=== PATIENT | female | born 1935 | race Caucasian/White ===

== ENCOUNTER 2020-02-07 19:46 | Inpatient (IN) ==
--- OUTSIDE RECORDS SUMMARY | 2020-02-07 19:49 | External Medical Summary | Continuity of Care Document ---
:1935 Author Name Katelynn Lozoya Address Unavailable Unavailable , Care Team Providers Name Role Phone Bunny Worrell PA-C Unavailable [email or web address] Unavailable Assessments Assessed Problems:Impacted cerumen of both earsVertigoHearing lossEar ache Problems Vertigo (780.4) (R42) Ear ache (388.70) (H92.09) Hearing loss (389.9) (H91.90) Impacted cerumen of both ears (380.4) (H61.23) Functional Status Hearing loss Allergies and Adverse Reactions Bactrim TABS (Allergy) Medications Lipitor TABS Refills: 0 Osteo Bi-Flex Adv Joint Shield Oral Tablet Refills: 0 Calcium Citrate Plus TABS Refills: 0 Aspirin 81 MG TABS Refills: 0 Fish Oil CAPS Refills: 0 Procedures History of Cataract Surgery Status: Comp leted History of Total Abdominal Hysterectomy Status: Completed Immunizations Immunizations not documented Interventions Follow-ups/ReferralsFollow-up as needed; Done: 08 Jul 2014 Plan of Treatment Planned Observations Planned Goals not documented Results No Known Results Results not documented Encounters Appointment; Hiral Worrell PA-C 08-Jul-2014 10:15 Encounter Diagnosis: Problem not documented
[2020-02-07] MEDS ORDERED: FAMOTIDINE 20MG IV PUSH 20 MG/5 ML SYR IV STA (20:24)
[2020-02-07] MEDS ORDERED: PROCHLORPERAZINE 1 ML IV ONE (20:24)
[2020-02-07] MEDS ORDERED: SODIUM CHLORIDE 0.9% 1000ML 1,000 ML IV SCH (20:30)
--- NOTE | 2020-02-07 20:56 | XRay Report ---
XR chest 1V portable HISTORY: Atypical Chest Pain COMPARISON: Chest 04/28/2018. FINDINGS: The lungs are hyperexpanded with apical predominant emphysematous changes. The heart is nor mal in size. The lungs are clear. No pleural effusions. No pneumothorax. No evidence for pulmonary ed nde. IMPRESSION: No significant change compared to the prior study. No acute process. ACT 112: Negative or not required by law. Electronically signed by: Arsh Cavanaugh M.D. 02/07/2020 8:55 PM
[2020-02-07 21:05] LABS: Basophils # (auto) 0.01 K/uL (0-0.2); Basophils % (auto) 0.2 %; Eosinophils # (auto) 0.02 K/uL (0-0.5); Eosinophils % (auto) 0.3 %; Hematocrit (blood only) 32.6 % (37-47); Hemoglobin 10.7 g/dL (12.0-16.0); Immature Granulocytes # (auto) 0.01 K/uL (0.00-0.02); Immature Granulocytes % (auto) 0.2 %; Lymphocytes # (auto) 0.88 K/uL (1.2-3.4); Lymphocytes % (auto) 14.5 %; Mean Corpuscular Hemoglobin 28.8 pg (25-34); Mean Corpuscular Hgb Conc 32.8 g/dL (32-36); Mean Corpuscular Volume 87.6 fL (80-100); Mean Platelet Volume 10.8 fL (7.4-10.4); Monocytes # (auto) 0.43 K/uL (0.11-0.59); Monocytes % (auto) 7.1 %; Neutrophils % (auto) 77.7 %; Platelet Count 216 K/uL (130-400); RDW Coefficient of Variation 13.6 % (11.5-14.5); RDW Standard Deviation 43.6 fL (36.4-46.3); Red Blood Count 3.72 M/uL (4.2-5.4); White Blood Count 6.05 K/uL (4.8-10.8)
[2020-02-07 21:16] LABS: Partial Thromboplastin Ratio 0.8; Partial Thromboplastin Time 23.4 Seconds (21.0-31.0); Prothrombin Time 10.2 Seconds (9.0-12.0)
[2020-02-07 21:27] LABS: Alanine Aminotransferase 34 U/L (12-78); Albumin Level 3.5 gm/dl (3.4-5.0); Aspartate Aminotransferase 45 U/L (15-37); BUN Creatinine Ratio 16.3 (10-20); Bilirubin Direct < 0.1 mg/dl (0-0.2); Blood Urea Nitrogen 11 mg/dl (7-18); Calcium 8.7 mg/dl (8.5-10.1); Carbon Dioxide 28 mmol/L (21-32); Chloride 92 mmol/L (98-107); Creatinine Clr Calc Pharmacy 44.9 ml/min; Est GFR (African American) 92.9; Est GFR (Non-African American) 80.2; Glucose 135 mg/dl (70-99); Lipase 212 U/L (73-393); Potassium 3.6 mmol/L (3.5-5.1); Sodium 127 mmol/L (136-145)
[2020-02-07 21:30] LABS: Albumin Globulin Ratio 0.8 (0.9-2); Alkaline Phosphatase 86 U/L (45-117); Bilirubin,Total 0.5 mg/dl (0.2-1); Globulin 4.2 gm/dl (2.5-4.0); Phosphorus 2.6 mg/dl (2.5-4.9); Total Protein 7.7 gm/dl (6.4-8.2); Troponin I < 0.015 ng/ml (0-0.045)
[2020-02-07 22:01] LABS: Appearance Urine Clear (Clear); Bilirubin Urine Negative (Negative); Blood Urine Negative (Negative); Color Urine Yellow; Glucose Urine UA Negative (Negative); Ketones Urine Trace (Negative); Leukocyte Esterase Urine Negative (Negative); Nitrite Urine Negative (Negative); Protein Urine Negative (Negative); Specific Gravity Urine 1.008 (1.000-1.030); Urobilinogen Urine Negative (Negative)
--- NOTE | 2020-02-07 22:02 | Emergency Department Note ---
Impression & Plan COVID-19, Acute hyponatremia, Nausea & vomiting ED Provider Note NAME: MATTHEW DELEON AGE: 84 SEX: F ARRIVES VIA: Ambulance INFORMANT: Patient, ED PROVIDER(S): Jose Brock MD CHIEF COMPLAINT: Nausea, vomiting, abdominal pain. Exposure to covid19 PLAN: Disposition: Admit MEDICAL DECISION MAKING: The patient is a pleasant 84 y/o woman with a pmhx of CAD/NSTEMI who presents to the emergency department with abdominal pain, n/v with became worse today in the setting of having nausea and fatigue over the past several days in the setting of being exposed to her to was diagnosed with Covid19 and admitted to [facility] on . She reports decreased oral intake. Denies CP, sob, cough, congestion, or urinary sx. On arrival the patient is uncomfortable, fatigued appearing, in NAD, AFVSS. She appears clinically dry. Abdomen with generalized discomfort without discrete tenderness. EKG without evidence of acute ischemia. CXR negative for acute process. WBC wnl though with mild lymphopenia to 0.88. H/H approximate to prior. Platelets wnl. Chemistry without acidosis. Sodium 127 which is likely related to patient's poor oral intake in setting of her n/v. AST 45, nonspecific. Otherwise LFTs and electrolytes unremarkable. Troponin negative. Lipase wnl. TSH wnl. UA negative for infection. Covid-19 RNA, NAAT was positive. CT of the abdomen and pelvis negative for acute process per prelminary [facility] report. Patient reported marginal improved after IVF hydration however still very weak. Given the patient's hyponatremia with poor oral intake, in the setting of Covid19 infection, reasonable to admit for further management. Patient ultimately was agreeable but is worried about how will care for her who she believes was going to be discharged today but did not because she was coming to the hospital. I discussed with our ED CM who sent note to admission CM team to ensure coordination with the patient's team and disposition. Case was discussed with Dr. Mosquera, [facility] hospitalist, who will evaluate the patient for admission. Triage Nursing notes reviewed and agree them. Prior medical records reviewed Vital Signs: reviewed and remarkable for no significant abnormalities Differential diagnosis: Gastroenteritis, food borne illness, infections, appendicitis, diverticulitis, inflammatory bowel disease, obstruction, GI bleed, biliary pathology, volvulus, as well as other pathologies. ER treatment provided: See below. Diagnostics interpreted by me: ECG: NSR, 71 bpm, no ectopy, no overt ST elevation or depression. Cardiac Monitoring: An order for continuous cardiac monitoring was placed and demonstrated NSR, 71 bpm, no ectopy. Laboratory studies: See below Imaging studies: XR chest 1V portable HISTORY: Atypical Chest Pain COMPARISON: Chest 04/28/2018. FINDINGS: The lungs are hyperexpanded with apical predominant emphysematous changes. The heart is normal in size. The lungs are clear. No pleural effusions. No pneumothorax. No evidence for pulmonary edema. IMPRESSION: No significant change compared to the prior study. No acute process. [facility] Preliminary Findings Only See Final Report For Complete Findings CT ABDOMEN & PELVIS With Contrast: Calcified splenic granulomas. Liver, gallbladder, pancreas, adrenal glands are unremarkable. Symmetric renal enhancement. No hydronephrosis. Aortoiliac atherosclerosis. No aneurysm. Normal appendix. No bowel obstruction or inflammation. Distended urinary bladder. Uterus not visualized suggesting prior hysterectomy. Age-indeterminate 50% L1 superior endplate compression fracture. Age-indeterminate 20% L2 superior endplate compression fracture. Osteopenia. Lumbar scoliosis and spondylosis. Radiologist: Prakash Oconnell M.D. Study ready at 23:09 and initial results transmitted at 23:22 Consultation(s): [facility] the patient for [facility]. HPI: The patient is a pleasant 84 y/o woman with a pmhx of CAD/NSTEMI who presents to the emergency department with abdominal pain, n/v with became worse today in the setting of having nausea and fatigue over the past several days in the setting of being exposed to her to was diagnosed with Covid19 and admitted to [facility] on . She reports decreased oral intake. Denies CP, sob, cough, congestion, or urinary sx. ROS: See above HPI for pertinent positives & negatives. A total of 10 systems reviewed and were otherwise negative. PAST MEDICAL HISTORY:See Below PAST SURGICAL HISTORY:See Below FAMILY HISTORY:See Below SOCIAL HISTORY:See Below HOME MEDICATIONS:See Below ALLERGIES:See Below VITALS:See Below PHYSICAL EXAMINATION: GENERAL: Awake, alert, fatigued-appearing, in no distress HENT: Normocephalic, atraumatic. Oropharynx with dry mucous membranes and otherwise unremarkable. EYES: Normal conjunctiva. Sclera non-icteric. NECK: Supple. No nuchal rigidity. FROM. No JVD. RESPIRATORY: Clear to auscultation. CARDIAC: Regular rate, normal rhythm. Extremities warm and well perfused. Pulses equal. ABDOMEN: Soft, non-distended. Generalized abdominal discomfort without discrete tenderness to palpation. No rebound or guarding. No masses. RECTAL: Deferred. MUSCULOSKELETAL: Chest examination reveals no tenderness. The back is symmetrical on inspection without obvious abnormality. There is no CVA tenderness to palpation. No joint edema. LOWER EXTREMITIES: Calves are equal size bilaterally and non-tender. No edema. No discoloration. NEURO: Normal sensorium. No sensory or motor deficits noted. SKIN: No rash or jaundice noted. Jose Brock MD Past Med/Surg History Medical History (Updated 02/08/20 @ 04:21 by Jose Brock MD) Arthritis Non-ST elevation ME (NSTEMI) Social History Smoking Status: Never smoker Preferred Language: Tamaz[place] marital status: Current Living Situation: Spouse Feels Safe at Home: Yes Allergies Allergies Allergy/AdvReac Type Severity Reaction Status Date / Time Bactrim Allergy Unknown SHORTNESS Verified 05/24/13 12:17 OF BREATH, rash Sulfa (Sulfonamide Allergy Unknown SHORTNESS Verified 02/07/20 23:34 Antibiotics) OF BREATH, RASH sulfamethoxazole Allergy Unknown SHORTNESS Verified 02/07/20 23:34 OF BREATH, rash trimethoprim Allergy Unknown SHORTNESS Verified 02/07/20 23:34 OF BREATH, rash Home Meds Home Medications Medication Instructions Recorded Confirmed aspirin 81 mg PO HS 04/28/18 02/07/20 atorvastatin 20 mg PO QAM 04/28/18 02/07/20 calcium carbonate-vitamin D3 1 tab PO QAM 04/28/18 02/07/20 [Caltrate 600 + D] glucosamine-chondroitin [Osteo 2 tab PO QAM 04/28/18 02/07/20 Bi-Flex] Results & Data (ED) Vital Signs Vital Signs - 24 hr 02/07/20 20:06 02/07/20 20:09 02/07/20 20:10 Temperature 36.6 C Temperature Source Oral Pulse Rate 66 68 Pulse Rate from SpO2 Sensor 67 Pulse Rhythm Regular Pulse Strength Normal Respiratory Rate 20 22 Respiratory Effort / Characteristics Non-Labored Spontaneous Respiratory Depth Normal Respiratory Pattern Regular Blood Pressure 188/80 H 188/80 H Blood Pressure Mean 116 104 Blood Pressure Position Sitting Pulse Oximetry 98 98 98 Oxygen Delivery Method Room Air Room Air Sepsis Recent Fever Within 48 Hours No Sepsis New/Unexplained Change in Mental Status No Sepsis Action Taken by Nursing No Action Required 02/07/20 20:43 02/07/20 21:00 02/07/20 21:30 Temperature Temperature Source Pulse Rate 78 79 88 Pulse Rate from SpO2 Sensor 77 79 87 Pulse Rhythm Pulse Strength Respiratory Rate 23 18 18 Respiratory Effort / Characteristics Respiratory Depth Respiratory Pattern Blood Pressure 163/69 H 197/121 H 194/86 H Blood Pressure Mean 95 141 120 Blood Pressure Position Pulse Oximetry 100 98 97 Oxygen Delivery Method Sepsis Recent Fever Within 48 Hours Sepsis New/Unexplained Change in Mental Status Sepsis Action Taken by Nursing 02/07/20 22:00 02/07/20 22:30 02/07/20 23:15 Temperature Temperature Source Pulse Rate 84 70 Pulse Rate from SpO2 Sensor 83 69 83 Pulse Rhythm Pulse Strength Respiratory Rate 15 20 20 Respiratory Effort / Characteristics Respiratory Depth Respiratory Pattern Blood Pressure 153/79 H 103/78 179/73 H Blood Pressure Mean 95 95 94 Blood Pressure Position Pulse Oximetry 98 94 97 Oxygen Delivery Method Room Air Sepsis Recent Fever Within 48 Hours Sepsis New/Unexplained Change in Mental Status Sepsis Action Taken by Nursing 02/07/20 23:30 02/08/20 00:00 02/08/20 00:30 Temperature Temperature Source Pulse Rate Pulse Rate from SpO2 Sensor 78 90 76 Pulse Rhythm Pulse Strength Respiratory Rate 22 20 22 Respiratory Effort / Characteristics Respiratory Depth Respiratory Pattern Blood Pressure 157/71 H 160/68 H 130/59 L Blood Pressure Mean 105 84 82 Blood Pressure Position Pulse Oximetry 98 97 96 Oxygen Delivery Method Room Air Room Air Sepsis Recent Fever Within 48 Hours Sepsis New/Unexplained Change in Mental Status Sepsis Action Taken by Nursing 02/08/20 01:00 02/08/20 01:30 02/08/20 02:00 Temperature Temperature Source Pulse Rate Pulse Rate from SpO2 Sensor 86 82 91 H Pulse Rhythm Pulse Strength Respiratory Rate 24 24 21 Respiratory Effort / Characteristics Respiratory Depth Respiratory Pattern Blood Pressure 176/81 H 120/59 L 172/81 H Blood Pressure Mean 140 75 133 Blood Pressure Position Pulse Oximetry 96 95 97 Oxygen Delivery Method Room Air Sepsis Recent Fever Within 48 Hours Sepsis New/Unexplained Change in Mental Status Sepsis Action Taken by Nursing Laboratory Data Attestation: I reviewed the patient's lab results. Result diagrams: 02/07/20 20:36 02/08/20 01:35 Lab Results 02/07/20 02/07/20 02/07/20 Range/Units 20:36 20:36 20:36 WBC 6.05 (4.8-10.8) K/uL RBC 3.72 L (4.2-5.4) M/uL Hgb 10.7 L (12.0-16.0) g/dL Hct 32.6 L (37-47) % MCV 87.6 (80-100) fL MCH 28.8 (25-34) pg MCHC 32.8 (32-36) g/dL RDW Std Deviation 43.6 (36.4-46.3) fL RDW Coeff of Vin 13.6 (11.5-14.5) % Plt Count 216 (130-400) K/uL MPV 10.8 H (7.4-10.4) fL Immature Gran % (Auto) 0.2 % Neut % (Auto) 77.7 % Lymph % (Auto) 14.5 % Jewell % (Auto) 7.1 % Eos % (Auto) 0.3 % Baso % (Auto) 0.2 % Neut # (Auto) 4.70 (1.4-6.5) K/uL Lymph # (Auto) 0.88 L (1.2-3.4) K/uL Jewell # (Auto) 0.43 (0.11-0.59) K/uL Eos # (Auto) 0.02 (0-0.5) K/uL Baso # (Auto) 0.01 (0-0.2) K/uL Immature Gran # (Auto) 0.01 (0.00-0.02) K/uL PT 10.2 (9.0-12.0) Seconds INR 1.0 (0.9-1.1) APTT 23.4 (21.0-31.0) Seconds PTT Ratio 0.8 Sodium 127 L (136-145) mmol/L Potassium 3.6 (3.5-5.1) mmol/L Chloride 92 L (98-107) mmol/L Carbon Dioxide 28 (21-32) mmol/L Anion Gap 7.0 (3-11) BUN 11 (7-18) mg/dl Creatinine 0.67 (0.6-1.2) mg/dl Est Cr Clr Drug Dosing 44.9 ml/min Est GFR ( Amer) 92.9 Est GFR (Non-Af Amer) 80.2 BUN/Creatinine Ratio 16.3 (10-20) Glucose 135 H (70-99) mg/dl Osmolality (280-300) mOsm/kg Calcium 8.7 (8.5-10.1) mg/dl Phosphorus 2.6 (2.5-4.9) mg/dl Magnesium 2.0 (1.8-2.4) mg/dl Total Bilirubin 0.5 (0.2-1) mg/dl Direct Bilirubin < 0.1 (0-0.2) mg/dl AST 45 H (15-37) U/L ALT 34 (12-78) U/L Alkaline Phosphatase 86 (45-117) U/L Troponin I < 0.015 (0-0.045) ng/ml Total Protein 7.7 (6.4-8.2) gm/dl Albumin 3.5 (3.4-5.0) gm/dl Globulin 4.2 H (2.5-4.0) gm/dl Albumin/Globulin Ratio 0.8 L (0.9-2) Lipase 212 (73-393) U/L TSH (0.300-4.500) uIu/ml Urine Color Urine Appearance (Clear) Urine pH (4.5-7.5) Ur Specific [place] (1.000-1.030) Urine Protein (Negative) Urine Glucose (UA) (Negative) Urine Ketones (Negative) Urine Blood (Negative) Urine Nitrite (Negative) Urine Bilirubin (Negative) Urine Urobilinogen (Negative) Ur Leukocyte Esterase (Negative) Urine Osmolality (500-800) mOsm/kg Ur Random Sodium mmol/L COVID-19 Eval Order SARS-CoV-2, RNA, NAAT (NEGATIVE) 02/07/20 02/07/20 02/07/20 Range/Units 20:36 20:36 20:37 WBC (4.8-10.8) K/uL RBC (4.2-5.4) M/uL Hgb (12.0-16.0) g/dL Hct (37-47) % MCV (80-100) fL MCH (25-34) pg MCHC (32-36) g/dL RDW Std Deviation (36.4-46.3) fL RDW Coeff of Vin (11.5-14.5) % Plt Count (130-400) K/uL MPV (7.4-10.4) fL Immature Gran % (Auto) % Neut % (Auto) % Lymph % (Auto) % Jewell % (Auto) % Eos % (Auto) % Baso % (Auto) % Neut # (Auto) (1.4-6.5) K/uL Lymph # (Auto) (1.2-3.4) K/uL Jewell # (Auto) (0.11-0.59) K/uL Eos # (Auto) (0-0.5) K/uL Baso # (Auto) (0-0.2) K/uL Immature Gran # (Auto) (0.00-0.02) K/uL PT (9.0-12.0) Seconds INR (0.9-1.1) APTT (21.0-31.0) Seconds PTT Ratio Sodium (136-145) mmol/L Potassium (3.5-5.1) mmol/L Chloride (98-107) mmol/L Carbon Dioxide (21-32) mmol/L Anion Gap (3-11) BUN (7-18) mg/dl Creatinine (0.6-1.2) mg/dl Est Cr Clr Drug Dosing ml/min Est GFR ( Amer) Est GFR (Non-Af Amer) BUN/Creatinine Ratio (10-20) Glucose (70-99) mg/dl Osmolality 267 L (280-300) mOsm/kg Calcium (8.5-10.1) mg/dl Phosphorus (2.5-4.9) mg/dl Magnesium (1.8-2.4) mg/dl Total Bilirubin (0.2-1) mg/dl Direct Bilirubin (0-0.2) mg/dl AST (15-37) U/L ALT (12-78) U/L Alkaline Phosphatase (45-117) U/L Troponin I (0-0.045) ng/ml Total Protein (6.4-8.2) gm/dl Albumin (3.4-5.0) gm/dl Globulin (2.5-4.0) gm/dl Albumin/Globulin Ratio (0.9-2) Lipase (73-393) U/L TSH (0.300-4.500) uIu/ml Urine Color Urine Appearance (Clear) Urine pH (4.5-7.5) Ur Specific [place] (1.000-1.030) Urine Protein (Negative) Urine Glucose (UA) (Negative) Urine Ketones (Negative) Urine Blood (Negative) Urine Nitrite (Negative) Urine Bilirubin (Negative) Urine Urobilinogen (Negative) Ur Leukocyte Esterase (Negative) Urine Osmolality (500-800) mOsm/kg Ur Random Sodium mmol/L COVID[email or web address], RNA, NAAT POSITIVE A* (NEGATIVE) 02/07/20 02/07/20 02/07/20 Range/Units 20:37 20:37 21:36 WBC (4.8-10.8) K/uL RBC (4.2-5.4) M/uL Hgb (12.0-16.0) g/dL Hct (37-47) % MCV (80-100) fL MCH (25-34) pg MCHC (32-36) g/dL RDW Std Deviation (36.4-46.3) fL RDW Coeff of Vin (11.5-14.5) % Plt Count (130-400) K/uL MPV (7.4-10.4) fL Immature Gran % (Auto) % Neut % (Auto) % Lymph % (Auto) % Jewell % (Auto) % Eos % (Auto) % Baso % (Auto) % Neut # (Auto) (1.4-6.5) K/uL Lymph # (Auto) (1.2-3.4) K/uL Jewell # (Auto) (0.11-0.59) K/uL Eos # (Auto) (0-0.5) K/uL Baso # (Auto) (0-0.2) K/uL Immature Gran # (Auto) (0.00-0.02) K/uL PT (9.0-12.0) Seconds INR (0.9-1.1) APTT (21.0-31.0) Seconds PTT Ratio Sodium (136-145) mmol/L Potassium (3.5-5.1) mmol/L Chloride (98-107) mmol/L Carbon Dioxide (21-32) mmol/L Anion Gap (3-11) BUN (7-18) mg/dl Creatinine (0.6-1.2) mg/dl Est Cr Clr Drug Dosing ml/min Est GFR ( Amer) Est GFR (Non-Af Amer) BUN/Creatinine Ratio (10-20) Glucose (70-99) mg/dl Osmolality (280-300) mOsm/kg Calcium (8.5-10.1) mg/dl Phosphorus (2.5-4.9) mg/dl Magnesium (1.8-2.4) mg/dl Total Bilirubin (0.2-1) mg/dl Direct Bilirubin (0-0.2) mg/dl AST (15-37) U/L ALT (12-78) U/L Alkaline Phosphatase (45-117) U/L Troponin I (0-0.045) ng/ml Total Protein (6.4-8.2) gm/dl Albumin (3.4-5.0) gm/dl Globulin (2.5-4.0) gm/dl Albumin/Globulin Ratio (0.9-2) Lipase (73-393) U/L TSH (0.300-4.500) uIu/ml Urine Color Yellow Urine Appearance Clear (Clear) Urine pH 8.0 H (4.5-7.5) Ur Specific [place] 1.008 (1.000-1.030) Urine Protein Negative (Negative) Urine Glucose (UA) Negative (Negative) Urine Ketones Trace H (Negative) Urine Blood Negative (Negative) Urine Nitrite Negative (Negative) Urine Bilirubin Negative (Negative) Urine Urobilinogen Negative (Negative) Ur Leukocyte Esterase Negative (Negative) Urine Osmolality 265 L (500-800) mOsm/kg Ur Random Sodium 95 mmol/L COVID-19 Eval Order SARS-CoV-2, RNA, NAAT (NEGATIVE) 02/08/20 Range/Units 01:35 WBC (4.8-10.8) K/uL RBC (4.2-5.4) M/uL Hgb (12.0-16.0) g/dL Hct (37-47) % MCV (80-100) fL MCH (25-34) pg MCHC (32-36) g/dL RDW Std Deviation (36.4-46.3) fL RDW Coeff of Vin (11.5-14.5) % Plt Count (130-400) K/uL MPV (7.4-10.4) fL Immature Gran % (Auto) % Neut % (Auto) % Lymph % (Auto) % Jewell % (Auto) % Eos % (Auto) % Baso % (Auto) % Neut # (Auto) (1.4-6.5) K/uL Lymph # (Auto) (1.2-3.4) K/uL Jewell # (Auto) (0.11-0.59) K/uL Eos # (Auto) (0-0.5) K/uL Baso # (Auto) (0-0.2) K/uL Immature Gran # (Auto) (0.00-0.02) K/uL PT (9.0-12.0) Seconds INR (0.9-1.1) APTT (21.0-31.0) Seconds PTT Ratio Sodium 128 L (136-145) mmol/L Potassium (3.5-5.1) mmol/L Chloride (98-107) mmol/L Carbon Dioxide (21-32) mmol/L Anion Gap (3-11) BUN (7-18) mg/dl Creatinine (0.6-1.2) mg/dl Est Cr Clr Drug Dosing ml/min Est GFR ( Amer) Est GFR (Non-Af Amer) BUN/Creatinine Ratio (10-20) Glucose (70-99) mg/dl Osmolality (280-300) mOsm/kg Calcium (8.5-10.1) mg/dl Phosphorus (2.5-4.9) mg/dl Magnesium (1.8-2.4) mg/dl Total Bilirubin (0.2-1) mg/dl Direct Bilirubin (0-0.2) mg/dl AST (15-37) U/L ALT (12-78) U/L Alkaline Phosphatase (45-117) U/L Troponin I (0-0.045) ng/ml Total Protein (6.4-8.2) gm/dl Albumin (3.4-5.0) gm/dl Globulin (2.5-4.0) gm/dl Albumin/Globulin Ratio (0.9-2) Lipase (73-393) U/L TSH 0.825 (0.300-4.500) uIu/ml Urine Color Urine Appearance (Clear) Urine pH (4.5-7.5) Ur Specific [place] (1.000-1.030) Urine Protein (Negative) Urine Glucose (UA) (Negative) Urine Ketones (Negative) Urine Blood (Negative) Urine Nitrite (Negative) Urine Bilirubin (Negative) Urine Urobilinogen (Negative) Ur Leukocyte Esterase (Negative) Urine Osmolality (500-800) mOsm/kg Ur Random Sodium mmol/L COVID-19 Eval Order SARS-CoV-2, RNA, NAAT (NEGATIVE) Administered Medications Discontinued Medications Sodium Chloride (Nss 1000ml) 1,000 mls @ 999 mls/hr IV .[id number] SCOTT Stop: 02/07/20 21:30 Last Infusion: 02/07/20 21:35 Dose: 0 mls/hr Documented by: [id number] Admin: 02/07/20 20:37 Dose: 999 mls/hr Documented by: [id number] Famotidine (Pepcid 20mg Iv Push) 20 mg in 5 mls @ 2.5 mls/min IV NOW STA Stop: 02/07/20 20:25 Last Admin: 02/07/20 20:37 Dose: 2.5 mls/min Documented by: [id number] Prochlorperazine (Compazine) 1 mls @ 1 mls/min IV ONE ONE Stop: 02/07/20 20:25 Last Admin: 02/07/20 20:37 Dose: 1 mls/min Documented by: [id number] Ioversol (Ioversol 100ml) 100 ml IV ONCE ONE Stop: 02/07/20 23:05 Last Admin: 02/07/20 23:04 Dose: 94 ml Documented by: [id number] Discharge Plan Visit Data Chief Complaint: Illness Stated Complaint: ILLNESS ED Provider: Jose Brock Discharge Problem: COVID-19, Acute hyponatremia, Nausea & vomiting Discharge Problem: Nausea & vomiting Qualifiers: Vomiting type: unspecified Vomiting Intractability: non-intractable Qualified Code(s): R11.2 - Nausea with vomiting, unspecified
[2020-02-07] MEDS ORDERED: IOVERSOL 100ml IV ONE (23:04)
--- NOTE | 2020-02-08 02:02 | History & Physical Report ---
Date of Service February 08, 2020 Assessment & Plan (1) Acute hyponatremia: Secondary to COVID-19 GI symptoms Situational hypertension hx CVA as per records chronic anemia, hemoglobin at baseline Hyperglycemia rule out DM Medical telemetry Careful correction of sodium Analgesia Initiate Amlodipine if BP persistently elevated. Check hemoglobin A1c DVT prophylaxis. Heparin subcu Full code Patient requesting a.m. provider to relay request to [facility] hospitalist provider for her (Mr. Arie Lux) not to be discharged home while Mrs. Lux is confined. Text document was generated using [employer] voice recognition software. It may contain grammatical or spelling errors. Kindly contact undersigned for clarification of any documentation item in question. History of Present Illness Chief Complaint: Abdominal pain, nausea, vomiting Primary Care Provider: Lorraine Ozuna DO History obtained from patient and records. Medical history significant for CVA, hyperlipidemia, chronic anemia (baseline hemoglobin of 11) Last confinement 2013 for syncope, compression fracture. Few days history of achy abdominal pain, nausea, emesis. No diarrhea symptoms. No chest pain, no S OB, no cough symptoms. Patient currently admitted for COVID-19 illness and supposed to be discharged home today. Medical History as above Surgical History : Cataract surgery, hysterectomy Family History : Pancreatic cancer, non-Hodgkin's lymphoma, heart disease Personal/Social history : Non-smoker, no EtOH intake, retired [employer] Allergies Allergy/AdvReac Type Severity Reaction Status Date / Time Bactrim Allergy Unknown SHORTNESS Verified 05/24/13 12:17 OF BREATH, rash Sulfa (Sulfonamide Allergy Unknown SHORTNESS Verified 02/07/20 23:34 Antibiotics) OF BREATH, RASH sulfamethoxazole Allergy Unknown SHORTNESS Verified 02/07/20 23:34 OF BREATH, rash trimethoprim Allergy Unknown SHORTNESS Verified 02/07/20 23:34 OF BREATH, rash Home Medications Medication Instructions Recorded Confirmed Type aspirin 81 mg PO HS 04/28/18 02/07/20 History atorvastatin 20 mg PO QAM 04/28/18 02/07/20 History calcium carbonate-vitamin D3 1 tab PO QAM 04/28/18 02/07/20 History [Caltrate 600 + D] glucosamine-chondroitin [Osteo 2 tab PO QAM 04/28/18 02/07/20 History Bi-Flex] Past Med/Surg History Medical History (Updated 02/08/20 @ 04:21 by Jose Brock MD) Arthritis Non-ST elevation SC (NSTEMI) Social History Smoking Status: Never smoker Hx Alcohol Use: No Hx Substance Use: No Preferred Language: Ukrainian Communication Ability: Effective 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 Required: No Beliefs That Will Affect Care: None marital status: Current Living Situation: Spouse Other Information That Helps Us Care for You: No Feels Safe at Home: Yes Safety Concerns: Feels Safe At This Time Assistive Devices: Glasses, Hearing Aid - Left and Hearing Aid - Right Review of Systems Review of Systems: As per HPI, all 10 systems reviewed, all other ROS negative Physical Exam Physical Exam: GENERAL: Slightly uncomfortable, underweight, no respiratory distress SKIN: Pallor , warm HEENT: Bespectacled, pale palpebral conjunctivae, no ptosis, dry buccal mucosa NECK : Supple, no tenderness CHEST : CTA, no tenderness HEART : RRR, no obvious murmurs ABDOMEN: Soft, nontender EXTREMITIES : No LE swelling/tenderness, no other conspicuous deformities noted NEUROLOGIC : Coherent, no facial asymmetry, no other gross focality Results & Data Results & Data ([facility]) Vital Signs (Past 12 Hours) Vital Signs Temp Pulse Resp BP Pulse Ox 02/08/20 01:30 24 120/59 L 95 02/08/20 01:00 24 176/81 H 96 02/08/20 00:30 22 130/59 L 96 02/08/20 00:00 20 160/68 H 97 02/07/20 23:30 22 157/71 H 98 02/07/20 23:15 20 179/73 H 97 02/07/20 22:30 70 20 103/78 94 02/07/20 22:00 84 15 153/79 H 98 02/07/20 21:30 88 18 194/86 H 97 02/07/20 21:00 79 18 197/121 H 98 02/07/20 20:43 78 23 163/69 H 100 02/07/20 20:10 68 22 188/80 H 98 02/07/20 20:09 36.6 C 66 20 188/80 H 98 02/07/20 20:06 98 Laboratory Results Laboratory Results WBC 6.05 K/uL (4.8-10.8) 02/07/20 20:36 RBC 3.72 M/uL (4.2-5.4) L 02/07/20 20:36 Hgb 10.7 g/dL (12.0-16.0) L 02/07/20 20:36 Hct 32.6 % (37-47) L 02/07/20 20:36 MCV 87.6 fL (80-100) 02/07/20 20:36 MCH 28.8 pg (25-34) 02/07/20 20: MCHC 32.8 g/dL (32-36) 02/07/20 20:36 RDW Std Deviation 43.6 fL (36.4-46.3) 02/07/20 20: RDW Coeff of Vin 13.6 % (11.5-14.5) 02/07/20 20: Plt Count 216 K/uL (130-400) 02/07/20 20:36 MPV 10.8 fL (7.4-10.4) H 02/07/20 20:36 Immature Gran % (Auto) 0.2 % 02/07/20 20:36 Neut % (Auto) 77.7 % 02/07/20 20:36 Lymph % (Auto) 14.5 % 02/07/20 20:36 [place] % (Auto) 7.1 % 02/07/20 20:36 Eos % (Auto) 0.3 % 02/07/20 20:36 Baso % (Auto) 0.2 % 02/07/20 20:36 Neut # (Auto) 4.70 K/uL (1.4-6.5) 02/07/20 20:36 Lymph # (Auto) 0.88 K/uL (1.2-3.4) L 02/07/20 20:36 [place] # (Auto) 0.43 K/uL (0.11-0.59) 02/07/20 20:36 Eos # (Auto) 0.02 K/uL (0-0.5) 02/07/20 20:36 Baso # (Auto) 0.01 K/uL (0-0.2) 02/07/20 20:36 Immature Gran # (Auto) 0.01 K/uL (0.00-0.02) 02/07/20 20:36 PT 10.2 Seconds (9.0-12.0) 02/07/20 20:36 INR 1.0 (0.9-1.1) 02/07/20 20:36 APTT 23.4 Seconds (21.0-31.0) 02/07/20 20:36 PTT Ratio 0.8 02/07/20 20:36 Sodium 127 mmol/L (136-145) L 02/07/20 20:36 Potassium 3.6 mmol/L (3.5-5.1) 02/07/20 20:36 Chloride 92 mmol/L (98-107) L 02/07/20 20:36 Carbon Dioxide 28 mmol/L (21-32) 02/07/20 20:36 Anion Gap 7.0 (3-11) 02/07/20 20:36 BUN 11 mg/dl (7-18) 02/07/20 20:36 Creatinine 0.67 mg/dl (0.6-1.2) 02/07/20 20:36 Est Cr Clr Drug Dosing 44.9 ml/min 02/07/20 20:36 Est GFR ( Amer) 92.9 02/07/20 20:36 Est GFR (Non-Af Amer) 80.2 02/07/20 20:36 BUN/Creatinine Ratio 16.3 (10-20) 02/07/20 20:36 Glucose 135 mg/dl (70-99) H 02/07/20 20:36 Osmolality 267 mOsm/kg (280-300) L 02/07/20 20:37 Calcium 8.7 mg/dl (8.5-10.1) 02/07/20 20:36 Phosphorus 2.6 mg/dl (2.5-4.9) 02/07/20 20:36 Magnesium 2.0 mg/dl (1.8-2.4) 02/07/20 20:36 Total Bilirubin 0.5 mg/dl (0.2-1) 02/07/20 20:36 Direct Bilirubin < 0.1 mg/dl (0-0.2) 02/07/20 20:36 AST 45 U/L (15-37) H 02/07/20 20:36 ALT 34 U/L (12-78) 02/07/20 20:36 Alkaline Phosphatase 86 U/L (45-117) 02/07/20 20:36 Troponin I < 0.015 ng/ml (0-0.045) 02/07/20 20:36 Total Protein 7.7 gm/dl (6.4-8.2) 02/07/20 20:36 Albumin 3.5 gm/dl (3.4-5.0) 02/07/20 20:36 Globulin 4.2 gm/dl (2.5-4.0) H 02/07/20 20:36 Albumin/Globulin Ratio 0.8 (0.9-2) L 02/07/20 20:36 Lipase 212 U/L (73-393) 02/07/20 20:36 Urine Color Yellow 02/07/20 21:36 Urine Appearance Clear (Clear) 02/07/20 21:36 Urine pH 8.0 (4.5-7.5) H 02/07/20 21:36 Ur Specific [place] 1.008 (1.000-1.030) 02/07/20 21:36 Urine Protein Negative (Negative) 02/07/20 21:36 Urine Glucose (UA) Negative (Negative) 02/07/20 21:36 Urine Ketones Trace (Negative) H 02/07/20 21:36 Urine Blood Negative (Negative) 02/07/20 21:36 Urine Nitrite Negative (Negative) 02/07/20 21:36 Urine Bilirubin Negative (Negative) 02/07/20 21:36 Urine Urobilinogen Negative (Negative) 02/07/20 21:36 Ur Leukocyte Esterase Negative (Negative) 02/07/20 21:36 Urine Osmolality 265 mOsm/kg (500-800) L 02/07/20 20:37 Ur Random Sodium 95 mmol/L 02/07/20 20:37 COVID-19 Eval Order Covid19 IDNow [facility] 02/07/20 20:36 SARS-CoV-2, RNA, NAAT POSITIVE (NEGATIVE) A* 02/07/20 20:[address] abdomen pelvis: 1. No acute process within the abdomen or pelvis. 2. Moderate distention of the urinary bladder. 3. No bowel obstruction. No bowel wall thickening. Normal appendix. 4. L1 and L2 compression fractures which are likely old. Chest x-ray : No significant change compared to the prior study. No acute process. EKG as per my interpretation : Rate 70, NSR, normal axis, incomplete RBBB, no ischemia
[2020-02-08 02:53] LABS: Thyroid Stimulating Hormone 0.825 uIu/ml (0.300-4.500)
[2020-02-08] MEDS ORDERED: NSS + 20MEQ KCL 20 MEQ/1,000 ML BAG IV ONE (04:37)
[2020-02-08] MEDS ORDERED: lisinopril 2.5 MG TAB PO SCH (04:40)
[2020-02-08] MEDS ORDERED: ACETAMINOPHEN 325 MG TAB PO PRN (06:35)
[2020-02-08] MEDS ORDERED: PROMETHAZINE HCL 6.25 MG in SODIUM CHLORIDE 0.9% 50 ML IV PRN (06:35)
[2020-02-08] MEDS ORDERED: HEPARIN SOD 5,000 UNIT/0.5 ML VIAL SQ SCH (07:00)
--- NOTE | 2020-02-08 08:10 | CT Scan Report ---
CT OF THE ABDOMEN AND PELVIS WITH CONTRAST CLINICAL HISTORY: covid PUI, abd pain, n/v COMPARISON STUDY: None. TECHNIQUE: Following IV administration of 94 mL of Optiray-320, axial images of the abdomen and pelvi s were obtained from the lung bases to the proximal femurs. Images were reviewed in the axial, sagitt al, and coronal planes. IV contrast was administered without complication. Automated exposure contro l was utilized for the study. A dose lowering technique was utilized adhering to the principles of A FLAKO. CT DOSE: 306.91 mGycm FINDINGS: Lung bases are unremarkable. There is mild cardiomegaly. No pneumatosis, free air or portal venous gas is present. There are calcified granulomas within the spleen. The liver, kidneys, adrenal glands and pancreas are unremarkable. There is no peripancreatic or pericholecystic infiltration. Th ere is no biliary or pancreatic ductal dilatation. There is contrast within both collecting systems a nd ureters. No hydronephrosis. Mammograms are symmetric. There is no evidence for a bowel obstruction . The appendix is normal. Bladder is moderately distended. The caliber and wall thickness of small an d large bowel are normal. No lymphadenopathy or ascites is present. L1 and L2 compression fractures a re likely old. IMPRESSION: 1. No acute process within the abdomen or pelvis. 2. Moderate distention of the urinary bladder. 3. No bowel obstruction. No bowel wall thickening. Normal appendix. 4. L1 and L2 compression fractures which are likely old. ACT 112: Negative or not required by law. Electronically signed by: Magdiel Betancourt M.D. 02/08/2020 8:09 AM
[2020-02-08 08:22] LABS: Basophils # (auto) 0.01 K/uL (0-0.2); Basophils % (auto) 0.2 %; Hemoglobin 11.9 g/dL (12.0-16.0); Lymphocytes % (auto) 13.7 %; Mean Corpuscular Hemoglobin 28.7 pg (25-34); Mean Corpuscular Hgb Conc 33.1 g/dL (32-36); Mean Corpuscular Volume 86.7 fL (80-100); Monocytes # (auto) 0.42 K/uL (0.11-0.59); Monocytes % (auto) 7.2 %; Neutrophils # (auto) 4.61 K/uL (1.4-6.5); Neutrophils % (auto) 78.9 %; Platelet Count 226 K/uL (130-400); RDW Coefficient of Variation 13.6 % (11.5-14.5); RDW Standard Deviation 43.5 fL (36.4-46.3); Red Blood Count 4.15 M/uL (4.2-5.4); White Blood Count 5.84 K/uL (4.8-10.8)
[2020-02-08 08:38] LABS: BUN Creatinine Ratio 15.6 (10-20); Calcium 8.9 mg/dl (8.5-10.1); Creatinine Clr Calc Pharmacy 50.1 ml/min; Est GFR (African American) 96.3; Est GFR (Non-African American) 83.1; Potassium 3.5 mmol/L (3.5-5.1)
[2020-02-08] MEDS ORDERED: GLUCOSAMINE SULFATE 500 MG CAP PO SCH ×2 (09:00)
[2020-02-08] MEDS ORDERED: ATORVASTATIN 20 MG TAB PO SCH (09:00)
[2020-02-08] MEDS ORDERED: CALCIUM 600MG + VIT D 400 IU TAB PO SCH (09:00)
[2020-02-08] MEDS ORDERED: INFLUENZA ADMINISTRATION CHARGE ONE (09:30)
[2020-02-08] MEDS ORDERED: INFLUENZA VACCINE HIGH DOSE 65+ 0.7 ML SYR IM ONE (09:30)
[2020-02-08 10:14] LABS: Alanine Aminotransferase 38 U/L (12-78); Albumin Level 3.6 gm/dl (3.4-5.0); Alkaline Phosphatase 100 U/L (45-117); Aspartate Aminotransferase 47 U/L (15-37); Bilirubin Direct < 0.1 mg/dl (0-0.2); Bilirubin,Total 0.3 mg/dl (0.2-1); Total Protein 7.9 gm/dl (6.4-8.2)
--- NOTE | 2020-02-08 14:43 | Electrocardiogram Report ---
Test Reason : Blood Pressure : / mmHG Vent. Rate : 071 BPM Atrial Rate : 071 BPM P-R Int : 204 ms QRS Dur : 092 ms QT Int : 402 ms P-R-T Axes : 074 010 060 degrees QTc Int : 436 ms Normal sinus rhythm Normal ECG When compared with ECG of 28-APR-2018 12:31, No significant change was found Confirmed by Saleem Ling ([id number]) on 02/08/2020 2:42:53 PM Referred By: REFERRED SELF Confirmed By:Saleem Ling
--- NOTE | 2020-02-08 15:22 | Discharge Summary ---
Date of Service February 08, 2020 Admission HPI Per Admitting Provider History obtained from patient and records. Medical history significant for CVA, hyperlipidemia, chronic anemia (baseline hemoglobin of 11) Last confinement 2013 for syncope, compression fracture. Few days history of achy abdominal pain, nausea, emesis. No diarrhea symptoms. No chest pain, no S OB, no cough symptoms. Patient currently admitted for COVID-19 illness and supposed to be discharged home today. Medical History as above Surgical History : Cataract surgery, hysterectomy Family History : Pancreatic cancer, non-Hodgkin's lymphoma, heart disease Personal/Social history : Non-smoker, no EtOH intake, retired [employer] Admission Exam Per Admitting Provider GENERAL: Slightly uncomfortable, underweight, no respiratory distress SKIN: Pallor , warm HEENT: Bespectacled, pale palpebral conjunctivae, no ptosis, dry buccal mucosa NECK : Supple, no tenderness CHEST : CTA, no tenderness HEART : RRR, no obvious murmurs ABDOMEN: Soft, nontender EXTREMITIES : No LE swelling/tenderness, no other conspicuous deformities noted NEUROLOGIC : Coherent, no facial asymmetry, no other gross focality Principal Diagnosis Acute Hyponatremia COVID-19 Hypertension Discharge Exam General- No acute distress Head- atraumatic Eyes- PERRL, EOMI, ENT- oropharynx clear Neck- supple, no JVD Lungs- clear to auscultation Heart- regular rhythm Abdomen- normal bowel sounds, soft, nontender Extremities- no calf tenderness Neuro- alert, oriented x 3; PERRL, EOMI; no facial palsy; no dysarthria Skin- warm & dry Discharge Data Allergies Allergy/AdvReac Type Severity Reaction Status Date / Time Bactrim Allergy Unknown SHORTNESS Verified 05/24/13 12:17 OF BREATH, rash Sulfa (Sulfonamide Allergy Unknown SHORTNESS Verified 02/07/20 23:34 Antibiotics) OF BREATH, RASH sulfamethoxazole Allergy Unknown SHORTNESS Verified 02/07/20 23:34 OF BREATH, rash trimethoprim Allergy Unknown SHORTNESS Verified 02/07/20 23:34 OF BREATH, rash Consultations 02/08/20 00:21 ED Decision to Admit Stat 02/08/20 06:35 Consult Case Management - Discharge Planning Routine Ordered Studies 02/07/20 20:23 CT abd pelvis IV con only Urgent XR chest 1V portable HISTORY: Atypical Chest Pain COMPARISON: Chest 04/28/2018. FINDINGS: The lungs are hyperexpanded with apical predominant emphysematous changes. The heart is normal in size. The lungs are clear. No pleural effusions. No pneumothorax. No evidence for pulmonary edema. IMPRESSION: No significant change compared to the prior study. No acute process. ACT 112: Negative or not required by law. Electronically signed by: Arsh Cavanaugh M.D. 02/07/2020 8:55 PM Dictated: 02/07/202053Transcribed: 02/07/202053 CT OF THE ABDOMEN AND PELVIS WITH CONTRAST CLINICAL HISTORY: covid PUI, abd pain, n/v COMPARISON STUDY: None. TECHNIQUE: Following IV administration of 94 mL of Optiray-320, axial images of the abdomen and pelvis were obtained from the lung bases to the proximal femurs. Images were reviewed in the axial, sagittal, and coronal planes. IV contrast was administered without complication. Automated exposure control was utilized for the study. A dose lowering technique was utilized adhering to the principles of ALARA. CT DOSE: 306.91 mGycm FINDINGS: Lung bases are unremarkable. There is mild cardiomegaly. No pneumatosis, free air or portal venous gas is present. There are calcified granulomas within the spleen. The liver, kidneys, adrenal glands and pancreas are unremarkable. There is no peripancreatic or pericholecystic infiltration. There is no biliary or pancreatic ductal dilatation. There is contrast within both collecting systems and ureters. No hydronephrosis. Mammograms are symmetric. There is no evidence for a bowel obstruction. The appendix is normal. Bladder is moderately distended. The caliber and wall thickness of small and large bowel are normal. No lymphadenopathy or ascites is present. L1 and L2 compression fractures are likely old. IMPRESSION: 1. No acute process within the abdomen or pelvis. 2. Moderate distention of the urinary bladder. 3. No bowel obstruction. No bowel wall thickening. Normal appendix. 4. L1 and L2 compression fractures which are likely old. ACT 112: Negative or not required by law. Electronically signed by: Magdiel Betancourt M.D. 02/08/2020 8:09 AM Dictated: 02/08/20801Transcribed: 02/08/20801 Hospital Course (1) Acute hyponatremia: Na on admission 127 Possible related to poor intake due to covid 19 Received IVF, Na improved 132 Pt is very anxious to go home Check BMP in 1 week COVID 19 COVID 19 tested positive on admission Saturated well on RA Does no meet criteria for Dexamethasone, Remdesivir and plasma convalescent since pt is saturated well on RA Hypertension Possible related to hospital setting Pt would like to go home BP elevated Continue monitor BP DVT px on Heparin subq CODE status FULL CODE Disposition Discharge home today Total Time Total Time Spent Total Time Spent (In Minutes): 35 minutes Total Time Includes: Examination of the Patient, Discharge Planning, Medication Reconciliation, Communication With Other Providers and Other Discharge Plan Discharge Items Patient Disposition: Home - Self-Care Reason For Visit: HYPONATREMIA Discharge Diagnosis: Acute Hyponatremia (Low sodium) COVID-19 Hypertension Activity: Resume your previous activity Non-emergency contact: Primary Care Provider Call non-emergency contact if: you have any medication questions and your temperature is above 101 Follow-up/Referrals: Lorraine Ozuna DO [Primary Care Provider] - (Date & Time 02/11/2020 12:30 PM Provider Lorraine Ozuna DO [facility] PLEASE NOTE THAT THIS IS A TELEPHONE APPOINTMENT. YOUR PHYSICIAN WILL CALL YOU AT THE APPOINTMENT TIME. IF YOU HAVE ANY QUESTIONS, PLEASE CALL .) Diet: Heart Healthy Addtl Attending Provider Instructions: Follow up with your primary care provider Dr. Ozuna on 02/11/2020 at 12:30 PM Check BMP in 1 week to monitor electrolytes Check LFT in 1 week to monitor your liver enzymes Seek medical attention if you develop any shortness of breath or fever Continue monitor your blood pressure Fall precaution Home Isolation COVID-19 Instructions The following information about Home Isolation is from the CDC Website: https://www.cdc.gov/coronavirus/2019-ncov/hcp/qgvhhewi-ngztthm-pgnsxo.html Stay home except to get medical care People who are mildly ill with COVID-19 are able to isolate at home during their illness. You should restrict activities outside your home, except for getting medical care. Do not go to work, school, or public areas. Avoid using public transportation, ride-sharing, or taxis. Separate yourself from other people and animals in your home People: As much as possible, you should stay in a specific room and away from other people in your home. Also, you should use a separate bathroom, if available. Animals: You should restrict contact with pets and other animals while you are sick with COVID-19, just like you would around other people. Although there have not been reports of pets or other animals becoming sick with COVID-19, it is still recommended that people sick with COVID-19 limit contact with animals until more information is known about the virus. When possible, have another member of your household care for your animals while you are sick. If you are sick with COVID-19, avoid contact with your pet, including petting, snuggling, being kissed or licked, and sharing food. If you must care for your pet or be around animals while you are sick, wash your hands before and after you interact with pets and wear a face mask. Call ahead before visiting your doctor If you have a medical appointment, call the healthcare provider and tell them that you have or may have COVID-19. This will help the healthcare providers office take steps to keep other people from getting infected or exposed. Wear a face mask You should wear a face mask when you are around other people (e.g., sharing a room or vehicle) or pets and before you enter a healthcare providers office. If you are not able to wear a face mask (for example, because it causes trouble breathing), then people who live with you should not stay in the same room with you, or they should wear a face mask if they enter your room. Cover your coughs and sneezes Cover your mouth and nose with a tissue when you cough or sneeze. Throw used tissues in a lined trash can. Immediately wash your hands with soap and water for at least 20 seconds or, if soap and water are not available, clean your hands with an alcohol-based hand washer blanket that contains at least 60% alcohol. Clean your hands often Wash your hands often with soap and water for at least 20 seconds, especially after blowing your nose, coughing, or sneezing; going to the bathroom; and before eating or preparing food. If soap and water are not readily available, use an alcohol-based hand washer blanket with at least 60% alcohol, covering all surfaces of your hands and rubbing them together until they feel dry. Soap and water are the best option if hands are visibly dirty. Avoid touching your eyes, nose, and mouth with unwashed hands. Avoid sharing personal household items You should not share dishes, drinking glasses, cups, eating utensils, towels, or bedding with other people or pets in your home. After using these items, they should be washed thoroughly with soap and water. Clean all high-touch surfaces everyday High touch surfaces include counters, tabletops, doorknobs, bathroom fixtures, toilets, phones, keyboards, tablets, and bedside tables. Also, clean any surfaces that may have blood, stool, or body fluids on them. Use a household cleaning spray or wipe, according to the label instructions. Labels contain instructions for safe and effective use of the cleaning product including precautions you should take when applying the product, such as wearing gloves and making sure you have good ventilation during use of the product. Monitor your symptoms Seek prompt medical attention if your illness is worsening (e.g., difficulty breathing).Beforeseeking care, call your healthcare provider and tell them that you have, or are being evaluated for, COVID-19. Put on a face mask before you enter the facility. These steps will help the healthcare providers office to keep other people in the office or waiting room from getting infected or exposed. Ask your healthcare provider to call the local or state health department. Persons who are placed under active monitoring or facilitated self- monitoring should follow instructions provided by their local health department or occupational health professionals, as appropriate. When working with your local health department check their available hours. If you have a medical emergency and need to call 911, notify the dispatch personnel that you have, or are being evaluated for COVID-19. If possible, put on a face mask before emergency medical services arrive. Discontinuing home isolation Patients with confirmed COVID-19 should remain under home isolation precautions until the risk of secondary transmission to others is thought to be low. The decision to discontinue home isolation precautions should be made on a [id number] basis, in consultation with healthcare providers and state and local health departments. Coronavirus disease 2019 (COVID-19) is a virus that causes a respiratory illness. It is caused by a coronavirus called 2019 novel coronavirus (2019- nCoV). There are many types of coronavirus. Coronaviruses are a very common c ause of bronchitis. They may sometimes cause lung infection(pneumonia). Symptoms can range from mild to severe respiratory illness. These viruses are also foundin some animals. COVID-19 was first found in people in [facility], in late 2019. In 2020, several cases of COVID-19 have been confirmed in the [place] Public health officials are working to find the source. How the virus spreads is not yet fully known. It may be spread through droplets of fluid that a person coughs or sneezes into the air. It may be spread if you touch a surface with virus on it, such as a handle or object, and then touch your mouth. What are the symptoms of COVID-19? Some people have no symptoms or mild symptoms. Symptoms may appear 2 to 14 days after contact with the virus. Symptoms can include: Fever Coughing Trouble breathing What are possible complications from COVID-19? In many cases, this virus can cause infection (pneumonia) in both lungs. In some cases, this can cause . How is COVID-19 diagnosed? Your healthcare provider will ask about your symptoms. He or she will also ask about your recent travel and contact with sick people. Testing for the virus is only done through the CDC. If yourhealthcare provider thinks you may have COVID- 19, he or she will work with your local health department and the CDC on te sting. Follow all instructions from your healthcare provider. COVID-19 is diagnosed by: Nasal and throat swab. A cotton-tipped swab is wiped inside your nose or throat. This is done to check for viruses in your nasal mucus. Sputum culture. A small sample of mucus coughed from your lungs (sputum) is collected if you have a cough. It is checked for the virus. How is COVID-19 treated? There is currently no medicine to treat the virus. Treatment is done to help your body while it fights the virus. This is known as supportive care. Supportive care may include: Pain medicine. These include acetaminophen and ibuprofen. They are used to help ease pain and reduce fever. Bed rest. This helps your body fight the illness. For severe illness, you may need to stay in the hospital. Care during severe illness may include: IV (intravenous) fluids.These are given through a vein to help keep your body hydrated. Oxygen. Supplemental oxygen or ventilation with a breathing machine (ventilator) may be given. This is done to keep enough oxygen in your body. Are you at risk for COVID-19? If youve been to a place where people have been sick with this virus, you are at risk for infection. You are at risk if you: Recently traveled to an affected area Had contact with a sick person who recently traveled to this area Had contact with a person who was diagnosed with COVID-19 How can COVID-19 be prevented? There is no vaccine yet. The best prevention is to not have contact with the virus. The CDC advises that people should not travel to areas where there are COVID-19 outbreaks right now for any reason that is not urgent. To help prevent spreading the infection, wash your hands often, or use an alcohol-basedhand washer blanket. If you are in an area with COVID-19: Wash your hands often. Or use an alcohol-based hand washer blanket often. Only touch your eyes, nose, or mouth with clean hands. Dont have contact with people who are sick. Follow local instructions about being in public. For example, you may be told to not use public transport for a period of time. Stay away from markets that have live or animals. Wash your hands after touching any animals. Don't touch animals that may be sick. Dont share eating or drinking tools with sick people. Dont kiss someone who is sick. Clean surfaces often with disinfectant. If you were in an area with COVID-19 in the last 14 days: Call your healthcare provider. He or she can talk with local health staff to see what action may be needed. Follow all instructions from your provider. Take your temperature every morning and evening for at least 14 days. This is to check for fever. Keep a record of the readings. Keep watch for symptoms of the virus. Tell your provider right away if you have symptoms. If you were in an area with COVID-19 and have a fever or other symptoms: Dont panic. Keep in mind that other illnesses can cause similar symptoms. Stay away from work, school, and public places. Limit physical contact with family members. Don't kiss anyone or share eating or drinking utensils. Clean surfaces you touch with disinfectant. This is to help prevent the virus from spreading. Call your healthcare provider. Explain that you have been exposed to COVID-19 and have symptoms. Do this before going to any hospital. Wait for instructions. Keep in mind that healthcare staff may wear protective equipment such as masks, gowns, gloves, and eye protection. You may be put in a separate room. This is to prevent the possible virus from spreading. Tell the healthcare staff about recent travel. This includes local travel on public transport. Staff may need to find other people you have been in contact with. Follow all instructions the healthcare staff give you. If you have been diagnosed with COVID-19 Follow all instructions from your healthcare provider. Dont leave your home, except to get medical care. Call your healthcare providers office before going. They can prepare and give you instructions. This will help prevent the virus from spreading. Dont go to work, school, or public areas. Dont use public transport or taxis. Stay away from other people in your home. Have them wear face masks around you. Dont share household items or food. Wear a face mask if you can. This includes at home or in a medical facility. Cover your face with a tissue when you cough or sneeze. Throw the tissue away. Wash your hands. Wash your hands often. Caregivers should: Follow all instructions from healthcare staff. Wear a face mask and protective clothing as advised. Wash hands often. Keep track of the sick persons symptoms. Clean surfaces, fabrics, and laundry thoroughly. Keep other people away from the sick person. When to call your healthcare provider Call your healthcare provider: If youve recently traveled and have symptoms If you have been diagnosed with COVID-19 and your symptoms are worse To learn more To find out more about COVID-19, visit the CDC website at www.cdc.gov/coronavirus/2019-ncov/index.html. [employer]. [address] [place] [address]. All rights reserved. This information is not intended as a substitute for professional medical care. Always follow your healthcare professional's instructions. This information has been adapted from [employer] Pending Studies at Discharge: No Stand-Alone Forms: [employer], Smoking Cessation Medications and DC Order Prescriptions: Continued atorvastatin 20 mg Tablet 20 mg PO QAM RF: 0 aspirin 81 mg Tablet,Delayed Release (Dr/Ec) 81 mg PO HS RF: 0 glucosamine-chondroitin [Osteo Bi-Flex] 250-200 mg Tablet 2 tab PO QAM RF: 0 Caltrate 600 plus D 600 mg (1,500 mg)-800 unit Tablet,Chewable 1 tab PO QAM RF: 0 Discharge Orders: Discharge Order (Routine); Ordered 02/08/20 Ordered By: Lionel Sanon Admission Data Admit Date/Time: 02/08/20 02:04 Attending Provider: Lionel Sanon Admit Provider: Denis Mosquera Primary Care Provider: Lorraine Ozuna Other Providers: Denis Mosquera Other Interventions: Discharge Summary Assessment (RN) Last Done: 02/08/20 14:39
[2020-02-08] MEDS ORDERED: ASPIRIN 81 MG ECTAB PO SCH (21:00)
== END 2020-02-08 16:19 | disposition home or self-care (01) | DRG 178 ==
LOC: ED 19:46 → EDINP 02-08 02:04

== ENCOUNTER 2022-07-23 13:40 | Inpatient (IN) ==
[2022-07-23 14:38] LABS: Basophils # (auto) 0.04 K/uL (0-0.2); Basophils % (auto) 0.6 %; Eosinophils # (auto) 0.04 K/uL (0-0.50); Eosinophils % (auto) 0.6 %; Hematocrit (blood only) 24.6 % (37.0-47.0); Hemoglobin 7.4 g/dl (12.0-16.0); Immature Granulocytes # (auto) 0.02 K/uL (0.01-0.20); Immature Granulocytes % (auto) 0.3 %; Lymphocytes % (auto) 14.5 %; Mean Corpuscular Hemoglobin 20.2 pg (25.0-34.0); Mean Corpuscular Hgb Conc 30.1 g/dL (32.0-36.0); Mean Corpuscular Volume 67.2 fL (80.0-100.0); Monocytes # (auto) 0.52 K/uL (0.11-0.59); Monocytes % (auto) 8.4 %; Neutrophils # (auto) 4.67 K/uL (1.40-6.50); Neutrophils % (auto) 75.6 %; RDW Coefficient of Variation 19.8 % (11.5-14.5); RDW Standard Deviation 48.1 fL (36.4-46.3); Red Blood Count 3.66 M/uL (4.20-5.40); White Blood Count 6.19 K/ul (4.8-10.8)
[2022-07-23 14:52] LABS: Mean Platelet Volume 10.4 fL (9.4-12.4); Platelet Count 364 K/uL (130-400)
[2022-07-23 14:53] LABS: INR 0.9 (0.9-1.1); Partial Thromboplastin Ratio 0.7; Partial Thromboplastin Time 21.1 Seconds (21.0-31.0); Prothrombin Time 10.3 Seconds (9.0-12.0)
[2022-07-23 14:59] LABS: Alanine Aminotransferase 15 U/L (7-52); Albumin Globulin Ratio 1.2 (0.9-2); Albumin Level 4.1 gm/dl (3.4-5.0); Alkaline Phosphatase 68 U/L (34-104); Anion Gap 5 (3-11); Aspartate Aminotransferase 31 U/L (13-39); BUN Creatinine Ratio 27.4 (10-20); Bilirubin,Total 0.2 mg/dl (0.2-1.0); Blood Urea Nitrogen 20 mg/dl (6-23); Calcium 8.9 mg/dl (8.6-10.3); Carbon Dioxide 28 mmol/L (21-32); Chloride 98 mmol/L (98-107); Est GFR (African American) 85.2 ml/min; Est GFR (Non-African American) 73.5 ml/min; Globulin 3.3 gm/dl (2.5-4.0); Glucose 184 mg/dl (70-99(Fasting)); Magnesium 2.3 mg/dl (1.7-2.4); Potassium 4.7 mmol/L (3.5-5.1); Sodium 131 mmol/L (136-145); Total Protein 7.4 gm/dl (6.0-8.3)
[2022-07-23 15:01] LABS: Polychromasia 2+
[2022-07-23 15:05] LABS: Troponin I High Sensitivity 5.4 pg/ml (0-14)
--- NOTE | 2022-07-23 15:14 | Electrocardiogram Report ---
Test Reason : Blood Pressure : / mmHG Vent. Rate : 081 BPM Atrial Rate : 081 BPM P-R Int : 204 ms QRS Dur : 082 ms QT Int : 348 ms P-R-T Axes : 064 006 043 degrees QTc Int : 404 ms Normal sinus rhythm Normal ECG When compared with ECG of 22-JUL-2022 11:11, No significant change was found Confirmed by Saleem Ling ([id number]) on 07/23/2022 3:14:38 PM Referred By: Confirmed By:Saleem Ling
[2022-07-23] MEDS ORDERED: SODIUM CHLORIDE 0.9% 250 ML IV PRN ×2 (19:15→23:37)
[2022-07-23] MEDS ORDERED: hydrALAZINE HCL 20 MG/ML VIAL IV ONE ×2 (19:17→23:05)
[2022-07-23] MEDS ORDERED: POLYETHYLENE (MIRALAX) 17 GM PACK PO PRN (22:17)
[2022-07-23] MEDS ORDERED: ACETAMINOPHEN 325 MG TAB PO PRN (22:17)
--- NOTE | 2022-07-23 22:19 | History and Physical Report ---
DATE OF ADMISSION: 07/23/2022. CHIEF COMPLAINT: Shortness of breath on exertion, anemia. HISTORY OF PRESENT ILLNESS: This is an 87-year-old female with past medical history significant for hyperlipidemia, history of CVA, osteoarthritis, very hard of hearing, presents with shortness of breath and found to have anemia. The patient was in the ER yesterday too, complaining of shortness of breath and actually mildly hypertensive and labs showed hemoglobin 7.3 with microcytic anemia with MCV of 68, but Hemoccult was negative. She was advised to stay in the hospital for workup and blood transfusion, but she declined and she went home to follow as outpatient, but again comes back for blood transfusion. Two units of PRBCs ordered in the ER, which she is getting now. The patient denies any chest pain, no dizziness. Currently, no headache. Vision is okay. Very hard of hearing. No runny nose, no sore throat, no cough, no fevers. Eating and drinking okay. No abdominal pain. Normal bowel and bladder movements. Denies any blood in stool. Denies any hematuria. ALLERGIES: BACTRIM. PAST MEDICAL HISTORY: As mentioned above. PAST SURGICAL HISTORY: Cataract surgery, total hysterectomy. MEDICATIONS: The patient is on aspirin 81 mg p.o. daily, atorvastatin 20 mg p.o. at bedtime, ferrous sulfate 325 mg p.o. every other day, glucosamine and chondroitin 2 tablets daily, Caltrate 600 plus D 1 tablet a.m. FAMILY HISTORY: Significant for sister has pancreatic cancer, she has non- Hodgkin lymphoma. Brother has NV. SOCIAL HISTORY: . No smoking, no alcohol, no drug use. REVIEW OF SYSTEMS: As per HPI. Rest of the review of systems is negative. PHYSICAL EXAMINATION: GENERAL: The patient is old and frail, not in acute distress. VITAL SIGNS: Temperature 37, pulse 80, respiratory rate 18, blood pressure 157/59, oxygen 98% on room air. HEENT: Pupils equal, round and reactive to light. Oral mucosa moist. NECK: No JVD, no neck masses. CARDIOVASCULAR: S1 and S2 heard. Regular rate and rhythm. No murmur, no gallop. RESPIRATORY SYSTEM: Normal AP diameter. No accessory muscle use. No wheezing or crackles. ABDOMEN: Soft, bowel sounds present, nontender, no distention. CENTRAL NERVOUS SYSTEM: Alert and awake, very hard of hearing. Obeys simple commands. Moves extremities. EXTREMITIES: No edema, no erythema. LABORATORY DATA: WBC 6.1, hemoglobin 7.4, hematocrit 24.6, MCV 67, platelets 364. PT 10.3, INR 0.9, APTT 21.1. Sodium 131, potassium 4.7, chloride 98, CO2 of 28, BUN 20, creatinine 0.7, serum glucose 184, calcium 8.9, magnesium 2.3, total bilirubin 0.2, AST 31, ALT 15, alkaline phosphatase 68. Troponin I high sensitivity 5.4. TSH 0.69. SARS-COVID rapid test negative. EKG: Normal sinus rhythm at a rate of 81, no significant change was found. ASSESSMENT AND PLAN: This is an 87-year-old female who presents with shortness of breath on exertion and found to have anemia. 1. Symptomatic anemia. No obvious bleeding. Hemoccult was negative in the ER. We will recheck the stool for Hemoccult again, looks like iron deficiency anemia. She refused admission yesterday in the ER. Was started her on iron tablets by er and comes back for a blood transfusion, getting 2 units of PRBCs. Workup as outpatient. Will get PT/OT evaluation in the hospital. 2. History of cerebrovascular accident. On aspirin, statin. We will hold aspirin for now. If Hemoccult negative, restart aspirin. 3.HTN situational? Will monitor. May need BP meds at discharge. 4. Deep venous thrombosis prophylaxis. Sequential compression devices. DISPOSITION: Closely monitor in the medical floor. Expect to discharge home and follow with family doctor. Job ID: [id number] [facility] CENTERMohini
--- NOTE | 2022-07-24 00:34 | Emergency Department Note ---
Impression & Plan Anemia, MILLAN (dyspnea on exertion) ED Provider Note CHIEF COMPLAINT: Weakness HISTORY OF PRESENT ILLNESS: This 79-year-old female patient with past medical history of anemia, arthritis, non-STEMI, lumbar compression fracture presents to the emergency department with complaints of need for blood transfusion. The patient was evaluated here yesterday for shortness of breath. She thought she was having an allergic reaction. Patient was diagnosed as anemic and reports a negative stool guaiac. Patient was encouraged to stay in the hospital for hemoglobin of 7.3 however she declined stating she would contact her primary care. Patient was unable to get a hold of her primary care physician yesterday and again today. She presents to the emergency department for blood transfusion. REVIEW OF SYSTEMS: A review of systems was performed with positives and pertinent negatives listed in the history of present illness. 10 systems were reviewed and are otherwise negative. ALLERGIES: see below MEDICATIONS: see below PMH: see below SOCIAL HISTORY: see below DDx: Iron deficiency anemia, malignancy, GI bleeding, myelodysplastic disorder, B12 deficiency among others PHYSICAL EXAM: Vital signs reviewed. General: Generally well-appearing 87-year-old female, thin and frail. No d istress HEENT: No scleral icterus, PERRLA, neck supple. Moist mucous membranes Cardiovascular: Regular rate and rhythm, no extra sounds. Systolic ejection murmur Pulmonary: Clear to auscultation bilaterally, normal work of breathing. Abdomen: Soft, nontender, nondistended, positive bowel sounds. Musculoskeletal: Atraumatic, no peripheral edema. Neurologic: Patient awake alert and oriented x 3, speech is clear Skin: Warm, dry, no rash EMERGENCY DEPARTMENT COURSE/MDM: -Patient is noted to be in no distress. Placed on the monitoring coordinator. -IV access obtained laboratory work was drawn. External medical records were reviewed including previous days ED visit. Patient was guaiac negative. -Type and cross for 2 units of PRBCs. Blood consent obtained transfusion of 1 unit PRBC ordered. -EKG reveals a normal sinus rhythm, no evidence of acute ischemic change, no dysrhythmia -Patient's case was discussed with the hospitalist service for admission and further management -Patient made aware of the plan for admission and agrees MONITORING: An order for cardiac monitoring was placed and the patient is noted to be in a normal sinus rhythm at 84 beats per minute. EKG: To my interpretation reveals normal sinus rhythm [address] segments. No PVC COVID PAC. QTc of 404. No significant change from previous dated July 22, 2022 DISPOSITION: Admission I have personally spent 32 minutes of critical care time in the direct management of this patient. This was a life/limb threatening event. This 32 minutes is in excess of all separately billable procedures. Past Med/Surg History Medical History (Updated 07/24/22 @ 00:52 by Angelica Gtz MD) Acute hyponatremia Arthritis COVID-19 Nausea & vomiting Non-ST elevation [place] (NSTEMI) Social History Smoking Status: Never smoker Hx Alcohol Use: No Hx Substance Use: No Preferred Language: Zambian Communication Ability: Effective Real Estate Representative Required: No Beliefs That Will Affect Care: None marital status: Current Living Situation: Spouse Other Information That Helps Us Care for You: No Feels Safe at Home: Yes Safety Concerns: Feels Safe At This Time Assistive Devices: Glasses and Hospital Bed Allergies Allergies Allergy/AdvReac Type Severity Reaction Status Date / Time Bactrim Allergy Unknown SHORTNESS Verified 05/24/13 12:17 OF BREATH, rash Sulfa (Sulfonamide Allergy Unknown SHORTNESS Verified 07/23/22 18:07 Antibiotics) OF BREATH, RASH sulfamethoxazole Allergy Unknown SHORTNESS Verified 07/23/22 18:07 OF BREATH, rash trimethoprim Allergy Unknown SHORTNESS Verified 07/23/22 18:07 OF BREATH, rash Home Meds Home Medications Medication Instructions Recorded Confirmed aspirin 81 mg tablet,delayed 81 mg PO HS 04/28/18 07/23/22 release atorvastatin 20 mg tablet 20 mg PO QAM 04/28/18 07/23/22 calcium carbonate 600 mg-vitamin 1 tab PO QAM 04/28/18 07/23/22 D3 20 mcg (800 unit) chewable tablet (Caltrate 600 plus D) glucosamine-chondroitin 250 mg-200 2 tab PO QAM 04/28/18 07/23/22 mg tablet (Osteo Bi-Flex) Previous Rx's Medication Instructions Recorded ferrous sulfate 324 mg (65 mg 324 mg PO Q OTHER DAY #30 tabs 07/22/22 iron) tablet,delayed release Results & Data (ED) Vital Signs Vital Signs - 24 hr 07/23/22 13:42 07/23/22 18:07 07/23/22 18:07 Temperature 36.5 C Temperature Source Temporal Artery Scan Pulse Rate 87 Pulse Rate [Apical] 83 Pulse Rate from SpO2 Sensor Respiratory Rate 18 24 Respiratory Depth Normal Blood Pressure 192/74 H Blood Pressure [Left Arm] 229/84 H Blood Pressure [Right Arm] Blood Pressure Mean 113 Blood Pressure Mean [Left Arm] 132 Blood Pressure Mean [Right Arm] Blood Pressure Position Sitting Blood Pressure Position [Left Arm] Sitting Pulse Oximetry 97 99 Oxygen Delivery Method Room Air Room Air Room Air Sepsis Recent Fever Within 48 Hours No Sepsis New/Unexplained Change in Mental Status No Sepsis Action Taken by Nursing No Action Required 07/23/22 18:08 07/23/22 18:53 07/23/22 18:41 Temperature Temperature Source Pulse Rate 75 74 Pulse Rate [Apical] Pulse Rate from SpO2 Sensor Respiratory Rate 21 Respiratory Depth Blood Pressure Blood Pressure [Left Arm] Blood Pressure [Right Arm] 216/86 H Blood Pressure Mean Blood Pressure Mean [Left Arm] Blood Pressure Mean [Right Arm] 129 Blood Pressure Position Blood Pressure Position [Left Arm] Pulse Oximetry Oxygen Delivery Method Sepsis Recent Fever Within 48 Hours Sepsis New/Unexplained Change in Mental Status Sepsis Action Taken by Nursing 07/23/22 19:00 07/23/22 19:00 07/23/22 19:15 Temperature Temperature Source Pulse Rate 76 Pulse Rate [Apical] Pulse Rate from SpO2 Sensor Respiratory Rate 30 H Respiratory Depth Blood Pressure 198/69 H 193/75 H Blood Pressure [Left Arm] Blood Pressure [Right Arm] Blood Pressure Mean 112 114 Blood Pressure Mean [Left Arm] Blood Pressure Mean [Right Arm] Blood Pressure Position Blood Pressure Position [Left Arm] Pulse Oximetry Oxygen Delivery Method Sepsis Recent Fever Within 48 Hours Sepsis New/Unexplained Change in Mental Status Sepsis Action Taken by Nursing 07/23/22 19:15 07/23/22 19:19 07/23/22 19:19 Temperature Temperature Source Pulse Rate 76 80 Pulse Rate [Apical] Pulse Rate from SpO2 Sensor 77 79 Respiratory Rate 26 H 10 L Respiratory Depth Blood Pressure 205/85 H Blood Pressure [Left Arm] Blood Pressure [Right Arm] Blood Pressure Mean 125 Blood Pressure Mean [Left Arm] Blood Pressure Mean [Right Arm] Blood Pressure Position Blood Pressure Position [Left Arm] Pulse Oximetry 96 99 Oxygen Delivery Method Sepsis Recent Fever Within 48 Hours Sepsis New/Unexplained Change in Mental Status Sepsis Action Taken by Nursing 07/23/22 19:20 07/23/22 19:20 07/23/22 19:30 Temperature Temperature Source Pulse Rate 78 Pulse Rate [Apical] Pulse Rate from SpO2 Sensor 79 Respiratory Rate 24 Respiratory Depth Blood Pressure 161/61 H 211/83 H 210/84 H Blood Pressure [Left Arm] Blood Pressure [Right Arm] Blood Pressure Mean 94 125 126 Blood Pressure Mean [Left Arm] Blood Pressure Mean [Right Arm] Blood Pressure Position Blood Pressure Position [Left Arm] Pulse Oximetry 96 Oxygen Delivery Method Sepsis Recent Fever Within 48 Hours Sepsis New/Unexplained Change in Mental Status Sepsis Action Taken by Nursing 07/23/22 19:30 07/23/22 19:35 07/23/22 19:35 Temperature Temperature Source Pulse Rate 81 77 Pulse Rate [Apical] Pulse Rate from SpO2 Sensor 84 77 Respiratory Rate 21 16 Respiratory Depth Blood Pressure 207/78 H Blood Pressure [Left Arm] Blood Pressure [Right Arm] Blood Pressure Mean 121 Blood Pressure Mean [Left Arm] Blood Pressure Mean [Right Arm] Blood Pressure Position Blood Pressure Position [Left Arm] Pulse Oximetry 97 96 Oxygen Delivery Method Sepsis Recent Fever Within 48 Hours Sepsis New/Unexplained Change in Mental Status Sepsis Action Taken by Nursing 07/23/22 19:40 07/23/22 19:40 07/23/22 19:40 Temperature Temperature Source Pulse Rate 78 Pulse Rate [Apical] Pulse Rate from SpO2 Sensor 78 Respiratory Rate 18 Respiratory Depth Blood Pressure 204/81 H 204/81 H Blood Pressure [Left Arm] Blood Pressure [Right Arm] Blood Pressure Mean 122 122 Blood Pressure Mean [Left Arm] Blood Pressure Mean [Right Arm] Blood Pressure Position Blood Pressure Position [Left Arm] Pulse Oximetry 97 Oxygen Delivery Method Sepsis Recent Fever Within 48 Hours Sepsis New/Unexplained Change in Mental Status Sepsis Action Taken by Nursing 07/23/22 19:50 07/23/22 19:50 07/23/22 20:00 Temperature Temperature Source Pulse Rate 84 Pulse Rate [Apical] Pulse Rate from SpO2 Sensor 78 Respiratory Rate 21 Respiratory Depth Blood Pressure 213/74 H 191/72 H Blood Pressure [Left Arm] Blood Pressure [Right Arm] Blood Pressure Mean 120 111 Blood Pressure Mean [Left Arm] Blood Pressure Mean [Right Arm] Blood Pressure Position Blood Pressure Position [Left Arm] Pulse Oximetry 98 Oxygen Delivery Method Sepsis Recent Fever Within 48 Hours Sepsis New/Unexplained Change in Mental Status Sepsis Action Taken by Nursing 07/23/22 20:00 07/23/22 20:10 07/23/22 20:10 Temperature Temperature Source Pulse Rate 81 82 Pulse Rate [Apical] Pulse Rate from SpO2 Sensor 84 83 Respiratory Rate 23 19 Respiratory Depth Blood Pressure 181/74 H Blood Pressure [Left Arm] Blood Pressure [Right Arm] Blood Pressure Mean 109 Blood Pressure Mean [Left Arm] Blood Pressure Mean [Right Arm] Blood Pressure Position Blood Pressure Position [Left Arm] Pulse Oximetry 83 L 99 Oxygen Delivery Method Sepsis Recent Fever Within 48 Hours Sepsis New/Unexplained Change in Mental Status Sepsis Action Taken by Nursing 07/23/22 20:20 07/23/22 20:20 07/23/22 20:45 Temperature 37.2 C Temperature Source Oral Pulse Rate 83 82 Pulse Rate [Apical] Pulse Rate from SpO2 Sensor 82 Respiratory Rate 26 H 20 Respiratory Depth Blood Pressure 161/61 H 175/59 H Blood Pressure [Left Arm] Blood Pressure [Right Arm] Blood Pressure Mean 94 97 Blood Pressure Mean [Left Arm] Blood Pressure Mean [Right Arm] Blood Pressure Position Semi-fowlers Blood Pressure Position [Left Arm] Pulse Oximetry 97 98 Oxygen Delivery Method Sepsis Recent Fever Within 48 Hours Sepsis New/Unexplained Change in Mental Status Sepsis Action Taken by Nursing 07/23/22 21:00 07/23/22 21:15 07/23/22 20:30 Temperature 37.0 C 36.9 C Temperature Source Oral Oral Pulse Rate 80 77 Pulse Rate [Apical] Pulse Rate from SpO2 Sensor Respiratory Rate 18 18 Respiratory Depth Blood Pressure 175/59 H 157/59 H 164/63 H Blood Pressure [Left Arm] Blood Pressure [Right Arm] Blood Pressure Mean 97 91 96 Blood Pressure Mean [Left Arm] Blood Pressure Mean [Right Arm] Blood Pressure Position Blood Pressure Position [Left Arm] Pulse Oximetry 98 97 Oxygen Delivery Method Sepsis Recent Fever Within 48 Hours Sepsis New/Unexplained Change in Mental Status Sepsis Action Taken by Nursing 07/23/22 20:30 07/23/22 20:34 07/23/22 20:34 Temperature Temperature Source Pulse Rate 82 84 Pulse Rate [Apical] Pulse Rate from SpO2 Sensor 82 84 Respiratory Rate 20 27 H Respiratory Depth Blood Pressure 164/60 H Blood Pressure [Left Arm] Blood Pressure [Right Arm] Blood Pressure Mean 94 Blood Pressure Mean [Left Arm] Blood Pressure Mean [Right Arm] Blood Pressure Position Blood Pressure Position [Left Arm] Pulse Oximetry 98 98 Oxygen Delivery Method Sepsis Recent Fever Within 48 Hours Sepsis New/Unexplained Change in Mental Status Sepsis Action Taken by Nursing 07/23/22 20:44 07/23/22 20:44 07/23/22 21:00 Temperature Temperature Source Pulse Rate 83 Pulse Rate [Apical] Pulse Rate from SpO2 Sensor 82 Respiratory Rate 24 Respiratory Depth Blood Pressure 175/59 H 165/64 H Blood Pressure [Left Arm] Blood Pressure [Right Arm] Blood Pressure Mean 97 97 Blood Pressure Mean [Left Arm] Blood Pressure Mean [Right Arm] Blood Pressure Position Blood Pressure Position [Left Arm] Pulse Oximetry 97 Oxygen Delivery Method Sepsis Recent Fever Within 48 Hours Sepsis New/Unexplained Change in Mental Status Sepsis Action Taken by Nursing 07/23/22 21:00 Temperature Temperature Source Pulse Rate 81 Pulse Rate [Apical] Pulse Rate from SpO2 Sensor 83 Respiratory Rate 18 Respiratory Depth Blood Pressure Blood Pressure [Left Arm] Blood Pressure [Right Arm] Blood Pressure Mean Blood Pressure Mean [Left Arm] Blood Pressure Mean [Right Arm] Blood Pressure Position Blood Pressure Position [Left Arm] Pulse Oximetry 99 Oxygen Delivery Method Sepsis Recent Fever Within 48 Hours Sepsis New/Unexplained Change in Mental Status Sepsis Action Taken by [facility] Medications Current Medication List: was personally reviewed by me Laboratory Data Attestation: I reviewed the patient's lab results. 07/23/22 14:17 07/23/22 14:17 Lab Results 07/23/22 07/23/22 07/23/22 Range/Units 14:17 14:17 14:17 WBC 6.19 (4.8-10.8) K/ul RBC 3.66 L (4.20-5.40) M/uL Hgb 7.4 L (12.0-16.0) g/dl Hct 24.6 L (37.0-47.0) % MCV 67.2 L (80.0-100.0) fL MCH 20.2 L (25.0-34.0) pg MCHC 30.1 L (32.0-36.0) g/dL RDW Std Deviation 48.1 H (36.4-46.3) fL RDW Coeff of Vin 19.8 H (11.5-14.5) % Plt Count 364 (130-400) K/uL MPV 10.4 (9.4-12.4) fL Immature Gran % (Auto) 0.3 % Neut % (Auto) 75.6 % Lymph % (Auto) 14.5 % [place] % (Auto) 8.4 % Eos % (Auto) 0.6 % Baso % (Auto) 0.6 % Neut # (Auto) 4.67 (1.40-6.50) K/uL Lymph # (Auto) 0.90 L (1.2-3.4) K/uL [place] # (Auto) 0.52 (0.11-0.59) K/uL Eos # (Auto) 0.04 (0-0.50) K/uL Baso # (Auto) 0.04 (0-0.2) K/uL Immature Gran # (Auto) 0.02 (0.01-0.20) K/uL Polychromasia 2+ PT 10.3 (9.0-12.0) Seconds INR 0.9 (0.9-1.1) APTT 21.1 (21.0-31.0) Seconds PTT Ratio 0.7 Sodium 131 L (136-145) mmol/L Potassium 4.7 (3.5-5.1) mmol/L Chloride 98 (98-107) mmol/L Carbon Dioxide 28 (21-32) mmol/L Anion Gap 5 (3-11) BUN 20 (6-23) mg/dl Creatinine 0.73 (0.6-1.2) mg/dl Est Cr Clr Drug Dosing Not Reportable Est GFR ( Amer) 85.2 ml/min Est GFR (Non-Af Amer) 73.5 ml/min BUN/Creatinine Ratio 27.4 H (10-20) Glucose 184 H (70-99(Fasting)) mg/dl Calcium 8.9 (8.6-10.3) mg/dl Magnesium 2.3 (1.7-2.4) mg/dl Total Bilirubin 0.2 (0.2-1.0) mg/dl AST 31 (13-39) U/L ALT 15 (7-52) U/L Alkaline Phosphatase 68 (34-104) U/L Troponin I High Sens 5.4 (0-14) pg/ml Total Protein 7.4 (6.0-8.3) gm/dl Albumin 4.1 (3.4-5.0) gm/dl Globulin 3.3 (2.5-4.0) gm/dl Albumin/Globulin Ratio 1.2 (0.9-2) TSH (0.300-4.500) uIu/ml SARS-CoV-2, RNA, NAAT (NEGATIVE) Blood Type Antibody Screen Crossmatch 07/23/22 07/23/22 07/23/22 Range/Units 14:17 19:23 19:38 WBC (4.8-10.8) K/ul RBC (4.20-5.40) M/uL Hgb (12.0-16.0) g/dl Hct (37.0-47.0) % MCV (80.0-100.0) fL MCH (25.0-34.0) pg MCHC (32.0-36.0) g/dL RDW Std Deviation (36.4-46.3) fL RDW Coeff of Vin (11.5-14.5) % Plt Count (130-400) K/uL MPV (9.4-12.4) fL Immature Gran % (Auto) % Neut % (Auto) % Lymph % (Auto) % [place] % (Auto) % Eos % (Auto) % Baso % (Auto) % Neut # (Auto) (1.40-6.50) K/uL Lymph # (Auto) (1.2-3.4) K/uL [place] # (Auto) (0.11-0.59) K/uL Eos # (Auto) (0-0.50) K/uL Baso # (Auto) (0-0.2) K/uL Immature Gran # (Auto) (0.01-0.20) K/uL Polychromasia PT (9.0-12.0) Seconds INR (0.9-1.1) APTT (21.0-31.0) Seconds PTT Ratio Sodium (136-145) mmol/L Potassium (3.5-5.1) mmol/L Chloride (98-107) mmol/L Carbon Dioxide (21-32) mmol/L Anion Gap (3-11) BUN (6-23) mg/dl Creatinine (0.6-1.2) mg/dl Est Cr Clr Drug Dosing Est GFR ( Amer) ml/min Est GFR (Non-Af Amer) ml/min BUN/Creatinine Ratio (10-20) Glucose (70-99(Fasting)) mg/dl Calcium (8.6-10.3) mg/dl Magnesium (1.7-2.4) mg/dl Total Bilirubin (0.2-1.0) mg/dl AST (13-39) U/L ALT (7-52) U/L Alkaline Phosphatase (34-104) U/L Troponin I High Sens (0-14) pg/ml Total Protein (6.0-8.3) gm/dl Albumin (3.4-5.0) gm/dl Globulin (2.5-4.0) gm/dl Albumin/Globulin Ratio (0.9-2) TSH 0.693 (0.300-4.500) uIu/ml SARS-CoV-2, RNA, NAAT NEGATIVE (NEGATIVE) Blood Type A Positive Antibody Screen NEGATIVE Crossmatch See Detail Administered Medications Discontinued Medications Hydralazine HCl (Hydralazine Hcl 20 Mg/Ml Vial) 5 mg IV NOW ONE Stop: 07/23/22 19:18 Last Admin: 07/23/22 19:34 Dose: 5 mg Documented By: DANETTE Hydralazine HCl (Hydralazine Hcl 20 Mg/Ml Vial) 5 mg IV NOW ONE Stop: 07/23/22 23:06 Last Admin: 07/23/22 23:54 Dose: 5 mg Documented By: [facility] [place] Discharge Plan Visit Data Chief Complaint: Weakness Stated Complaint: WEAKNESS ED Provider: Angelica Gtz Discharge Problem: Anemia, MILLAN (dyspnea on exertion) Patient Disposition: Admitted As Inpatient Discharge Instructions Interventions: ED Discharge Assessment Last Done: 07/23/22 22:07
[2022-07-24] MEDS ORDERED: FUROSEMIDE INJ 20 MG/2 ML VIAL IV ONE (02:00)
[2022-07-24 06:30] LABS: BUN Creatinine Ratio 21.9 (10-20); Calcium 9.2 mg/dl (8.6-10.3); Creatinine Clr Calc Pharmacy 45.7 ml/min; Est GFR (African American) 92.3 ml/min; Est GFR (Non-African American) 79.7 ml/min; Magnesium 2.1 mg/dl (1.7-2.4); Potassium 3.6 mmol/L (3.5-5.1)
[2022-07-24 06:39] LABS: Hematocrit (blood only) 33.6 % (37.0-47.0); Hemoglobin 10.5 g/dl (12.0-16.0); Mean Corpuscular Hemoglobin 22.2 pg (25.0-34.0); Mean Corpuscular Hgb Conc 31.3 g/dL (32.0-36.0); Platelet Count 330 K/uL (130-400); RDW Coefficient of Variation 21.8 % (11.5-14.5); RDW Standard Deviation 54.7 fL (36.4-46.3); Red Blood Count 4.73 M/uL (4.20-5.40)
[2022-07-24 06:40] LABS: Anisocytosis Present; Basophils # (auto) 0.04 K/uL (0-0.2); Basophils % (auto) 0.5 %; Eosinophils # (auto) 0.02 K/uL (0-0.50); Eosinophils % (auto) 0.3 %; Immature Granulocytes # (auto) 0.02 K/uL (0.01-0.20); Immature Granulocytes % (auto) 0.3 %; Lymphocytes # (auto) 0.79 K/uL (1.2-3.4); Lymphocytes % (auto) 10.1 %; Monocytes # (auto) 0.46 K/uL (0.11-0.59); Monocytes % (auto) 5.9 %; Neutrophils # (auto) 6.47 K/uL (1.40-6.50); Neutrophils % (auto) 82.9 %
[2022-07-24] MEDS ORDERED: hydrALAZINE HCL 20 MG/ML VIAL IV PRN (07:42)
[2022-07-24] MEDS ORDERED: ATORVASTATIN 20 MG TAB PO SCH (09:00)
[2022-07-24] MEDS ORDERED: CALCIUM 600MG + VIT D 400 IU TAB PO SCH (09:00)
[2022-07-24] MEDS ORDERED: FERROUS SULFATE 325 MG TAB PO SCH (09:00)
[2022-07-24] MEDS ORDERED: NON-FORMULARY MEDICATION (Glucosamine-Chondroitin [Osteo Bi-Flex] 250-200 mg Tablet) PO SCH (09:00)
[2022-07-24 09:37] LABS: Ferritin 12.5 ng/ml (8-388)
[2022-07-24 09:41] LABS: Vitamin B12 473 pg/ml (180-914)
--- NOTE | 2022-07-24 10:28 | Communication Note ---
Date of Service: July 24, 2022 Patient's outpatient chart reviewed. Her last outpatient CBC was from 10/03/2016 with Hb 11.6 (MCV 88). Her Hb from 02/08/2020 was 11.9 (MCV 86). She did not have any additional CBCs in our system for past 3 years and now Hb is in 7s with an MCV of 68 suggestive of iron deficiency. She is noted to be on Ferrous sulfate currently but this is not listed as a medication from her PCP's office. Uncertain who is prescribing her Iron or whether this is OTC. She needs colonoscopy for colon cancer screening if this hasn't already been done. Will need further investigation
--- NOTE | 2022-07-24 11:29 | Discharge Summary ---
Discharge Summary Date of Service July 24, 2022 Notes For Next Care Provider Recommend repeat CBC at follow-up. Patient admitted to hospital due to symptomatic anemia. Hemoglobin on admission was 7.4. She was transfused 2 units of PRBC and hemoglobin on day of discharge was 10.5. Patient states she has never had a colonoscopy. Recommend referral for colonoscopy as outpatient. Iron 65, TIBC 423 (high), Transferrin 381 (high), ferritin 12.5 Patient did have elevated blood pressures while inpatient, on day of discharge was 151/66. She is not on any oral antihypertensives. Will need close monitoring. Medication Changes From Visit Increase Ferrous Sulfate (Iron Tablet) 324mg to twice daily for iron deficiency Admission HPI Per Admitting Provider This is an 87-year-old female with past medical history significant for hyperlipidemia, history of CVA, osteoarthritis, very hard of hearing, presents with shortness of breath and found to have anemia. The patient was in the ER yesterday too, complaining of shortness of breath and actually mildly hypertensive and labs showed hemoglobin 7.3 with microcytic anemia with MCV of 68, but Hemoccult was negative. She was advised to stay in the hospital for workup and blood transfusion, but she declined and she went home to follow as outpatient, but again comes back for blood transfusion. Two units of PRBCs ordered in the ER, which she is getting now. The patient denies any chest pain, no dizziness. Currently, no headache. Vision is okay. Very hard of hearing. No runny nose, no sore throat, no cough, no fevers. Eating and drinking okay. No abdominal pain. Normal bowel and bladder movements. Denies any blood in stool. Denies any hematuria. Admission Exam Per Admitting Provider GENERAL: The patient is old and frail, not in acute distress. VITAL SIGNS: Temperature 37, pulse 80, respiratory rate 18, blood pressure 157/59, oxygen 98% on room air. HEENT: Pupils equal, round and reactive to light. Oral mucosa moist. NECK: No JVD, no neck masses. CARDIOVASCULAR: S1 and S2 heard. Regular rate and rhythm. No murmur, no gallop. RESPIRATORY SYSTEM: Normal AP diameter. No accessory muscle use. No wheezing or crackles. ABDOMEN: Soft, bowel sounds present, nontender, no distention. CENTRAL NERVOUS SYSTEM: Alert and awake, very hard of hearing. Obeys simple commands. Moves extremities. EXTREMITIES: No edema, no erythema. Principal Dx & Hospital Course #1 = Principal Diagnosis (1) Symptomatic anemia: Plan This is an 87-year-old female with significant past medical history of hyperlipidemia, history of CVA on aspirin therapy, osteoarthritis who presented to ED on 07/13/2022 secondary to shortness of breath and found to have hemoglobin of 7.4. Of significance patient presented to hospital on 07/22 with similar complaints and similar hemoglobin. At that time it was recommended to be admitted for transfusion and further work-up, but patient declined and wished to follow-up with PCP. At that point time she was started on iron tablet every other day as given microcytic indices felt to be iron deficiency in nature. Due to patient unable to obtain appoint with PCP she opted to return back to ED as symptoms continued. 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 She is hemodynamically stable and requesting to be discharged. Anemia panel was obtained on lab work prior to transfusion, and revealed iron 65, ferritin 12.5, transferrin 381 and TIBC 423. Although iron levels are within normal limits th ey are still on lower side. Patient denies any bleeding including epistaxis, hematemesis, hematuria or black or tarry stools. She denies any history of colonoscopy in the past or abdominal pain. It is recommended patient to start iron twice daily with daily stool softener. She is educated on side effects of constipation and is encouraged to take iron tablet with vitamin C for better absorption. It is also recommended she undergo colonoscopy as outpatient, but currently declines at this time. During hospitalization she was noted to be hypertensive. Her blood pressure throughout the day yesterday was 180s to 200s systolically and since midnight has been 150s to 160s systolically. She did require IV hydralazine 5mg x 2. She is scheduled for follow-up with her PCP. Again on day of discharge she is hemodynamically stable without any acute complaints. Her at bedside and all questions were answered. Discharge Exam Gen: Elderly, female, sitting up at bedside with , petite, NAD, A&O x3 HEENT: Normocephalic, atraumatic, conjunctivae moist, sclerae anicteric, mucous membranes moist. Lung: Clear to Auscultation bilaterally, no wheezes/rales/rhonchi Heart: Regular rate, regular rhythm, no murmurs, rubs, or gallops Abdomen: Soft, NT, ND +BS x 4 Extremities: No edema Skin: Warm, no rash, negative turgor. Updated Medication List Medication Instructions Recorded Confirmed Type aspirin 81 mg tablet,delayed 81 mg PO HS 04/28/18 07/23/22 History release atorvastatin 20 mg tablet 20 mg PO QAM 04/28/18 07/23/22 History calcium carbonate 600 mg-vitamin 1 tab PO QAM 04/28/18 07/23/22 History D3 20 mcg (800 unit) chewable tablet (Caltrate 600 plus D) glucosamine-chondroitin 250 mg-200 2 tab PO QAM 04/28/18 07/23/22 History mg tablet (Osteo Bi-Flex) ferrous sulfate 324 mg (65 mg 324 mg PO BID #60 tabs 07/24/22 Rx iron) tablet,delayed release Hospital Stay Data Consultations 07/23/22 19:16 ED Decision to Admit Stat Diagnostic Imagining Performed Short CBC 07/23/22 07/24/22 Range/Units 14:17 05:33 WBC 6.19 7.80 (4.8-10.8) K/ul Hgb 7.4 L 10.5 L D (12.0-16.0) g/dl Hct 24.6 L 33.6 L (37.0-47.0) % Plt Count 364 330 (130-400) K/uL BMP 07/23/22 07/24/22 14:17 05:33 Sodium 131 L 135 L Potassium 4.7 3.6 D Chloride 98 100 Carbon Dioxide 28 26 BUN 20 14 Creatinine 0.73 0.64 Glucose 184 H 103 H Calcium 8.9 9.2 Liver Function 07/23/22 Range/Units 14:17 Total Bilirubin 0.2 (0.2-1.0) mg/dl AST 31 (13-39) U/L ALT 15 (7-52) U/L Alkaline Phosphatase 68 (34-104) U/L Albumin 4.1 (3.4-5.0) gm/dl Laboratory Results - last 24 hr 07/23/22 07/23/22 07/23/22 14:17 14:17 14:17 WBC 6.19 RBC 3.66 L Hgb 7.4 L Hct 24.6 L MCV 67.2 L MCH 20.2 L MCHC 30.1 L RDW Std Deviation 48.1 H RDW Coeff of Vin 19.8 H Plt Count 364 MPV 10.4 Immature Gran % (Auto) 0.3 Neut % (Auto) 75.6 Lymph % (Auto) 14.5 [place] % (Auto) 8.4 Eos % (Auto) 0.6 Baso % (Auto) 0.6 Neut # (Auto) 4.67 Lymph # (Auto) 0.90 L [place] # (Auto) 0.52 Eos # (Auto) 0.04 Baso # (Auto) 0.04 Immature Gran # (Auto) 0.02 Polychromasia 2+ Anisocytosis PT 10.3 INR 0.9 APTT 21.1 PTT Ratio 0.7 Sodium 131 L Potassium 4.7 Chloride 98 Carbon Dioxide 28 Anion Gap 5 BUN 20 Creatinine 0.73 Est Cr Clr Drug Dosing Not Reportable Est GFR ( Amer) 85.2 Est GFR (Non-Af Amer) 73.5 BUN/Creatinine Ratio 27.4 H Glucose 184 H Calcium 8.9 Magnesium 2.3 Iron Unsaturated IBC Transferrin Ferritin Total Bilirubin 0.2 AST 31 ALT 15 Alkaline Phosphatase 68 Troponin I High Sens 5.4 Total Protein 7.4 Albumin 4.1 Globulin 3.3 Albumin/Globulin Ratio 1.2 Vitamin B12 Folate TSH SARS-CoV-2, RNA, NAAT Blood Type Antibody Screen Crossmatch 07/23/22 07/23/22 07/23/22 14:17 19:23 19:38 WBC RBC Hgb Hct MCV MCH MCHC RDW Std Deviation RDW Coeff of Vin Plt Count MPV Immature Gran % (Auto) Neut % (Auto) Lymph % (Auto) [place] % (Auto) Eos % (Auto) Baso % (Auto) Neut # (Auto) Lymph # (Auto) [place] # (Auto) Eos # (Auto) Baso # (Auto) Immature Gran # (Auto) Polychromasia Anisocytosis PT INR APTT PTT Ratio Sodium Potassium Chloride Carbon Dioxide Anion Gap BUN Creatinine Est Cr Clr Drug Dosing Est GFR ( Amer) Est GFR (Non-Af Amer) BUN/Creatinine Ratio Glucose Calcium Magnesium Iron Unsaturated IBC Transferrin Ferritin Total Bilirubin AST ALT Alkaline Phosphatase Troponin I High Sens Total Protein Albumin Globulin Albumin/Globulin Ratio Vitamin B12 Folate TSH 0.693 SARS-CoV-2, RNA, NAAT NEGATIVE Blood Type A Positive Antibody Screen NEGATIVE Crossmatch See Detail 07/24/22 07/24/22 07/24/22 05:33 05:33 08:42 WBC 7.80 RBC 4.73 Hgb 10.5 L D Hct 33.6 L MCV 71.0 L D MCH 22.2 L MCHC 31.3 L RDW Std Deviation 54.7 H RDW Coeff of Vin 21.8 H Plt Count 330 MPV 10.0 Immature Gran % (Auto) 0.3 Neut % (Auto) 82.9 Lymph % (Auto) 10.1 [place] % (Auto) 5.9 Eos % (Auto) 0.3 Baso % (Auto) 0.5 Neut # (Auto) 6.47 Lymph # (Auto) 0.79 L [place] # (Auto) 0.46 Eos # (Auto) 0.02 Baso # (Auto) 0.04 Immature Gran # (Auto) 0.02 Polychromasia Anisocytosis Present PT INR APTT PTT Ratio Sodium 135 L Potassium 3.6 D Chloride 100 Carbon Dioxide 26 Anion Gap 9 BUN 14 Creatinine 0.64 Est Cr Clr Drug Dosing 45.7 Est GFR ( Amer) 92.3 Est GFR (Non-Af Amer) 79.7 BUN/Creatinine Ratio 21.9 H Glucose 103 H Calcium 9.2 Magnesium 2.1 Iron Unsaturated IBC Transferrin Ferritin Total Bilirubin AST ALT Alkaline Phosphatase Troponin I High Sens Total Protein Albumin Globulin Albumin/Globulin Ratio Vitamin B12 473 Folate > 22.30 TSH SARS-CoV-2, RNA, NAAT Blood Type Antibody Screen Crossmatch 07/24/22 08:42 WBC RBC Hgb Hct MCV MCH MCHC RDW Std Deviation RDW Coeff of Vin Plt Count MPV Immature Gran % (Auto) Neut % (Auto) Lymph % (Auto) [place] % (Auto) Eos % (Auto) Baso % (Auto) Neut # (Auto) Lymph # (Auto) [place] # (Auto) Eos # (Auto) Baso # (Auto) Immature Gran # (Auto) Polychromasia Anisocytosis PT INR APTT PTT Ratio Sodium Potassium Chloride Carbon Dioxide Anion Gap BUN Creatinine Est Cr Clr Drug Dosing Est GFR ( Amer) Est GFR (Non-Af Amer) BUN/Creatinine Ratio Glucose Calcium Magnesium Iron 65 Unsaturated IBC 423 H Transferrin 381 H Ferritin 12.5 Total Bilirubin AST ALT Alkaline Phosphatase Troponin I High Sens Total Protein Albumin Globulin Albumin/Globulin Ratio Vitamin B12 Folate TSH SARS-CoV-2, RNA, NAAT Blood Type Antibody Screen Crossmatch Pending Results Patient Have Any Pending Studies at Discharge: No Discharge Instructions Given to Patient (Per Discharging Provider) MEDICATION CHANGES: Increase Ferrous Sulfate (Iron Tablet) 324mg to twice daily for iron deficiency Take all other medications as prescribed. SUMMARY OF TEST RESULTS: You were admitted for symptomatic Anemia. Your hemoglobin was 7.4. You were transfused 2 units of blood. You are found to be iron deficient and still need to take an iron supplement. PENDING TEST RESULTS: None RECOMMENDATIONS FOR FOLLOW-UP: Please follow-up with PCP as scheduled. Recommend repeat blood work, CBC, at follow-up with primary care provider. Your hemoglobin on day of discharge is 10.5. It is recommended you undergo outpatient colonoscopy to determine cause of iron deficiency and anemia. Recommend increasing oral intake of iron rich foods. Recommend daily stool softener as iron can cause constipation. Recommend taking iron tablet with vitamin C for better absorption. Iron will cause your stools to become black. Your blood pressure was elevated during hospital stay. Recommend checking your blood pressure twice daily and keep a log of this. Take this to your next primary care appointment as you may require medication on a routine basis to lower blood pressure. OTHER INSTRUCTIONS: Seek medical attention if you have: * temperature above 101 * chest pain or trouble breathing * abdominal pain, nausea, vomiting * diarrhea, dark stools or bloody stools * any unanswered questions or concerns Call 911 if symptoms are severe. Please take good care of yourself. It has been a pleasure taking care of you. Please take care of yourself. If you have any questions regarding your recent hospitalization please contact [facility] and [facility] @ [phone]. Dayana Ahumada PA-C Total Time Total Time Spent Total Time Spent (In Minutes): 45 minutes Supervising Physician Co-Signing Physician Notes Patient was seen and examined independently. Chart reviewed. Case discussed with CLAIRE
== END 2022-07-24 12:56 | disposition home or self-care (01) | DRG 812 ==
LOC: ED 13:40 → 3N 21:22 → SUATTDRO 21:22 → 3N 22:07

== ENCOUNTER 2023-03-14 16:38 | Inpatient (IN) ==
[2023-03-14] MEDS ORDERED: niCARdipine HCL INJ 2.5 MG/ML 10 ML AMP ONE (16:40)
[2023-03-14] MEDS ORDERED: HEPARIN (PORCINE) 1000 UNIT/ML 10 ML (CATH LAB USE ONLY) ONE (16:40)
[2023-03-14] MEDS ORDERED: MIDAZOLAM HCL 1 MG/ML 2ML VIAL ONE (16:40)
[2023-03-14] MEDS ORDERED: fentaNYL citrate PF 100 MCG/2 ML VIAL ONE (16:41)
[2023-03-14] MEDS ORDERED: NITROGLYCERIN/D5W 100MCG/ML 20ML SYR ONE (16:41)
--- NOTE | 2023-03-14 16:51 | Emergency Department Note ---
Impression & Plan ST elevation (STEMI) myocardial infarction, Chest pain ED Provider Note HISTORY OF PRESENT ILLNESS: Patient is an 88-year-old female presenting with chest pain. Patient reports she was laying down in bed at 3:00 when she developed substernal chest pain. She called 911, as her was out running errands and she had no one to bring her to the ER. On EMS arrival, the patient had evidence of a STEMI and was transferred to the ER. She was given 324 mg of oral aspirin and route and 2 sprays of sublingual nitro. The initial spray of nitro brought the patient's pain down from a 10 out of 10 to a 5 out of 10. After the second spray of nitro and on arrival to the ER, the patient is now chest pain-free. She is on Lipitor and a baby aspirin daily. Denies any nausea or vomiting. She did have associated shortness of breath with her chest pain. She is not on any anticoagulation. ROS: as above PHYSICAL EXAM: Constitutional: Patient appears in no acute distress. HENT: Head: Normocephalic and atraumatic. Eyes: EOMI, PERRL Mouth/Throat: Mucous membranes moist. Neck: Trachea midline. Neck supple. Cardiovascular: RRR, No murmurs, rubs or gallops. Intact distal pulses. Pulmonary/Chest: No respiratory distress. Breath sounds clear and equal bilaterally. No wheezes or rales. Abdominal: Abdomen soft, no tenderness, rebound or guarding. Musculoskeletal: No edema, tenderness or deformity noted. Skin: Warm and dry. No rash, erythema, pallor or cyanosis Psychiatric: Appropriate mood and affect for situation. Neurological: Alert and keenly responsive. CN II-XII grossly intact, moving all extremities equally and fully. MDM: - Vitals signs showed hypertension and tachycardia - History obtained via patient. Patient presents with chest pain. Patient reports that at 3 PM that she developed substernal chest pain and some associated shortness of breath and called 911. She had evidence of a STEMI on prehospital EMS EKG. She is on Lipitor and a baby aspirin daily. She is now chest pain free on arrival to the ER after 2 shots of sublingual nitroglycerin. - Chronic conditions affecting care: HLD - Differential diagnoses include, but are not limited to: Acute coronary syndrome; pulmonary embolism; dissection; tension pneumothorax; esophageal rupture; pneumonia - Order placed for continuous cardiac monitoring. At this time, monitor showed rate of 100 bpm with normal sinus rhythm, per my interpretation. - External medical records reviewed. EMS run sheet was reviewed. Patient was hypertensive with systolic blood pressure in the 190s on their assessment. She was given 324 mg of aspirin and 2 shots of nitro prehospital. - Prehospital EKG was reviewed. Showed ST elevation in leads V3 and V6 and some ST depressions in leads II and III. - Patient was alerted as a heart alert prehospital and on arrival to the ER the Jig Inspector and piping drafter, Dr. Verduzco, present. - EKG on arrival to the ER interpreted by myself showed normal sinus rhythm. Rate tachycardic at 102 bpm. QT is 330. Patient's profound ST elevations in leads III and 4 have seemed to resolve themselves. - Laboratory workup interpreted by myself showed slight leukocytosis (WBC 11.04); hyponatremia (Na 130); normal BNP; normal CK; normal lipase - Interventional cardiology taking patient to laborer [facility]. - Discussed case with hospitalist for admission post-cath - Patient to be admitted to [facility] after [facility]. I have personally spent 34 minutes of critical care time in the direct management of this patient. This includes bedside care, interpretation of diagnostic studies, and testing, discussion with consultants, patient, and family members, and other required patient management activities. This 34 minutes is in excess of all separately billable procedures. 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 Required: No Beliefs That Will Affect Care: None marital status: Current Living Situation: Spouse Feels Safe at Home: Yes Assistive Devices: Walker Allergies Allergies Allergy/AdvReac Type Severity Reaction Status Date / Time Bactrim Allergy Unknown SHORTNESS Verified 05/24/13 12:17 OF BREATH, rash Sulfa (Sulfonamide Allergy Unknown SHORTNESS Verified 07/23/22 18:07 Antibiotics) OF BREATH, RASH sulfamethoxazole Allergy Unknown SHORTNESS Verified 07/23/22 18:07 OF BREATH, rash trimethoprim Allergy Unknown SHORTNESS Verified 07/23/22 18:07 OF BREATH, rash Home Meds Home Medications Medication Instructions Recorded Confirmed aspirin 81 mg tablet,delayed 81 mg PO DAILY 04/28/18 03/14/23 release atorvastatin 20 mg tablet 20 mg PO DAILY 04/28/18 03/14/23 Results & Data (ED) Vital Signs Vital Signs - 24 hr 03/14/23 16:38 03/14/23 16:38 03/14/23 16:38 Temperature 36.8 C Temperature Source Oral Pulse Rate 102 H Pulse Rate [Apical] 102 H Respiratory Rate 20 20 Respiratory Effort / Characteristics Non-Labored Spontaneous Non-Labored Spontaneous Respiratory Depth Normal Normal Respiratory Pattern Regular Regular Blood Pressure 186/89 H Blood Pressure [Right Arm] 186/89 H Blood Pressure Mean 121 Blood Pressure Mean [Right Arm] 121 Pulse Oximetry 94 94 94 Oxygen Delivery Method Room Air Room Air Room Air Sepsis Recent Fever Within 48 Hours No Sepsis New/Unexplained Change in Mental Status No Sepsis Action Taken by Nursing No Action Required 03/14/23 16:45 Temperature Temperature Source Pulse Rate 100 H Pulse Rate [Apical] Respiratory Rate Respiratory Effort / Characteristics Respiratory Depth Respiratory Pattern Blood Pressure Blood Pressure [Right Arm] Blood Pressure Mean Blood Pressure Mean [Right Arm] Pulse Oximetry Oxygen Delivery Method Sepsis Recent Fever Within 48 Hours Sepsis New/Unexplained Change in Mental Status Sepsis Action Taken by Nursing Laboratory Data 03/14/23 16:49 03/14/23 16:49 Lab Results 03/14/23 Range/Units 16:49 WBC 11.04 H (4.8-10.8) K/ul RBC 4.05 L (4.20-5.40) M/uL Hgb 11.5 L (12.0-16.0) g/dl Hct 35.8 L (37.0-47.0) % MCV 88.4 (80.0-100.0) fL MCH 28.4 (25.0-34.0) pg MCHC 32.1 (32.0-36.0) g/dL RDW Std Deviation 43.0 (36.4-46.3) fL RDW Coeff of Vin 13.2 (11.5-14.5) % Plt Count 284 (130-400) K/uL MPV 10.4 (9.4-12.4) fL Immature Gran % (Auto) 0.5 % Neut % (Auto) 77.2 % Lymph % (Auto) 11.1 % [place] % (Auto) 8.6 % Eos % (Auto) 2.1 % Baso % (Auto) 0.5 % Neut # (Auto) 8.54 H (1.40-6.50) K/uL Lymph # (Auto) 1.22 (1.20-3.40) K/uL [place] # (Auto) 0.95 H (0.11-0.59) K/uL Eos # (Auto) 0.23 (0.00-0.50) K/uL Baso # (Auto) 0.05 (0.00-0.20) K/uL Immature Gran # (Auto) 0.05 (0.01-0.20) K/uL PT 10.3 (9.0-12.0) Seconds INR 0.9 (0.9-1.1) APTT 25 (21-31) Seconds PTT Ratio 0.9 Sodium 130 L (136-145) mmol/L Potassium 3.6 (3.5-5.1) mmol/L Chloride 91 L (98-107) mmol/L Carbon Dioxide 28 (21-32) mmol/L Anion Gap 11 (3-11) BUN 14 (6-23) mg/dl Creatinine 0.66 (0.6-1.2) mg/dl Est Cr Clr Drug Dosing 43.9 ml/min Est GFR ( Amer) 90.8 ml/min Est GFR (Non-Af Amer) 78.3 ml/min BUN/Creatinine Ratio 21.2 H (10-20) Glucose 111 H (70-99(Fasting)) mg/dl Calcium 9.5 (8.6-10.3) mg/dl Magnesium 2.1 (1.7-2.4) mg/dl Total Bilirubin 0.3 (0.2-1.0) mg/dl AST 31 (13-39) U/L ALT 16 (7-52) U/L Alkaline Phosphatase 84 (34-104) U/L Total Creatine Kinase 118 (26-192) U/L B-Natriuretic Peptide 97 (0-100) pg/ml Total Protein 7.8 (6.0-8.3) gm/dl Albumin 3.9 (3.4-5.0) gm/dl Globulin 3.9 (2.5-4.0) gm/dl Albumin/Globulin Ratio 1.0 (0.9-2) Lipase 25 (11-82) U/L Administered Medications Discontinued Medications Fentanyl Citrate (Fentanyl Citrate Pf 100 Mcg/2 Ml Vial) Confirm Administered Dose 100 mcg .ROUTE .STK-MED ONE Stop: 03/14/23 16:42 Last Increment: 03/14/23 17:25 Dose: 25 mcg Documented By: GRISEL Heparin Sodium (Porcine) (Heparin (Porcine) 1000 Unit/Ml 10 Ml (Jig Inspector Use Only)) Confirm Administered Dose 10,000 units .ROUTE .STK-MED ONE Stop: 03/14/23 16:41 Last Admin: 03/14/23 17:24 Dose: 5,000 units Documented By: GRISEL Heparin Sodium/Sodium Chloride (Heparin In Nss Infusion 1000 Unit/500 Ml (2 U/Ml) Bag) Confirm Administered Dose 3,000 units IV .STK-MED ONE Stop: 03/14/23 16:42 Last Admin: 03/14/23 17:25 Dose: 3,000 units Documented By: GRISEL Ioversol (Optiray 350) Confirm Administered Dose 1 ml .ROUTE .STK-MED ONE Stop: 03/14/23 17:28 Last Admin: 03/14/23 17:28 Dose: 95 ml Documented By: GRISEL Midazolam HCl (Midazolam Hcl 1 Mg/Ml 2ml Vial) Confirm Administered Dose 2 mg .ROUTE .STK-MED ONE Stop: 03/14/23 16:41 Last Increment: 03/14/23 17:24 Dose: 1 mg Documented By: GRISEL Nicardipine HCl (Nicardipine Hcl Inj 2.5 Mg/Ml 10 Ml Amp) Confirm Administered Dose 25 mg .ROUTE .STK-MED ONE Stop: 03/14/23 16:41 Last Admin: 03/14/23 17:25 Dose: 25 mg Documented By: GRISEL Nitroglycerin/Dextrose (Nitroglycerin/D5w 100mcg/Ml 20ml Syr) Confirm Administered Dose 2,000 mcg .ROUTE .STK-MED ONE Stop: 03/14/23 16:42 Last Admin: 03/14/23 17:25 Dose: 2,000 mcg Documented By: BPY Imaging Data Radiologist's Impression: Chest X-Ray 03/14/23 16:51 XR chest 1V portable HISTORY: Atypical chest pain. COMPARISON: Chest 07/22/2022. FINDINGS: No pneumothorax. No pleural effusions. The heart is normal in size. There is mild perihilar interstitial thickening which has slightly progressed. This suggests mild congestive change. No evidence for robin pulmonary edema. No new focal lung consolidations to suggest pneumonia. No acute fractures identified. IMPRESSION: Mild central pulmonary vascular congestion without overt edema. This has slightly progressed. ACT 112: Negative or not required by law. Electronically signed by: Arsh Cavanaugh M.D. 03/14/2023 5:21 PM Discharge Plan Visit Data Chief Complaint: Cardiac Assessment Stated Complaint: CHEST PAIN/ SHORT OF BREATH ED Provider: Negar Luque Discharge Problem: ST elevation (STEMI) myocardial infarction, Chest pain Patient Disposition: Admitted As Inpatient Discharge Instructions Interventions: ED Discharge Assessment Last Done: 03/14/23 16:52 Forms Stand Alone Forms: My [facility] Prescriptions Prescriptions: No Action atorvastatin 20 mg Tablet 20 mg PO DAILY aspirin 81 mg Tablet,Delayed Release (Dr/Ec) 81 mg PO DAILY Referrals Referrals: Lorraine Ozuna DO [Primary Care Provider] -
[2023-03-14 17:05] LABS: Basophils # (auto) 0.05 K/uL (0.00-0.20); Basophils % (auto) 0.5 %; Eosinophils # (auto) 0.23 K/uL (0.00-0.50); Eosinophils % (auto) 2.1 %; Hematocrit (blood only) 35.8 % (37.0-47.0); Hemoglobin 11.5 g/dl (12.0-16.0); Immature Granulocytes # (auto) 0.05 K/uL (0.01-0.20); Immature Granulocytes % (auto) 0.5 %; Lymphocytes # (auto) 1.22 K/uL (1.20-3.40); Lymphocytes % (auto) 11.1 %; Mean Corpuscular Hemoglobin 28.4 pg (25.0-34.0); Mean Corpuscular Hgb Conc 32.1 g/dL (32.0-36.0); Mean Corpuscular Volume 88.4 fL (80.0-100.0); Mean Platelet Volume 10.4 fL (9.4-12.4); Monocytes # (auto) 0.95 K/uL (0.11-0.59); Monocytes % (auto) 8.6 %; Neutrophils # (auto) 8.54 K/uL (1.40-6.50); Neutrophils % (auto) 77.2 %; Platelet Count 284 K/uL (130-400); RDW Coefficient of Variation 13.2 % (11.5-14.5); Red Blood Count 4.05 M/uL (4.20-5.40); White Blood Count 11.04 K/ul (4.8-10.8)
[2023-03-14 17:17] LABS: INR 0.9 (0.9-1.1); Partial Thromboplastin Ratio 0.9; Partial Thromboplastin Time 25 Seconds (21-31); Prothrombin Time 10.3 Seconds (9.0-12.0)
--- NOTE | 2023-03-14 17:22 | XRay Report ---
XR chest 1V portable HISTORY: Atypical chest pain. COMPARISON: Chest 07/22/2022. FINDINGS: No pneumothorax. No pleural effusions. The heart is normal in size. There is mild perihilar interstitial thickening which has slightly progressed. This suggests mild congestive change. No evid ence for robin pulmonary edema. No new focal lung consolidations to suggest pneumonia. No acute fract ures identified. IMPRESSION: Mild central pulmonary vascular congestion without overt edema. This has slightly progressed. ACT 112: Negative or not required by law. Electronically signed by: Arsh Cavanaugh M.D. 03/14/2023 5:21 PM
[2023-03-14 17:25] LABS: Albumin Level 3.9 gm/dl (3.4-5.0); BUN Creatinine Ratio 21.2 (10-20); Bilirubin,Total 0.3 mg/dl (0.2-1.0); Calcium 9.5 mg/dl (8.6-10.3); Creatinine Clr Calc Pharmacy 43.9 ml/min; Est GFR (African American) 90.8 ml/min; Est GFR (Non-African American) 78.3 ml/min; Globulin 3.9 gm/dl (2.5-4.0); Magnesium 2.1 mg/dl (1.7-2.4); Potassium 3.6 mmol/L (3.5-5.1); Total Protein 7.8 gm/dl (6.0-8.3)
[2023-03-14] MEDS ORDERED: OPTIRAY 350 ONE (17:27)
--- NOTE | 2023-03-14 17:39 | Pre Anesthesia Assessment ---
Date of Service March 14, 2023 Pre Sedation Assessment Vital Signs Temp Pulse Pulse Resp BP BP Pulse Ox 03/14/23 16:45 100 H 03/14/23 16:38 94 03/14/23 16:38 102 H 20 186/89 H 94 03/14/23 16:38 36.8 C 102 H 20 186/89 H 94 O2 Del Method 03/14/23 16:45 03/14/23 16:38 Room Air 03/14/23 16:38 Room Air 03/14/23 16:38 Room Air Cardiovascular RRR, no murmur, no edema Respiratory normal respiratory effort, lungs clear to auscultation Pre-Sedation Airway Assessment Smoking Status: Never smoker MALAMPATI II ASA 4 Notes The planned sedation has been discussed with the patient. Informed Consent was obtained. I have identified the patient, determined the appropriateness of sedation and have assessed the patient immediately prior to the procedure. All medicine(s) and interventions are by my order.
[2023-03-14 17:41] LABS: Thyroid Stimulating Hormone 0.579 uIu/ml (0.300-4.500)
--- NOTE | 2023-03-14 17:41 | Post Anesthesia Assessment ---
Date of Service March 14, 2023 Post Sedation Assessment Vital Signs Temp Pulse Pulse Resp BP BP Pulse Ox 03/14/23 16:45 100 H 03/14/23 16:38 94 03/14/23 16:38 102 H 20 186/89 H 94 03/14/23 16:38 36.8 C 102 H 20 186/89 H 94 O2 Del Method 03/14/23 16:45 03/14/23 16:38 Room Air 03/14/23 16:38 Room Air 03/14/23 16:38 Room Air Recovery Score Activity: Moves 4 extremities Respiration: Deep Breath/Cough Circulation: +/-20% PreAnes Value Consciousness: Fully Awake Oxygen Saturation: > 92% On Room Air Discharge Sedation Level of Care: Fast Track Phase II Post Sedation Plan On clinical assessment, the patient appears to have tolerated the sedation without complications. Patient is recovering as anticipated. Patient will continue to be monitored by nursing and may be discharged when sedation discharge criteria are met per below protocol. Upon Completions of procedure up to 15 minutes continue every 5 minute vital signs and the P.A.R. score; then discharge to a Phase I or Fast Track to Phase II per the following guidelines: * Discharge Patient to appropriate Phase II area if PAR is 8 or greater or return to pre- procedure baseline. The post - procedure orders will be as directed. * If PAR score is less than 8 or not return to pre-procedure baseline then patient will follow Phase I monitoring till PAR is reached for Phase II. The Phase I may be done in procedure room or may call to secure a Phase I area. * If naloxone or flumazenil are used for reversal, hold in Phase I for continued monitoring from when last reversal dose was given for a minimum of 60 minutes or longer pending the nurse and/or physician discretion of patient condition before discharge to Phase II. Please call the Sedation Physician to re-evaluate and complete post-note for discharge to Phase II area. Do NOT discharge from procedure sedation or Phase 1 until post- sedation evaluation note is complete by procedure /sedation MD Sedation Discharge Instructions to be given to the patient at discharge to home[place] [facility] [place]odes ([place]arges) Indication for Procedure Indication for procedure: CHEST PAIN STEMI Sedation/Anesthesia Procedure 1: Sedation/Anesthesia: 18727 Mod Sedation by the same physician;Init15 Min Child Age 5 & Up (INITIAL 15 MIN, START 1701) Total Sedation Time (minutes): 21 Procedure 2: Sedation/Anesthesia: 88342 Mod Sedation by the same physician; Ea [id number] Minutes (ADDITIONAL 6 MIN, END 1722) Total Sedation Time (minutes): 21
[2023-03-14 17:53] LABS: Troponin I High Sensitivity 207.1 pg/ml (0-14)
--- NOTE | 2023-03-14 18:02 | Cardiac Catheterization ---
[facility] Data: On Air Personality Cardiac Status Clinical evaluation leading to the procedure CAD Presenation: STEMI Anginal Classification: CCS IV Heart Failure: No Cardiogenic Shock within 24 Hours: No Cardiac Arrest within 24 Hours: No Imaging Studies Past 6 Months: No Coronary Anatomy Dominant: Right Left Main (% Stenosis): Normal (Mild) LAD (% Stenosis): Proximal (50 to 60%) and Mid (Mild) D1 (% Stenosis): Normal D2 (% Stenosis): Normal D3 (% Stenosis): Normal Circumflex (% Stenosis): Normal OM1 (% Stenosis): Normal OM2 (% Stenosis): Normal RCA (% Stenosis): Proximal (Mild up to 30%) and Mid (Focal 30%) R PDA (% Stenosis): Normal R PL1 (% Stenosis): Normal Diagnostic Physicians Name: Guilherme Verduzco MD, PhD Closure Device Percutaneous Entry Location: Radial Closure Device: Radial Band Recommendations: Medical Therapy and/or Counseling Intraprocedure Events Significant Disection: No Perforation: No Cardiac Cath Procedure Full Procedure Date March 14, 2023 Pre-Procedure Diagnosis Pre-Procedure Diagnosis: STEMI AUC Score AUC Score: 09 Post-Procedure Diagnosis Post-Procedure Diagnosis: Mild CAD Procedure(s) Performed Procedure(s) Performed: Coronary Angiography and Fractional Flow [place] [employer] Guilherme Verduzco MD, PhD Estimated Blood Loss Estimated Blood Loss: <5 CC Medication(s) Medication(s): Fentanyl, Heparin, Lidocaine 1%, Nicardipine, Nitroglycerin and Versed Summary of Findings Brief description: Patient was brought to the cardiac catheterization suite where she was shaved and prepped in a sterile fashion. Sedated using IV Versed and fentanyl. Soft tissues of the right wrist were anesthetized using 2 mL of 1% Xylocaine. The right radial artery was accessed using a modified Seldinger technique and a 6 Azerbaijani radial artery glide sheath was placed. Patient was provided anticoagulation with IV heparin and antispasmodics including nicardipine and nitroglycerin. All catheters were advanced and exchanged over a 0.035 J-tip wire. Left coronary angiography was performed in orthogonal views with a 5 Azerbaijani Karval 4 diagnostic catheter. Right coronary angiography was performed in orthogonal views with a 5 Azerbaijani Karval 4 diagnostic catheter. Decision was made to proceed with IFR analysis of the LAD. Diagnostic catheters were removed. A 5 Azerbaijani EBU 3.0 guide catheter was used to engage the left main coronary. ACT was checked and additional heparin provided as needed to maintain therapeutic anticoagulation. The Omni Doppler wave wire was advanced and positioned with the transducer just distal to the guide catheter tip. After normal saline flush, pressures were normalized. iFR was sampled 3 times. The guidewire was removed and angiographic evaluation was performed to ensure no complications from guidewire passage. Guide catheter was removed. Radial artery sheath was removed. Hemostasis was obtained using the radial band. Patient was hemodynamically stable and asymptomatic. She was admitted to the ICU for further workup and management. This ended the case. Coronary angiography findings: ACE-xorjg-tndkrsf vessel with mild scattered plaque. NOL-wcapy-whlmbuo vessel which reaches the apex. Proximally there is a focal calcified 50 to 60% stenosis. At the same level the vessel provides a large caliber first diagonal and then a large septal trunk. The mid LAD has diffuse mild luminal irregularities and provides a large branching second diagonal. The distal LAD has mild scattered plaques and provides a medium to large caliber third diagonal. As the LAD reaches the apex it bifurcates into is too small branches which are quite tortuous. PKq-oqayv-jvubcgt vessel. Provides a medium to large caliber high arising first OM. Proximal segment has minimal disease and provides an atrial branch. Then there is a medium caliber tortuous second obtuse marginal branch and the AV groove vessel then becomes small terminating distally. RCA-this is a large caliber and dominant vessel. Proximal and mid vessel have mild to moderate diffuse calcification.Proximal vessel with mild disease of less than 20 to 30%. Mid vessel with focal 30% lesion after the RV marginal. Then the distal vessel has mild luminal irregularities bifurcating into a large branching PLB and a large very tortuous branching PDA. No significant disease in the branch vessels of the RCA. IFR of proximal LAD-0.96, 0.95, 0.95. Therefore this is not hemodynamically significant. No evidence of dissection or perforation post IFR analysis BEBO-3 flow post IFR analysis Summary: 1. Angiographically moderate to borderline severe proximal LAD lesion. The remainder of the coronaries have no more than mild disease. 2. Doppler wave wire analysis of the LAD demonstrates that the proximal LAD lesion is not hemodynamically significant. 3. Recommend guideline directed medical therapy for secondary prevention of coronary artery disease as tolerated by blood pressure, heart rate, and renal function. In addition to aspirin, a atorvastatin, we should also consider beta- kwame plus or minus FREDY inhibitor/ARB. Hemodynamics Rest Ao:: 133/80 mmHg Final Ao: 163/98 mmHg LV: Not performed Recommendations Recommendations: Medical Therapy and/or Counseling Radiation Exposure (mGy) 269 mGy, fluoroscopy time 4.4 minutes Contrast (mls) 95 mL Anesthesia 1 mg Versed, 25 mcg fentanyl IV. Start 170, End 172 Procedural Complication(s) None Disposition ICU I attest to the content of the Intraoperative Record and any orders documented therein. Any exceptions are noted below. [facility] Card Cath Procedure Codes Cardiac Catheterization Procedure 1: Cardiovascular Cath Procedures: 42972 Coronaries Procedure 2: Cardiovascular Cath Procedures: 67468 (Doppler) Pressure Wire Moderate Sedation Procedure 1: Sedation/Anesthesia: 91775 Mod Sedation by the same physician;Init15 Min Child Age 5 & Up (Initial 15 min, start 1701) Procedure 2: Sedation/Anesthesia: 31635 Mod Sedation by the same physician; Ea Additio nal15 Minutes (Additional 6 min, End 1722) PG Care Time/CCT Total # of Minutes Spent Total Time Spent with Patient: Total time spent is greater than 50% in coordination of care (as documented) at patient's floor/unit and/or counseling patient:
--- NOTE | 2023-03-14 18:12 | Cardiology Consultation ---
Date of Consultation March 14, 2023 Assessment & Plan (1) ST elevation (STEMI) myocardial infarction: Although the EKG was consistent with ST elevation AL the coronary angiography does not reveal any acute thrombotic lesions. The proximal LAD lesion is angiographically borderline tending towards moderately severe occlusion and the Doppler wave wire analysis does not demonstrate that this lesion is hemodynamically significant. The patient's blood pressure at times has been very elevated and once the catheterization was completed (no longer having effects of calcium channel kwame, nitroglycerin, and sedation) patient's blood pressure again was very elevated. I suspect that she had very high blood pressure triggering her chest discomfort and that because of the borderline lesion at baseline this caused temporary demand ischemia. In any case, at this time I do recommend she begin on medical therapy. Was already taking statin and aspirin. She should also be placed on a beta-kwame plus or minus FREDY inhibitor/ARB. Since the patient is followed by Dr. Ozuna I also recommend that the [facility] cardiology service be contacted to assist in management. Would recommend an echocardiogram be obtained. (2) Benign essential hypertension: Blood pressure is elevated. Begin beta-kwame plus or minus FREDY inhibitor/ARB. Could also utilize a long-acting nitrate as tolerated. 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 Currently on intermediate dose a atorvastatin. May need to consider increasing the dose for aggressive LDL reduction to prevent progression of her LAD disease. History of Present Illness Reason for Consultation: Chest pain, ST elevation AL History of Present Illness Pleasant 88-year-old female without significant cardiac history developed sudden onset chest pain heaviness and tightness. She called EMS and they provided her with nitroglycerin and aspirin. They obtained an EKG which was suggestive of possible anterior myocardial infarction. At this prehospital EKG was forwarded to the emergency department who activated the "heart alert" team. On patient's arrival she no longer had any chest discomfort and her EKG no longer met criteria for anterior ST elevation AL. However, there was some mild residual ST elevations and after discussing with the patient my recommendation for definitive evaluation by coronary angiography she was willing to proceed with catheterization plus or minus PCI. Patient was taken urgently to the cardiac catheterization suite where diagnostic coronary angiography revealed essentially minimal coronary disease except for the proximal LAD where there was a moderate lesion. We tested the lesion for hemodynamic significance using Doppler wave wire and the lesion was found to be not hemodynamically significant. Therefore, no PCI was undertaken. She is now admitted to the ICU under the hospitalist service for further workup and management. Patient has had exertional dyspnea. I also note that she has had very high blood pressures at times. 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 Unfortunately, her was not present with her on arrival although he was being contacted to notify him of her presence at the hospital. She denies any syncope, near syncope, orthopnea, PND, racing heartbeat, or edema. She follows with [facility] primary care. Reportedly has a history of CVA although the details regarding that are not clear. Also reported diagnosis of non-ST elevation AL, again, details are unreported and I do not see any catheterization or other cardiac reports regarding that issue. The medical history from the [facility] medical records should be obtained and this EMR should be updated with those details. Allergies Allergy/AdvReac Type Severity Reaction Status Date / Time Bactrim Allergy Unknown SHORTNESS Verified 05/24/13 12:17 OF BREATH, rash Sulfa (Sulfonamide Allergy Unknown SHORTNESS Verified 07/23/22 18:07 Antibiotics) OF BREATH, RASH sulfamethoxazole Allergy Unknown SHORTNESS Verified 07/23/22 18:07 OF BREATH, rash trimethoprim Allergy Unknown SHORTNESS Verified 07/23/22 18:07 OF BREATH, rash Home Medications Medication Instructions Recorded Confirmed Type aspirin 81 mg tablet,delayed 81 mg PO DAILY 04/28/18 03/14/23 History release atorvastatin 20 mg tablet 20 mg PO DAILY 04/28/18 03/14/23 History Patient History Medical History (Updated 03/14/23 @ 18:14 by Guilherme Verduzco MD, PhD) Nausea & vomiting Acute hyponatremia COVID-19 Non-ST elevation [place] (NSTEMI) Arthritis Social History Smoking Status: Never smoker Hx Alcohol Use: No Hx Substance Use: No Preferred Language: Northern Irish Communication Ability: Effective Bond Manager Required: No Beliefs That Will Affect Care: None marital status: Current Living Situation: Spouse Feels Safe at Home: Yes Assistive Devices: Walker Review of Systems Review of Systems: Negative except as per HPI Physical Exam Constitutional: Cachectic elderly female. No acute distress. Eyes: Extraocular muscles intact. Sclera are anicteric. ENMT: Oral mucosa is pink and dry Neck: No JVD Respiratory: Clear to auscultation bilaterally. No wheezing, rhonchi, or rales. Cardiovascular: Regular rate and rhythm. Do not appreciate any murmurs. S4 gallop. Musculoskeletal: no cyanosis or clubbing, extremities motor strength 5/5 Neurologic: Significantly diminished hearing. Otherwise no focal deficits. Cognition is intact and speech is fluent. No tremor. Psychiatric: A+Ox3, euthymic affect Results & Data Vital Signs (Past 12 Hours) Vital Signs Temp Pulse Pulse Resp BP BP Pulse Ox 03/14/23 16:45 100 H 03/14/23 16:38 94 03/14/23 16:38 102 H 20 186/89 H 94 03/14/23 16:38 36.8 C 102 H 20 186/89 H 94 O2 Del Method 03/14/23 16:45 03/14/23 16:38 Room Air 03/14/23 16:38 Room Air 03/14/23 16:38 Room Air PG Care Time/CCT Total # of Minutes Spent Total Time Spent: 75 Total Time Spent with Patient: Total time spent is greater than 50% in coordination of care (as documented) at patient's floor/unit and/or counseling patient: This time includes initial examination, review of records, discussion with the patient, discussion with the care team, formulation and implementation of a plan of care and all associated documentation. This time is exclusive of the time spent for the procedure. Coding Level of Care Code 65984 INT INP/OBS CARE 3/75MIN Diagnoses ST elevation (STEMI) myocardial infarction I21.3 Benign essential hypertension I10 Atherogenic dyslipidemia E78.5
--- NOTE | 2023-03-14 18:48 | History & Physical Report ---
Date of Service March 14, 2023 Assessment & Plan (1) ST elevation (STEMI) myocardial infarction: (2) Chest pain: Plan: Patient is 88-year-old female with PMH CVA, dyslipidemia, chronic anemia presented to ER with complaint of chest pain today. Prehospital EKG with ST elevation and was given 324 mg aspirin and total of 2 sprays SL nitroglycerin with resolution of CP. Upon ER arrival remained CP free. EKG with ST elevation anterior leads per my interpretation. Patient was taken for cardiac cath Cardiac Cath: 1. Angiographically moderate to borderline severe proximal LAD lesion. The remainder of the coronaries have no more than mild disease. 2. Doppler wave wire analysis of the LAD demonstrates that the proximal LAD lesion is not hemodynamically significant. 3. Recommend guideline directed medical therapy for secondary prevention of coronary artery disease Currently patient doing well and is CP free Initial troponin 207-->2125 Trend troponin Repeat EKG in am EKG prn chest pain Nitro prn CP and repeat EKG for CP Echo Lipid panel in am. Plan to increase atorvastatin to 40mg daily Continue daily aspirin Start metoprolol tartrate BID Cardiology consult CBC, BMP in am (3) HTN (hypertension): Plan: Noted to be hypertensive BP 175/112, currently asymptomatic Start metoprolol tartrate, losartan Monitor BP (4) Hyponatremia: Plan: Na: 130 Repeat BMP in am (5) Dyslipidemia: Plan: Increase atorvastatin to 40mg daily (6) CVA (cerebral vascular accident): Plan: Continue aspirin, atorvastatin (7) Chronic anemia: Plan: History of iron deficiency anemia. Has denied EGD, colonoscopy in past per outpatient records Hgb: 11.5. Was 12 on 01/28/23, 10.3 on 11/19/22 Continue iron supplement DVT Prophylaxis--Heparin SQ DNR/DNI as per discussion with pt Follows with Dr Lorraine Ozuna for routine care Pt was seen and care coordinated with Dr Gaytan. See addendum Admission and Anticipated Discharge Date Admission Date: March 14, 2023 History of Present Illness Chief Complaint: CP Primary Care Provider: Lorraine Ozuna DO Patient is 88-year-old female with PMH CVA, dyslipidemia, chronic anemia presented to ER with complaint of chest pain today. History obtained from patient, outpatient chart review and ER staff. Patient states was sitting and around 3 PM today started with "excruciating" chest pain with associated shortness of breath. She called EMS. She reports pain was 10 out of 10 on pain scale. EMS reported ST elevation on EKG. She was given 324 mg aspirin and total of 2 sprays SL nitroglycerin with reported resolution of chest pain. Upon arrival to ER patient was chest pain-free and EKG with ST elevation anterior leads. Patient was taken for cardiac cath and was found to have 50-60% stenosis LAD and doppler wave wire analysis of the LAD demonstrates that the proximal LAD lesion is not hemodynamically significant and medical therapy was recommended. Post cardiac cath patient reports is doing well. Denies any chest pain or SOB. Denies fever/chills, diaphoresis, N/V/D/C, AGUILA, dizziness, syncope, vision changes, neck pain, palpitations, cough, sore throat, rhinorrhea, abdominal pain, paresthesias, weakness, extremity edema, rashes, urinary symptoms. Allergies Allergy/AdvReac Type Severity Reaction Status Date / Time Bactrim Allergy Unknown SHORTNESS Verified 05/24/13 12:17 OF BREATH, rash Sulfa (Sulfonamide Allergy Unknown SHORTNESS Verified 07/23/22 18:07 Antibiotics) OF BREATH, RASH sulfamethoxazole Allergy Unknown SHORTNESS Verified 07/23/22 18:07 OF BREATH, rash trimethoprim Allergy Unknown SHORTNESS Verified 07/23/22 18:07 OF BREATH, rash Home Medications Medication Instructions Recorded Confirmed Type aspirin 81 mg tablet,delayed 81 mg PO DAILY 04/28/18 03/14/23 History release atorvastatin 20 mg tablet 20 mg PO DAILY 04/28/18 03/14/23 History ferrous sulfate 27 mg iron tablet 27 mg PO DAILY 03/14/23 03/14/23 History glucosamine 750 th-zobdkqgdwsu-mwb 1 tab PO BID 03/14/23 03/14/23 History no1 644 mg-C 30 mg-delphine 1 mg tablet (Osteo Bi-Flex Triple Strength) Past Med/Surg History Medical History (Updated 03/14/23 @ 20:13 by Marissa Mccrary PA-C) Chronic anemia CVA (cerebral vascular accident) Dyslipidemia Nausea & vomiting Acute hyponatremia COVID-19 Non-ST elevation [place] (NSTEMI) Arthritis Surgical History History of hysterectomy Family History Brother Coronary heart disease Sister Cancer Social History Smoking Status: Never smoker Second Hand Exposure: No; Do You Dip or Chew Tobacco: No; Hx Alcohol Use: No Hx Substance Use: No Preferred Language: Bruneian Communication Ability: Effective At Risk Paraprofessional Required: No Beliefs That Will Affect Care: None marital status: Current Living Situation: Spouse Feels Safe at Home: Yes Assistive Devices: Glasses and Hearing Aid - Bilateral Review of Systems Review of Systems: All systems reviewed & are unremarkable except as noted in HPI & below Physical Exam Physical Exam: General: +pleasant, no distress, WDWN elderly female Head: normocephalic, atraumatic Eyes: conjunctiva non-injected, anicteric ENT: +hard of hearing, normal inspection external ears, nose, mucous membranes moist Neck: supple, trachea midline Lungs: clear, no respiratory distress, no wheezing/rhonchi/rales CV: RRR, no murmur, no pretibial edema Abd: normal BS, soft, non-tender Ext: no cyanosis, no calf tenderness Neuro: A&O x 3, no focal deficits noted, normal affect Skin: warm, dry Results & Data Results & Data Vital Signs (Past 12 Hours) Vital Signs Temp Pulse Pulse Resp BP BP Pulse Ox 03/14/23 18:23 37.0 C 03/14/23 18:15 175/112 H 03/14/23 18:15 84 20 93 03/14/23 18:03 36.8 C 85 18 161/89 H 95 03/14/23 18:00 161/89 H 03/14/23 18:00 85 23 95 03/14/23 17:45 84 22 94 03/14/23 17:45 175/84 H 03/14/23 17:43 94 03/14/23 17:41 178/83 H 03/14/23 16:45 100 H 03/14/23 16:38 94 03/14/23 16:38 102 H 20 186/89 H 94 03/14/23 16:38 36.8 C 102 H 20 186/89 H 94 O2 Del Method 03/14/23 18:23 03/14/23 18:15 03/14/23 18:15 03/14/23 18:03 Room Air 03/14/23 18:00 03/14/23 18:00 03/14/23 17:45 03/14/23 17:45 03/14/23 17:43 03/14/23 17:41 03/14/23 16:45 03/14/23 16:38 Room Air 03/14/23 16:38 Room Air 03/14/23 16:38 Room Air Laboratory Results Short CBC 03/14/23 Range/Units 16:49 WBC 11.04 H (4.8-10.8) K/ul Hgb 11.5 L (12.0-16.0) g/dl Hct 35.8 L (37.0-47.0) % Plt Count 284 (130-400) K/uL BMP 03/14/23 16:49 Sodium 130 L Potassium 3.6 Chloride 91 L Carbon Dioxide 28 BUN 14 Creatinine 0.66 Glucose 111 H Calcium 9.5 Cardiac Enzymes 03/14/23 Range/Units 16:49 Total Creatine Kinase 118 (26-192) U/L Liver Function 03/14/23 Range/Units 16:49 Total Bilirubin 0.3 (0.2-1.0) mg/dl AST 31 (13-39) U/L ALT 16 (7-52) U/L Alkaline Phosphatase 84 (34-104) U/L Albumin 3.9 (3.4-5.0) gm/dl Diagnostic Findings Chest X-Ray 03/14/23 16:51 XR chest 1V portable HISTORY: Atypical chest pain. COMPARISON: Chest 07/22/2022. FINDINGS: No pneumothorax. No pleural effusions. The heart is normal in size. There is mild perihilar interstitial thickening which has slightly progressed. This suggests mild congestive change. No evidence for robin pulmonary edema. No new focal lung consolidations to suggest pneumonia. No acute fractures identifie d. IMPRESSION: Mild central pulmonary vascular congestion without overt edema. This has slightly progressed. ACT 112: Negative or not required by law. Electronically signed by: Arsh Cavanaugh M.D. 03/14/2023 5:21 PM Supervising Physician Co-Signing Physician Notes I have seen and examined the patient and have discussed the case with the provider above. I agree with the assessment and plan as stated. 88 yo F who admits to feeling poorly for the past 3 days. She suddenly developed acute chest pain today while at home for over an hour. She was treated in the field for STEMI by EMS with nitro and aspirin. prosthetics lab technician was activated and the only EKG in the chart, noted at 17:41 reveals sinus rhythm with rate os 84bpm and ST elevations in V1-4. No culprit lesion was found in the cardiac catheterization today. Elevated blood pressure this evening being treated with hydralazine. She is pain free post heart catheterization this evening. Continues to recover in the ICU overnight per policy after STEMI and per cardiology. Cont management per cardiology. DO Lukas
[2023-03-14] MEDS ORDERED: hydrALAZINE HCL 20 MG/ML VIAL IV STA (19:18)
[2023-03-14] MEDS ORDERED: POLYETHYLENE (MIRALAX) 17 GM PACK PO PRN (19:25)
[2023-03-14] MEDS ORDERED: ACETAMINOPHEN 325 MG TAB PO PRN (19:25)
[2023-03-14] MEDS ORDERED: NITROGLYCERIN SL 0.4 MG/TAB TAB SL PRN (19:25)
[2023-03-14] MEDS ORDERED: ONDANSETRON INJ 2 MG/ML 2 ML VIAL IV PRN (19:25)
[2023-03-14] MEDS ORDERED: hydrALAZINE HCL 20 MG/ML VIAL IV PRN (19:27)
[2023-03-14] MEDS: METOPROLOL TARTRATE 25 MG TAB PO SCH (20:04)
[2023-03-14] MEDS: ATORVASTATIN 40 MG TAB PO SCH (20:37)
[2023-03-14] MEDS: LOSARTAN POTASSIUM 25 MG TAB PO SCH (20:37)
[2023-03-14] MEDS: MELATONIN 3 MG TAB PO PRN (20:39)
--- NOTE | 2023-03-14 20:40 | Critical Care Consultation ---
Date of Consultation March 14, 2023 Assessment & Plan (1) Myocardial infarction due to demand ischemia: (2) Dyslipidemia: Plan 1. STEMI due to demand ischemia in the setting of hypertensive urgency 2. Hyperlipidemia 3. Hypertension 4. Leukocytosis with neutrophil predominance 2/2 physiologic stress 5. Chronic hyponatremia Avoid sedating medications Routine neurologic checks with sleep hygiene Home melatonin Cardiac cath without culprit lesion GDMT, BP management, avoid hypotension BB started, increase statin Pulmonary hygiene OK for diet SUP: N/A Bowel regimen: PRN SSI for BG 140-180 per SCCM guidelines TSH WNL No current concern for infection, trend WBC Monitor off ABX Avoid nephrotoxic agents including NSAIDs given recent contrast load No indication for treatment of hyponatremia as her baseline appears to be 128- 132 Replete electrolytes Routine I/O monitoring No indication for carrillo No indication for therapeutic A/C DVT PPX: SCDs, defer to primary PIV x2 overnight Disposition: Recover in ICU, downgrade in AM if patient remains stable D/w Dr. Olson via phone. Thank you for including us in this patient's care. We remain available for continued questions or concerns. Supervising Physician Co-Signing Physician Notes Patient seen and examined. EMR reviewed. Discussed with critical care CLAIRE and agree with assessment plan as noted. Please refer to my progress note from 03/15/2023 additional detail History of Present Illness Reason for Consultation: STEMI Requesting Physician: MD Dax Attending Physician: Magi Gaytan DO History of Present Illness Ms. Mindy Lux is a pleasant 88YO F with a history of sensorineural hearing loss, HTN/HLD, CVA, and chronic anemia who presented to [facility] ED due to acute onset of substernal chest pain around 1500 on 03/14/2023. Per report, patient has associated shortness of breath. EMS was called, prehospital EKG revealed STEMI with ST-elevations in V3-V6 with ST-depressions in II/III. She received ASA load and 2 sprays of nitroglycerin with relief of chest pain. On arrival to ED, patient's chest pain resolved. Repeat EKG without ST-elevations, though SBP > 180mmHg. 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 Neither of these lesions were hemodynamically significant. Patient remained hemodynamically stable with SBP 130-170, transferred to ICU post-operatively. Patient seen in ICU 104. She is AAOx3. No current complaints and specifically denies chest pain, nausea, shortness of breath, headache. She is quite hard of hearing, but we were able to converse without much difficulty. Allergies Allergy/AdvReac Type Severity Reaction Status Date / Time Bactrim Allergy Unknown SHORTNESS Verified 05/24/13 12:17 OF BREATH, rash Sulfa (Sulfonamide Allergy Unknown SHORTNESS Verified 07/23/22 18:07 Antibiotics) OF BREATH, RASH sulfamethoxazole Allergy Unknown SHORTNESS Verified 07/23/22 18:07 OF BREATH, rash trimethoprim Allergy Unknown SHORTNESS Verified 07/23/22 18:07 OF BREATH, rash Home Medications Medication Instructions Recorded Confirmed Type aspirin 81 mg tablet,delayed 81 mg PO DAILY 04/28/18 03/14/23 History release atorvastatin 20 mg tablet 20 mg PO DAILY 04/28/18 03/14/23 History ferrous sulfate 27 mg iron tablet 27 mg PO DAILY 03/14/23 03/14/23 History glucosamine 750 [id number] 1 tab PO BID 03/14/23 03/14/23 History no1 644 mg-C 30 mg-delphine 1 mg tablet (Osteo Bi-Flex Triple Strength) Patient History Medical History (Updated 03/14/23 @ 20:40 by Candice Inman PA-C) Chronic anemia CVA (cerebral vascular accident) Dyslipidemia Nausea & vomiting Acute hyponatremia COVID-19 Non-ST elevation LA (NSTEMI) Arthritis Surgical History History of hysterectomy Family History Brother Coronary heart disease Sister Cancer Social History Smoking Status: Never smoker Second Hand Exposure: No; Do You Dip or Chew Tobacco: No; Hx Alcohol Use: No Hx Substance Use: No Preferred Language: Bahraini Communication Ability: Effective Manager Relationship Required: No Beliefs That Will Affect Care: None marital status: Current Living Situation: Spouse Feels Safe at Home: Yes Assistive Devices: Glasses and Hearing Aid - Bilateral Review of Systems Review of Systems: All systems reviewed & are unremarkable except as noted in Subjective Physical Exam Constitutional: WD/WN, vitals as above Eyes: PERRL, conjunctivae normal, anicteric sclerae ENMT: external ear and nose normal, oropharynx normal Neck: trachea midline, no thyromegaly Respiratory: normal respiratory effort, lungs clear to auscultation Cardiovascular: RRR, no murmur, no edema Gastrointestinal (Abdomen): normal bowel sounds, soft, nontender, no hepatosplenomegaly Skin: no rashes, warm and dry Neurologic: PERRL, EOMI, accommodation nl, no face palsy, no dysarthria Results & Data Results & Data Vital Signs (Past 12 Hours) Vital Signs Temp Pulse Pulse Resp BP BP Pulse Ox 03/14/23 18:23 37.0 C 03/14/23 18:15 175/112 H 03/14/23 18:15 84 20 93 03/14/23 18:03 36.8 C 85 18 161/89 H 95 03/14/23 18:00 161/89 H 03/14/23 18:00 85 23 95 03/14/23 17:45 84 22 94 03/14/23 17:45 175/84 H 03/14/23 17:43 94 03/14/23 17:41 178/83 H 03/14/23 16:45 100 H 03/14/23 16:38 94 03/14/23 16:38 102 H 20 186/89 H 94 03/14/23 16:38 36.8 C 102 H 20 186/89 H 94 O2 Del Method 03/14/23 18:23 03/14/23 18:15 03/14/23 18:15 03/14/23 18:03 Room Air 03/14/23 18:00 03/14/23 18:00 03/14/23 17:45 03/14/23 17:45 03/14/23 17:43 03/14/23 17:41 03/14/23 16:45 03/14/23 16:38 Room Air 03/14/23 16:38 Room Air 03/14/23 16:38 Room Air Laboratory Results Reviewed Diagnostic Findings Reviewed Medications Administered See MAR Coding Level of Care Code 18066 IN/OBS CONSULT LVL 2,35M Diagnoses Myocardial infarction due to demand ischemia I21.A1 Dyslipidemia E78.5
[2023-03-14] MEDS ORDERED: ATORVASTATIN 20 MG TAB PO SCH (21:00)
[2023-03-14] MEDS ORDERED: COUGH DROP (SUGAR FREE) LOZ 24 LOZ/1 BOX BUCCAL STA (21:06)
[2023-03-14] MEDS ORDERED: diphenhydrAMINE 50 MG/ML VIAL IV STA (21:53)
--- NOTE | 2023-03-14 21:59 | Communication Note ---
Date of Service: March 14, 2023 Notified by RN of persistent coughing with some difficulty taking deep breath. Evaluated patient, she is not in acute distress, does admit to some coughing recently for about 1 week, but states it is not similar to that. When RN asked same question, patient stated it is probably similar. She is a relatively poor historian, but declines having IV contrast in the past so it is unknown whether she's had a reaction. In addition, the coughing got worse after taking her evening pills. Denies feeling of aspiration. Hemodynamically stable on room air. Will give IV Benadryl x1 given possibility of mild contrast reaction, though suspicion is not high Aspiration precautions, Speech evaluation while inpatient Repeat CXR in AM or if respiratory status were to decline D/w bedside RN. Coding Level of Care Code None
--- NOTE | 2023-03-14 22:54 | XRay Report ---
SINGLE VIEW CHEST CLINICAL HISTORY: Cough FINDINGS: An AP, portable, upright chest radiograph is compared to study performed earlier the same d ay 03/14/2023 and correlated with chest CT dated 05/24/2013. The heart is mildly enlarged noting athero sclerotic calcification of the thoracic aorta. The pulmonary vasculature is noncongested. Chronic int erstitial thickening is similar to previous. There is left basilar scarring/atelectasis. No airspace consolidation or large pleural effusion is identified. No pneumothorax is seen. The skeletal structur es are osteopenic. The bony thorax is grossly intact. IMPRESSION: Cardiomegaly with no acute cardiopulmonary abnormality identified. ACT 112: Negative or not required by law. Electronically signed by: Dontrell Torres M.D. 03/14/2023 10:53 PM
[2023-03-14 23:49] LABS: Adenovirus PCR Not Detected (NotDetected); Bordetella parapertussis PCR Not Detected (NotDetected); Bordetella pertussis PCR Not Detected (NotDetected); Chlamydia pneumoniae PCR Not Detected (NotDetected); Coronavirus 229E PCR Not Detected (NotDetected); Coronavirus CoV-2 (COVID19)PCR Not Detected (NotDetected); Coronavirus HKU1 PCR Not Detected (NotDetected); Coronavirus NL63 PCR Not Detected (NotDetected); Coronavirus OC43PCR Not Detected (NotDetected); Human Metapneumovirus PCR Not Detected (NotDetected); Influenza A PCR Not Detected (NotDetected); Influenza B PCR Not Detected (NotDetected); Mycoplasma pneumoniae PCR Not Detected (NotDetected); Parainfluenza Virus 1 PCR Not Detected (NotDetected); Parainfluenza Virus 2 PCR Not Detected (NotDetected); Parainfluenza Virus 3 PCR Not Detected (NotDetected); Parainfluenza Virus 4 PCR Not Detected (NotDetected); Respiratory Syncytial VirusPCR Not Detected (NotDetected); Rhinovirus/Enterovirus PCR Not Detected (NotDetected)
--- OUTSIDE RECORDS SUMMARY | 2023-03-15 01:13 | External Medical Summary | Summary of Care ---
Author Name Unknown Organization [facility] Address [address] [facility] [place] [address] Phone [phone] Care Team Providers Care Resistance Welder Name Role Phone PoppyLorraine waddell John CRUZ Primary Care Provider Reason for Visit * Reason Comments Follow Up F/U Encounter Details Date Type Department Care Team Description 11/19/2022 Office Visit Hematology/Oncology [facility] [address] [facility] [place], [place] [id number] Vanessa Laboy CRNP [address] [facility] [place] [address] Iron deficiency anemia, unspecified iron deficiency anemia type* Allergies Active Allergy Reactions Severity Noted Date Comments Bactrim 05/25/2008 Sulfa Antibiotics 03/23/1999 documented as of this encounter (statuses as of 11/20/2022) Medications Medication Sig Dispensed Refills Start Date End Date Status CALCIUM CAPS 500 MG OR one cap by mouth daily 30 5 07/21/2000 Active [id number] MAXIMUM STRENGTH TABS 400-500 MG OR 1 BID 0 0 07/21/2000 Active ASPIRIN LOW DOSE 81 MG PO TABSIndications:Cereb ral vascular disease 1 TABLET DAILY 30 Tab 0 06/14/2013 Active Atorvastatin Calcium 20 MG Oral Tablet (Lipitor)Indications: Dyslipidemia, goal LDL below 100 Take 1 Tablet (20 mg) by mouth in the morning. 90 Tablet 3 02/01/2022 Active Ferrous Sulfate 324 (65 Fe) MG Oral Tablet Delayed Release Take 1 Tablet by mouth in the morning and 1 Tablet in the evening. 0 Active documented as of this encounter (statuses as of 11/20/2022) Active Problems Problem Noted Date History of CVA (cerebrovascular accident ) 01/23/2021 Overview: Cerebral Vascular Disease noted 2015 Postmenopausal atrophic vaginitis 2005 OSTEOARTHROS NOS-UNSPEC 03/23/1999 Dyslipidemia, goal LDL below 100 documented as of this encounter (statuses as of 11/20/2022) Resolved Problems Problem Noted Date Resolved Date Cerebral vascular disease 08/29/20152020 Overview: Historical Dehydration 02/23/2014 11/05/2017 Nausea 02/21/2014 11/05/2017 Overview: ICD-10 update of inactive term Loss of weight 02/21/2014 11/05/2017 Lower urinary tract infectious disease 4 11/05/2017 Overview: ICD-10 update of inactive term Lumbar vertebral fracture 07/07/20132017 Special screening for malignant neoplasms, colon 04/23/2010 11/05/2017 CIRCUMSCRIBE SCLERODERMA 12/05/2004 018 Dyslipidemia, goal to be determined 03/23/1999 04/23/2010 Need for prophylactic hormon e replacement therapy (postmenopausal) 11/05/2017 Gout 11/05/2017 documented as of this encounter (statuses as of 11/20/2022) Immunizations Name Administration Dates Next Due COVID-19 mRNA, LNP-s, No Pre serve, 2-Dose Series (Moderna) 06/29/2020,05/30/2020 Pneumococcal Polysaccharide PPV23 (Pneumovax) TD, Preservative Free 03/28/2011 documented as of this encounter Social History Tobacco Use Types Packs/Day Years Used Date Smoking Tobacco: Never Passive Smoke Exposure: Never Smokeless Tobacco: Never Alcohol Use Standard Drinks/Week Comments No 0 (1 standard drink = 0.6 oz pur e alcohol) none Food Insecurity Answer Date Recorded Within the past 12 months, y ou worried that your food would run out before you got money to buy more. Never true 01/31/2020 Within the past 12 months, t he food you bought just didn't last and you didn't have money to get more. Never true 01/31/2020 Sex Assigned at Date Recorded Female 01/31/2020 9:[address] Job Start Date Occupation Industry Not on file Not on file Not on file documented as of this encounter Last Filed Vital Signs Vital Sign Reading Time Taken Comments Blood Pressure 153/67 11/19/2022 2:23 PM EDT Pulse 77 11/19/2022 2:23 PM EDT Temperature 36.7 C (98 F) 11/19/2022 2:23 PM EDT Respiratory Rate 18 11/19/2022 2:23 PM EDT Oxygen Saturation 93% 11/19/2022 2:23 PM EDT Inhaled Oxygen Concentration - - Weight 47.1 kg (103 lb 14.4 oz) 11/19/2022 2:23 PM EDT Height - - Body Mass Index 17.29 08/02/2022 9:58 AM EDT documented in this encounter Progress Notes * MARCIAL Helms - 11/19/2022 2:36 PM EDT Hematology/Oncology Outpatient Clinic note [facility] [place] [address] [facility] [place] [address] Name: Mindy Lux Date: 11/19/2022 CHIEF COMPLAINT: Mindy Lux is a 87 year old female here today for f/u visit today. Patient of Dr. Raphael Del Rio. From Patient chart confirmed with patient. HEMATOLOGY/ONCOLOGY DIAGNOSIS: Iron deficiency anemia CURRENT TREATMENT: Ferrous sulfate one tablet BID HISTORY OF PRESENT ILLNESS: Patient with PMH of dyslipidemia, CVA, and osteoarthritis. Component Latest Ref Rng 07/26/2022 WBC 4.00 - 10.80 K/uL 6.50 RBC 3.85 - 5.15 M/uL 4.93 HGB 12.0 - 15.3 g/dL 11.2 (L) HCT 36.0 - 45.2 % 36.7 MCV 81.5 - 97.5 fL 74.4 MCH 27.0 - 34.0 pg 22.7 MCHC 32.0 - 36.0 g/dL 30.5 RDW 11.5 - 15.5 % 23.9 PLT 140 - 400 K/uL 327 MPV 6.6 - 11.1 fL 11.2 nRBCs <=0 /100 [address]BC[address] [facility] 07/23/22 and Hgb was 7.4, ferritin 12.5. Received 2 units of PRBC. Hgb day of discharge 07/24/22 10.5. Recommended outpatient colonoscopy Discharged on ferrous sulfate one tablet twice daily Chart review reveals previous normal MCV which rules of thalassemia. Patient was experiencing significant SOB which is what prompted her to present to [facility] ED. Had beenexperiencing increasing SOB over the last month. Slowly losing weight over the last six months, approximately 10 pounds. Denies any melena or hematochezia. Denies constipation or diarrhea. Denies drenching night sweats, fevers or chills. GI ROS negative. Feels much improved today. Denies any restrictive diets. Feels that she is eating well. Does take aspirin 81 mg daily. No other blood thinners. Does not regularly take ibuprofen. Tolerating iron supplement well. Is causing dark stools. Taking twice a day with OJ. Increasing iron in her diet as well. Patient is not going to have a colonoscopy done. She is 87 and states she wouldn't do anything about cancer even if it was found. HISTORY OF PRESENT ILLNESS: Mindy Lux is a 87 year old female with a history as outlined above. Currently here for f/u visit today. Patient feeling well today. No complaints or concerns. Tolerating iron supplement well. Taking twice a day with OJ. Denies melena or hematochezia. Past Medical History: Diagnosis Date Cerebral vascular disease 08/29/2015 Historical Cerebrovascular disease Circumscribed scleroderma Dyslipidemia, goal LDL below 100 Lumbar vertebral fracture (HCC) fall in 06/2013 L 1and L 2 Past Surgical History: Procedure Laterality Date CATARACT SURGERY,COMPLEX [place] INFORMATION [facility] TOTAL HYSTERECTOMY 1988 GIULIA/BSO for endometriosis Social History Socioeconomic History Marital status: Spouse name: Sonam Sargent Number of children: 1 Years of education: Not on file Highest education level: Not on file Occupational History Occupation: Retired Employer: [employer] Comment: retired 1996 Tobacco Use Smoking status: Never Passive exposure: Never Smokeless tobacco: Never Substance and Sexual Activity Alcohol use: No Comment: none Drug use: No Comment: some tea Sexual activity: Never Partners: Male Other Topics Concern Service Not Asked Blood Transfusions Not Asked Caffeine Concern Not Asked Occupational Exposure Not Asked Hobby Hazards Not Asked Sleep Concern Not Asked Stress Concern Not Asked Weight Concern Not Asked Special Diet Yes Comment: healthy eating habits and calcium Back Care Not Asked Exercise No Comment: but active Bike Helmet Not Asked Seat Belt Yes Self-Exams Yes Comment: breast Social History Narrative 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 education: roper operator service: no hobbies/interests: Reading, mosque work transfusions: No Tattoos- no exercise: walking diet: no hinduism/mosque: [facility] marital status: 1958 children: 1 gc: 1 ggc: 0 pets: cat exposure to violence/threats/abuse: no things to improve: no Social Determinants of Health Financial Resource Strain: Not on file Food Insecurity: Not on file Transportation Needs: Not on file Physical Activity: Not on file Stress: Not on file Social Connections: Not on file Intimate Partner Violence: Not on file Housing Stability: Not on file Review of patient's allergies indicates: Allergen Reactions Bactrim Sulfa Antibiotics Current Outpatient Medications Medication Sig Dispense Refill CALCIUM CAPS 500 MG OR one cap by mouth daily 30 5 [id number] MAXIMUM STRENGTH TABS 400-500 MG OR 1 BID 0 0 ASPIRIN LOW DOSE 81 MG PO TABS 1 TABLET DAILY 30 Tab Atorvastatin Calcium 20 MG Oral Tablet (Lipitor) Take 1 Tablet (20 mg) by mouth in the morning. 90 Tablet 3 Ferrous Sulfate 324 (65 Fe) MG Oral Tablet Delayed Release Take 1 Tablet by mouth in the morning and 1 Tablet in the evening. No current facility-administered medications for this visit. REVIEW OF SYSTEMS: See HPI - otherwise negative OBJECTIVE: Filed Vitals: 11/19/22 1423 BP: 153/67 Pulse: 77 Resp: 18 Temp: 36.7 C (98 F) TempSrc: Tympanic SpO2: 93% Weight: 47.1 kg (103 lb 14.4 oz) Wt Readings from Last 5 Encounters: 11/19/22 47.1 kg (103 lb 14.4 oz) 08/02/22 46.1 kg (101 lb 11.2 oz) 07/26/22 47.9 kg (105 lb 8 oz) 06/26/22 48.6 kg (107 lb 1.6 oz) 06/12/22 47.9 kg (105 lb 9.6 oz) PHYSICAL EXAM: General Appearance: No acute distress Lungs/Thorax: Normal respiratory effort Extremities: No edema Neurologic: Normal - Grossly intact LABS: Results for orders placed or performed in visit on 10/29/22 IRON SCREEN, INCLUDING TIBC Result Value Ref Range Iron 69 33 - 151 ug/dL Iron Binding Capacity 409 250 - 425 ug/dL Transferrin Saturation Percent 17 15 - 55 % FERRITIN Result Value Ref Range Ferritin 22 13 - 150 ng/mL CBC Result Value Ref Range WBC 6.96 4.00 - 10.80 K/uL RBC 4.16 3.85 - 5.15 M/uL HGB 11.3 (L) 12.0 - 15.3 g/dL HCT 37.1 36.0 - 45.2 % MCV 89.2 81.5 - 97.5 fL MCH 27.2 27.0 - 34.0 pg MCHC 30.5 32.0 - 36.0 g/dL RDW 16.7 11.5 - 15.5 % PLT 228 140 - 400 K/uL MPV 11.1 6.6 - 11.1 fL nRBCs 0 <=0 /100 WBCs DIFFERENTIAL, AUTOMATED Result Value Ref Range WBC 6.96 4.00 - 10.80 K/uL Neutrophils % 71.4 40.0 - 75.0 % Lymphocytes % 16.4 (L) 18.0 - 42.0 % Monocytes % 8.0 1.0 - 11.0 % Eosinophils % 3.2 0.0 - 6.0 % Basophils % 0.9 0.0 - 2.0 % Immature Granulocytes % 0.1 0.0 - 2.0 % Absolute Neutrophils 4.97 1.80 - 7.70 K/uL Absolute Lymphocytes 1.14 1.00 - 4.80 K/ul Absolute Monocytes 0.56 0.00 - 1.10 K/uL Absolute Eosinophils 0.22 0.00 - 0.70 K/uL Absolute Basophils 0.06 0.00 - 0.20 K/uL Absolute Immature Granulocytes 0.01 0.00 - 0.20 K/uL IMPRESSION/PLAN: Iron deficiency anemia Decline in iron studies noted on lab work from 10/29/22 Patient contacted and resumed taking ferrous sulfate 325 mg BID at that time. Tolerating well. Patient feeling clinically well today. Will update lab work today including cbc/diff, iron screen and ferritin. Will follow up with patient by telephone with results. Pending results of above will follow cbc/diff, iron screen and ferritin every three months. Patient declines GI endoscopic evaluation. RTC in six months with provider with cbc/diff, iron screen and ferritin MARCIAL Olmstead documented in this encounter Nursing Notes * Jenelle Eisenberg LPN - 11/19/2022 2:24 PM EDT Patient identifed by name and birthdate Do you have any concerns about pain management for today's visit? No Living Will or Advance Directive for Health Care as noted on the problem list. [facility] is a way you can talk to your provider on line through e-mail. Would you like to sign up? I can activate it for you? ALREADY ACTIVE Filed Vitals: 11/19/22 1423 BP: 153/67 Pulse: 77 Resp: 18 Temp: 36.7 C (98 F) TempSrc: Tympanic SpO2: 93% Weight: 47.1 kg (103 lb 14.4 oz) Patient was instructed to not get up on the exam table/exam chair until directed and assisted by their provider; patient is to remain seated in the chair/ wheelchair/ exam table/ exam chair for fall prevention and safety reasons. Patient is aware to have assistance to step down off exam table/exam chair with personnel. Patient voiced full comprehension of instructions. documented in this encounter Plan of Treatment Upcoming Encounters Date Type Specialty Care Team Description 02/03/2023 Office Visit Family Medicine Lorraine Ozuna DO [address] [place] [address] 02/18/2023 Laboratory Laboratory [facility] [address] [place] [address] 05/13/2023 Laboratory Laboratory [facility] [address], [place] [id number] 05/20/2023 Office Visit Hematology Oncology Vanessa Laboy CRNP [address] [facility] [place] [id number] Scheduled Orders Name Type Priority Associated Diagnoses Orde r Schedule CBC WITH WBC DIFFERENTIAL Lab STAT Iron deficiency anemia, unspecified iron deficiency anemia type Every 3 Months for 4 Occurrences starting 11/20/2022 until 11/21/2023 IRON SCREEN, INCLUDING TIBC Lab STAT Iron deficiency anemia, unspecified iron deficiency anemia type Every 3 Months for 4 Occurrences starting 11/20/2022 until 11/21/2023 FERRITIN Lab STAT Iron deficiency anemia, unspecified iron deficiency anemia type Every 3 Months for 4 Occurrences starting 11/20/2022 until 11/21/2023 Health Maintenance Due Date Last Done Comments Zoster Vaccines (1 of 2) 1984 DTaP,Tdap,and Td Vaccines (1 - Tdap) 03/29/2011 03/28/2011 Pneumococcal Vaccine: 65+ Years (2 - PCV) 10/02/2019 10/01/2018, 03/23/1999 DXA Scan 10/13/2019 10/12/2012, 07/01, 07/19/2009, Additional history exists COVID-19 Vaccine (3 - Moderna series) 08/24/2020 06/29/2020, 05/30/2020 Depression Screening 01/30/2021 01/31/2020 Influenza Vaccine (FLU shot) (#1) 2022 01/18/2003, 01/20/2002, 01/31/2000, Additional history exists GARDASIL-HPV IMMUNIZATION SERIES Aged Out No longer eligible based on patient's age to complete this topic Hepatitis B Aged Out No longer eligi ble based on patient's age to complete this topic MENINGOCOCCAL (MENACTRA/MENVEO) Aged Out No longer eligible based on patient's age to complete this topic documented as of this encounter Medical Devices Not on filedocumented as of this encounter Visit Diagnoses Diagnosis Iron deficiency anemia, unspecified iron deficiency anemia type- Primary documented in this encounter Care Teams Resistance Welder Relationship Specialty Start Date End Date Lorraine Ozuna, [address] [place] [address] PCP - General Family Medicine 05/07/12 documented as of this encounter
--- OUTSIDE RECORDS SUMMARY | 2023-03-15 01:13 | External Medical Summary | Summary of Care ---
Author Name Unknown Organization [facility] Address [address] [facility] [place] [address] Phone [phone] Care Team Providers Care Press Shop Supervisor Name Role Phone JoelLorraine españa Primary Care Provider [phone] Reason for Visit * Reason Comments Outpatient Testing Encounter Details Date Type Department Care Team Description 11/19/[address] [facility] [address] [place] [address] [facility] [address] [place] [address] Iron deficiency anemia, unspecified iron deficiency anemia type Allergies Active Allergy Reactions Severity Noted Date Comments Bactrim 05/25/2008 Sulfa Antibiotics 03/23/1999 documented as of this encounter (statuses as of 11/19/2022) Medications Medication Sig Dispensed Refills Start Date End Date Status CALCIUM CAPS 500 MG OR one cap by mouth daily 30 5 07/21/2000 Active UOSKR-[id number] MAXIMUM STRENGTH TABS 400-500 MG OR 1 [...] as of this encounter (statuses as of 11/19/2022) Active Problems Problem Noted Date History of CVA (cerebrovascular accident ) 01/23/2021 Overview: Cerebral Vascular Disease noted 2015 Postmenopausal atrophic vaginitis 2005 OSTEOARTHROS NOS-UNSPEC 03/23/1999 Dyslipidemia, goal LDL below 100 documented as of this encounter (statuses as of 11/19/2022) Resolved Problems Problem Noted Date Resolved Date [...] as of this encounter (statuses as of 11/19/2022) Immunizations Name Administration Dates Next Due COVID-19 [...] on file documented as of this encounter Plan of Treatment Upcoming Encounters Date Type Specialty Care Team Description 02/03/2023 Office Visit Family Medicine Lorraine Ozuna, [address] [place] [address] 02/18/2023 Laboratory Laboratory [facility] [address] [place] [address] 05/13/2023 Laboratory Laboratory [facility] [address] [place] [address] 05/20/2023 Office Visit Hematology Oncology [facility] [address] [facility] [place] [address] Pending Results Name Type Priority Associated Diagnoses Date /Time CBC WITH WBC DIFFERENTIAL Lab STAT Iron deficiency anemia, unspecified iron deficiency anemia type 11/19/2022 2:55 PM EDT IRON SCREEN, INCLUDING TIBC Lab STAT Iron deficiency anemia, unspecified iron deficiency anemia type 11/19/2022 2:55 PM EDT FERRITIN Lab STAT Iron deficiency anemia, unspecified iron deficiency anemia type 11/19/2022 2:55 PM EDT CBC Lab STAT Iron deficiency anemia, unspecified iron deficiency anemia type 11/19/2022 2:55 PM EDT DIFFERENTIAL, AUTOMATED Lab STAT Iron deficiency anemia, unspecified iron deficiency anemia type 11/19/2022 2:55 PM EDT Health Maintenance Due Date Last Done Comments [...] deficiency anemia, unspecified iron deficiency anemia type documented in this encounter Care Teams Press Shop Supervisor Relationship Specialty Start Date End Date Lorriane Ozuna, [address] [place] [address] PCP - General Family Medicine 05/07/12 documented as of this encounter
--- OUTSIDE RECORDS SUMMARY | 2023-03-15 01:13 | External Medical Summary ---
Author Name Unknown Address Unknown Organization [id number]:LABORATORY [facility] [place] - [address] [place] [address] Laboratory Report Ordering Provider Test Date Status MELISSA CARO 01/28/2023 08:58:52 Final Observation Date Value Abnormality Reference (Units ) Status Iron 01/28/2023 08:58:52 63 33-151 (ug /dL) Final Iron-binding capacity 01/28/2023 08:58:52 354 250-425 (ug/dL) Final Transferrin Sat % 01/28/2023 08:58:52 18 15 -55 (%) Final Performing Location LABORATORY C - [address] [place] [address]
--- OUTSIDE RECORDS SUMMARY | 2023-03-15 01:13 | External Medical Summary ---
Author Name Unknown Address Unknown Organization [id number]:LABORATORY [place] [address] Laboratory Report Ordering Provider Test Date Status MELISSA CARO 11/19/2022 14:55:27 Final Observation Date Value Abnormality Reference (Units ) Status WBC, Total 11/19/2022 14:55:27 6.16 4.00-10.8 0 (K/uL) Final RBC 11/19/2022 14:55:27 3.66 3.85-5.15 (M/uL) Final Hemoglobin 11/19/2022 14:55:27 10.3 Below low normal 12 .0-15.3 (g/dL) Final HCT 11/19/2022 14:55:27 33.2 Below low normal 36. 0-45.2 (%) Final MCV 11/19/2022 14:55:27 90.7 81.5-97.5 (fL) Final MCH 11/19/2022 14:55:27 28.1 27.0-34.0 (pg) Final MCHC 11/19/2022 14:55:27 31.0 32.0-36.0 (g/dL) Final RDW 11/19/2022 14:55:27 15.6 11.5-15.5 (%) Final Platelets 11/19/2022 14:55:27 246 140-400 (K /uL) Final MPV 11/19/2022 14:55:27 10.8 6.6-11.1 ( fL) Final Performing Location LABORATORY [place] [address]
--- OUTSIDE RECORDS SUMMARY | 2023-03-15 01:13 | External Medical Summary ---
Author Name Unknown Address Unknown Organization [id number]:LABORATORY [facility] [place] [address] [place] [address] Laboratory Report Ordering Provider Test Date Status MELISSA CARO 11/19/2022 14:55:27 Final Observation Date Value Abnormality Reference (Units ) Status Iron 11/19/2022 14:55:27 91 33-151 (ug /dL) Final Iron-binding capacity 11/19/2022 14:55:27 362 250-425 (ug/dL) Final Transferrin Sat % 11/19/2022 14:55:27 25 15 -55 (%) Final Performing Location LABORATORY C - [address] [place] [address]
--- OUTSIDE RECORDS SUMMARY | 2023-03-15 01:13 | External Medical Summary | Summary of Care ---
Author Name Unknown Organization [facility] Address [address] [place] [address] Phone [phone] Care Team Providers Care Salvationist Name Role Phone Lorraine Ozuna DO Primary Care Provider Reason for Visit * Reason Comments Physical-Exam Yearly exam Encounter Details Date Type Department Care Team (Late st Contact Info) Description 02/03/2023 9:10 AM EST Office Visit [place] [address] [place] [address] Lorraine Ozuna DO [address] [place] [address] Iron deficiency anemia, unspecified iron deficiency anemia type*; Dyslipidemia, goal LDL below 100 Allergies Active Allergy Reactions Criticality Noted Date Comments Bactrim 05/25/2008 Sulfa Antibiotics 03/23/1999 documented as of this encounter (statuses as of 02/03/2023) Medications Medication Sig Dispensed Refills Start Date End Date Status CALCIUM CAPS 500 MG OR one cap by mouth daily 30 5 07/21/2000 Active JPYCI-GD-CQRJ MAXIMUM STRENGTH TABS 400-500 MG OR 1 BID 0 0 07/21/2000 Active ASPIRIN LOW DOSE 81 MG PO TABSIndications:C erebral vascular disease 1 TABLET DAILY 30 Tab 0 06/14/2013 Active Ferrous Sulfate 324 (65 Fe) MG Oral Tablet Delayed Release Take 1 Tablet by mouth in the morning and 1 Tablet in the evening. 0 Active Atorvastatin Calcium 20 MG Oral Tablet (Lipitor)Indicati ons:Dyslipidemia, goal LDL below 100 Take 1 Tablet by mouth in the morning. 90 Tablet 3 02/03/2023 Active Atorvastatin Calcium 20 MG Oral Tablet (Lipitor)Indicati ons:Dyslipidemia, goal LDL below 100 Take 1 Tablet (20 mg) by mouth in the morning. 90 Tablet 3 02/01/2022 02/03/2023 Discontinued (Refill) documented as of this encounter (statuses as of 02/03/2023) Active Problems Problem Noted Date Diagnosed Date History of CVA (cerebrovascular accident) 2020 Overview: Cerebral Vascular Disease noted 2015 Postmenopausal atrophic vaginitis 07/11/2005 OSTEOARTHROS NOS-UNSPEC 03/23/1999 Dyslipidemia, goal LDL below 100 documented as of this encounter (statuses as of 02/03/2023) Resolved Problems Problem Noted Date Diagnosed Date Resolved Date Cerebral vascular disease 08/29/2015 Overview: Historical Dehydration 02/23/2014 11/05/2017 Nausea 02/21/2014 11/05/2017 Overview: ICD-10 update of inactive term Loss of weight 02/21/2014 11/05/2017 Lower urinary tract infectious disease 02/21/2014 11/05/2017 Overview: ICD-10 update of inactive term Lumbar vertebral fracture 07/07/2013 Special screening for malign ant neoplasms, colon 04/23/2010 11/05/2017 CIRCUMSCRIBE SCLERODERMA 12/05/200407/2017 Dyslipidemia, goal to be determined 03/23/1999 04/23/2010 Need for prophylactic hormon e replacement therapy (postmenopausal) 11/05/2017 Gout 11/05/2017 documented as of this encounter (statuses as of 02/03/2023) Immunizations Name Administration Dates Next Due COVID-19 [...] = 0.6 oz pur e alcohol) none PHQ-2 Answer Date Recorded PHQ-2 Score -1 01/31/2020 Hunger Vital Sign Answer Date Recorded Within the past 12 months, y ou worried that your food would run out before you got the money to buy more. Never true 01/31/20 20 Within the past 12 months, t he food you bought just didn't last and you didn't have money to get more. Never true 01/31/2020 Sex and Gender Information Value Date Recorded Sex Assigned at Female 01/31/2020 9:19 AM EST Gender Identity Female 01/31/2020 9:19 AM EST Sexual Orientation Straight 01/31/2020 9: 19 AM EST Job Start Date Occupation Industry Not on file Not on file Not on file documented as of this encounter Last Filed Vital Signs Vital Sign Reading Time Taken Comments Blood Pressure 136/80 02/03/2023 9:19 AM EST Pulse 74 02/03/2023 9:19 AM EST Temperature 36.2 C (97.1 F) 02/03/2023 9:19 AM ES T Respiratory Rate 16 02/03/2023 9:19 AM EST Oxygen Saturation 96% 02/03/2023 9:19 AM EST Inhaled Oxygen Concentration - - Weight 46.6 kg (102 lb 11.2 oz) 02/03/2023 9:19 AM EST Height 160 cm (5' 3") 02/03/2023 9:19 AM EST Body Mass Index 18.19 02/03/2023 9:19 AM EST documented in this encounter Progress Notes * Lorraine Ozuna, - 02/03/2023 9:48 AM EST Subjective: Mindy Lux is a 87 year old female. Chief Complaint Patient presents with Physical-Exam Yearly exam HPI: 87 yr old female with known hx as below. Had anemia, with hbg at 7.3 at [facility] a few months back. Saw hematology, on iron 1 time per day.labs normal. Declined scopes Declines any complaints today. Results for orders placed or performed in visit on 01/28/23 IRON SCREEN, INCLUDING TIBC Result Value Ref Range Iron 63 33 - 151 ug/dL Iron Binding Capacity 354 250 - 425 ug/dL Transferrin Saturation Percent 18 15 - 55 % FERRITIN Result Value Ref Range Ferritin 51 13 - 150 ng/mL CBC Result Value Ref Range WBC 6.24 4.00 - 10.80 K/uL RBC 4.25 3.85 - 5.15 M/uL HGB 12.1 12.0 - 15.3 g/dL HCT 39.8 36.0 - 45.2 % MCV 93.6 81.5 - 97.5 fL MCH 28.5 27.0 - 34.0 pg MCHC 30.4 32.0 - 36.0 g/dL RDW 14.1 11.5 - 15.5 % PLT 213 140 - 400 K/uL MPV 12.3 6.6 - 11.1 fL nRBCs 0 <=0 /100 WBCs DIFFERENTIAL, AUTOMATED Result Value Ref Range WBC 6.24 4.00 - 10.80 K/uL Neutrophils % 66.2 40.0 - 75.0 % Lymphocytes % 18.9 18.0 - 42.0 % Monocytes % 9.0 1.0 - 11.0 % Eosinophils % 4.5 0.0 - 6.0 % Basophils % 1.1 0.0 - 2.0 % Immature Granulocytes % 0.3 0.0 - 2.0 % Absolute Neutrophils 4.13 1.80 - 7.70 K/uL Absolute Lymphocytes 1.18 1.00 - 4.80 K/ul Absolute Monocytes 0.56 0.00 - 1.10 K/uL Absolute Eosinophils 0.28 0.00 - 0.70 K/uL Absolute Basophils 0.07 0.00 - 0.20 K/uL Absolute Immature Granulocytes 0.02 0.00 - 0.20 K/uL PHM: Patient Active Problem List Diagnosis Code OSTEOARTHROS NOS-UNSPEC M19.90 Postmenopausal atrophic vaginitis N95.2 Dyslipidemia, goal LDL below 100 E78.5 History of CVA (cerebrovascular accident) Z86.73 Current Outpatient Medications Medication Sig Dispense Refill CALCIUM CAPS 500 MG OR one cap by mouth daily 30 5 [id number]-ON-RQPX MAXIMUM STRENGTH TABS 400-500 MG OR 1 [...] No current facility-administered medications for this visit. Review of patient's allergies indicates: Allergen Reactions Bactrim Sulfa Antibiotics Objective: BP 136/80 | Pulse 74 | Temp 36.2 C (97.1 F) (Infrared ) | Resp 16 | Ht 1.6 m (5' 3") | Wt 46.6 kg (102 lb 11.2 oz) | SpO2 96% | BMI 18.19 kg/m | BSA 1.44 m Physical Exam: General: alert, healthy, and no distress Heart: regular rate & rhythm, no murmur, and no gallops Lungs: chest symmetric with normal AP diameter, no chest deformities noted, no chest wall tenderness, lungs clear to auscultation Abdomen: abdomen soft, non-tender, normal bowel sounds, and no masses or organomegaly Extremities: less than 2 second capillary refill, no joint deformities, effusion, or inflammation ASSESSMENT/PLAN: Iron deficiency anemia, unspecified iron deficiency anemia type (Primary) Cont 1 iron per day. Dyslipidemia, goal LDL below 100 - Atorvastatin Calcium 20 MG Oral Tablet (Lipitor); Take 1 Tablet by mouth in the morning. Follow Up: Return in about 1 year (around 02/04/2024). Lorraine Ozuna DO documented in this encounter Nursing Notes * Donna Wolf LPN - 02/03/2023 9:18 AM EST Chief Complaint Patient presents with Physical-Exam Yearly exam documented in this encounter Plan of Treatment Upcoming Encounters Date Type Department Care Team (Late st Contact Info) Description 05/13/2023 10:30 AM EDT Laboratory Laboratory, [place] [address] [place] [address] [place], [facility] [address] [place] [address] 05/20/2023 2:00 PM EDT Office Visit Hematology/Oncology [place] [address] [facility] [place] [address] Vanessa Laboy CRNP [address] [place] [address] Health Maintenance Due Date Last Done Comments Zoster Vaccines (1 of 2) 1984 DTaP,Tdap,and Td Vaccines (1 - Tdap) 03/29/2011 03/28/2011 Pneumococcal Vaccine: 65+ Years (2 - PCV) 10/02/2019 10/01/2018, 03/23/1999 DXA Scan 10/13/2019 10/12/2012, 07/01, 07/19/2009, Additional history exists Depression Screening 01/30/2021 01/31/2020 COVID-19 Vaccine (3 - 2022- season) 2022 06/29/2020, 05/30/2020 Influenza Vaccine (FLU shot) (#1) 2022 01/18/2003, [...] anemia, unspecified iron deficiency anemia type- Primary Dyslipidemia, goal LDL below 100 Other and unspecified hyperlipidemia documented in this encounter Care Teams Salvationist Relationship Specialty Start Date End Date Lorraine Ozuna DO [address] [facility] [place] [address] PCP - General Family Medicine 05/07/12 documented as of this encounter
--- OUTSIDE RECORDS SUMMARY | 2023-03-15 01:13 | External Medical Summary | Summary of Care ---
Author Name Unknown Organization [facility] Address [address] [place] [address] Phone [phone] Care Team Providers Care Transportation Clerk Name Role Phone Lorraine Ozuna Primary Care Provider [phone] Reason for Visit * Reason Onset Date Comments Test Results Lab 11/20/2022 Encounter Details Date Type Department Care Team Description 11/20/2022 Telephone Hematology/Oncology [facility] [address] [place] [address] Vanessa Laboy CRNP [address] [place] [address] Test Results Lab Allergies Active Allergy Reactions Severity Noted Date Comments Bactrim 05/25/2008 Sulfa Antibiotics 03/23/1999 documented as of this encounter (statuses as of 11/20/2022) Medications Medication Sig Dispensed Refills Start Date End Date Status CALCIUM CAPS 500 MG OR one cap by mouth daily 30 5 07/21/2000 Active AAVRJ-CY-FHFJ MAXIMUM STRENGTH TABS 400-500 MG OR 1 [...] Series (Moderna) 06/29/2020,05/30/2020 Pneumococcal Polysaccharide PPV23 (Pneumovax) 10/01/2018,03/23/1999 Seasonal Influenza, Split, I IV3, With Preserve, Inj 01/18/2003,01/20/2002,01/31/2000,03/23 TD, Preservative Free 03/28/2011 documented as of [...] on file documented as of this encounter Miscellaneous Notes * Telephone Encounter - Venus Rowley RN - 11/20/2022 11:11 AM EDT Called patient. She states that she can only hear half of what is said so requested a My[employer] message be sent with information. MyG sent. * Telephone Encounter - MARCIAL Helms - 11/20/2022 10:42 AM EDT Results for orders placed or performed in visit on 11/19/22 IRON SCREEN, INCLUDING TIBC Result Value Ref Range Iron 91 33 - 151 ug/dL Iron Binding Capacity 362 250 - 425 ug/dL Transferrin Saturation Percent 25 15 - 55 % FERRITIN Result Value Ref Range Ferritin 41 13 - 150 ng/mL CBC Result Value Ref Range WBC 6.16 4.00 - 10.80 K/uL RBC 3.66 3.85 - 5.15 M/uL HGB 10.3 (L) 12.0 - 15.3 g/dL HCT 33.2 (L) 36.0 - 45.2 % MCV 90.7 81.5 - 97.5 fL MCH 28.1 27.0 - 34.0 pg MCHC 31.0 32.0 - 36.0 g/dL RDW 15.6 11.5 - 15.5 % PLT 246 140 - 400 K/uL MPV 10.8 6.6 - 11.1 fL DIFFERENTIAL, AUTOMATED Result Value Ref Range WBC 6.16 4.00 - 10.80 K/uL Neutrophils % 70.0 40.0 - 75.0 % Lymphocytes % 15.4 (L) 18.0 - 42.0 % Monocytes % 10.9 1.0 - 11.0 % Eosinophils % 2.9 0.0 - 6.0 % Basophils % 0.8 0.0 - 2.0 % Absolute Neutrophils 4.31 1.80 - 7.70 K/uL Absolute Lymphocytes 0.95 (L) 1.00 - 4.80 K/ul Absolute Monocytes 0.67 0.00 - 1.10 K/uL Absolute Eosinophils 0.18 0.00 - 0.70 K/uL Absolute Basophils 0.05 0.00 - 0.20 K/uL Hemoglobin has dropped one gram in the last three weeks. Iron studies appear to be improving on ferrous sulfate 1 tablet twice a day. Patient should continue. Would like to repeat lab work in one month to closely monitor decline in Hgb. Past standing orders already in place. Nursing: please call patient to make aware of above. Thank you. documented in this encounter Plan of Treatment Upcoming Encounters Date Type Specialty Care Team Description 02/03/2023 Office Visit Family Medicine Lorraine Ozuna, DO [address] [place] [address] 02/18/2023 Laboratory Laboratory [facility] [address] [place] [address] 05/13/2023 Laboratory Laboratory [facility] [address] [place] [address] 05/20/2023 Office Visit Hematology Oncology Vanessa Laboy CRNP [address] [facility] [place] [id number] Health Maintenance Due Date Last Done Comments [...] Not on filedocumented as of this encounter Care Teams Transportation Clerk Relationship Specialty Start Date End Date Lorraine Ozuna, [address] [place] [address] PCP - General Family Medicine 05/07/12 documented as of this encounter
--- OUTSIDE RECORDS SUMMARY | 2023-03-15 01:13 | External Medical Summary | Summary of Care ---
Author Name Unknown Organization [facility] Address [address] [place] [address] Phone [phone] Care Team Providers Care Hydraulic And Plumbing Installer Name Role Phone LaithLorraine John CRUZ Primary Care Provider [phone] Reason for Visit * Reason Comments Outpatient Testing Encounter Details Date Type Department Care Team (Late st Contact Info) Description 01/28/2023 9:00 AM EST Laboratory Laboratory, [place] [address] [place] [address] [place], [facility] [address], [place] [id number] Iron deficiency anemia, unspecified iron deficiency anemia type Allergies Active Allergy Reactions Criticality Noted Date Comments Bactrim 05/25/2008 Sulfa Antibiotics 03/23/1999 documented as of this encounter (statuses as of 01/28/2023) Medications Medication Sig Dispensed Refills Start Date End Date Status CALCIUM CAPS 500 MG OR one cap by mouth daily 30 5 07/21/2000 Active VCCMU-[id number] MAXIMUM STRENGTH TABS 400-500 MG OR 1 [...] as of this encounter (statuses as of 01/28/2023) Active Problems Problem Noted Date Diagnosed Date History of CVA (cerebrovascular accident) 2020 Overview: Cerebral Vascular Disease noted 2015 Postmenopausal atrophic vaginitis 07/11/2005 OSTEOARTHROS NOS-UNSPEC 03/23/1999 Dyslipidemia, goal LDL below 100 documented as of this encounter (statuses as of 01/28/2023) Resolved Problems Problem Noted Date Diagnosed Date [...] as of this encounter (statuses as of 01/28/2023) Immunizations Name Administration Dates Next Due COVID-19 [...] Description 02/03/2023 9:10 AM EST Office Visit [facility], [place] [address] [place] [address] Lorraine Ozuna DO [address] [place] [address] 05/13/2023 10:30 AM EDT Laboratory Laboratory, [place] [address] [place] [phone] [place], Laboratory [address], [place] [phone] 05/20/2023 2:00 PM EDT Office Visit Hematology/Oncology [facility] [address] [place] [address] Vanessa Laboy CRNP [address] [facility] [place] [address] Pending Results Name Type Priority Associated Diagnoses Date /Time CBC WITH WBC DIFFERENTIAL Lab STAT Iron deficiency anemia, unspecified iron deficiency anemia type 01/28/2023 8:58 AM EST IRON SCREEN, INCLUDING TIBC Lab STAT Iron deficiency anemia, unspecified iron deficiency anemia type 01/28/2023 8:58 AM EST FERRITIN Lab STAT Iron deficiency anemia, unspecified iron deficiency anemia type 01/28/2023 8:58 AM EST CBC Lab STAT Iron deficiency anemia, unspecified iron deficiency anemia type 01/28/2023 8:58 AM EST DIFFERENTIAL, AUTOMATED Lab STAT Iron deficiency anemia, unspecified iron deficiency anemia type 01/28/2023 8:58 AM EST Health Maintenance Due Date Last Done Comments Zoster Vaccines (1 of 2) 1984 DTaP,Tdap,and Td Vaccines (1 - Tdap) 03/29/2011 03/28/2011 Pneumococcal Vaccine: 65+ Years (2 - PCV) 10/02/2019 10/01/2018, 03/23/1999 DXA Scan 10/13/2019 10/12/2012, 07/01, 07/19/2009, Additional history exists Depression Screening 01/30/2021 01/31/2020 COVID-19 Vaccine (3 - season) 2022 06/29/2020, 05/30/2020 Influenza Vaccine (FLU [...] type documented in this encounter Care Teams Hydraulic And Plumbing Installer Relationship Specialty Start Date End Date Lorraine Ozuna DO [address] [place] [address] PCP - General Family Medicine 05/07/12 documented as of this encounter
--- OUTSIDE RECORDS SUMMARY | 2023-03-15 01:13 | External Medical Summary ---
Author Name Unknown Address Unknown Organization K01:[place] [facility] [place] [address] [facility] [address] Laboratory Report Ordering Provider Test Date Status MELISSA CARO 11/19/2022 14:55:27 Final Observation Date Value Abnormality Reference (Units ) Status Ferritin 11/19/2022 14:55:27 41 13-150 (ng /mL) Final Postmenopausal women have hi gher ferritin levels than pre-menopausal women. The above reference interval is based on pre-menopausal women. Performing Location LABORATORY [facility] - [address] [facility] [address]
--- OUTSIDE RECORDS SUMMARY | 2023-03-15 01:13 | External Medical Summary ---
Author Name Unknown Address Unknown Organization K01:[facility]ORY [facility] [address] [facility] [place] [address] Laboratory Report Ordering Provider Test Date Status MELISSA CARO 01/28/2023 08:58:52 Final Observation Date Value Abnormality Reference (Units ) Status SYNC LEUKOCYTES IN BLOOD BY AUTOMATED COUNT 01/28/2023 08:58:52 6.24 4.00-10.80 (K/uL) Final Segs 01/28/2023 08:58:52 66.2 40.0-75.0 (%) Final Lymphs % 01/28/2023 08:58:52 18.9 18.0-42.0 (%) Final Monos 01/28/2023 08:58:52 9.0 1.0-11.0 (%) Final Eosinophils 01/28/2023 08:58:52 4.5 0.0-6.0 (%) Final Basos 01/28/2023 08:58:52 1.1 0.0-2.0 (%) Final Immature Granulocyte, Percent 01/28/2023 08:58:52 0.3 0.0-2.0 (%) Final Absolute Segs 01/28/2023 08:58:52 4.13 1.80-7.70 (K/uL) Final Lymphs, absolute 01/28/2023 08:58:52 1.18 1.00-4.80 (K/ul) Final Monos, Abs 01/28/2023 08:58:52 0.56 0.00-1.10 (K/uL) Final Eos, Abs 01/28/2023 08:58:52 0.28 0.00-0.70 (K/uL) Final Basos, Abs 01/28/2023 08:58:52 0.07 0.00-0.20 (K/uL) Final Immature Granulocytes, Number 01/28/2023 08:58:52 0.02 0.00-0.20 (K/uL) Final Performing Location LABORATORY [facility] [place] - [address] [facility] [address]
--- OUTSIDE RECORDS SUMMARY | 2023-03-15 01:13 | External Medical Summary ---
Author Name Unknown Address Unknown Organization K01:[place] [facility] [place] [facility] [place] [address] [facility] [address] [facility] [address] Laboratory Report Ordering Provider Test Date Status MELISSA CARO 01/28/2023 08:58:52 Final Observation Date Value Abnormality Reference (Units ) Status WBC, Total 01/28/2023 08:58:52 6.24 4.00-10.80 (K/uL) Final RBC 01/28/2023 08:58:52 4.25 3.85-5.15 (M/uL) Final Hemoglobin 01/28/2023 08:58:52 12.1 12.0-15.3 (g/dL) Final HCT 01/28/2023 08:58:52 39.8 36.0-45.2 (%) Final MCV 01/28/2023 08:58:52 93.6 81.5-97.5 (fL) Final MCH 01/28/2023 08:58:52 28.5 27.0-34.0 (pg) Final MCHC 01/28/2023 08:58:52 30.4 32.0-36.0 (g/dL) Final RDW 01/28/2023 08:58:52 14.1 11.5-15.5 (%) Final Platelets 01/28/2023 08:58:52 213 140-400 (K/uL) Final MPV 01/28/2023 08:58:52 12.3 6.6-11.1 (fL) Final Nucleated erythrocytes/100 leukocytes [Ratio] in Blood by Automated count 01/28/2023 08:58:52 0 <=0 (/100 WBCs) Final Performing Location [place] [facility] [place] [address] [facility] [address]
--- OUTSIDE RECORDS SUMMARY | 2023-03-15 01:13 | External Medical Summary ---
Author Name Unknown Address Unknown Organization K01:LABORATORY [facility] [place] - [address] [facility] [place]. [facility] [address] Laboratory Report Ordering Provider Test Date Status MELISSA CARO 01/28/2023 08:58:52 Final Observation Date Value Abnormality Reference (Units ) Status Ferritin 01/28/2023 08:58:52 51 13-150 (ng /mL) Final Postmenopausal women have hi gher ferritin levels than pre-menopausal women. The above reference interval is based on pre-menopausal women. Performing Location [facility] - [address] [facility] [address]
--- OUTSIDE RECORDS SUMMARY | 2023-03-15 01:13 | External Medical Summary | Summary of Care ---
Author Name Unknown Organization [facility] Address [address] [place] [address] Phone [phone] Care Team Providers Care Geosciences Associate Professor Name Role Phone Lorraine Ozuna Primary Care Provider [phone] Reason for Visit * Reason Onset Date Comments Test Results Lab 11/20/2022 Encounter Details Date Type Department Care Team Description 11/20/2022 Telephone Hematology/Oncology [facility] [address] [place] [address] Vanessa Laboy CRNP [address] [place] [address] Test Results Lab Allergies Active Allergy Reactions Severity Noted Date Comments Bactrim 05/25/2008 Sulfa Antibiotics 03/23/1999 documented as of this encounter (statuses as of 11/20/2022) Medications Medication Sig Dispensed Refills Start Date End Date Status CALCIUM CAPS 500 MG OR one cap by mouth daily 30 5 07/21/2000 Active OTEAH-[id number]-[id number] MAXIMUM STRENGTH TABS 400-500 MG OR 1 [...] of what is said so requested a [employer] message be sent with information. MyG sent. [...] Family Medicine Lorraine Ozuna, DO [address] [place] [address] 02/18/2023 Laboratory Laboratory [facility] [address] [place] [address] 05/13/2023 Laboratory Laboratory [facility] [address] [place] [address] 05/20/2023 Office Visit Hematology Oncology Vanessa Laboy CRNP [address] [facility] [place] [id number] Health Maintenance Due Date Last Done Comments [...] filedocumented as of this encounter Care Teams Geosciences Associate Professor Relationship Specialty Start Date End Date Lorraine Ozuna, [address] [place] [address] PCP - General Family Medicine 05/07/12 documented as of this encounter
--- OUTSIDE RECORDS SUMMARY | 2023-03-15 01:13 | External Medical Summary ---
Author Name Unknown Address Unknown Organization K09:LABORATORY [place] [address] Laboratory Report Ordering Provider Test Date Status MELISSA CARO 11/19/2022 14:55:27 Final Observation Date Value Abnormality Reference (Units ) Status SYNC LEUKOCYTES IN BLOOD BY AUTOMATED COUNT 11/19/2022 14:55:27 6.16 4.00-10.80 (K/uL) Final Segs 11/19/2022 14:55:27 70.0 40.0-75.0 (%) Final Lymphs % 11/19/2022 14:55:27 15.4 Below low normal 18.0-42.0 (%) Final Monos 11/19/2022 14:55:27 10.9 1.0-11.0 (%) Final Eosinophils 11/19/2022 14:55:27 2.9 0.0-6.0 (%) Final Basos 11/19/2022 14:55:27 0.8 0.0-2.0 (%) Final Absolute Segs 11/19/2022 14:55:27 4.31 1.80-7.70 (K/uL) Final Lymphs, absolute 11/19/2022 14:55:27 0.95 Below low normal 1.00-4.80 (K/ul) Final Monos, Abs 11/19/2022 14:55:27 0.67 0.00-1.10 (K/uL) Final Eos, Abs 11/19/2022 14:55:27 0.18 0.00-0.70 (K/uL) Final Basos, Abs 11/19/2022 14:55:27 0.05 0.00-0.20 (K/uL) Final Performing Location [facility] [place] [address]
--- OUTSIDE RECORDS SUMMARY | 2023-03-15 01:13 | External Medical Summary | Summary of Care ---
Author Name Unknown Organization [facility] Address [address] [facility] [place] [address] Phone [phone] Care Team Providers Care Assistant Football Coach Name Role Phone PoppyLorraine waddell John DO Primary Care Provider [phone] Encounter Details Date Type Department Care Team (Late st Contact Info) Description 07/25/2022 Population Health External Data Unspecified Department Allergies Active Allergy Reactions Criticality Noted Date Comments Bactrim 05/25/2008 Sulfa Antibiotics 03/23/1999 documented as of this encounter (statuses as of 01/13/2023) Medications Medication Sig Dispensed Refills Start Date End Date Status CALCIUM CAPS 500 MG OR one cap by mouth daily 30 5 07/21/2000 Active [id number]-BL-[id number] MAXIMUM STRENGTH TABS 400-500 MG OR 1 [...] as of this encounter (statuses as of 01/13/2023) Active Problems Problem Noted Date Diagnosed Date History of CVA (cerebrovascular accident) 2020 Overview: Cerebral Vascular Disease noted 2015 Postmenopausal atrophic vaginitis 07/11/2005 OSTEOARTHROS NOS-UNSPEC 03/23/1999 Dyslipidemia, goal LDL below 100 documented as of this encounter (statuses as of 01/13/2023) Resolved Problems Problem Noted Date Diagnosed Date [...] as of this encounter (statuses as of 01/13/2023) Immunizations Name Administration Dates Next Due COVID-19 [...] Description 02/03/2023 9:10 AM EST Office Visit Family [facility], [place] [address] [facility], [place] [id number] Lorraine Ozuna DO [address] [place] [address] 02/18/2023 10:30 AM EST Laboratory Laboratory, [place] [address] [facility] [place] [address] [facility] [address] [place] [facility] [place] [address] 05/13/2023 10:30 AM EDT Laboratory Laboratory, [place] [address] [facility] [place] [id number] [facility] [address] [place] [facility] [place] [address] 05/20/2023 2:00 PM EDT Office Visit Hematology/Oncology [facility] [address] [place] [address] Vanessa Laboy CRNP [address] [place] [address] [place] [phone] Health Maintenance Due Date Last Done Comments [...] filedocumented as of this encounter Care Teams Assistant Football Coach Relationship Specialty Start Date End Date Lorraine Ozuna DO [address] [place] [address] PCP - General Family Medicine 05/07/12 documented as of this encounter
--- OUTSIDE RECORDS SUMMARY | 2023-03-15 01:14 | External Medical Summary ---
Author Name Unknown Address Unknown Organization K01:LAB[facility]ATORY [facility] [place] - [address] [facility] [facility] [address] Laboratory Report Ordering Provider Test Date Status MELISSA CARO 10/29/2022 10:06:55 Final Observation Date Value Abnormality Reference (Units ) Status Ferritin 10/29/2022 10:06:55 22 13-150 (ng /mL) Final Postmenopausal women have hi gher ferritin levels than pre-menopausal women. The above reference interval is based on pre-menopausal women. Performing Location [facility] [address] [facility] [address]
--- OUTSIDE RECORDS SUMMARY | 2023-03-15 01:14 | External Medical Summary | Summary of Care ---
Author Name Unknown Organization [facility] Address [address] [place] [address] Phone [phone] Care Team Providers Care Lithographic Etcher Name Role Phone Lorraine Ozuna Primary Care Provider [phone] Reason for Visit * Reason Onset Date Comments Test Results Lab 10/29/2022 Encounter Details Date Type Department Care Team Description 10/29/2022 Telephone Hematology/Oncology [facility] [address] [place] [address] Vanessa Laboy CRNP [address] [place] [place] [address] Test Results Lab Allergies Active Allergy Reactions Severity Noted Date Comments Bactrim 05/25/2008 Sulfa Antibiotics 03/23/1999 documented as of this encounter (statuses as of 10/30/2022) Medications Medication Sig Dispensed Refills Start Date End Date Status CALCIUM CAPS 500 MG OR one cap by mouth daily 30 5 07/21/2000 Active [id number]-RK-[id number] MAXIMUM STRENGTH TABS 400-500 MG OR 1 [...] as of this encounter (statuses as of 10/30/2022) Active Problems Problem Noted Date History of CVA (cerebrovascular accident ) 01/23/2021 Overview: Cerebral Vascular Disease noted 2015 Postmenopausal atrophic vaginitis 2005 OSTEOARTHROS NOS-UNSPEC 03/23/1999 Dyslipidemia, goal LDL below 100 documented as of this encounter (statuses as of 10/30/2022) Resolved Problems Problem Noted Date Resolved Date [...] as of this encounter (statuses as of 10/30/2022) Immunizations Name Administration Dates Next Due COVID-19 [...] encounter Miscellaneous Notes * Telephone Encounter - Gi Gloria LPN - 10/30/2022 10:16 AM EDT Called and spoke to patient. She states that some days she is fine, some days she is really fatigued. She is not taking the iron supplement, she states she "thought she was done". She will restart tomorrow, BID one in the morning and one in the evening. She does not want IV iron. She states that she is taking a fiber supplement with it, and she is not having nausea or constipation while on iron supplement. Scheduling: Please call patient to reschedule with Vanessa. Thanks. * Telephone Encounter - MARCIAL Helms - 10/29/2022 4:11 PM EDT Results for orders placed or performed [...] Immature Granulocytes 0.01 0.00 - 0.20 K/uL Hgb stable but decline noted in iron studies. Nursing: please follow up with patient to see how she is feeling. Is she still taking the iron tablets twice a day? If so how is she tolerating them? Patient was hesitant previously to pursue IV ironinfusions but this is still an option for her if she would like to reconsider. Patient does not currently have follow up appointment scheduled. If patient still interested in follow up please assist with scheduling this. documented in this encounter Plan of Treatment Upcoming Encounters Date Type Specialty Care Team Description 02/03/2023 Office Visit Family Medicine Lorraine Ozuna, [address] [place] [address] Health Maintenance Due Date Last Done Comments Zoster Vaccines (1 of 2) 1984 DTaP,Tdap,and Td Vaccines (1 - Tdap) 03/29/2011 03/28/2011 Pneumococcal Vaccine: 65+ Years (2 - PCV) 10/02/2019 10/01/2018, 03/23/1999 DXA Scan 10/13/2019 10/12/2012, 07/01, 07/19/2009, Additional history exists COVID-19 Vaccine (3 - Moderna series) 08/24/2020 06/29/2020, 05/30/2020 Depression Screening, Annual for Pts 12 and Over 01/30/2021 01/31/2020 Influenza Vaccine (FLU shot) (#1) [...] filedocumented as of this encounter Care Teams Lithographic Etcher Relationship Specialty Start Date End Date Lorraine Ozuna DO [address] [place] [address] PCP - General Family Medicine 05/07/12 documented as of this encounter
--- OUTSIDE RECORDS SUMMARY | 2023-03-15 01:14 | External Medical Summary | Summary of Care ---
Author Name Unknown Organization [facility] Address [address] [facility] [place] [address] Phone [phone] Care Team Providers Care Blending Plant Operator Name Role Phone Lorraine Ozuna Primary Care Provider Encounter Details Date Type Department Care Team Description 10/29/2022 Telephone Hematology/Oncology [facility] [place] [address] [facility] [place] [address] Vanessa Laboy CRNP [address] [place] [address] Allergies Active Allergy Reactions Severity Noted Date Comments Bactrim 05/25/2008 Sulfa Antibiotics 03/23/1999 documented as of this encounter (statuses as of 10/29/2022) Medications Medication Sig Dispensed Refills Start Date End Date Status CALCIUM CAPS 500 MG OR one cap by mouth daily 30 5 07/21/2000 Active [id number] MAXIMUM STRENGTH TABS 400-500 MG OR 1 [...] as of this encounter (statuses as of 10/29/2022) Active Problems Problem Noted Date History of CVA (cerebrovascular accident ) 01/23/2021 Overview: Cerebral Vascular Disease noted 2015 Postmenopausal atrophic vaginitis 2005 OSTEOARTHROS NOS-UNSPEC 03/23/1999 Dyslipidemia, goal LDL below 100 documented as of this encounter (statuses as of 10/29/2022) Resolved Problems Problem Noted Date Resolved Date [...] as of this encounter (statuses as of 10/29/2022) Immunizations Name Administration Dates Next Due COVID-19 [...] encounter Miscellaneous Notes * Telephone Encounter - Vanessa LaboyMARCIAL - 10/29/2022 4:11 PM EDT Results for [...] 02/03/2023 Office Visit Family Medicine Lorraine Ozuna, [address] [place] [address] Health Maintenance Due Date Last Done Comments [...] filedocumented as of this encounter Care Teams Blending Plant Operator Relationship Specialty Start Date End Date Lorraine Ozuna DO [address] [place], [place] [phone] PCP - General Family Medicine 05/07/12 documented as of this encounter
--- OUTSIDE RECORDS SUMMARY | 2023-03-15 01:14 | External Medical Summary | Summary of Care ---
Author Name Unknown Organization [facility] Address [address] [place] [address] Phone [phone] Care Team Providers Care Buttonholer Name Role Phone Lorraine Ozuna Primary Care Provider [phone] Reason for Visit * Reason Onset Date Comments Test Results Lab 10/29/2022 Encounter Details Date Type Department Care Team Description 10/29/2022 Telephone Hematology/Oncology [facility] [address] [place] [address] Vanessa Laboy CRNP [address] [facility] [address] Test Results Lab Allergies Active Allergy Reactions Severity Noted Date Comments Bactrim 05/25/2008 Sulfa Antibiotics 03/23/1999 documented as of this encounter (statuses as of 10/30/2022) Medications Medication Sig Dispensed Refills Start Date End Date Status CALCIUM CAPS 500 MG OR one cap by mouth daily 30 5 07/21/2000 Active [id number]-[id number] MAXIMUM STRENGTH TABS 400-500 MG OR 1 [...] encounter Miscellaneous Notes * Telephone Encounter - AMIE Banks - 10/30/2022 11:23 AM EDT Called and spoke to patient and she is rescheduled with Vanessa Laboy for 11/19/22. * Telephone Encounter - Gi Gloria LPN [...] Encounters Date Type Specialty Care Team Description 11/19/2022 Office Visit Hematology Oncology Vanessa Laboy CRNP [address] [place] [address] 02/03/2023 Office Visit Family Medicine Lorraine Ozuna, DO [address] [place] [facility] [place] [address] Health Maintenance Due Date Last Done Comments [...] filedocumented as of this encounter Care Teams Buttonholer Relationship Specialty Start Date End Date Lorraine Ozuna DO [address] [facility] [place] [address] PCP - General Family Medicine 05/07/12 documented as of this encounter
--- OUTSIDE RECORDS SUMMARY | 2023-03-15 01:14 | External Medical Summary | Summary of Care ---
Author Name Unknown Organization [facility] Address [address] [facility] [place] [address] Phone [phone] Care Team Providers Care Mainframe Systems Programmer Name Role Phone JoelLorraine españa John CRUZ Primary Care Provider Reason for Visit * Reason Comments Cerumen Impaction Encounter Details Date Type Department Care Team Description 11/12/2022 Convenient Care Visit [facility] [address] [facility] [place] [address] Hiral Schulz PA-C [address] [place] [address] Bilateral impacted cerumen* Allergies Active Allergy Reactions Severity Noted Date Comments Bactrim 05/25/2008 Sulfa Antibiotics 03/23/1999 documented as of this encounter (statuses as of 11/12/2022) Medications Medication Sig Dispensed Refills Start Date End Date Status CALCIUM CAPS 500 MG OR one cap by mouth daily 30 5 07/21/2000 Active BVQUI-[id number]-[id number] MAXIMUM STRENGTH TABS 400-500 MG OR 1 [...] as of this encounter (statuses as of 11/12/2022) Active Problems Problem Noted Date History of CVA (cerebrovascular accident ) 01/23/2021 Overview: Cerebral Vascular Disease noted 2015 Postmenopausal atrophic vaginitis 2005 OSTEOARTHROS NOS-UNSPEC 03/23/1999 Dyslipidemia, goal LDL below 100 documented as of this encounter (statuses as of 11/12/2022) Resolved Problems Problem Noted Date Resolved Date [...] as of this encounter (statuses as of 11/12/2022) Immunizations Name Administration Dates Next Due COVID-19 mRNA, LNP-s, No Pre serve, 2-Dose Series (Moderna) 06/29/2020,05/30/2020 Pneumococcal Polysaccharide PPV23 (Pneumovax) TD, Preservative Free 03/28/2011 documented as of this encounter Social History Tobacco Use Types Packs/Day Years Used Date Smoking Tobacco: Never Passive Smoke Exposure: Never Smokeless Tobacco: Never Tobacco Cessation:Counseling Given: Not Answered Alcohol Use Standard Drinks/Week Comments No 0 [...] Sign Reading Time Taken Comments Blood Pressure 128/70 11/12/2022 12:06 PM EDT Pulse 70 11/12/2022 12:06 PM EDT Temperature 36.6 C (97.9 F) 11/12/2022 12:06 PM E DT Respiratory Rate - - Oxygen Saturation 96% 11/12/2022 12:06 PM EDT Inhaled Oxygen Concentration - - Weight - - Height - - Body Mass Index - - documented in this encounter Patient Instructions * Patient Instructions* Hiral Schulz PA-C - 11/12/2022 12:42 PM EDT For cerumen impaction: use Debrox drops OTC per package insert. You may need to use a few times a month to help avoid cerumen impaction. You can also use baby oil 2-5 drops nightly to loosen wax and help prevent impaction. Do not use Q tips in ears. With any persistent symptoms F/U with PCP. documented in this encounter Progress Notes * Hiral Schulz PA-C - 11/12/2022 12:27 PM EDT Mindy Lux is a 87 year old female. who presents with upper respiratory symptoms for severalmonth(s) Patient was accompanied by Self. HPI Signs and Symptoms include: bilateral ear fullness Severity of Symptoms: Moderate Timing (how often does it occur): Constant Modifying Factors (what was done since onset of symptoms): debrox Constitutional: no fevers, chills, sweats, fatigue Last test for COVID was not recent Patient has not been positive for COVID in the last 90 days ROS All others negative other than those noted in HPI Recent illnesses in household: No HISTORY Patient Active Problem List Diagnosis Code OSTEOARTHROS NOS-UNSPEC M19.90 Postmenopausal atrophic vaginitis N95.2 Dyslipidemia, goal LDL below 100 E78.5 History of CVA (cerebrovascular accident) Z86.73 Current Outpatient Medications Medication Sig Dispense Refill CALCIUM CAPS 500 MG OR one cap by mouth daily 30 5 [id number] MAXIMUM STRENGTH TABS 400-500 MG OR 1 [...] No current facility-administered medications for this visit. Past Medical History: Diagnosis Date Cerebral vascular disease 08/29/2015 Historical Cerebrovascular disease Circumscribed scleroderma Dyslipidemia, goal LDL below 100 Lumbar vertebral fracture (HCC) fall in 06/2013 L 1and L 2 Past Surgical History: Procedure Laterality Date CATARACT SURGERY,COMPLEX [place] IN[facility] TOTAL HYSTERECTOMY 1987 GIULIA/BSO for endometriosis Review of patient's allergies indicates: Allergen Reactions Bactrim Sulfa Antibiotics Family History Problem Relation Age of Onset Cancer Sister pancreatic Heart Disorder Brother MD at age 60 Other (Other) Other no breast/ovarian/colon cancer Cancer Sister NHL Family Status Relation Status Fa at age 80 DJD Mo at age 80 Sis Alive pancreatic ca Sis (Not Specified) Bro (Not Specified) Other (Not Specified) Sis (Not Specified) Social History Socioeconomic History Marital status: Spouse name: Sonam Sargent Number of children: 1 Years of education: Not on file Highest education level: Not on file Occupational History Occupation: Retired Employer: [employer] 0[employer] Comment: retired 1996 Tobacco Use Smoking status: [...] Comment: breast Social History Narrative job: Retired [employer]- 30 years [employer] 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 service: no hobbies/interests: Reading, zoroastrianism work transfusions: No Tattoos- no exercise: walking diet: no amish/zoroastrianism: [facility] [employer] marital status: 195 children: 1 gc: 1 ggc: 0 pets: cat exposure to violence/threats/abuse: no things to improve: no Social Determinants of Health Financial Resource Strain: Not on file Food Insecurity: Not on file Transportation Needs: Not on file Physical Activity: Not on file Stress: Not on file Social Connections: Not on file Intimate Partner Violence: Not on file Housing Stability: Not on file OBJECTIVE BP 128/70 | Pulse 70 | Temp 36.6 C (97.9 F) (Tympanic) | SpO2 96% Physical Exam: General Appearance: awake, alert, no apparent distress HEENT: perrl and eomi Ears: bilateral cerumen impaction oral pharynx clear, mucus membranes moist no sinus tenderness or facial pain to percussion without turbinate engorgement and discharge Neck: normal, supple, no adenopathy Respiratory: clear to auscultation, no rhonchi, no wheezes and no crackles Heart: regular rate, regular rhythm, no murmurs , no rubs and no gallops Skin: skin color, texture, turgor are normal, no rashes or significant lesions Patient instructions: Patient Instructions For cerumen impaction: use Debrox drops OTC per package insert. You may need to use a few times a month to help avoid cerumen impaction. You can also use baby oil 2-5 drops nightly to loosen wax and help prevent impaction. Do not use Q tips in ears. With any persistent symptoms F/U with PCP. ASSESSMENT AND PLAN Bilateral impacted cerumen (Primary) - REMOVAL IMPACTED CERUMEN IRRIGATION/LAVAGE, UNILAT Procedure: bilateral ear lavage completed using Otoclear System. Large cerumen removed from both ear(s) using a curette. Post lavage, exam revealed clear canal and shiny, non-erythematous TM without perforation. Patient tolerated the procedure without incident. Care instructions given. Additional instructions per patient instructions attached. Follow up with PCP in 3 days if symptoms persist. Reasons to go to ED discussed with patient including but not limited to development of acute or severe symptoms. Patient agrees with the plan and demonstrates verbal understanding. Patient stable at the time of discharge. Patient goals for plan of care were discussed. Hiral Schulz PA-C [address] [address] documented in this encounter Nursing Notes * Natalia Kenyon LPN - 11/12/2022 12:04 PM EDT Mindy Lux is a 87 year old female who presents to walk-in clinic today complaining of Chief Complaint Patient presents with Cerumen Impaction Main Symptoms:bilateral ear wax build up; she does wear hearing aids and was told to have them cleaned out Cause: unknown How long: months Tried: debrox is unsure if it helps Pt accompanied by: Self documented in this encounter Plan of Treatment Upcoming Encounters Date Type Specialty Care Team Description 11/19/2022 Office Visit Hematology Oncology Vanessa Laboy CRNP [address] [facility] [place] [address] 02/03/2023 Office Visit Family Medicine Lorraine Ozuna DO [address] [place] [address] Scheduled Orders Name Type Priority Associated Diagnoses Orde r Schedule REMOVAL IMPACTED CERUMEN IRRIGATION/LAVAGE, UNILAT Procedures Routine Bilateral impacted cerumen Ordered: 11/12/2022 Health Maintenance Due Date Last Done Comments [...] as of this encounter Visit Diagnoses Diagnosis Bilateral impacted cerumen- Primary Impacted cerumen documented in this encounter Care Teams Mainframe Systems Programmer Relationship Specialty Start Date End Date Lorraine Ozuna DO [address] [place] [address] PCP - General Family Medicine 05/07/12 documented as of this encounter"
--- OUTSIDE RECORDS SUMMARY | 2023-03-15 01:14 | External Medical Summary | Summary of Care ---
Author Name Unknown Organization [facility] Address [address] [place] [address] Phone [phone] Care Team Providers Care Surface Water Technician Name Role Phone RajeevLorraine canseco John CRUZ Primary Care Provider + [phone] Reason for Visit * Reason Comments Outpatient Testing Encounter Details Date Type Department Care Team Description 10/29/2022 Laboratory Laboratory, [place] [address] [place] [address] [place], Laboratory [address] [place] [address] Iron deficiency anemia, unspecified iron deficiency anemia type Allergies Active Allergy Reactions Severity Noted Date Comments Bactrim 05/25/2008 Sulfa Antibiotics 03/23/1999 documented as of this encounter (statuses as of 10/29/2022) Medications Medication Sig Dispensed Refills Start Date End Date Status CALCIUM CAPS 500 MG OR one cap by mouth daily 30 5 07/21/2000 Active [id number] MAXIMUM STRENGTH TABS 400-500 MG OR 1 [...] Family Medicine Lorraine Ozuna, DO [address] [place] [address] Pending Results Name Type Priority Associated Diagnoses Date /Time CBC WITH WBC DIFFERENTIAL Lab STAT Iron deficiency anemia, unspecified iron deficiency anemia type 10/29/2022 10:06 AM EDT IRON SCREEN, INCLUDING TIBC Lab STAT Iron deficiency anemia, unspecified iron deficiency anemia type 10/29/2022 10:06 AM EDT FERRITIN Lab STAT Iron deficiency anemia, unspecified iron deficiency anemia type 10/29/2022 10:06 AM EDT CBC Lab STAT Iron deficiency anemia, unspecified iron deficiency anemia type 10/29/2022 10:06 AM EDT DIFFERENTIAL, AUTOMATED Lab STAT Iron deficiency anemia, unspecified iron deficiency anemia type 10/29/2022 10:06 AM EDT Health Maintenance Due Date Last Done [...] type documented in this encounter Care Teams Surface Water Technician Relationship Specialty Start Date End Date Lorraine Ozuna, DO [address] [place] [address] PCP - General Family Medicine 05/07/12 documented as of this encounter
--- OUTSIDE RECORDS SUMMARY | 2023-03-15 01:14 | External Medical Summary ---
Author Name Unknown Address Unknown Organization [id number]:LABORATORY [facility] [place] - [facility] [address] [facility] [address] Laboratory Report Ordering Provider Test Date Status MELISSA CARO 10/29/2022 10:06:55 Final Observation Date Value Abnormality Reference (Units ) Status WBC, Total 10/29/2022 10:06:55 6.96 4.00-10.80 (K/uL) Final RBC 10/29/2022 10:06:55 4.16 3.85-5.15 (M/uL) Final Hemoglobin 10/29/2022 10:06:55 11.3 Below low normal 12.0-15.3 (g/dL) Final HCT 10/29/2022 10:06:55 37.1 36.0-45.2 (%) Final MCV 10/29/2022 10:06:55 89.2 81.5-97.5 (fL) Final MCH 10/29/2022 10:06:55 27.2 27.0-34.0 (pg) Final MCHC 10/29/2022 10:06:55 30.5 32.0-36.0 (g/dL) Final RDW 10/29/2022 10:06:55 16.7 11.5-15.5 (%) Final Platelets 10/29/2022 10:06:55 228 140-400 (K/uL) Final MPV 10/29/2022 10:06:55 11.1 6.6-11.1 (fL) Final Nucleated erythrocytes/100 leukocytes [Ratio] in Blood by Automated count 10/29/2022 10:06:55 0 <=0 (/100 WBCs) Final Performing Location LABORATORY [facility] - [address] [facility] [address]
--- OUTSIDE RECORDS SUMMARY | 2023-03-15 01:14 | External Medical Summary ---
Author Name Unknown Address Unknown Organization [id number]:LABORATORY [facility] [place] - [address] [place] [address] Laboratory Report Ordering Provider Test Date Status MELISSA CARO 10/29/2022 10:06:55 Final Observation Date Value Abnormality Reference (Units ) Status Iron 10/29/2022 10:06:55 69 33-151 (ug /dL) Final Iron-binding capacity 10/29/2022 10:06:55 409 250-425 (ug/dL) Final Transferrin Sat % 10/29/2022 10:06:55 17 15 -55 (%) Final Performing Location LABORATORY [facility] - [address] [place] [address]
--- OUTSIDE RECORDS SUMMARY | 2023-03-15 01:14 | External Medical Summary ---
Author Name Unknown Address Unknown Organization [id number]:LAB[facility]ATORY [facility] - [address] [place] [address] Laboratory Report Ordering Provider Test Date Status MELISSA CARO 10/29/2022 10:06:55 Final Observation Date Value Abnormality Reference (Units ) Status SYNC LEUKOCYTES IN BLOOD BY AUTOMATED COUNT 10/29/2022 10:06:55 6.96 4.00-10.80 (K/uL) Final Segs 10/29/2022 10:06:55 71.4 40.0-75.0 (%) Final Lymphs % 10/29/2022 10:06:55 16.4 Below low normal 18.0-42.0 (%) Final Monos 10/29/2022 10:06:55 8.0 1.0-11.0 (%) Final Eosinophils 10/29/2022 10:06:55 3.2 0.0-6.0 (%) Final Basos 10/29/2022 10:06:55 0.9 0.0-2.0 (%) Final Immature Granulocyte, Percent 10/29/2022 10:06:55 0.1 0.0-2.0 (%) Final Absolute Segs 10/29/2022 10:06:55 4.97 1.80-7.70 (K/uL) Final Lymphs, absolute 10/29/2022 10:06:55 1.14 1.00-4.80 (K/ul) Final Monos, Abs 10/29/2022 10:06:55 0.56 0.00-1.10 (K/uL) Final Eos, Abs 10/29/2022 10:06:55 0.22 0.00-0.70 (K/uL) Final Basos, Abs 10/29/2022 10:06:55 0.06 0.00-0.20 (K/uL) Final Immature Granulocytes, Number 10/29/2022 10:06:55 0.01 0.00-0.20 (K/uL) Final Performing Location LABORATORY [facility] [place] - [facility] [address] [facility] [address]
--- OUTSIDE RECORDS SUMMARY | 2023-03-15 01:14 | External Medical Summary | Summary of Care ---
Author Name Unknown Organization [facility] Address [address] [facility] [place] [address] Phone [phone] Care Team Providers Care Photograph Enlarger Name Role Phone RajeevLorraine canseco John CRUZ Primary Care Provider + [phone] Reason for Visit * Reason Onset Date Comments Lab Draw Only 09/27/2022 Encounter Details Date Type Department Care Team Description 09/27/2022 Telephone Hematology/Oncology Treatment, [place] [address] [place] [address] Vanessa Laboy CRNP [address] [facility] [place] [address] Lab Draw Only Allergies Active Allergy Reactions Severity Noted Date Comments Bactrim 05/25/2008 Sulfa Antibiotics 03/23/1999 documented as of this encounter (statuses as of 09/27/2022) Medications Medication Sig Dispensed Refills Start Date End Date Status CALCIUM CAPS 500 MG OR one cap by mouth daily 30 5 07/21/2000 Active [id number] MAXIMUM STRENGTH TABS 400-500 MG OR 1 [...] as of this encounter (statuses as of 09/27/2022) Active Problems Problem Noted Date History of CVA (cerebrovascular accident ) 01/23/2021 Overview: Cerebral Vascular Disease noted 2015 Postmenopausal atrophic vaginitis 2005 OSTEOARTHROS NOS-UNSPEC 03/23/1999 Dyslipidemia, goal LDL below 100 documented as of this encounter (statuses as of 09/27/2022) Resolved Problems Problem Noted Date Resolved Date [...] as of this encounter (statuses as of 09/27/2022) Immunizations Name Administration Dates Next Due COVID-19 [...] encounter Miscellaneous Notes * Telephone Encounter - Negar Aden RN - 09/27/2022 10:17 AM EDT Called patient to remind her to have her lab work done for Vanessa CEJA. No answer, lomom. Sent myg documented in this encounter Plan of Treatment Upcoming Encounters Date Type Specialty Care Team Description 10/29/2022 Laboratory Laboratory [facility] [address], [place] [id number] 02/03/2023 Office Visit Family Medicine Lorraine Ozuna DO [address], [place] [id number] Health Maintenance Due Date Last Done Comments [...] filedocumented as of this encounter Care Teams Photograph Enlarger Relationship Specialty Start Date End Date Lorraine Ozuna, DO [address] [place] [address] PCP - General Family Medicine 05/07/12 documented as of this encounter
[2023-03-15 05:44] LABS: Basophils # (auto) 0.05 K/uL (0.00-0.20); Basophils % (auto) 0.5 %; Hematocrit (blood only) 31.8 % (37.0-47.0); Hemoglobin 10.8 g/dl (12.0-16.0); Immature Granulocytes # (auto) 0.04 K/uL (0.01-0.20); Immature Granulocytes % (auto) 0.4 %; Lymphocytes # (auto) 1.28 K/uL (1.20-3.40); Lymphocytes % (auto) 13.2 %; Mean Corpuscular Hemoglobin 29.3 pg (25.0-34.0); Mean Corpuscular Volume 86.2 fL (80.0-100.0); Mean Platelet Volume 10.6 fL (9.4-12.4); Monocytes # (auto) 0.83 K/uL (0.11-0.59); Monocytes % (auto) 8.6 %; Neutrophils # (auto) 7.37 K/uL (1.40-6.50); Neutrophils % (auto) 76.3 %; Platelet Count 275 K/uL (130-400); RDW Coefficient of Variation 13.3 % (11.5-14.5); RDW Standard Deviation 41.9 fL (36.4-46.3); Red Blood Count 3.69 M/uL (4.20-5.40); White Blood Count 9.67 K/ul (4.8-10.8)
[2023-03-15 05:59] LABS: BUN Creatinine Ratio 24.2 (10-20); Calcium 9.1 mg/dl (8.6-10.3); Chol HDL Ratio 2.2 (0-5); Creatinine Clr Calc Pharmacy 45.6 ml/min; Est GFR (African American) 92.7 ml/min; Est GFR (Non-African American) 79.9 ml/min; Magnesium 2.2 mg/dl (1.7-2.4); Phosphorus 4.1 mg/dl (2.5-4.9); Potassium 3.7 mmol/L (3.5-5.1)
[2023-03-15 07:08] LABS: Estimated Average Glucose 126 mg/dl
[2023-03-15] MEDS: LOSARTAN POTASSIUM 25 MG TAB PO SCH (08:10)
[2023-03-15] MEDS: ASPIRIN 81 MG ECTAB PO SCH (08:10)
[2023-03-15] MEDS: METOPROLOL TARTRATE 25 MG TAB PO SCH (08:10)
--- NOTE | 2023-03-15 08:15 | Critical Care Progress Note ---
Date of Service March 15, 2023 Assessment & Plan (1) Myocardial infarction due to demand ischemia: (2) Dyslipidemia: Plan Impression: 88-year-old female Recommendations: 1. Abnormal EKG: Findings concerning for myocardial infarction however cardiac catheterization unrevealing for hemodynamically significant stenosis. May have been related to hypertensive urgency/emergency. Elevated troponin has now peaked and is downtrending. This may have been supply/demand mismatch consistent with the patient's significant hypertensive episode. Echocardiogram pending and cardiology consultation with the [facility] cardiology team is currently pending. 2. Hypertension: Patient currently receiving Cozaar 25 mg daily. Metoprolol also at 25 twice a day. 3. Hyponatremia: This has been present dating back for at least 8 months. Unclear what evaluation was conducted in the outpatient setting. TSH was normal.. 4. Cough: Symptoms resolved. She did receive Benadryl. Unclear if this is related to swallow dysfunction and speech therapy evaluation is currently underway. This does not appear to be recurrent. There remains recurrent, outpatient evaluation could be considered. Cozaar can cause cough in rare cases. 5. Anemia: Stable. Had been noted on previous labs in the outpatient workup was recommended. Patient is without critical care issues currently and can be dismissed from the ICU. Will defer disposition to the hospitalist team. Critical care services will sign off. Feel free to contact us with questions or concerns. Admission and Anticipated Discharge Date Admission Date: March 14, 2023 Subjective Patient seen and examined. EMR reviewed. Discussed with overnight critical care CLAIRE and with bedside critical care nurse and on multidisciplinary rounds. Patient is awake alert and conversant this morning. She is very hard of hearing. She is very concerned about her who is home with an upper respiratory illness. She denies any chest pain or palpitations. She did have an episode of coughing yesterday of unclear etiology. No issues today and she has been able to tolerate breakfast without any aspiration events. A formal swallow evaluation is pending. She is on room air. She has not had any persistent chest pain. No syncope or presyncope. No nausea or vomiting. No lower extremity edema. No dizziness or lightheadedness. Review of Systems Review of Systems: All systems reviewed & are unremarkable except as noted in Subjective Physical Exam Constitutional: WD/WN, vitals as above Neck: trachea midline, no thyromegaly Respiratory: normal respiratory effort, lungs clear to auscultation Cardiovascular: RRR, no murmur, no edema Gastrointestinal (Abdomen): normal bowel sounds, soft, nontender, no hepatosplenomegaly Musculoskeletal: Extremities: extremities normal to inspection Skin: no rashes, warm and dry Neurologic: Nonfocal exam Lymphatic: no cervical lymphadenopathy Results & Data Results & Data Vital Signs (Past 12 Hours) Vital Signs Temp Pulse Resp BP Pulse Ox O2 Del Method 03/15/23 02:59 37 C 67 18 127/59 L 94 Room Air 03/14/23 23:30 36.9 C 68 18 130/71 93 Room Air Critical Care Results & Data Vital Signs (Past 12 Hours) Vital Signs Temp Pulse Resp BP Pulse Ox O2 Del Method 03/15/23 02:59 37 C 67 18 127/59 L 94 Room Air 03/14/23 23:30 36.9 C 68 18 130/71 93 Room Air Lab & Micro Results (Past 24 Hours) RBC 3.69 M/uL (4.20-5.40) L 03/15/23 WBC 9.67 K/ul (4.8-10.8) 03/15/23 Hgb 10.8 g/dl (12.0-16.0) L 03/15/23 Hct 31.8 % (37.0-47.0) L 03/15/23 MCV 86.2 fL (80.0-100.0) 03/15/23 MCH 29.3 pg (25.0-34.0) 03/15/23 MCHC 34.0 g/dL (32.0-36.0) 03/15/23 RDW Standard Deviation 41.9 fL (36.4-46.3) 03/15/23 RDW Coefficient of Variation 13.3 % (11.5-14.5) 03/15/23 Plt Count 275 K/uL (130-400) 03/15/23 MPV 10.6 fL (9.4-12.4) 03/15/23 Neutrophils (%) (Auto) 76.3 % 03/15/23 Lymphocytes (%) (Auto) 13.2 % 03/15/23 Monocytes # (Auto) 0.83 K/uL (0.11-0.59) H 03/15/23 Eosinophils # (Auto) 0.10 K/uL (0.00-0.50) 03/15/23 Immature Granulocyte % (Auto) 0.4 % 03/15/23 Neutrophils # (Auto) 7.37 K/uL (1.40-6.50) H 03/15/23 Lymphocytes # (Auto) 1.28 K/uL (1.20-3.40) 03/15/23 Monocytes # (Auto) 0.83 K/uL (0.11-0.59) H 03/15/23 Eosinophils # (Auto) 0.10 K/uL (0.00-0.50) 03/15/23 Basophils # (Auto) 0.05 K/uL (0.00-0.20) 03/15/23 Immature Granulocyte # (Auto) 0.04 K/uL (0.01-0.20) 4 Na 130 mmol/L (136-145) L 03/15/23 K 3.7 mmol/L (3.5-5.1) 03/15/23 Cl 93 mmol/L (98-107) L 03/15/23 CO2 30 mmol/L (21-32) 03/15/23 Anion Gap 7 (3-11) 03/15/23 BUN 15 mg/dl (6-23) 03/15/23 Creatinine 0.62 mg/dl (0.6-1.2) 03/15/23 Estimated GFR ( Amer) 92.7 ml/min 03/15/23 Estimated GFR (Non-Af Amer) 79.9 ml/min 03/15/23 BUN/Creatinine Ratio 24.2 (10-20) H 03/15/23 Glu 84 mg/dl (70-99(Fasting)) 03/15/23 Ca 9.1 mg/dl (8.6-10.3) 03/15/23 Phosphorus Level 4.1 mg/dl (2.5-4.9) 03/15/23 Total Bilirubin 0.3 mg/dl (0.2-1.0) 03/14/23 AST 31 U/L (13-39) 03/14/23 ALT 16 U/L (7-52) 03/14/23 Alkaline Phosphatase 84 U/L (34-104) 03/14/23 TP 7.8 gm/dl (6.0-8.3) 03/14/23 Albumin 3.9 gm/dl (3.4-5.0) 03/14/23 Globulin 3.9 gm/dl (2.5-4.0) 03/14/23 Albumin/Globulin Ratio 1.0 (0.9-2) 03/14/23 Mg 2.2 mg/dl (1.7-2.4) 03/15/23 05:15 Calcium Level 9.1 mg/dl (8.6-10.3) 03/15/23 05:15 Prothromb Time International Ratio 0.9 (0.9-1.1) 03/14/23 16:4 9 Diagnostic Findings (Past 24 Hours) Chest X-Ray 03/14/23 16:51 XR chest 1V portable HISTORY: Atypical chest pain. COMPARISON: Chest 07/22/2022. FINDINGS: No pneumothorax. No pleural effusions. The heart is normal in size. There is mild perihilar interstitial thickening which has slightly progressed. This suggests mild congestive change. No evidence for robin pulmonary edema. No new focal lung consolidations to suggest pneumonia. No acute fractures identified. IMPRESSION: Mild central pulmonary vascular congestion without overt edema. This has slightly progressed. ACT 112: Negative or not required by law. Electronically signed by: Arsh Cavanaugh M.D. 03/14/2023 5:21 PM Chest X-Ray 03/14/23 21:54 SINGLE VIEW CHEST CLINICAL HISTORY: Cough FINDINGS: An AP, portable, upright chest radiograph is compared to study performed earlier the same day 03/14/2023 and correlated with chest CT dated 05/24/2013. The heart is mildly enlarged noting atherosclerotic calcification of the thoracic aorta. The pulmonary vasculature is noncongested. Chronic interstitial thickening is similar to previous. There is left basilar scarring/atelectasis. No airspace consolidation or large pleural effusion is identified. No pneumothorax is seen. The skeletal structures are osteopenic. The bony thorax is grossly intact. IMPRESSION: Cardiomegaly with no acute cardiopulmonary abnormality identified. ACT 112: Negative or not required by law. Electronically signed by: Dontrell Torres M.D. 03/14/2023 10:53 PM I & O Totals 24 Hours 03/14/23 03/15/23 03/16/23 06:59 06:59 06:59 Output Total 600 / 600 Balance -600 / -600 Cumulative 03/14/23 16:28 thru 03/15/23 05:26 Output Total 600 Balance -600 RT Ventilator Mngmt (Last Documented) Ventilator Ordered Settings Respiratory Rate 18 03/15/23 02:59 Ventilator - PT Measurements Respiratory Rate 18 Coding Level of Care Code 15913 SUB INP/OBS CARE 2/35MIN Diagnoses Myocardial infarction due to demand ischemia I21.A1 Dyslipidemia E78.5
[2023-03-15] MEDS ORDERED: METOPROLOL TARTRATE 50 MG TAB PO SCH (09:00)
[2023-03-15] MEDS ORDERED: HEPARIN SOD 5,000 UNIT/0.5 ML VIAL SQ SCH (09:00)
--- NOTE | 2023-03-15 09:05 | Cardiology Consultation ---
Date of Consultation March 15, 2023 Assessment & Plan (1) ST elevation (STEMI) myocardial infarction: (2) Hypertensive emergency: (3) Chronic anemia: (4) Dyslipidemia, goal LDL below 70: Plan Echocardiogram demonstrates apical septal wall motion abnormality. Review of cardiac catheterization images demonstrates no significant epicardial stenosis involving large vessels. 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 Recommend addition of IV heparin X 48 hours. Consider adding Plavix pending ongoing assessment in patient with history of microcytic anemia. Repeat CBC in AM. Agree with titration of metoprolol to 50 mg twice daily. Continue losartan, low-dose aspirin, and atorvastatin as ordered. Continue telemetry monitoring. Patient may be transferred to PCU. History of Present Illness Reason for Consultation: NE Requesting Physician: Marissa Mccrary PA-C Attending Physician: Kobi Green MD History of Present Illness 88-year-old female with history of dyslipidemia and cerebrovascular accident presented to the emergency department with chest discomfort. Discomfort again at 3 AM while in bed. Called 911 and was brought to the ER by EMS. STEMI reported by EMS. Heart alert was called and patient taken to the cardiac catheterization lab emergently. Coronary angiography demonstrating moderate, 50-60% proximal LAD stenosis. No intervention was performed. She was subsequently transferred to the intensive care unit. Elevated blood pressure on presentation, 180s/80s. Patient severely hearing impaired. Denies any recurrent chest discomfort or unusual shortness of breath. Blood pressure improved this morning. History of iron deficiency anemia. No endoscopy on record. Hemoglobin 10.8 today with normocytic indices. No signs/symptoms of GI/ blood loss. Denies orthopnea, PND, or lower extremity edema. present at bedside. Offers no additional concerns/complaints. Allergies Allergy/AdvReac Type Severity Reaction Status Date / Time Bactrim Allergy Unknown SHORTNESS Verified 05/24/13 12:17 OF BREATH, rash Sulfa (Sulfonamide Allergy Unknown SHORTNESS Verified 07/23/22 18:07 Antibiotics) OF BREATH, RASH sulfamethoxazole Allergy Unknown SHORTNESS Verified 07/23/22 18:07 OF BREATH, rash trimethoprim Allergy Unknown SHORTNESS Verified 07/23/22 18:07 OF BREATH, rash Home Medications Medication Instructions Recorded Confirmed Type aspirin 81 mg tablet,delayed 81 mg PO DAILY 04/28/18 03/14/23 History release atorvastatin 20 mg tablet 20 mg PO DAILY 04/28/18 03/14/23 History ferrous sulfate 27 mg iron tablet 27 mg PO DAILY 03/14/23 03/14/23 History glucosamine 750 gs-[id number] 1 tab PO BID 03/14/23 03/14/23 History no1 644 mg-C 30 mg-delphine 1 mg tablet (Osteo Bi-Flex Triple Strength) Patient History Medical History Chronic anemia CVA (cerebral vascular accident) Dyslipidemia Nausea & vomiting Acute hyponatremia COVID-19 Non-ST elevation NE (NSTEMI) Arthritis Surgical History History of hysterectomy Family History Brother Coronary heart disease Sister Cancer Social History Smoking Status: Never smoker Second Hand Exposure: No; Do You Dip or Chew Tobacco: No; Hx Alcohol Use: No Hx Substance Use: No Preferred Language: Bulgarian Communication Ability: Effective Cotton Buyer Required: No Beliefs That Will Affect Care: None marital status: Current Living Situation: Spouse Feels Safe at Home: Yes Assistive Devices: Glasses and Hearing Aid - Bilateral Review of Systems Review of Systems: All systems reviewed & are unremarkable except as noted in Subjective Physical Exam Constitutional: well nourished; no acute distress Respiratory: no respiratory distress, no labored breathing and no retractions Auscultation: lungs clear to auscultation bilaterally; no crackles, no rales, no rhonchi and no wheezes Cardiovascular: Rate/Rhythm: regular rate and regular rhythm Heart Sounds: normal S1, normal S2 and + murmur (1/6 systolic ejection murmur heard at the base) Vessels: radial pulses present; no JVD and no carotid bruit Extremities: no edema Gastrointestinal (Abdomen): Inspection/Auscultation: normal bowel sounds; abdomen not distended Percussion/Palpation: abdomen soft; abdomen nontender, no guarding and abdomen not rigid Neurologic: CN's II-XI intact bilaterally and moves all extremities Results & Data Vital Signs (Past 12 Hours) Vital Signs Temp Pulse Pulse Resp BP BP Pulse Ox 03/15/23 08:00 152/70 H 03/15/23 08:00 75 25 H 96 03/15/23 08:00 36.8 C 03/15/23 07:00 109/52 L 03/15/23 07:00 62 5 L 93 03/15/23 02:59 37 C 67 18 127/59 L 94 03/14/23 23:30 36.9 C 68 18 130/71 93 O2 Del Method 03/15/23 08:00 03/15/23 08:00 03/15/23 08:00 03/15/23 07:00 03/15/23 07:00 03/15/23 02:59 Room Air 03/14/23 23:30 Room Air Laboratory Results Cardiac Enzymes 03/14/23 03/14/23 03/15/23 Range/Units 16:49 18:50 01:11 AST 31 (13-39) U/L Troponin I High Sens 207.1 H* 2125.7 H* D 1837.4 H* (0-14) pg/ml B-Natriuretic Peptide 97 (0-100) pg/ml 03/15/23 Range/Units 05:15 AST (13-39) U/L Troponin I High Sens 1426.3 H* D (0-14) pg/ml B-Natriuretic Peptide (0-100) pg/ml Coagulation 03/14/23 Range/Units 16:49 PT 10.3 (9.0-12.0) Seconds APTT 25 (21-31) Seconds B-Natriuretic Peptide 97 (0-100) pg/ml Lipids 03/15/23 Range/Units 05:15 Triglycerides 68 (0-150) mg/dl Cholesterol 175 (0-200) mg/dl HDL Cholesterol 78 mg/dl Cholesterol/HDL Ratio 2.2 (0-5) CBC 03/14/23 03/15/23 Range/Units 16:49 05:15 WBC 11.04 H 9.67 (4.8-10.8) K/ul RBC 4.05 L 3.69 L (4.20-5.40) M/uL Hgb 11.5 L 10.8 L (12.0-16.0) g/dl Hct 35.8 L 31.8 L (37.0-47.0) % Plt Count 284 275 (130-400) K/uL Neut # (Auto) 8.54 H 7.37 H (1.40-6.50) K/uL Lymph # (Auto) 1.22 1.28 (1.20-3.40) K/uL Larue # (Auto) 0.95 H 0.83 H (0.11-0.59) K/uL Eos # (Auto) 0.23 0.10 (0.00-0.50) K/uL Baso # (Auto) 0.05 0.05 (0.00-0.20) K/uL Comprehensive Metabolic Panel 03/14/23 03/15/23 Range/Units 16:49 05:15 Sodium 130 L 130 L (136-145) mmol/L Potassium 3.6 3.7 (3.5-5.1) mmol/L Chloride 91 L 93 L (98-107) mmol/L Carbon Dioxide 28 30 (21-32) mmol/L BUN 14 15 (6-23) mg/dl Creatinine 0.66 0.62 (0.6-1.2) mg/dl Glucose 111 H 84 (70-99(Fasting)) mg/dl Calcium 9.5 9.1 (8.6-10.3) mg/dl AST 31 (13-39) U/L ALT 16 (7-52) U/L Alkaline Phosphatase 84 (34-104) U/L Total Protein 7.8 (6.0-8.3) gm/dl Albumin 3.9 (3.4-5.0) gm/dl Intake and Output 03/14/23 03/15/23 03/15/23 22:59 06:59 14:59 Intake Total 350 / 350 Output Total 600 / 600 Balance -600 / -600 350 / 350 Intake: Oral 350 / 350 Output: Urine 600 / 600 Other: # Unmeasured Voids 1 Weight 48.1 kg 47 kg Weight Measurement Method Built in [facility] Built in [facility] (1) ST elevation (STEMI) myocardial infarction Involved coronary artery: LAD coronary artery Qualified Code(s): I21.02 - ST elevation (STEMI) myocardial infarction involving left anterior descending coronary artery
[2023-03-15] MEDS ORDERED: Heparin IV Adult Wt-Based Low-Dose w/ INITIAL Bolus Protocol IV SCH (11:15)
[2023-03-15] MEDS ORDERED: HEPARIN SOD (PORCINE) 1000 UNIT/ML IV STA (11:37)
[2023-03-15] MEDS: HEPARIN SODIUM/DEXTROSE 25,000 UNITS/500 ML BAG IV SCH (11:44)
[2023-03-15] MEDS ORDERED: ALUMINUM/MAGNESIUM/SIMETH (MAALOX MAX) 30 ML UDC PO PRN (13:15)
[2023-03-15] MEDS ORDERED: FAMOTIDINE 10 MG TABLET PO PRN (13:16)
--- NOTE | 2023-03-15 13:56 | Hospitalist Progress Note ---
Date of Service March 15, 2023 Assessment & Plan (1) ST elevation (STEMI) myocardial infarction: (2) Chest pain: Plan: Patient is 88-year-old female with PMH CVA, dyslipidemia, chronic anemia presented to ER with complaint of chest pain today. Prehospital EKG with ST elevation and was given 324 mg aspirin and total of 2 sprays SL nitroglycerin with resolution of CP. Upon ER arrival remained CP free. EKG with ST elevation anterior leads per my interpretation. Patient was taken for cardiac cath STEMI --S/P Cardiac Cath: Angiographically moderate to borderline severe proximal LAD lesion. The remainder of the coronaries have no more than mild disease. Doppler wave wire analysis of the LAD demonstrates that the proximal LAD lesion is not hemodynamically significant. Recommend guideline directed medical therapy for secondary prevention of coronary artery disease --CXR:No acute abnormalities and in particular no radiographic evidence of pneumonia. --ECHO: Compared to prior study, moderate concentric LVH. Apical septal wall motion abnormality now present. EF 65 to 70%. Small sized apical wall motion abnormality with hypokinesis of the segments noted. Aortic valve sclerosis mild without significant stenosis. Mild aortic regurgitation. Grade 1 diastolic dysfunction -- Troponin trending down --Lipid panel within normal limits. LDL 83. --HbA1c 6.0 Continue aspirin, statin, metoprolol, losartan Continue IV heparin for 48 hours as recommended by cardiology Consider to add Plavix as able Metoprolol, Lipitor dose was uptitrated Appreciate cardiology input (3) HTN (hypertension): Plan: Continue losartan, metoprolol Monitor BP (4) Hyponatremia: Plan: Chronic Hyponatremia Sodium 130 today Monitor (5) Dyslipidemia: Plan: Increase atorvastatin to 40mg daily (6) CVA (cerebral vascular accident): Plan: Continue aspirin, atorvastatin (7) Chronic anemia: Plan: History of iron deficiency anemia. Has denied EGD, colonoscopy in past per outpatient records Hgb: 11.5. Was 12 on 01/28/23, 10.3 on 11/19/22 Continue iron supplement DVT Px: IV Heparin Code Status DNR/DNI Admission and Anticipated Discharge Date Admission Date: March 14, 2023 Subjective Patient is seen and examined at bedside Chest pain resolved Denies any nausea, vomiting, dyspnea, dizziness, abdominal pain Discussed with patient's family at bedside Currently on IV heparin Review of Systems Review of Systems: All systems reviewed & are unremarkable except as noted in Subjective Physical Exam Physical Exam: Physical Exam: Vitals signs as noted above General Appearance:Thin, frail, elderly, no apparent distress Head: normocephalic, Atraumatic Eyes: normal inspection, EOMI Neck: supple, Trachea midline Respiratory/Chest: Normal breath sounds, CTA, No accessory muscle use Cardiovascular: S1, S2, + murmur Abdomen/GI:Soft, Non tender, Bowel sounds present Extremities/Musculoskeletal:normal inspection, no edema Neurologic/Psych:AAO, grossly no focal neurological deficits, hearing impairment Skin: normal color, warm Results & Data Results & Data Vital Signs (Past 12 Hours) Vital Signs Temp Pulse Pulse Resp BP BP Pulse Ox 03/15/23 13:28 64 96/67 L 03/15/23 12:00 67 19 129/62 93 03/15/23 09:07 67 18 123/54 L 94 03/15/23 08:00 152/70 H 03/15/23 08:00 75 25 H 96 03/15/23 08:00 36.8 C 03/15/23 07:00 109/52 L 03/15/23 07:00 62 5 L 93 03/15/23 02:59 37 C 67 18 127/59 L 94 O2 Del Method 03/15/23 13:28 03/15/23 12:00 Room Air 03/15/23 09:07 Room Air 03/15/23 08:00 03/15/23 08:00 03/15/23 08:00 03/15/23 07:00 03/15/23 07:00 03/15/23 02:59 Room Air Laboratory Results Short CBC 03/14/23 03/15/23 Range/Units 16:49 05:15 WBC 11.04 H 9.67 (4.8-10.8) K/ul Hgb 11.5 L 10.8 L (12.0-16.0) g/dl Hct 35.8 L 31.8 L (37.0-47.0) % Plt Count 284 275 (130-400) K/uL BMP 03/14/23 03/15/23 16:49 05:15 Sodium 130 L 130 L Potassium 3.6 3.7 Chloride 91 L 93 L Carbon Dioxide 28 30 BUN 14 15 Creatinine 0.66 0.62 Glucose 111 H 84 Calcium 9.5 9.1 Cardiac Enzymes 03/14/23 Range/Units 16:49 Total Creatine Kinase 118 (26-192) U/L Liver Function 03/14/23 Range/Units 16:49 Total Bilirubin 0.3 (0.2-1.0) mg/dl AST 31 (13-39) U/L ALT 16 (7-52) U/L Alkaline Phosphatase 84 (34-104) U/L Albumin 3.9 (3.4-5.0) gm/dl (1) ST elevation (STEMI) myocardial infarction Involved coronary artery: LAD coronary artery Qualified Code(s): I21.02 - ST elevation (STEMI) myocardial infarction involving left anterior descending coronary artery
[2023-03-15 18:22] LABS: ANTI-Xa, UFH(UnfractionatedHep 0.31 IU/ml (0.3-0.7)
[2023-03-15] MEDS: METOPROLOL TARTRATE 50 MG TAB PO SCH (20:20)
[2023-03-15] MEDS: ATORVASTATIN 40 MG TAB PO SCH (20:20)
[2023-03-16 05:29] LABS: Hematocrit (blood only) 31.4 % (37.0-47.0); Hemoglobin 10.7 g/dl (12.0-16.0); Mean Corpuscular Hemoglobin 28.8 pg (25.0-34.0); Mean Corpuscular Hgb Conc 34.1 g/dL (32.0-36.0); Mean Corpuscular Volume 84.6 fL (80.0-100.0); Mean Platelet Volume 10.8 fL (9.4-12.4); Platelet Count 254 K/uL (130-400); RDW Coefficient of Variation 13.2 % (11.5-14.5); RDW Standard Deviation 41.3 fL (36.4-46.3); Red Blood Count 3.71 M/uL (4.20-5.40); White Blood Count 8.82 K/ul (4.8-10.8)
[2023-03-16 05:47] LABS: BUN Creatinine Ratio 22.2 (10-20); Calcium 8.7 mg/dl (8.6-10.3); Creatinine Clr Calc Pharmacy 44.9 ml/min; Est GFR (African American) 92.2 ml/min; Est GFR (Non-African American) 79.5 ml/min
[2023-03-16 06:01] LABS: ANTI-Xa, UFH(UnfractionatedHep 0.18 IU/ml (0.3-0.7)
[2023-03-16] MEDS ORDERED: HEPARIN SOD (PORCINE) 1000 UNIT/ML IV ONE (06:30)
[2023-03-16] MEDS: LOSARTAN POTASSIUM 25 MG TAB PO SCH (08:38)
[2023-03-16] MEDS: METOPROLOL TARTRATE 50 MG TAB PO SCH ×2 (08:38→20:03)
[2023-03-16] MEDS: ASPIRIN 81 MG ECTAB PO SCH (08:38)
--- NOTE | 2023-03-16 11:39 | Cardiology Progress Note ---
Date of Service March 16, 2023 Assessment & Plan (1) ST elevation (STEMI) myocardial infarction: (2) Hypertensive emergency: (3) Chronic anemia: (4) Dyslipidemia, goal LDL below 70: Plan Echocardiogram demonstrates apical septal wall motion abnormality. Review of cardiac catheterization images demonstrates no significant epicardial stenosis involving large vessels. Possibility of transient vessel occlusion versus occlusion of small septal waiter and cashier as culprit vessel in the setting of uncontrolled hypertension. Continue heparin for additional 24 hours. Repeat CBC in AM. Metoprolol titrated to 50 mg twice daily 01/14/2024. Continue losartan, low- dose aspirin, and atorvastatin as ordered. Continue telemetry monitoring. Patient may be transferred to PCU. Likely discharge in 24 hours. Admission and Anticipated Discharge Date Admission Date: March 14, 2023 Subjective Patient seen examined the bedside. Feeling well today. Denies recurrent chest pain or shortness of breath. Telemetry demonstrates sinus rhythm. No dysrhythmias. No orthopnea, PND, or lower extremity edema. Tolerating IV heparin. Hemoglobin stable. No signs/symptoms of GI blood loss. present at bedside. Offers no additional concerns/complaints. Review of Systems Review of Systems: All systems reviewed & are unremarkable except as noted in Subjective Physical Exam Constitutional: well nourished; no acute distress Respiratory: no respiratory distress, no labored breathing and no retractions Auscultation: lungs clear to auscultation bilaterally; no crackles, no rales, no rhonchi and no wheezes Cardiovascular: Rate/Rhythm: regular rate and regular rhythm Heart Sounds: normal S1, normal S2 and + murmur (1/6 systolic ejection murmur heard at the base) Vessels: radial pulses present; no JVD and no carotid bruit Extremities: no edema Gastrointestinal (Abdomen): Inspection/Auscultation: normal bowel sounds; abdomen not distended Percussion/Palpation: abdomen soft; abdomen nontender, no guarding and abdomen not rigid Neurologic: CN's II-XI intact bilaterally and moves all extremities Results & Data Vital Signs (Past 12 Hours) Vital Signs Temp Pulse Pulse Resp BP BP Pulse Ox 03/16/23 08:01 70 18 03/16/23 08:01 118/55 L 94 03/16/23 08:00 67 03/16/23 08:00 36.8 C 03/16/23 04:00 36.7 C 58 L 16 128/58 L 92 01/14/24 00:00 36.7 C 63 16 124/64 94 O2 Del Method 03/16/23 08:01 03/16/23 08:01 Room Air 03/16/23 08:00 03/16/23 08:00 03/16/23 04:00 Room Air 03/16/23 00:00 Room Air Laboratory Results CBC 03/16/23 Range/Units 05:16 WBC 8.82 (4.8-10.8) K/ul RBC 3.71 L (4.20-5.40) M/uL Hgb 10.7 L (12.0-16.0) g/dl Hct 31.4 L (37.0-47.0) % Plt Count 254 (130-400) K/uL Comprehensive Metabolic Panel 03/16/23 Range/Units 05:16 Sodium 128 L (136-145) mmol/L Potassium 4.0 (3.5-5.1) mmol/L Chloride 91 L (98-107) mmol/L Carbon Dioxide 30 (21-32) mmol/L BUN 14 (6-23) mg/dl Creatinine 0.63 (0.6-1.2) mg/dl Glucose 88 (70-99(Fasting)) mg/dl Calcium 8.7 (8.6-10.3) mg/dl Intake and Output 03/15/23 03/16/23 03/16/23 22:59 06:59 14:59 Intake Total 580.85 / 1405.70 124.85 / 1405.70 308.233 / 308.233 Output Total 651 / 953 302 / 953 Balance -70.15 / 452.70 -177.15 / 452.70 307.233 / 307.233 Intake: IV 80.85 / 205.70 124.85 / 205.70 8.233 / 8.233 Heparin Sodium/Dextrose 25,000 80.85 / 205.70 124.85 / 205.70 8.233 / 8.233 units In 500 ml @ 650 UNITS/HR 13 mls/hr IV .Q24H [facility] Rx#: [id number] Oral 500 / 1200 0 / 1200 300 / 300 Output: Urine 650 / 950 300 / 950 # Bowel Movements 1 / 3 2 / 3 Other: # Unmeasured Voids 1 1 1 Weight 48.3 kg Weight Measurement Method [facility] (1) ST elevation (STEMI) myocardial infarction Involved coronary artery: LAD coronary artery Qualified Code(s): I21.02 - ST elevation (STEMI) myocardial infarction involving left anterior descending coronary artery
--- NOTE | 2023-03-16 12:45 | Electrocardiogram Report ---
Test Reason : Blood Pressure : / mmHG Vent. Rate : 102 BPM Atrial Rate : 102 BPM P-R Int : 166 ms QRS Dur : 076 ms QT Int : 330 ms P-R-T Axes : 061 -02 049 degrees QTc Int : 430 ms Sinus tachycardia Possible Anterior infarct , age undetermined Abnormal ECG When compared with ECG of 23-JUL-2022 14:14, Non-specific change in ST segment in Anterior leads Confirmed by Montrell Garza ([id number]) on 03/16/2023 12:45:01 PM Referred By: REFERRED SELF Confirmed By:Montrell Garza
--- NOTE | 2023-03-16 12:51 | Electrocardiogram Report ---
Test Reason : Blood Pressure : / mmHG Vent. Rate : 084 BPM Atrial Rate : 084 BPM P-R Int : 172 ms QRS Dur : 092 ms QT Int : 368 ms P-R-T Axes : 071 -01 062 degrees QTc Int : 434 ms Poor data quality, interpretation may be adversely affected Normal sinus rhythm Possible Left atrial enlargement Possible Anterior infarct Abnormal ECG When compared with ECG of 23-JUL-2022 14:14, No significant change Confirmed by Montrell Garza ([id number]) on 03/16/2023 12:51:09 PM Referred By: REFERRED SELF Confirmed By:Montrell Garza
--- NOTE | 2023-03-16 15:02 | Hospitalist Progress Note ---
Date of Service March 16, 2023 Assessment & Plan (1) ST elevation (STEMI) myocardial infarction: (2) Chest pain: Plan: Patient is 88-year-old female with PMH CVA, dyslipidemia, chronic anemia presented to ER with complaint of chest pain today. Prehospital EKG with ST elevation and was given 324 mg aspirin and total of 2 sprays SL nitroglycerin with resolution of CP. Upon ER arrival remained CP free. EKG with ST elevation anterior leads per my interpretation. Patient was taken for cardiac cath STEMI --S/P Cardiac Cath: Angiographically moderate to borderline severe proximal LAD lesion. The remainder of the coronaries have no more than mild disease. Doppler wave wire analysis of the LAD demonstrates that the proximal LAD lesion is not hemodynamically significant. Recommend guideline directed medical therapy for secondary prevention of coronary artery disease --CXR:No acute abnormalities and in particular no radiographic evidence of pneumonia. --ECHO: Compared to prior study, moderate concentric LVH. Apical septal wall motion abnormality now present. EF 65 to 70%. Small sized apical wall motion abnormality with hypokinesis of the segments noted. Aortic valve sclerosis mild without significant stenosis. Mild aortic regurgitation. Grade 1 diastolic dysfunction -- Troponin trending down --Lipid panel within normal limits. LDL 83. --HbA1c 6.0 Continue aspirin, statin, metoprolol, losartan Continue IV heparin for 48 hours as recommended by cardiology Consider to add Plavix as able Metoprolol, Lipitor dose was uptitrated Appreciate cardiology input Continue current medications Plan to discharge likely in next 24 to 48 hours if stable (3) HTN (hypertension): Plan: Continue losartan, metoprolol Monitor BP (4) Hyponatremia: Plan: Chronic Hyponatremia Sodium 128 today Monitor (5) Dyslipidemia: Plan: Increase atorvastatin to 40mg daily (6) CVA (cerebral vascular accident): Plan: Continue aspirin, atorvastatin (7) Chronic anemia: Plan: History of iron deficiency anemia. Has denied EGD, colonoscopy in past per outpatient records Hgb: 11.5. Was 12 on 01/28/23, 10.3 on 11/19/22 Continue iron supplement DVT Px: IV Heparin Code Status DNR/DNI Admission and Anticipated Discharge Date Admission Date: March 14, 2023 Subjective Patient is seen and examined at bedside States feeling well today Less cough No new complaints Remains on IV heparin Denies any nausea, vomiting, dyspnea, dizziness, abdominal pain Review of Systems Review of Systems: All systems reviewed & are unremarkable except as noted in Subjective Physical Exam Physical Exam: Physical Exam: Vitals signs as noted above General Appearance:Thin, frail, elderly, no apparent distress Head: normocephalic, Atraumatic Eyes: normal inspection, EOMI Neck: supple, Trachea midline Respiratory/Chest: Normal breath sounds, CTA, No accessory muscle use Cardiovascular: S1, S2, + murmur Abdomen/GI:Soft, Non tender, Bowel sounds present Extremities/Musculoskeletal:normal inspection, no edema Neurologic/Psych:AAO, grossly no focal neurological deficits, hearing impairment Skin: normal color, warm Results & Data Results & Data Vital Signs (Past 12 Hours) Vital Signs Temp Pulse Pulse Resp BP BP Pulse Ox 03/16/23 13:00 57 L 24 03/16/23 12:25 127/48 L 03/16/23 12:25 65 19 03/16/23 12:23 120/45 L 03/16/23 12:23 60 18 03/16/23 12:00 36.5 C 03/16/23 08:01 70 18 03/16/23 08:01 118/55 L 94 03/16/23 08:00 67 03/16/23 08:00 36.8 C 03/16/23 04:00 36.7 C 58 L 16 128/58 L 92 O2 Del Method 03/16/23 13:00 03/16/23 12:25 03/16/23 12:25 03/16/23 12:23 03/16/23 12:23 03/16/23 12:00 03/16/23 08:01 03/16/23 08:01 Room Air 03/16/23 08:00 03/16/23 08:00 03/16/23 04:00 Room Air Laboratory Results Short CBC 03/16/23 Range/Units 05:16 WBC 8.82 (4.8-10.8) K/ul Hgb 10.7 L (12.0-16.0) g/dl Hct 31.4 L (37.0-47.0) % Plt Count 254 (130-400) K/uL BMP 03/16/23 05:16 Sodium 128 L Potassium 4.0 Chloride 91 L Carbon Dioxide 30 BUN 14 Creatinine 0.63 Glucose 88 Calcium 8.7 (1) ST elevation (STEMI) myocardial infarction Involved coronary artery: LAD coronary artery Qualified Code(s): I21.02 - ST elevation (STEMI) myocardial infarction involving left anterior descending coronary artery
[2023-03-16] MEDS ORDERED: BENZONATATE 100 MG CAPSULE PO PRN (15:57)
[2023-03-16] MEDS: MELATONIN 3 MG TAB PO PRN (20:03)
[2023-03-16] MEDS: HEPARIN SODIUM/DEXTROSE 25,000 UNITS/500 ML BAG IV SCH (20:03)
[2023-03-16] MEDS: ATORVASTATIN 40 MG TAB PO SCH (20:03)
--- NOTE | 2023-03-16 20:35 | Electrocardiogram Report ---
Test Reason : Blood Pressure : / mmHG Vent. Rate : 064 BPM Atrial Rate : 064 BPM P-R Int : 178 ms QRS Dur : 094 ms QT Int : 436 ms P-R-T Axes : 056 011 065 degrees QTc Int : 449 ms Normal sinus rhythm RSR' or QR pattern in V1 suggests right ventricular conduction delay Borderline ECG When compared with ECG of 14-MAR-2023 17:41, (unconfirmed) No significant change was found Confirmed by Montrell Garza ([id number]) on 03/16/2023 8:34:58 PM Referred By: REFERRED SELF Confirmed By:Montrell Garza
[2023-03-17 04:17] LABS: Hematocrit (blood only) 30.4 % (37.0-47.0); Mean Corpuscular Hemoglobin 28.4 pg (25.0-34.0); Mean Corpuscular Hgb Conc 32.9 g/dL (32.0-36.0); Mean Corpuscular Volume 86.4 fL (80.0-100.0); Mean Platelet Volume 10.2 fL (9.4-12.4); Platelet Count 289 K/uL (130-400); RDW Standard Deviation 40.9 fL (36.4-46.3); Red Blood Count 3.52 M/uL (4.20-5.40); White Blood Count 8.39 K/ul (4.8-10.8)
[2023-03-17 04:33] LABS: BUN Creatinine Ratio 18.2 (10-20); Calcium 8.5 mg/dl (8.6-10.3); Creatinine Clr Calc Pharmacy 44.1 ml/min; Est GFR (African American) 90.8 ml/min; Est GFR (Non-African American) 78.3 ml/min
[2023-03-17 06:31] LABS: ANTI-Xa, UFH(UnfractionatedHep 0.31 IU/ml (0.3-0.7)
[2023-03-17] MEDS ORDERED: guaiFENesin/DEXTROM SYRUP 100MG/10MG 5ML UDC PO PRN (07:56)
[2023-03-17] MEDS: ASPIRIN 81 MG ECTAB PO SCH (08:28)
[2023-03-17] MEDS: METOPROLOL TARTRATE 50 MG TAB PO SCH (08:28)
[2023-03-17] MEDS: LOSARTAN POTASSIUM 25 MG TAB PO SCH (08:28)
--- NOTE | 2023-03-17 08:37 | XRay Report ---
XR chest 1V portable CLINICAL HISTORY: cough TECHNIQUE: Single frontal radiograph of the chest was obtained. Comparison: Comparison is made to chest radiograph 03/14/2023 FINDINGS: No lines and tubes are seen. Calcified aortic knob is seen. The lungs are clear. Blunting of the left costophrenic angle may represent a trace left pleural effusion. IMPRESSION: Possible trace left pleural effusion. No evidence of pneumonia. ACT 112: Negative or not required by law. Electronically signed by: Win Aviles M.D. 03/17/2023 8:36 AM
--- NOTE | 2023-03-17 10:31 | Nephrology Consultation ---
Date of Consultation March 17, 2023 History of Present Illness Reason for Consultation: Chronic hyponatremia Attending Physician: Kobi Green MD History of Present Illness Ms. Mindy Lux is a 88 yo F with history of chronic hyponatremia, HTN, dyslipidemia, chronic anemia admitted to the hospital with acute coronary event. Nephrology consult was requested for management of chronic hyponatremia which worseened acutely during the hospitalization. Electronic medical records are reviewed in detail during patient's visit. Mindy was brought to [facility] ER by EMS on 03/14/2023 per patient developed acute onset of substernal chest pain associated with shortness of breath. Prehospital EKG showed ST-elevations in V3-V6 with ST-depressions in II/III and a STEMI aler t was called and she was taken to the [facility] emerg[facility]. Cath showed 50-60% proximal LAD lesion as well as 30% proximal RCA lesion noted, no intervention was needed. She remained hemodynamically stable. Initially blood pressure was running high which improved and over last 24 hours blood pressure has been in fact relatively low. Has normal renal function, b/l cr 0.7-0.8. Potassium was normal. Has history of chronic hyponatremia over the years, serum sodium generally stays around 130-133. On admission sodium was 130 which has been slowly going down and sodium this morning was 127. No urinalysis, urine osmolality or urine sodium available during current admission but 3 years ago urine osmolality was low in 250s. Not on thiazide diuretics. No history of hypothyroidism, adrenal insufficiency, personal history of malignancy. Has history of chronic anemia, no recent EGD or colonoscopy available. PMH significant for hypertension, dyslipidemia, chronic anemia, the patient has history of chronic hyponatremia, ? History of CVA. Allergies Allergy/AdvReac Type Severity Reaction Status Date / Time Bactrim Allergy Unknown SHORTNESS Verified 05/24/13 12:17 OF BREATH, rash Sulfa (Sulfonamide Allergy Unknown SHORTNESS Verified 07/23/22 18:07 Antibiotics) OF BREATH, RASH sulfamethoxazole Allergy Unknown SHORTNESS Verified 07/23/22 18:07 OF BREATH, rash trimethoprim Allergy Unknown SHORTNESS Verified 07/23/22 18:07 OF BREATH, rash Home Medications Medication Instructions Recorded Confirmed Type aspirin 81 mg tablet,delayed 81 mg PO DAILY 04/28/18 03/14/23 History release atorvastatin 20 mg tablet 20 mg PO DAILY 04/28/18 03/14/23 History ferrous sulfate 27 mg iron tablet 27 mg PO DAILY 03/14/23 03/14/23 History glucosamine 750 [id number] 1 tab PO BID 03/14/23 03/14/23 History no1 644 mg-C 30 mg-delphine 1 mg tablet (Osteo Bi-Flex Triple Strength) Patient History Medical History Chronic anemia CVA (cerebral vascular accident) Dyslipidemia Nausea & vomiting Acute hyponatremia COVID-19 Non-ST elevation [place] (NSTEMI) Arthritis Surgical History History of hysterectomy Family History Brother Coronary heart disease Sister Cancer Social History Smoking Status: Never smoker Second Hand Exposure: No; Do You Dip or Chew Tobacco: No; Hx Alcohol Use: No Hx Substance Use: No Preferred Language: Yi Communication Ability: Effective Senior Financial Accountant Required: No Beliefs That Will Affect Care: None marital status: Current Living Situation: Spouse Feels Safe at Home: Yes Assistive Devices: Glasses and Hearing Aid - Bilateral Results & Data Vital Signs (Past 12 Hours) Vital Signs Temp Pulse Resp BP Pulse Ox O2 Del Method 03/17/23 08:01 66 17 97 Room Air 03/17/23 08:01 116/78 03/17/23 08:00 36.7 C 03/17/23 08:00 58 L 03/17/23 05:00 59 L 20 03/17/23 05:00 102/44 L 03/17/23 04:00 54 L 8 L 03/17/23 04:00 107/43 L 03/17/23 03:00 54 L 2 L 03/17/23 03:00 101/48 L 03/17/23 02:00 64 14 03/17/23 01:14 60 17 03/17/23 01:14 131/52 L 03/17/23 00:00 98/41 L 03/17/23 00:00 55 L 27 H 03/16/23 23:00 119/53 L 03/16/23 23:00 58 L 18 PG Care Time/CCT Total # of Minutes Spent Total Time Spent with Patient: Total time spent is greater than 50% in coordination of care (as documented) at patient's floor/unit and/or counseling patient: Coding
--- NOTE | 2023-03-17 10:41 | Nephrology Consultation ---
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 Patient is also receiving heparin drip which is being delivered in D5 water. Will check urine osmolality urine sodium and serum osmolality. Will start on urea 15 g twice daily. Will continue to monitor sodium daily. (2) HTN (hypertension): Blood pressure is controlled on metoprolol and losartan. No changes today. History of Present Illness Reason for Consultation: Hyponatremia Requesting Physician: Kobi Green MD Attending Physician: Kobi Green MD History of Present Illness Patient is 88-year-old female with PMH CVA, dyslipidemia, chronic anemia and chronic hyponatremia. Baseline sodium in the low 130s was admitted with chest pain found to have NSTEMI. Prehospital EKG with ST elevation and was given 324 mg aspirin and total of 2 sprays SL nitroglycerin with resolution of CP. Patient had cardiac cath which found proximal LAD disease but was not hemodynamically significant. They recommended medical management. Patient is now on heparin drip aspirin, losartan and metoprolol. Sodium has been dropping to 127 today. She denies shortness of breath or chest pain. No leg swelling. She is drinking less than a liter of fluids daily. Heparin drip is running in D5 water. Allergies Allergy/AdvReac Type Severity Reaction Status Date / Time Bactrim Allergy Unknown SHORTNESS Verified 05/24/13 12:17 OF BREATH, rash Sulfa (Sulfonamide Allergy Unknown SHORTNESS Verified 07/23/22 18:07 Antibiotics) OF BREATH, RASH sulfamethoxazole Allergy Unknown SHORTNESS Verified 07/23/22 18:07 OF BREATH, rash trimethoprim Allergy Unknown SHORTNESS Verified 07/23/22 18:07 OF BREATH, rash Home Medications Medication Instructions Recorded Confirmed Type aspirin 81 mg tablet,delayed 81 mg PO DAILY 04/28/18 03/14/23 History release atorvastatin 20 mg tablet 20 mg PO DAILY 04/28/18 03/14/23 History ferrous sulfate 27 mg iron tablet 27 mg PO DAILY 03/14/23 03/14/23 History glucosamine 750 [id number] 1 tab PO BID 03/14/23 03/14/23 History no1 644 mg-C 30 mg-delphine 1 mg tablet (Osteo Bi-Flex Triple Strength) Patient History Medical History Chronic anemia CVA (cerebral vascular accident) Dyslipidemia Nausea & vomiting Acute hyponatremia COVID-19 Non-ST elevation [place] (NSTEMI) Arthritis Surgical History History of hysterectomy Family History Brother Coronary heart disease Sister Cancer Social History Smoking Status: Never smoker Second Hand Exposure: No; Do You Dip or Chew Tobacco: No; Hx Alcohol Use: No Hx Substance Use: No Preferred Language: Macedonian Communication Ability: Effective Manufacturing Accountant Required: No Beliefs That Will Affect Care: None marital status: Current Living Situation: Spouse Feels Safe at Home: Yes Assistive Devices: Glasses and Hearing Aid - Bilateral Review of Systems 2 Review of Systems: All other systems were reviewed and negative except as noted in HPI Physical Exam 2 Physical Exam: General exam: Appears comfortable, no acute distress HEENT: Pupils are equal and reactive to light Neck: No JVD, neck is supple trachea is midline Respiratory system: Clear breath sounds bilaterally. Gastrointestinal: Abdomen is soft, non distended, non tender, bowel sounds are present CVS: Regular rate and rhythm. No murmurs, rubs or gallops Musculoskeletal: No joint or muscle tenderness Extremities: Non tender, no edema, peripheral pulses are present Neuro: Oriented, no tremors, no focal neurological deficits Skin: No rashes Results & Data Vital Signs (Past 12 Hours) Vital Signs Temp Pulse Resp BP Pulse Ox O2 Del Method 03/17/23 08:01 66 17 97 Room Air 03/17/23 08:01 116/78 03/17/23 08:00 36.7 C 03/17/23 08:00 58 L 03/17/23 05:00 59 L 20 03/17/23 05:00 102/44 L 03/17/23 04:00 54 L 8 L 03/17/23 04:00 107/43 L 03/17/23 03:00 54 L 2 L 03/17/23 03:00 101/48 L 03/17/23 02:00 64 14 03/17/23 01:14 60 17 03/17/23 01:14 131/52 L 03/17/23 00:00 98/41 L 03/17/23 00:00 55 L 27 H 03/16/23 23:00 119/53 L 03/16/23 23:00 58 L 18 Laboratory Results 03/17/23 03:49 03/17/23 03:49 WBC 8.39 RBC 3.52 L MCV 86.4 MCH 28.4 MCHC 32.9 RDW Std Deviation 40.9 RDW Coeff of Vin 13.0 Plt Count 289 MPV 10.2
[2023-03-17] MEDS: UREA (UREA-NA) 15 GM PACK PO SCH ×2 (11:41→20:24)
[2023-03-17] MEDS ORDERED: NITROGLYCERIN SL 0.4 MG/TAB TAB SL PRN (11:43)
--- NOTE | 2023-03-17 11:50 | Cardiology Progress Note ---
Date of Service March 17, 2023 Assessment & Plan (1) ST elevation (STEMI) myocardial infarction: (2) Hypertensive emergency: (3) Chronic anemia: (4) Dyslipidemia, goal LDL below 70: Plan Echocardiogram demonstrates apical septal wall motion abnormality. Review of cardiac catheterization images demonstrates no significant epicardial stenosis involving large vessels. Possibility of transient vessel occlusion versus occlusion of small septal associate designer as culprit vessel in the setting of uncontrolled hypertension. Continue heparin for additional 24 hours. Repeat CBC in AM. Transition metoprolol to tartrate to succinate formulation. Continue losartan, low-dose aspirin, and atorvastatin as ordered. Provide patient with prescription for sublingual nitroglycerin as needed for discharge. Outpatient cardiology follow-up in 1 to 2 weeks. Admission and Anticipated Discharge Date Admission Date: March 14, 2023 Subjective Patient seen examined the bedside. Nursing reports episode of chest pain overnight, however, patient denies any chest pain or, she cannot recall the episode. Complains of intermittent cough. Received a dose of Robitussin. Anxious for discharge. Her is home with a cold. Tolerating current medications. Review of Systems Review of Systems: All systems reviewed & are unremarkable except as noted in Subjective Physical Exam Constitutional: well nourished; no acute distress Respiratory: no respiratory distress, no labored breathing and no retractions Auscultation: lungs clear to auscultation bilaterally; no crackles, no rales, no rhonchi and no wheezes Cardiovascular: Rate/Rhythm: regular rate and regular rhythm Heart Sounds: normal S1, normal S2 and + murmur (1/6 systolic ejection murmur heard at the base) Vessels: radial pulses present; no JVD and no carotid bruit Extremities: no edema Gastrointestinal (Abdomen): Inspection/Auscultation: normal bowel sounds; abdomen not distended Percussion/Palpation: abdomen soft; abdomen nontender, no guarding and abdomen not rigid Neurologic: CN's II-XI intact bilaterally and moves all extremities Results & Data Vital Signs (Past 12 Hours) Vital Signs Temp Pulse Resp BP Pulse Ox O2 Del Method 03/17/23 08:01 66 17 97 Room Air 03/17/23 08:01 116/78 03/17/23 08:00 36.7 C 03/17/23 08:00 58 L 03/17/23 05:00 59 L 20 03/17/23 05:00 102/44 L 03/17/23 04:00 54 L 8 L 03/17/23 04:00 107/43 L 03/17/23 03:00 54 L 2 L 03/17/23 03:00 101/48 L 03/17/23 02:00 64 14 03/17/23 01:14 60 17 03/17/23 01:14 131/52 L 03/17/23 00:00 98/41 L 03/17/23 00:00 55 L 27 H Laboratory Results CBC 03/17/23 Range/Units 03:49 WBC 8.39 (4.8-10.8) K/ul RBC 3.52 L (4.20-5.40) M/uL Hgb 10.0 L (12.0-16.0) g/dl Hct 30.4 L (37.0-47.0) % Plt Count 289 (130-400) K/uL Comprehensive Metabolic Panel 03/17/23 Range/Units 03:49 Sodium 127 L (136-145) mmol/L Potassium 4.0 (3.5-5.1) mmol/L Chloride 90 L (98-107) mmol/L Carbon Dioxide 31 (21-32) mmol/L BUN 12 (6-23) mg/dl Creatinine 0.66 (0.6-1.2) mg/dl Glucose 102 H (70-99(Fasting)) mg/dl Calcium 8.5 L (8.6-10.3) mg/dl Intake and Output 03/16/23 03/17/23 03/17/23 22:59 06:59 14:59 Intake Total 968.784 / 1419.150 142.133 / 1419.150 240 / 240 Output Total 900 / 901 Balance 968.784 / 518.150 -757.867 / 518.150 240 / 240 Intake: IV 168.784 / 319.150 142.133 / 319.150 Heparin Sodium/Dextrose 25,000 168.784 / 319.150 142.133 / 319.150 units In 500 ml @ 650 UNITS/HR 13 mls/hr IV .Q24H SCOTT Rx#: [id number] Oral 800 / 1100 0 / 1100 240 / 240 Output: Urine 900 / 900 Other: # Unmeasured Voids 2 (1) ST elevation (STEMI) myocardial infarction Involved coronary artery: LAD coronary artery Qualified Code(s): I21.02 - ST elevation (STEMI) myocardial infarction involving left anterior descending coronary artery
[2023-03-17] MEDS: HEPARIN SODIUM/DEXTROSE 25,000 UNITS/500 ML BAG IV SCH (13:19)
--- NOTE | 2023-03-17 16:42 | Hospitalist Progress Note ---
Date of Service March 17, 2023 Assessment & Plan (1) ST elevation (STEMI) myocardial infarction: (2) Chest pain: Plan: Patient is 88-year-old female with PMH CVA, dyslipidemia, chronic anemia presented to ER with complaint of chest pain today. Prehospital EKG with ST elevation and was given 324 mg aspirin and total of 2 sprays SL nitroglycerin with resolution of CP. Upon ER arrival remained CP free. EKG with ST elevation anterior leads per my interpretation. Patient was taken for cardiac cath STEMI --S/P Cardiac Cath: Angiographically moderate to borderline severe proximal LAD lesion. The remainder of the coronaries have no more than mild disease. Doppler wave wire analysis of the LAD demonstrates that the proximal LAD lesion is not hemodynamically significant. Recommend guideline directed medical therapy for secondary prevention of coronary artery disease --CXR:No acute abnormalities and in particular no radiographic evidence of pneumonia. --ECHO: Compared to prior study, moderate concentric LVH. Apical septal wall motion abnormality now present. EF 65 to 70%. Small sized apical wall motion abnormality with hypokinesis of the segments noted. Aortic valve sclerosis mild without significant stenosis. Mild aortic regurgitation. Grade 1 diastolic dysfunction -- Troponin trending down --Lipid panel within normal limits. LDL 83. 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 Has denied EGD, colonoscopy in past per outpatient records Hgb: 11.5. Was 12 on 01/28/23, 10.3 on 11/19/22 Continue iron supplement DVT Px: SQ Heparin Code Status DNR/DNI Admission and Anticipated Discharge Date Admission Date: March 14, 2023 Subjective Patient is seen and examined at bedside Cough much improved No new complaints Denies any nausea, vomiting, dyspnea, dizziness, abdominal pain Noted drop in sodium levels Discussed with nephrology today Review of Systems Review of Systems: All systems reviewed & are unremarkable except as noted in Subjective Physical Exam Physical Exam: Physical Exam: Vitals signs as noted above General Appearance:Thin, frail, elderly, no apparent distress Head: normocephalic, Atraumatic Eyes: normal inspection, EOMI Neck: supple, Trachea midline Respiratory/Chest: Normal breath sounds, CTA, No accessory muscle use Cardiovascular: S1, S2, + murmur Abdomen/GI:Soft, Non tender, Bowel sounds present Extremities/Musculoskeletal:normal inspection, no edema Neurologic/Psych:AAO, grossly no focal neurological deficits, hearing impairment Skin: normal color, warm Results & Data Results & Data Vital Signs (Past 12 Hours) Vital Signs Temp Pulse Resp BP Pulse Ox O2 Del Method 03/17/23 16:00 59 L 03/17/23 13:00 59 L 20 110/40 L 94 03/17/23 12:00 36.6 C 03/17/23 08:01 66 17 97 Room Air 03/17/23 08:01 116/78 03/17/23 08:00 36.7 C 03/17/23 08:00 58 L 03/17/23 05:00 59 L 20 03/17/23 05:00 102/44 L Laboratory Results Short CBC 03/17/23 Range/Units 03:49 WBC 8.39 (4.8-10.8) K/ul Hgb 10.0 L (12.0-16.0) g/dl Hct 30.4 L (37.0-47.0) % Plt Count 289 (130-400) K/uL BMP 03/17/23 03:49 Sodium 127 L Potassium 4.0 Chloride 90 L Carbon Dioxide 31 BUN 12 Creatinine 0.66 Glucose 102 H Calcium 8.5 L (1) ST elevation (STEMI) myocardial infarction Involved coronary artery: LAD coronary artery Qualified Code(s): I21.02 - ST elevation (STEMI) myocardial infarction involving left anterior descending coronary artery
[2023-03-17] MEDS: MELATONIN 3 MG TAB PO PRN (20:23)
[2023-03-17] MEDS: METOPROLOL SUCC 50MG EXT REL TAB PO SCH (20:24)
[2023-03-17] MEDS: HEPARIN SOD 5,000 UNIT/0.5 ML VIAL SQ SCH (20:24)
[2023-03-17] MEDS: ATORVASTATIN 40 MG TAB PO SCH (20:24)
[2023-03-18 06:34] LABS: Hematocrit (blood only) 32.3 % (37.0-47.0); Hemoglobin 10.6 g/dl (12.0-16.0); Mean Corpuscular Hemoglobin 28.3 pg (25.0-34.0); Mean Corpuscular Hgb Conc 32.8 g/dL (32.0-36.0); Mean Corpuscular Volume 86.4 fL (80.0-100.0); Mean Platelet Volume 10.7 fL (9.4-12.4); Platelet Count 308 K/uL (130-400); RDW Coefficient of Variation 12.9 % (11.5-14.5); RDW Standard Deviation 40.7 fL (36.4-46.3); Red Blood Count 3.74 M/uL (4.20-5.40); White Blood Count 6.98 K/ul (4.8-10.8)
[2023-03-18 07:02] LABS: BUN Creatinine Ratio 53.1 (10-20); Creatinine Clr Calc Pharmacy 44.7 ml/min; Est GFR (African American) 91.7 ml/min; Est GFR (Non-African American) 79.1 ml/min; Potassium 4.2 mmol/L (3.5-5.1)
[2023-03-18] MEDS: HEPARIN SOD 5,000 UNIT/0.5 ML VIAL SQ SCH (07:56)
[2023-03-18] MEDS: METOPROLOL SUCC 50MG EXT REL TAB PO SCH (07:57)
[2023-03-18] MEDS: LOSARTAN POTASSIUM 25 MG TAB PO SCH (07:57)
[2023-03-18] MEDS: ASPIRIN 81 MG ECTAB PO SCH (07:57)
[2023-03-18] MEDS: UREA (UREA-NA) 15 GM PACK PO SCH (07:57)
--- NOTE | 2023-03-18 10:55 | Nephrology Progress Note ---
Date of Service March 18, 2023 Assessment & Plan (1) Hyponatremia: Plan: Patient with improving hyponatremia likely due to SIADH. Patient had been also receiving heparin drip delivered in D5 water. U Osm 276; Cameron 11. for now continue urea 15 g twice daily. Will continue to monitor bmp daily. started FR 1.5 L/day will follow while in house NEPHROLOGY D/C RECOMMENDATIONS -D/C on urea 15 gm bid (have her get a 3 week supply; note this takes some advance planning; pls have d/c team work w/ pt on this) -bmp at f/u w/ pcp w/in one week of hospital d/c -d/c on FR 1.5L daily and educate her on how to track this -hospital d/c appt w/ Dr Ma or Dr Michele 10-14 days after hospital d/c with bmp, serum and urine osms, rd urine sodium to be ordered by neph nurse and done no more than 3 days before appt NOTE >> AFTER DISCUSSION W/ DR RIDLEY, pt left hospital before I could see her. we did review above recommendations. (2) HTN (hypertension): Plan: Blood pressure is controlled on metoprolol and losartan. No changes today. Admission and Anticipated Discharge Date Admission Date: March 14, 2023 Results & Data Vital Signs (Past 12 Hours) Vital Signs Temp Pulse Pulse Resp BP Pulse Ox O2 Del Method 03/18/23 09:52 59 L 03/18/23 08:44 59 L 03/18/23 07:22 36.6 C 58 L 13 146/63 H 95 Room Air 03/18/23 03:39 36.8 C 62 12 116/67 93 Room Air 03/17/23 23:55 36.9 C 62 14 137/67 94 Room Air Laboratory Results 03/18/23 05:40 03/18/23 05:40 Diagnostic Findings cxr 03/17 possible trace left pleural effusion. No evidence of pneumonia.
--- NOTE | 2023-03-18 12:55 | Hospitalist Progress Note ---
Date of Service March 18, 2023 Assessment & Plan (1) ST elevation (STEMI) myocardial infarction: (2) Chest pain: Plan: Patient is 88-year-old female with PMH CVA, dyslipidemia, chronic anemia presented to ER with complaint of chest pain today. Prehospital EKG with ST elevation and was given 324 mg aspirin and total of 2 sprays SL nitroglycerin with resolution of CP. Upon ER arrival remained CP free. EKG with ST elevation anterior leads per my interpretation. Patient was taken for cardiac cath STEMI --S/P Cardiac Cath: Angiographically moderate to borderline severe proximal LAD lesion. The remainder of the coronaries have no more than mild disease. Doppler wave wire analysis of the LAD demonstrates that the proximal LAD lesion is not hemodynamically significant. Recommend guideline directed medical therapy for secondary prevention of coronary artery disease --CXR:No acute abnormalities and in particular no radiographic evidence of pneumonia. --ECHO: Compared to prior study, moderate concentric LVH. Apical septal wall motion abnormality now present. EF 65 to 70%. Small sized apical wall motion abnormality with hypokinesis of the segments noted. Aortic valve sclerosis mild without significant stenosis. Mild aortic regurgitation. Grade 1 diastolic dysfunction -- Troponin trending down --Lipid panel within normal limits. LDL 83. 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 Will need to follow-up with nephrology upon discharge with blood work and urine studies. (5) Dyslipidemia: Plan: Increase atorvastatin to 40mg daily (6) CVA (cerebral vascular accident): Plan: Continue aspirin, atorvastatin (7) Chronic anemia: Plan: History of iron deficiency anemia. Has denied EGD, colonoscopy in past per outpatient records Hgb: 11.5. Was 12 on 01/28/23, 10.3 on 11/19/22 Continue iron supplement DVT Px: SQ Heparin Code Status DNR/DNI Disposition Home Admission and Anticipated Discharge Date Admission Date: March 14, 2023 Subjective Patient is seen and examined at bedside Offers no new complaints Sodium improved to 130 today Denies any chest pain, nausea, vomiting, dyspnea, dizziness, abdominal pain Eager to get discharged Review of Systems Review of Systems: All systems reviewed & are unremarkable except as noted in Subjective Physical Exam Physical Exam: Physical Exam: Vitals signs as noted above General Appearance:Thin, frail, elderly, no apparent distress Head: normocephalic, Atraumatic Eyes: normal inspection, EOMI Neck: supple, Trachea midline Respiratory/Chest: Normal breath sounds, CTA, No accessory muscle use Cardiovascular: S1, S2, + murmur Abdomen/GI:Soft, Non tender, Bowel sounds present Extremities/Musculoskeletal:normal inspection, no edema Neurologic/Psych:AAO, grossly no focal neurological deficits, hearing impairment Skin: normal color, warm Results & Data Results & Data Vital Signs (Past 12 Hours) Vital Signs Temp Pulse Pulse Resp BP Pulse Ox O2 Del Method 03/18/23 11:14 36.3 C L 54 L 13 132/54 L 95 Room Air 03/18/23 09:52 59 L 03/18/23 08:44 59 L 03/18/23 07:22 36.6 C 58 L 13 146/63 H 95 Room Air 03/18/23 03:39 36.8 C 62 12 116/67 93 Room Air Laboratory Results Short CBC 03/18/23 Range/Units 05:40 WBC 6.98 (4.8-10.8) K/ul Hgb 10.6 L (12.0-16.0) g/dl Hct 32.3 L (37.0-47.0) % Plt Count 308 (130-400) K/uL BMP 03/18/23 05:40 Sodium 130 L Potassium 4.2 Chloride 93 L Carbon Dioxide 31 BUN 34 H D Creatinine 0.64 Glucose 92 Calcium 9.0 (1) ST elevation (STEMI) myocardial infarction Involved coronary artery: LAD coronary artery Qualified Code(s): I21.02 - ST elevation (STEMI) myocardial infarction involving left anterior descending coronary artery
--- NOTE | 2023-03-18 13:30 | Discharge Summary ---
Date of Service March 18, 2023 Admission HPI Per Admitting Provider Patient is 88-year-old female with PMH CVA, dyslipidemia, chronic anemia presented to ER with complaint of chest pain today. History obtained from patient, outpatient chart review and ER staff. Patient states was sitting and around 3 PM today started with "excruciating" chest pain with associated shortness of breath. She called EMS. She reports pain was 10 out of 10 on pain scale. EMS reported ST elevation on EKG. She was given 324 mg aspirin and total of 2 sprays SL nitroglycerin with reported resolution of chest pain. Upon arrival to ER patient was chest pain-free and EKG with ST elevation anterior le ads. Patient was taken for cardiac cath and was found to have 50-60% stenosis LAD and doppler wave wire analysis of the LAD demonstrates that the proximal LAD lesion is not hemodynamically significant and medical therapy was recommended. Post cardiac cath patient reports is doing well. Denies any chest pain or SOB. Denies fever/chills, diaphoresis, N/V/D/C, AGUILA, dizziness, syncope, vision changes, neck pain, palpitations, cough, sore throat, rhinorrhea, abdominal pain, paresthesias, weakness, extremity edema, rashes, urinary symptoms. Admission Exam Per Admitting Provider General: +pleasant, no distress, WDWN elderly female Head: normocephalic, atraumatic Eyes: conjunctiva non-injected, anicteric ENT: +hard of hearing, normal inspection external ears, nose, mucous membranes moist Neck: supple, trachea midline Lungs: clear, no respiratory distress, no wheezing/rhonchi/rales CV: RRR, no murmur, no pretibial edema Abd: normal BS, soft, non-tender Ext: no cyanosis, no calf tenderness Neuro: A&O x 3, no focal deficits noted, normal affect Skin: warm, dry Principal Diagnosis ST elevation (STEMI) myocardial infarction Chronic Hyponatremia Discharge Data Allergies Allergy/AdvReac Type Severity Reaction Status Date / Time Bactrim Allergy Unknown SHORTNESS Verified 05/24/13 12:17 OF BREATH, rash Sulfa (Sulfonamide Allergy Unknown SHORTNESS Verified 07/23/22 18:07 Antibiotics) OF BREATH, RASH sulfamethoxazole Allergy Unknown SHORTNESS Verified 07/23/22 18:07 OF BREATH, rash trimethoprim Allergy Unknown SHORTNESS Verified 07/23/22 18:07 OF BREATH, rash Consultations 03/14/23 16:59 Consult Public Health Professor Routine 03/14/23 17:06 ED Decision to Admit Stat 03/14/23 19:24 Consult Cardiology Routine 03/17/23 09:52 Consult Nephrology Routine Procedures Performed Operation Date: 03/14/23 16:45 Actual Procedures p Cineradiography w/Routine Exam - Guilherme Verduzco MD, PhD p Cath, Coronaries ONLY (no LV) - Guilherme Verduzco MD, PhD p Fraction Flow [place] SGL Ves - Guilherme Verduzco MD, PhD Ordered Studies 03/14/23 16:40 CL Cath Imgs for PACS use only Stat Laboratory Results WBC 6.98 K/ul (4.8-10.8) 03/18/23 05:40 RBC 3.74 M/uL (4.20-5.40) L 03/18/23 05:40 Hgb 10.6 g/dl (12.0-16.0) L 03/18/23 05:40 Hct 32.3 % (37.0-47.0) L 03/18/23 05:40 MCV 86.4 fL (80.0-100.0) 03/18/23 05:40 MCH 28.3 pg (25.0-34.0) 03/18/23 05:40 MCHC 32.8 g/dL (32.0-36.0) 03/18/23 05:40 RDW Std Deviation 40.7 fL (36.4-46.3) 03/18/23 05:40 RDW Coeff of Vin 12.9 % (11.5-14.5) 03/18/23 05:40 Plt Count 308 K/uL (130-400) 03/18/23 05:40 MPV 10.7 fL (9.4-12.4) 03/18/23 05:40 Immature Gran % (Auto) 0.4 % 03/15/23 05:15 Neut % (Auto) 76.3 % 03/15/23 05:15 Lymph % (Auto) 13.2 % 03/15/23 05:15 Rush % (Auto) 8.6 % 03/15/23 05:15 Eos % (Auto) 1.0 % 03/15/23 05:15 Baso % (Auto) 0.5 % 03/15/23 05:15 Neut # (Auto) 7.37 K/uL (1.40-6.50) H 03/15/23 05:15 Lymph # (Auto) 1.28 K/uL (1.20-3.40) 03/15/23 05:15 Rush # (Auto) 0.83 K/uL (0.11-0.59) H 03/15/23 05:15 Eos # (Auto) 0.10 K/uL (0.00-0.50) 03/15/23 05:15 Baso # (Auto) 0.05 K/uL (0.00-0.20) 03/15/23 05:15 Immature Gran # (Auto) 0.04 K/uL (0.01-0.20) 03/15/23 05:15 PT 10.3 Seconds (9.0-12.0) 03/14/23 16:49 INR 0.9 (0.9-1.1) 03/14/23 16:49 APTT 25 Seconds (21-31) 03/14/23 16:49 PTT Ratio 0.9 03/14/23 16:49 Heparin Anti-Xa, Unfract 0.31 IU/ml (0.3-0.7) 03/17/23 05:44 Sodium 130 mmol/L (136-145) L 03/18/23 05:40 Potassium 4.2 mmol/L (3.5-5.1) 03/18/23 05:40 Chloride 93 mmol/L (98-107) L 03/18/23 05:40 Carbon Dioxide 31 mmol/L (21-32) 03/18/23 05:40 Anion Gap 6 (3-11) 03/18/23 05:40 BUN 34 mg/dl (6-23) H D 03/18/23 05:40 Creatinine 0.64 mg/dl (0.6-1.2) 03/18/23 05:40 Est Cr Clr Drug Dosing 44.7 ml/min 03/18/23 05:40 Est GFR ( Amer) 91.7 ml/min 03/18/23 05:40 Est GFR (Non-Af Amer) 79.1 ml/min 03/18/23 05:40 BUN/Creatinine Ratio 53.1 (10-20) H 03/18/23 05:40 Glucose 92 mg/dl (70-99(Fasting)) 03/18/23 05:40 Estimat Average Glucose 126 mg/dl 03/15/23 05:15 Hemoglobin A1c 6.0 % (4.5-5.6) H 03/15/23 05:15 Osmolality 265 mOsm/kg (280-300) L 03/17/23 10:39 Calcium 9.0 mg/dl (8.6-10.3) 03/18/23 05:40 Phosphorus 4.1 mg/dl (2.5-4.9) 03/15/23 05:15 Magnesium 2.2 mg/dl (1.7-2.4) 03/15/23 05:15 Total Bilirubin 0.3 mg/dl (0.2-1.0) 03/14/23 16:49 AST 31 U/L (13-39) 03/14/23 16:49 ALT 16 U/L (7-52) 03/14/23 16:49 Alkaline Phosphatase 84 U/L (34-104) 03/14/23 16:49 Total Creatine Kinase 118 U/L (26-192) 03/14/23 16:49 Troponin I High Sens 1426.3 pg/ml (0-14) H* D 03/15/23 05:15 B-Natriuretic Peptide 97 pg/ml (0-100) 03/14/23 16:49 Total Protein 7.8 gm/dl (6.0-8.3) 03/14/23 16:49 Albumin 3.9 gm/dl (3.4-5.0) 03/14/23 16:49 Globulin 3.9 gm/dl (2.5-4.0) 03/14/23 16:49 Albumin/Globulin Ratio 1.0 (0.9-2) 03/14/23 16:49 Triglycerides 68 mg/dl (0-150) 03/15/23 05:15 Cholesterol 175 mg/dl (0-200) 03/15/23 05:15 LDL Cholesterol, Calc 83 mg/dl 03/15/23 05:15 VLDL Cholesterol, Calc 14 mg/dl (0-30) 03/15/23 05:15 HDL Cholesterol 78 mg/dl 03/15/23 05:15 Cholesterol/HDL Ratio 2.2 (0-5) 03/15/23 05:15 Lipase 25 U/L (11-82) 03/14/23 16:49 TSH 0.579 uIu/ml (0.300-4.500) 03/14/23 16:49 Urine Osmolality 276 mOsm/kg (500-800) L 03/17/23 10:42 Ur Random Sodium 11 mmol/L 03/17/23 10:42 Adenovirus (PCR) Not Detected (NotDetected) 03/14/23 Unknown B. pertussis DNA (PCR) Not Detected (NotDetected) 03/14/23 Unknown B.parapertussis DNA PCR Not Detected (NotDetected) 03/14/23 Unknown C. pneumoniae DNA (PCR) Not Detected (NotDetected) 03/14/23 Unknown Coronavirus OC43 (PCR) Not Detected (NotDetected) 03/14/23 Unknown Coronavirus HKU1 (PCR) Not Detected (NotDetected) 03/14/23 Unknown Coronavirus 229E (PCR) Not Detected (NotDetected) 03/14/23 Unknown SARS-CoV-2 (PCR) Not Detected (NotDetected) 03/14/23 Unknown Coronavirus NL63 (PCR) Not Detected (NotDetected) 03/14/23 Unknown Human Metapneumovir PCR Not Detected (NotDetected) 03/14/23 Unknown Influenza Type A (PCR) Not Detected (NotDetected) 03/14/23 Unknown Influenza Type B (PCR) Not Detected (NotDetected) 03/14/23 Unknown M. pneumoniae (PCR) Not Detected (NotDetected) 03/14/23 Unknown Parainfluenza 1 (PCR) Not Detected (NotDetected) 03/14/23 Unknown Parainfluenza 2 (PCR) Not Detected (NotDetected) 03/14/23 Unknown Parainfluenza 3 (PCR) Not Detected (NotDetected) 03/14/23 Unknown Parainfluenza 4 (PCR) Not Detected (NotDetected) 03/14/23 Unknown RSV (PCR) Not Detected (NotDetected) 03/14/23 Unknown Entero/Rhino (PCR) Not Detected (NotDetected) 03/14/23 Unknown Impressions Chest X-Ray 03/17/23 07:56 XR chest 1V portable CLINICAL HISTORY: cough TECHNIQUE: Single frontal radiograph of the chest was obtained. Comparison: Comparison is made to chest radiograph 03/14/2023 FINDINGS: No lines and tubes are seen. Calcified aortic knob is seen. The lungs are clear. Blunting of the left costophrenic angle may represent a trace left pleural effusion. IMPRESSION: Possible trace left pleural effusion. No evidence of pneumonia. ACT 112: Negative or not required by law. Electronically signed by: Win Aviles M.D. 03/17/2023 8:36 AM Hospital Course (1) ST elevation (STEMI) myocardial infarction: (2) Chest pain: Patient is 88-year-old female with PMH CVA, dyslipidemia, chronic anemia presented to ER with complaint of chest pain today. Prehospital EKG with ST elevation and was given 324 mg aspirin and total of 2 sprays SL nitroglycerin with resolution of CP. Upon ER arrival remained CP free. EKG with ST elevation anterior leads per my interpretation. Patient was taken for cardiac cath STEMI --S/P Cardiac Cath: Angiographically moderate to borderline severe proximal LAD lesion. The remainder of the coronaries have no more than mild disease. Doppler wave wire analysis of the LAD demonstrates that the proximal LAD lesion is not hemodynamically significant. Recommend guideline directed medical therapy for secondary prevention of coronary artery disease --CXR:No acute abnormalities and in particular no radiographic evidence of pneumonia. --ECHO: Compared to prior study, moderate concentric LVH. Apical septal wall motion abnormality now present. EF 65 to 70%. Small sized apical wall motion abnormality with hypokinesis of the segments noted. Aortic valve sclerosis mild without significant stenosis. Mild aortic regurgitation. Grade 1 diastolic dysfunction -- Troponin trending down --Lipid panel within normal limits. LDL 83. --HbA1c 6.0 Continue aspirin, statin, metoprolol, losartan IV heparin discontinued Lipitor dose was uptitrated to 40mg daily Appreciate cardiology input Metoprolol tartrate changed to metoprolol succinate 50 mg twice a day Nitroglycerin as needed Needs follow-up with cardiology on discharge (3) HTN (hypertension): Continue losartan, metoprolol Monitor BP (4) Hyponatremia: Chronic Hyponatremia Likely SIADH Sodium 130 today Started on urea 15 mg twice daily Appreciate nephrology input Monitor sodium levels Nephrology recommendations on discharge: Plan to discharge on urea 15 mg twice daily, fluid restriction. Will need to follow-up with nephrology upon discharge with blood work and urine studies. (5) Dyslipidemia: Increase atorvastatin to 40mg daily (6) CVA (cerebral vascular accident): Continue aspirin, atorvastatin (7) Chronic anemia: History of iron deficiency anemia. Has denied EGD, colonoscopy in past per outpatient records Hgb: 11.5. Was 12 on 01/28/23, 10.3 on 11/19/22 Continue iron supplement DVT Px: SQ Heparin Code Status DNR/DNI Disposition Home Total Time Total Time Spent Total Time Spent (In Minutes): 58 minutes Discharge Plan Discharge Items Patient Disposition: Home - Self-Care Reason For Visit: HEART ALERT PCI Discharge Diagnosis: ST elevation (STEMI) myocardial infarction Chronic Hyponatremia Activity: Per Instructions section Exercise/Sports: Wait until after follow-up appointment Non-emergency contact: Primary Care Provider and Carbon Plant Grinder Call non-emergency contact if: you have any medication questions, your symptoms worsen, your pain is concerning for you and you have a fever Follow-up/Referrals: Lorraine Ozuna DO [Primary Care Provider] - (Date & Time 03/21/2023 11:10 AM Provider Lorraine Ozuna DO [facility] ) Benoit Ozuna DO [Carbon Plant Grinder] - (The Cardiology office will contact you for a follow up appointment.) Diet: Heart Healthy Fluids: 1500ml (6 cups) Addtl Attending Provider Instructions: Follow-up with your primary care physician Dr. Lorraine Ozuna on 11:10 AM Follow-up with your marble cutter Dr. Ozuna in 2-3 weeks Follow-up with your station tender Dr. Ma/ in 10 days with repeat blood, urine test as recommended. --- Continue fluid restriction 1.5 L/day as recommended by your station tender. -- Obtain blood test, urine studies in 10 days and follow-up with your station tender for further recommendations. (Basic metabolic panel, serum and urine osmolality, Random urine sodium) Seek immediate medical attention if your symptoms reoccur or worsen Please take all medications as instructed on discharge list below. Please call if you have any questions or problems. You can reach a [facility] hospitalist on duty at [facility] 24 hours a day by calling [phone] Home Care: * Take your medications exactly as directed. Don't skip doses. * Remember that recovery after a heart attack takes time. Plan to rest for at lease 4-8 weeks while you recover. Then return to normal activity when your doctor says it's okay. * Ask your doctor about joining a heart rehabilitation program. * Tell your doctor if you are feeling depressed. Feelings of sadness are common after a heart attack, but it is important that you speak to someone if you are feeling overwhelmed by these feelings. * If you are having chest pain, call 911 for an ambulance. Do NOT drive yourself to the hospital. * Ask your family members to learn CPR. * Learn to take your own blood pressure and pulse. Keep a record of your results. Ask your doctor when you should seek emergency medical attention. He or she will tell you which blood pressure reading is dangerous. Lifestyle Changes: * Maintain a healthy weight. Get help to lose any extra pounds. * Cut back on salt. * Limit canned, dried, packaged, and fast foods. * Don't add salt to your food. * Season foods with herbs instead of salt when you cook. * Break the smoking habit. Enroll in a stop-smoking program to improve your chances of success. * Limit fatty foods. * Ask your doctor about having your lipid levels checked regularly. * Build up your activity according to your doctor's recommendation. * Ask your doctor when it's okay to resume sexual activity. * Tell your doctor about any erectile dysfunction (ED) medication you are taking. Some ED medications are not safe if you take certain heart medications. * Try to manage stress. Follow Up: It is important for you to keep your follow up appointments with your medical provider. Addtl Drop Forge Operator Provider Instructions: ACTIVITY RECOMMENDATIONS: Excess manipulation of the wrist should be avoided for the next 24-48 hours. * No lifting over 2 pounds (approximately a 1/2 gallon of milk) with the utilized arm for 24 hours. * No strenuous activity such as bowling or tennis for 3 days. * Keep the site of the procedure covered with a bandage for 24 hours. *You may shower the day after the procedure. Do not take a tub bath or submerge the puncture site in water for the next 3 days. *Do not operate any motorized equipment for 3 days. SPECIAL CARE INSTRUCTIONS: The site may be slightly bruised and sore following your procedure. Should any of the following occur, contact the Dr. who performed your procedure. 1. Redness/inflammation, swelling, chills, or fever, or colored drainage at procedure site within 3-7 days after your procedure. 2. Coldness, discoloration, ongoing numbness, severe pain, or swelling. Expect mild tingling of hand and tenderness at the puncture site for up to three days. If this persists beyond three days, or other symptoms develop, notify the Dr. who performed your procedure. BLEEDING: If the procedure site on your wrist begins to bleed, do not panic 1. Place 1 or 2 fingers firmly just slightly above the insertion site to stop the bleeding. You may be able to feel your pulse as you hold pressure. 2. Lift your finger after 5 minutes to see if the bleeding has stopped. 3. Once the bleeding has stopped, gently wipe the wrist area clean with a bandage. * If the bleeding from your wrist does not stop after 10 minutes, or if there is a large amount of bleeding or spurting, call 911 (do not drive yourself to the hospital). SKIN IRRITATION: * You may experience some redness and/or swelling in the area where radiation was administered. If any skin irritation occurs, please contact your family physician. FOLLOW UP VISIT: Keep any scheduled doctor appointments. Pending Studies at Discharge: No Stand-Alone Forms: My [facility] Messaging, Smoking Cessation Medications and DC Order Prescriptions: New atorvastatin 40 mg Tablet 40 mg PO HS Qty: 30 1RF metoprolol succinate 50 mg Tablet Extended Release 24 Hr 50 mg PO BID Qty: 60 1RF losartan 25 mg Tablet 25 mg PO QAM Qty: 30 1RF nitroglycerin [Nitrostat] 0.4 mg Tablet, Sublingual 0.4 mg sublingual Q5M PRN (Reason: chest pain) Qty: 30 2RF Rx Instructions: Max of 3 doses in 15 mins, notify provider famotidine [Acid Neck Band Maker (famotidine)] 10 mg Tablet 10 mg PO BID PRN (Reason: dyspepsia) Qty: 30 0RF Ure-Na 15 gram Powder In Packet 15 g PO BID 21 Days Qty: 42 0RF benzonatate 100 mg Capsule 100 mg PO TID PRN (Reason: cough) Qty: 30 0RF Continued aspirin 81 mg Tablet,Delayed Release (Dr/Ec) 81 mg PO DAILY Osteo Bi-Flex Triple Strength 750 mg-644 mg- 30 mg-1 mg Tablet 1 tab PO BID ferrous sulfate 27 mg iron Tablet 27 mg PO DAILY Discontinued atorvastatin 20 mg Tablet 20 mg PO DAILY Discharge Orders: Discharge Order (Routine); Ordered 03/18/23 Ordered By: Kobi Green Admission Data Admit Date/Time: 03/14/23 16:57 Attending Provider: Kobi Green Admit Provider: Magi Gaytan Primary Care Provider: Lorraine Ozuna Other Providers: Guilherme Verduzco; Magi Gaytan; Benoit Ozuna Jawed
== END 2023-03-18 14:31 | disposition home or self-care (01) | DRG 281 ==
LOC: ED 16:38 → 1E 16:52 → SUATTDRO 16:57 → 1E 16:57 → 2S 03-17 18:04
PROC: CLB.CCO (2023-03-14 16:45)

== ENCOUNTER 2023-09-26 23:20 | Inpatient (IN) ==
[2023-09-26] MEDS: SODIUM CHLORIDE 0.9% 1,000 ML IV SCH (23:39)
--- NOTE | 2023-09-26 23:43 | Emergency Department Note ---
Impression & Plan Nausea, Hypertension, Weakness, Elevated troponin, Sinus pause ED Provider Note ED Provider Note NAME: MATTHEW DELEON AGE:88 SEX: Female : 1935 ARRIVES VIA: EMS INFORMANT: Patient ED PROVIDER(s): Zoraida Salcido DO CHIEF COMPLAINT: Nausea, weakness HPI: This is an 88-year-old female who presents emergency department due to nausea and weakness at home. Patient states she felt well when she went to bed and awoke with nausea. She states she went to the bathroom and waited but did not vomit. She states she sat on the ground, no fall or injury. No LOC. She states she began to feel as though it was hard to breathe and felt very weak. She states she could not get back up on her own so her called 911. She states she feels improved at this time. Blood pressures and route began to become markedly elevated and work continue to be elevated on arrival here. She denies chest pain and headache. She states her breathing feels improved here now. She denies any diarrhea or recent change in bowel movements. No recent change in urine. Patient did have an SD back in March. Patient states she does typically take medication for high blood pressure. She states when he checks her blood pressure at home her systolic is typically in the 120s. Patient states she and her did eat at [employer] earlier this evening. She states she had a salad. PAST MEDICAL HISTORY:See Below PAST SURGICAL HISTORY:See Below FAMILY HISTORY:See Below SOCIAL HISTORY:See Below HOME MEDICATIONS:See Below ALLERGIES:See Below VITALS:See Below PHYSICAL EXAMINATION: GENERAL: alert, well appearing, well nourished, no distress, non-toxic EYE EXAM: normal conjunctiva, PERRL and EOM's grossly intact OROPHARYNX: no exudate, no erythema, lips, buccal mucosa, and tongue normal and mucous membranes are moist NECK: supple, no nuchal rigidity, no adenopathy, non-tender LUNGS: Clear to auscultation. Normal chest wall mechanics, no w/r/r HEART: no murmurs, S1 normal and S2 normal ABDOMEN: abdomen soft, non-tender, normo-active bowel sounds, no masses, no rebound or guarding. SKIN: no rashes, petechiae, orbruising UPPER EXTREMITIES: upper extremities are grossly normal. FROM, nml pulses b/l. LOWER EXTREMITIES: No pitting edema. FROM, nml pulses b/l. NEURO EXAM: Normal sensorium, cranial nerves II-XII grossly intact, normal speech, no facial droop,nogross weakness of arms, no gross weakness of legs. Gross sensation intact. No ataxia. Vital Signs: reviewed and remarkable Differential Diagnosis: Benign hypertension, hypertensive emergency, ACS, dissection, pneumonia, vasovagal syncope, electrolyte abnormality, MAXWELL, endorgan damage, as well as other pathologies. MEDICAL DECISION MAKING: This is an 88-year-old female who presents emergency department due to concern for nausea, weakness, and shortness of breath. Patient states symptoms had improved by time of arrival here via EMS. She was afebrile vital signs stable although she was noted to be hypertensive. Labs drawn and sent, IV established, EKG and chest ray performed bedside interpreted me and patient monitored on telemetry. Patient started on gentle IV fluid hydration. Due to persistent hypertension she was given 5 mg of IV hydralazine with improvement. She noted intermittent nausea. At 1 point patient noted to have long pauses and appeared unwell complaining of increased nausea and began dry heaving, she was more pale and almost ashen in appearance however was still awake and talking. Patient noted on review of telemetry strips to have a 6-second pause. This was then followed very shortly after by another 4-second pause on review of her telemetry strips. Patient's initial troponin had been negative however repeat was sent and a repeat EKG performed additionally. Initial chest x-ray reassuring however due to persistent nausea, a stat KUB performed at bedside to rule out obstructive process. Patient continued to deny chest pain or shortness of breath, and other vitals remained stable. Patient had several further episodes of long pauses including an 8-second pause noted however denied any other evolving symptoms, only complained of increased nausea when these would occur. I suspect this may be vasovagal in nature although no clear etiology of her nausea noted. Patient sent for additional CT of the abdomen and pelvis as a precaution. This was reassuring. Repeat troponin however markedly elevated compared to prior, I suspect secondary to increased demand. She had no acute changes on repeat EKG and continued to deny any chest pain or shortness of breath. Given patient's age and prior cardiac history, her nausea could be her anginal equivalent additionally. Patient remained hypertensive although improved here. She denied any evolving abdominal pain, and had no other GI symptoms. Due to concern for presentation, significant pauses and cardiac history as well as elevated troponin, case discussed with the hospitalist team for additional evaluation and management. I did spend time discussing the patient's presentation and evaluation here with her initially and then with the 2 of them at bedside. At this time they do wish for her to be DNR/DNI. Consultation(s): 0450: Discussed with Dr. Aaron, [facility] hospitalist team, for additional evaluation and management. ER Treatment Provided: See below Diagnostics Interpreted By Me: -ECG: Normal sinus at 63, first-degree AV block, normal axis, normal intervals, nonspecific ST/T wave changes -Cardiac Monitoring: An order was placed for continuous cardiac monitoring. The monitor shows a rate of 63 with normal sinus rhythm. -Laboratory studies: As stated above and show below. -Imaging studies: X-ray Chest: A single view study of the chest was reviewed and was negative for cardiomegaly, focal infiltrate, effusion, pulmonary edema, or wide mediastinum. Triage Nursing Note Reviewed Prior/Outside Records Reviewed -review of prior cardiology visit Critical Care: Critical care of 42 min performed to assess and manage high likelihood of life- threatening dysrhythmia, involving labs and imaging performed with assessment to evaluate nausea and dizziness diagnosis and discussion of CODE STATUS with frequent reassessment. This time includes bedside time, treatment discussions with patient/family/consultants, documentation time and excludes procedure time. Past Med/Surg History Problem List (Updated 09/27/23 @ 08:16 by Zoraida Salcido DO) Sinus pause (Acute) Elevated troponin (Acute) Symptomatic bradycardia Weakness (Acute) Hypertension (Acute) Nausea (Acute) Dyslipidemia, goal LDL below 70 Chronic anemia Hypertensive emergency Myocardial infarction due to demand ischemia Hyponatremia Chronic anemia CVA (cerebral vascular accident) Dyslipidemia HTN (hypertension) Atherogenic dyslipidemia Benign essential hypertension Chest pain (Acute) ST elevation (STEMI) myocardial infarction (Acute) Symptomatic anemia Anemia (Acute) MILLAN (dyspnea on exertion) (Acute) Arthritis (Chronic) Lumbar compression fracture Non-ST elevation SD (NSTEMI) Medical History Nausea & vomiting Acute hyponatremia COVID-19 Surgical History History of hysterectomy Family History Brother Coronary heart disease Sister Cancer Social History Smoking Status: Never smoker Second Hand Exposure: No; Do You Dip or Chew Tobacco: No; Hx Alcohol Use: No Hx Substance Use: No Preferred Language: Kinyarwanda Communication Ability: Effective Still Cleaner Required: No Beliefs That Will Affect Care: None marital status: Current Living Situation: Spouse Feels Safe at Home: Yes Assistive Devices: Walker Allergies Allergies Allergy/AdvReac Type Severity Reaction Status Date / Time Bactrim Allergy Unknown SHORTNESS Verified 05/24/13 12:17 OF BREATH, rash Sulfa (Sulfonamide Allergy Unknown SHORTNESS Verified 07/23/22 18:07 Antibiotics) OF BREATH, RASH sulfamethoxazole Allergy Unknown SHORTNESS Verified 07/23/22 18:07 OF BREATH, rash trimethoprim Allergy Unknown SHORTNESS Verified 07/23/22 18:07 OF BREATH, rash Home Meds Home Medications Medication Instructions Recorded Confirmed aspirin 81 mg tablet,delayed 81 mg PO DAILY 04/28/18 09/27/23 release ferrous sulfate 27 mg iron tablet 27 mg PO DAILY 03/14/23 09/27/23 glucosamine 750 [id number] 1 tab PO BID 03/14/23 09/27/23 no1 644 mg-C 30 mg-delphine 1 mg tablet (Osteo Bi-Flex Triple Strength) Previous Rx's Medication Instructions Recorded atorvastatin 40 mg tablet 40 mg PO HS #30 tabs 03/18/23 benzonatate 100 mg capsule 100 mg PO TID PRN cough #30 caps 03/18/23 losartan 25 mg tablet 25 mg PO QAM #30 tabs 03/18/23 metoprolol succinate 50 mg 50 mg PO BID #60 tabs 03/18/23 tablet,extended release 24 hr nitroglycerin 0.4 mg sublingual 0.4 mg sublingual Q5M PRN chest 03/18/23 tablet (Nitrostat) pain #30 tabs Results & Data (ED) Vital Signs Vital Signs - 24 hr 09/26/23 23:16 09/26/23 23:30 09/26/23 23:30 Temperature 36.6 C Temperature Source Oral Pulse Rate 69 66 65 Respiratory Rate 18 23 Respiratory Effort / Characteristics Non-Labored Respiratory Depth Normal Blood Pressure 231/101 H 227/96 H Blood Pressure Mean 144 139 Pulse Oximetry 97 95 Oxygen Delivery Method Room Air Sepsis Recent Fever Within 48 Hours No Sepsis New/Unexplained Change in Mental Status No Sepsis Action Taken by Nursing No Action Required 09/26/23 23:33 09/27/23 00:09 09/27/23 00:48 Temperature Temperature Source Pulse Rate 61 63 Respiratory Rate 19 24 Respiratory Effort / Characteristics Respiratory Depth Normal Blood Pressure 192/85 H 217/96 H Blood Pressure Mean 120 136 Pulse Oximetry 96 Oxygen Delivery Method Sepsis Recent Fever Within 48 Hours Sepsis New/Unexplained Change in Mental Status Sepsis Action Taken by Nursing 09/27/23 01:03 09/27/23 01:30 09/27/23 01:42 Temperature Temperature Source Pulse Rate 63 68 67 Respiratory Rate 24 22 26 H Respiratory Effort / Characteristics Respiratory Depth Blood Pressure 200/83 H 183/76 H 183/76 H Blood Pressure Mean 122 111 111 Pulse Oximetry 96 96 97 Oxygen Delivery Method Sepsis Recent Fever Within 48 Hours Sepsis New/Unexplained Change in Mental Status Sepsis Action Taken by Nursing 09/27/23 02:03 09/27/23 02:23 09/27/23 02:24 Temperature Temperature Source Pulse Rate 65 0 L 53 L Respiratory Rate 22 Respiratory Effort / Characteristics Respiratory Depth Blood Pressure 170/85 H Blood Pressure Mean 113 Pulse Oximetry 97 Oxygen Delivery Method Sepsis Recent Fever Within 48 Hours Sepsis New/Unexplained Change in Mental Status Sepsis Action Taken by Nursing 09/27/23 02:27 09/27/23 03:00 09/27/23 03:30 Temperature Temperature Source Pulse Rate 62 67 63 Respiratory Rate 15 20 22 Respiratory Effort / Characteristics Respiratory Depth Blood Pressure 151/69 H 177/81 H 166/70 H Blood Pressure Mean 96 112 102 Pulse Oximetry 97 97 96 Oxygen Delivery Method Sepsis Recent Fever Within 48 Hours Sepsis New/Unexplained Change in Mental Status Sepsis Action Taken by Nursing 09/27/23 03:30 09/27/23 04:00 09/27/23 04:36 Temperature Temperature Source Pulse Rate 62 62 62 Respiratory Rate 18 22 22 Respiratory Effort / Characteristics Respiratory Depth Blood Pressure 166/70 H 162/69 H 171/70 H Blood Pressure Mean 116 106 103 Pulse Oximetry 96 96 96 Oxygen Delivery Method Sepsis Recent Fever Within 48 Hours Sepsis New/Unexplained Change in Mental Status Sepsis Action Taken by Nursing 09/27/23 05:00 09/27/23 05:30 Temperature Temperature Source Pulse Rate 62 62 Respiratory Rate 22 18 Respiratory Effort / Characteristics Respiratory Depth Blood Pressure 168/71 H 157/81 H Blood Pressure Mean 113 130 Pulse Oximetry 95 96 Oxygen Delivery Method Sepsis Recent Fever Within 48 Hours Sepsis New/Unexplained Change in Mental Status Sepsis Action Taken by Nursing Laboratory Data 09/27/23 07:05 09/27/23 07:05 Lab Results 09/26/23 09/27/23 09/27/23 Range/Units 23:30 00:50 00:58 WBC 6.82 (4.8-10.8) K/ul RBC 3.97 L (4.20-5.40) M/uL Hgb 11.5 L (12.0-16.0) g/dl Hct 35.0 L (37.0-47.0) % MCV 88.2 (80.0-100.0) fL MCH 29.0 (25.0-34.0) pg MCHC 32.9 (32.0-36.0) g/dL RDW Std Deviation 43.8 (36.4-46.3) fL RDW Coeff of Vin 13.4 (11.5-14.5) % Plt Count 230 (130-400) K/uL MPV 10.8 (9.4-12.4) fL Immature Gran % (Auto) 0.3 % Neut % (Auto) 71.2 % Lymph % (Auto) 16.0 % Major % (Auto) 8.9 % Eos % (Auto) 2.9 % Baso % (Auto) 0.7 % Neut # (Auto) 4.85 (1.40-6.50) K/uL Lymph # (Auto) 1.09 L (1.20-3.40) K/uL Major # (Auto) 0.61 H (0.11-0.59) K/uL Eos # (Auto) 0.20 (0.00-0.50) K/uL Baso # (Auto) 0.05 (0.00-0.20) K/uL Immature Gran # (Auto) 0.02 (0.01-0.20) K/uL PT Cancelled 10.9 INR Cancelled 1.0 Sodium TNP 129 L Potassium TNP 4.1 Chloride 95 L (98-107) mmol/L Carbon Dioxide 29 (21-32) mmol/L Anion Gap TNP BUN 22 (6-23) mg/dl Creatinine 0.67 (0.6-1.2) mg/dl Est Cr Clr Drug Dosing 42.2 ml/min Est GFR ( Amer) 90.3 ml/min Est GFR (Non-Af Amer) 77.9 ml/min BUN/Creatinine Ratio 32.8 H (10-20) Glucose 116 H (70-99(Fasting)) mg/dl Calcium 8.8 (8.6-10.3) mg/dl Magnesium TNP 2.4 Total Bilirubin 0.2 (0.2-1.0) mg/dl AST TNP 33 ALT 17 (7-52) U/L Alkaline Phosphatase 56 (34-104) U/L Troponin I High Sens 6.7 (0-14) pg/ml B-Natriuretic Peptide 213 H (0-100) pg/ml Total Protein 7.4 (6.0-8.3) gm/dl Albumin 4.0 (3.4-5.0) gm/dl Globulin 3.4 (2.5-4.0) gm/dl Albumin/Globulin Ratio 1.2 (0.9-2) Lipase 36 (11-82) U/L TSH 1.257 (0.300-4.500) uIu/ml Urine Color Yellow Urine Appearance Clear (Clear) Urine pH 7.5 (4.5-7.5) Ur Specific Flushing 1.009 (1.000-1.030) Urine Protein 1+ H (Negative) Urine Glucose (UA) Negative (Negative) Urine Ketones Trace H (Negative) Urine Blood Negative (Negative) Urine Nitrite Negative (Negative) Urine Bilirubin Negative (Negative) Urine Urobilinogen Negative (Negative) Ur Leukocyte Esterase Negative (Negative) Urine WBC (Auto) 0-5 (0-5) /hpf Urine RBC (Auto) 0-2 (0-2) /hpf U Hyaline Cast (Auto) 0-2 (0-2) /lpf U Epithel Cells (Auto) 0-2 (0-2) /hpf Urine Bacteria (Auto) None Seen (None Seen) 09/27/23 Range/Units 02:42 WBC (4.8-10.8) K/ul RBC (4.20-5.40) M/uL Hgb (12.0-16.0) g/dl Hct (37.0-47.0) % MCV (80.0-100.0) fL MCH (25.0-34.0) pg MCHC (32.0-36.0) g/dL RDW Std Deviation (36.4-46.3) fL RDW Coeff of Vin (11.5-14.5) % Plt Count (130-400) K/uL MPV (9.4-12.4) fL Immature Gran % (Auto) % Neut % (Auto) % Lymph % (Auto) % Major % (Auto) % Eos % (Auto) % Baso % (Auto) % Neut # (Auto) (1.40-6.50) K/uL Lymph # (Auto) (1.20-3.40) K/uL Major # (Auto) (0.11-0.59) K/uL Eos # (Auto) (0.00-0.50) K/uL Baso # (Auto) (0.00-0.20) K/uL Immature Gran # (Auto) (0.01-0.20) K/uL PT INR Sodium Potassium Chloride (98-107) mmol/L Carbon Dioxide (21-32) mmol/L Anion Gap BUN (6-23) mg/dl Creatinine (0.6-1.2) mg/dl Est Cr Clr Drug Dosing ml/min Est GFR ( Amer) ml/min Est GFR (Non-Af Amer) ml/min BUN/Creatinine Ratio (10-20) Glucose (70-99(Fasting)) mg/dl Calcium (8.6-10.3) mg/dl Magnesium Total Bilirubin (0.2-1.0) mg/dl AST ALT (7-52) U/L Alkaline Phosphatase (34-104) U/L Troponin I High Sens 124.6 H* D (0-14) pg/ml B-Natriuretic Peptide (0-100) pg/ml Total Protein (6.0-8.3) gm/dl Albumin (3.4-5.0) gm/dl Globulin (2.5-4.0) gm/dl Albumin/Globulin Ratio (0.9-2) Lipase (11-82) U/L TSH (0.300-4.500) uIu/ml Urine Color Urine Appearance (Clear) Urine pH (4.5-7.5) Ur Specific Flushing (1.000-1.030) Urine Protein (Negative) Urine Glucose (UA) (Negative) Urine Ketones (Negative) Urine Blood (Negative) Urine Nitrite (Negative) Urine Bilirubin (Negative) Urine Urobilinogen (Negative) Ur Leukocyte Esterase (Negative) Urine WBC (Auto) (0-5) /hpf Urine RBC (Auto) (0-2) /hpf U Hyaline Cast (Auto) (0-2) /lpf U Epithel Cells (Auto) (0-2) /hpf Urine Bacteria (Auto) (None Seen) Administered Medications Promethazine HCl 6.25 mg/ (Sodium Chloride) 50.25 mls @ 201 mls/hr IV Q6H PRN PRN Reason: Nausea And Vomiting Stop: 10/27/23 05:57 Last Admin: 09/27/23 07:27 Dose: 201 mls/hr Documented By: HS Discontinued Medications Atropine Sulfate (Atropine Sulfate 0.1 Mg/Ml 10ml Syr) Confirm Administered Dose 2 mg IV .STK-MED ONE Stop: 09/27/23 02:31 Last Admin: 09/27/23 05:53 Dose: Not Given Documented By: FESTUS Hydralazine HCl (Hydralazine Hcl 20 Mg/Ml Vial) 5 mg IV NOW ONE Stop: 09/27/23 00:50 Last Increment: 09/27/23 00:58 Dose: 0.25 mg Documented By: NOLBERTO Sodium Chloride (Nss) 1,000 mls @ 125 mls/hr IV .Q8H SCOTT Stop: 10/26/23 23:29 Last Infusion: 09/27/23 04:58 Dose: 0 mls/hr Documented By: Admin: 09/26/23 23:39 Dose: 125 mls/hr Documented By: NOLBERTO Ioversol (Optiray 320 100ml) 94 ml IV ONCE ONE Stop: 09/27/23 04:15 Last Admin: 09/27/23 04:15 Dose: 94 ml Documented By: LEONIDES Losartan Potassium (Losartan Potassium 25 Mg Tab) 25 mg PO ONE STA Stop: 09/27/23 06:09 Last Admin: 09/27/23 06:34 Dose: 25 mg Documented By: NAW Imaging Data Radiologist's Impression: Head CT 09/26/23 23:55 Exam(s): CT HEAD Without Contrast EXAM: CT Head Without Intravenous Contrast CLINICAL HISTORY: Reason for exam: nausea, htn. TECHNIQUE: Axial computed tomography images of the head/brain without intravenous contrast. CTDI is 38.31 mGy and DLP is 547.75 mGy-cm. Automated exposure control was utilized for the study. A dose lowering technique was utilized adhering to the principles of ALARA. COMPARISON: Prior head CT from April 28, 2018. FINDINGS: Brain: Unremarkable. No hemorrhage. No significant white matter disease. No edema. Ventricles: Moderate ventriculomegaly. Bones/joints: Unremarkable. No acute fracture. Soft tissues: Unremarkable. Sinuses: Unremarkable as visualized. No acute sinusitis. Mastoid air cells: Unremarkable as visualized. No mastoid effusion. IMPRESSION: No evidence of acute intracranial pathology. Electronically signed by: Jing Roberts MD 09/27/23 02:05 AM KUB X-Ray 09/27/23 02:28 KUB HISTORY: Acute generalized abdominal pain with nausea and vomiting n/v COMPARISON: CT of same day FINDINGS: Nonobstructive bowel gas pattern. No renal calculi. No ureteral calculi. No pneumoperitoneum or pneumatosis. Lumbar levoscoliosis with multilevel degenerative changes. Calcified granulomata spleen. Distended urinary bladder. No fracture. IMPRESSION: 1. Nonobstructive bowel gas pattern. 2. No urolithiasis identified. ACT 112: Negative or not required by law. The above report was generated using voice recognition software. It may contain grammatical, syntax or spelling errors. Electronically signed by: Mart Dale M.D. 09/27/2023 7:55 AM Abdomen/Pelvis CT 09/27/23 03:15 Exam(s): CT ABDOMEN + PELVIS With Contrast IV Amt: 94 ml EXAM: CT Abdomen and Pelvis With Intravenous Contrast CLINICAL HISTORY: Reason for exam: n/v. TECHNIQUE: Axial computed tomography images of the abdomen and pelvis with intravenous contrast. Automated exposure control was utilized for the study. A dose lowering technique was utilized adhering to the principles of ALARA. CONTRAST: Patient received 94 ml of IV contrast COMPARISON: No relevant prior studies available. FINDINGS: Lung bases: Unremarkable. No mass. No consolidation. ABDOMEN: Liver: Unremarkable. No mass. Gallbladder and bile ducts: Unremarkable. No calcified stones. No ductal dilation. Pancreas: Unremarkable. No mass. No ductal dilation. Spleen: Calcified granuloma seen in the splenic parenchyma. Adrenals: Unremarkable. No mass. Kidneys and ureters: Unremarkable. No solid mass. No hydronephrosis. Stomach and bowel: There is mild diffuse gastric wall thickening. No obstruction. PELVIS: Appendix: Normal appendix. Bladder: The urinary bladder is distended, measuring up to 13.5 cm in diameter. Reproductive: Unremarkable as visualized. ABDOMEN and PELVIS: Intraperitoneal space: Unremarkable. No free air. No significant fluid collection. Bones/joints: Degenerative disc disease changes seen most prominently at L2/3 and L3/4 junction. There is levoscoliosis seen in the lumbar spine. No acute fracture. No dislocation. Soft tissues: Unremarkable. Vasculature: Unremarkable. No abdominal aortic aneurysm. Lymph nodes: Unremarkable. No enlarged lymph nodes. IMPRESSION: 1. Moderately distended urinary bladder. 2. No evidence of bowel obstruction 3. Mild diffuse gastric wall prominence which could be from gastritis Electronically signed by: Jaiden Gallagher MD 09/27/23 05:59 AM Discharge Plan Visit Data Chief Complaint: Syncope (Near Syncope) Stated Complaint: Weakness, SOB, Syncope ED Provider: Zoraida Salcido Discharge Problem: Nausea, Hypertension, Weakness, Elevated troponin, Sinus pause Discharge Instructions Interventions: ED Discharge Assessment Last Done: 09/27/23 07:41
[2023-09-26 23:50] LABS: Basophils # (auto) 0.05 K/uL (0.00-0.20); Basophils % (auto) 0.7 %; Eosinophils % (auto) 2.9 %; Hemoglobin 11.5 g/dl (12.0-16.0); Immature Granulocytes # (auto) 0.02 K/uL (0.01-0.20); Immature Granulocytes % (auto) 0.3 %; Lymphocytes # (auto) 1.09 K/uL (1.20-3.40); Mean Corpuscular Hgb Conc 32.9 g/dL (32.0-36.0); Mean Corpuscular Volume 88.2 fL (80.0-100.0); Mean Platelet Volume 10.8 fL (9.4-12.4); Monocytes # (auto) 0.61 K/uL (0.11-0.59); Monocytes % (auto) 8.9 %; Neutrophils # (auto) 4.85 K/uL (1.40-6.50); Neutrophils % (auto) 71.2 %; Platelet Count 230 K/uL (130-400); RDW Coefficient of Variation 13.4 % (11.5-14.5); RDW Standard Deviation 43.8 fL (36.4-46.3); Red Blood Count 3.97 M/uL (4.20-5.40); White Blood Count 6.82 K/ul (4.8-10.8)
[2023-09-27 00:20] LABS: Alanine Aminotransferase 17 U/L (7-52); Albumin Globulin Ratio 1.2 (0.9-2); Alkaline Phosphatase 56 U/L (34-104); BUN Creatinine Ratio 32.8 (10-20); Bilirubin,Total 0.2 mg/dl (0.2-1.0); Blood Urea Nitrogen 22 mg/dl (6-23); Calcium 8.8 mg/dl (8.6-10.3); Carbon Dioxide 29 mmol/L (21-32); Chloride 95 mmol/L (98-107); Creatinine Clr Calc Pharmacy 42.2 ml/min; Est GFR (African American) 90.3 ml/min; Est GFR (Non-African American) 77.9 ml/min; Globulin 3.4 gm/dl (2.5-4.0); Glucose 116 mg/dl (70-99(Fasting)); Lipase 36 U/L (11-82); Thyroid Stimulating Hormone 1.257 uIu/ml (0.300-4.500); Total Protein 7.4 gm/dl (6.0-8.3); Troponin I High Sensitivity 6.7 pg/ml (0-14)
[2023-09-27] MEDS: hydrALAZINE HCL 20 MG/ML VIAL IV ONE (00:58)
[2023-09-27 01:29] LABS: Magnesium 2.4 mg/dl (1.7-2.4); Potassium 4.1 mmol/L (3.5-5.1)
[2023-09-27 01:31] LABS: Appearance Urine Clear (Clear); Bacteria Urine Automated None Seen (None Seen); Bilirubin Urine Negative (Negative); Blood Urine Negative (Negative); Cast Urine Automated 0-2 /lpf (0-2); Color Urine Yellow; Epithelial Cell Urine Auto 0-2 /hpf (0-2); Glucose Urine UA Negative (Negative); Ketones Urine Trace (Negative); Leukocyte Esterase Urine Negative (Negative); Nitrite Urine Negative (Negative); Protein Urine 1+ (Negative); RBC Urine Automated 0-2 /hpf (0-2); Specific Gravity Urine 1.009 (1.000-1.030); Urobilinogen Urine Negative (Negative); WBC Urine Automated 0-5 /hpf (0-5); pH Urine 7.5 (4.5-7.5)
--- OUTSIDE RECORDS SUMMARY | 2023-09-27 01:36 | External Medical Summary | Summary of Care ---
Author Name Unknown Organization [facility] Address [address] [place] [address] Phone [phone] Care Team Providers Care Boiling Off Winder Name Role Phone Lorraine Ozuna DO Primary Care Provider Reason for Visit * Reason Comments Follow Up Patient is here toda y for follow up visitPatient states no concerns Encounter Details Date Type Department Care Team (Late st Contact Info) Description 08/29/2023 9:10 AM EDT Office Visit [facility] [address] [place] [address] Lorraine Ozuna DO [address] [place] [address] Hypertensive heart disease without heart failure*; Other iron deficiency anemia; Dyslipidemia, goal LDL below 100; History of CVA (cerebrovascular accident); Hx of non-ST elevation myocardial infarction (NSTEMI); Hyponatremia Allergies Active Allergy Reactions Criticality Noted Date Comments Bactrim 05/25/2008 Sulfa Antibiotics 03/23/1999 documented as of this encounter (statuses as of 08/29/2023) Medications Medication Sig Dispensed Refills Start Date End Date Status CALCIUM CAPS 500 MG OR one cap by mouth daily 30 5 07/21/2000 Active [id number] MAXIMUM STRENGTH TABS 400-500 MG OR 1 BID 0 0 07/21/2000 Active ASPIRIN LOW DOSE 81 MG PO TABSIndications:Ce rebral vascular disease 1 TABLET DAILY 30 Tab 06/14/2013 Active Famotidine 10 MG OR TABS Take 0.5 Tablets by mouth in the morning and 0.5 Tablets before bedtime. 03/18/2023 Active Losartan Potassium 25 MG Oral Tablet (Cozaar) Take 1 Tablet by mouth in the morning. 03/18/2023 Active Benzonatate 100 MG Oral Capsule (Tessalgarett Perlrene) Take 1 Capsule by mouth 2 times a day as needed. 03/18/2023 Active Nitroglycerin 0.4 MG Sublingual Tablet Sublingual (Nitrostat) Place 1 Tablet under the tongue every 5 minutes as needed. 03/18/2023 Active Ure-Na 15 GM Oral Packet Take 15 g by mouth in the morning. 30 Packet 1 04/02/2023 Active Ferrous Sulfate 324 (65 Fe) MG Oral Tablet Delayed ReleaseIndications :Other iron deficiency anemia Take 1 Tablet by mouth in the morning and 1 Tablet in the evening. 60 Tablet 3 08/29/2023 Active Metoprolol Succinate ER 50 MG Oral Tablet Extended Release 24 Hour (toPROL XL)Indications:Hyp ertensive heart disease without heart failure Take 1 Tablet by mouth in the morning and 1 Tablet before bedtime. 90 Tablet 3 08/29/2023 Active Atorvastatin Calcium 40 MG Oral Tablet (Lipitor)Indicatio ns:Dyslipidemia, goal LDL below 100,History of CVA (cerebrovascular accident) Take 1 Tablet by mouth in the morning. 90 Tablet 6 08/29/2023 Active Isosorbide Mononitrate ER 30 MG Oral Tablet Extended Release 24 Hour (Imdur)Indications :Hypertensive heart disease without heart failure Take 1 Tablet by mouth in the morning. 90 Tablet 6 08/29/2023 Active Ferrous Sulfate 324 (65 Fe) MG Oral Tablet Delayed Release Take 1 Tablet by mouth in the morning and 1 Tablet in the evening. 08/29/2023 Discontinued (Refill) Isosorbide Mononitrate ER 30 MG Oral Tablet Extended Release 24 Hour (Imdur) Take 1 Tablet by mouth in the morning. 34 Tablet 6 04/04/2023 08/29/2023 Discontinued (Refill) Atorvastatin Calcium 40 MG Oral Tablet (Lipitor) Take 1 Tablet by mouth in the morning. 34 Tablet 6 04/04/2023 08/29/2023 Discontinued (Refill) Metoprolol Succinate ER 50 MG Oral Tablet Extended Release 24 Hour (toPROL XL) Take 1 Tablet by mouth in the morning and 1 Tablet before bedtime. 60 Tablet 08/25/2023 08/29/2023 Discontinued (Refill) documented as of this encounter (statuses as of 08/29/2023) Active Problems Problem Noted Date Diagnosed Date Hypertensive heart disease without heart failure 08/29/2023 Hx of non-ST elevation myocardial infarction (NS RUBENS) 07/21/2023 History of CVA (cerebrovascular accident) 2020 Overview: Cerebral Vascular Disease noted 2015 Postmenopausal atrophic vaginitis 07/11/2005 OSTEOARTHROS NOS-UNSPEC 03/23/1999 Dyslipidemia, goal LDL below 100 documented as of this encounter (statuses as of 08/29/2023) Resolved Problems Problem Noted Date Diagnosed Date [...] as of this encounter (statuses as of 08/29/2023) Immunizations Name Administration Dates Next Due COVID-19 [...] Sign Reading Time Taken Comments Blood Pressure 160/88 08/29/2023 9:01 AM EDT Pulse 53 08/29/2023 9:01 AM EDT Temperature 36.2 C (97.2 F) 08/29/2023 9:01 AM ED T Respiratory Rate 16 08/29/2023 9:01 AM EDT Oxygen Saturation 96% 08/29/2023 9:01 AM EDT Inhaled Oxygen Concentration - - Weight 45 kg (99 lb 4.8 oz) 08/29/2023 9:01 AM E DT Height - - Body Mass Index 16.52 07/21/2023 11:03 AM EDT documented in this encounter Patient Instructions * Patient Instructions* Facer, Mick, MED ASSIST - 08/29/2023 9:01 AM EDT Osteoporosis: Screening for Bone Loss The strength of bones is measured by their density (thickness). High bone density means bones are less likely to fracture. If you are at risk for bone loss, your healthcare provider may refer you forbone density testing. Bone Density Testing Bone density testing is safe, quick, easy, and painless. Testing can detect osteoporosis before a fracture happens. It can also predict the risk of future fractures. And testing can measure the response to treatment. There are two types of tests that you may have: Peripheral tests are used for screening. They measure density in the finger, wrist, knee, umana, or heel. A common peripheral test is the quantitative ultrasound (QUS). Central tests are used for diagnosis. They measure density in the hip or spine. The main centraltest is the dual energy x-ray absorptiometry (DXA). The DXA is the standard bone density test. Who Should Be Tested? All postmenopausal women under age 65, with one or more risk factors in addition to menopause. All women age 65 and older. Postmenopausal women with fractures. Women who are thinking about treatment for osteoporosis. Women who have been on hormone therapy for a long time. Men or women with certain medical conditions or who are taking certain medications (such as glucocorticoids or prednisone) for a long period. Common Testing Sites Any bone can fracture, but with osteoporosis some bones fracture more easily. These include bones in the spine, wrist, shoulder, and hip. Thats why bone density testing may be done at one or more of these sites. Understanding Your Results The results of your test may seem confusing at first. Dont be afraid to ask your provider to explain. Your bone mineral density (BMD) describes the thickness of the bone that was scanned. Your healthcare provider will compare your BMD with the BMD of young, healthy bone. The result is called a T-score. Bones remodel at different rates. So, a healthy T-score in the wrist doesnt mean the spine is also healthy. Thats why more than one site may be scanned. [id number], [place] [address]. All rights reserved. This information is not intended as a substitute for professional medical care. Always follow your healthcare professional's instructions documented in this encounter Progress Notes * Lorraine Ozuna DO - 08/29/2023 9:17 AM EDT Subjective: Mindy Lux is a 88 year old female. Chief Complaint Patient presents with Follow Up Patient is here today for follow up visit Patient states no concerns HPI: 88 year old female with hx of Hypertensive heart disease, hx of CVA, hx of NSTEMI--medically treated, cardiac cath showed 50-60 % LAD stenosis , Hyponatremia, and Dyslipidemia She has not been taking losartan or UREA Needs labs. BP high. Taking nitro as needed for MILLAN, happens once a week. Relieved with nitro. I did refill all meds, as she was not sure which meds she was taking and if she ran out. PHM: Patient Active Problem List Diagnosis OSTEOARTHROS NOS-UNSPEC Postmenopausal atrophic vaginitis Dyslipidemia, goal LDL below 100 History of CVA (cerebrovascular accident) Hx of non-ST elevation myocardial infarction (NSTEMI) Hypertensive heart disease without heart failure Current Outpatient Medications Medication Sig Dispense Refill CALCIUM CAPS 500 MG OR one cap by mouth daily 30 5 [id number] MAXIMUM STRENGTH TABS 400-500 MG OR 1 BID 0 0 ASPIRIN LOW DOSE 81 MG PO TABS 1 TABLET DAILY 30 Tab Ferrous Sulfate 324 (65 Fe) MG Oral Tablet Delayed Release Take 1 Tablet by mouth in the morning and 1 Tablet in the evening. Famotidine 10 MG OR TABS Take 0.5 Tablets by mouth in the morning and 0.5 Tablets before bedtime. Losartan Potassium 25 MG Oral Tablet (Cozaar) Take 1 Tablet by mouth in the morning. Nitroglycerin 0.4 MG Sublingual Tablet Sublingual (Nitrostat) Place 1 Tablet under the tongue every5 minutes as needed. Ure-Na 15 GM Oral Packet Take 15 g by mouth in the morning. 30 Packet 1 Isosorbide Mononitrate ER 30 MG Oral Tablet Extended Release 24 Hour (Imdur) Take 1 Tablet by mouthin the morning. 34 Tablet 6 Atorvastatin Calcium 40 MG Oral Tablet (Lipitor) Take 1 Tablet by mouth in the morning. 34 Tablet 6 Metoprolol Succinate ER 50 MG Oral Tablet Extended Release 24 Hour (toPROL XL) Take 1 Tablet by mouth in the morning and 1 Tablet before bedtime. 60 Tablet 0 Benzonatate 100 MG Oral Capsule (Tessalon Perles) Take 1 Capsule by mouth 2 times a day as needed. (Patient not taking: Reported on 08/29/2023) No current facility-administered medications for this visit. Review of patient's allergies indicates: Allergen Reactions Bactrim Sulfa Antibiotics Objective: BP 160/88 | Pulse 53 | Temp 36.2 C (97.2 F) (Tympanic) | Resp 16 | Wt 45 kg (99 lb 4.8 oz) | SpO2 96% | BMI 16.52 kg/m | BSA 1.44 m Physical Exam: General: alert, healthy, and no distress Heart: regular rate & rhythm, no murmur, and no gallops Lungs: chest symmetric with normal AP diameter, no chest deformities noted, no chest wall tenderness, lungs clear to auscultation Abdomen: abdomen soft, non-tender, normal bowel sounds, and no masses or organomegaly Extremities: no edema ASSESSMENT/PLAN: Hypertensive heart disease without heart failure (Primary) - Metoprolol Succinate ER 50 MG Oral Tablet Extended Release 24 Hour (toPROL XL); Take 1 Tablet by mouth in the morning and 1 Tablet before bedtime. - Isosorbide Mononitrate ER 30 MG Oral Tablet Extended Release 24 Hour (Imdur); Take 1 Tablet by mouth in the morning. - BASIC METABOLIC PANEL; Future; Expected date: 08/29/2023 She was out of losartan To report BP readings over 2 weeks and adjust medications if needed. Other iron deficiency anemia - Ferrous Sulfate 324 (65 Fe) MG Oral Tablet Delayed Release; Take 1 Tablet by mouth in the morningand 1 Tablet in the evening. - CBC; Future; Expected date: 08/29/2023 - IRON SCREEN, INCLUDING TIBC; Future; Expected date: 08/29/2023 Dyslipidemia, goal LDL below 100 - Atorvastatin Calcium 40 MG Oral Tablet (Lipitor); Take 1 Tablet by mouth in the morning. - LIPID PANEL WITH DIRECT LDL IF TG IS HIGH; Future; Expected date: 08/29/2023 - HEPATIC FUNCTION PANEL; Future; Expected date: 08/29/2023 History of CVA (cerebrovascular accident) - Atorvastatin Calcium 40 MG Oral Tablet (Lipitor); Take 1 Tablet by mouth in the morning. Hx of non-ST elevation myocardial infarction (NSTEMI) -no re current pain. -cont medical management. Hyponatremia -currently not on Urea, will repeat Na labs today And hold on sending in refill. Follow Up: Return in about 6 months (around 02/28/2024) for Labs Today. | For: Labs Today Lorraine Ozuna DO * Mick Bennett MED ASSIST - 08/29/2023 9:01 AM EDT Dexa scan ordered today. Provider aware. Mick Bennett MED ASSIST documented in this encounter Nursing Notes * Mick Bennett MED ASSIST - 08/29/2023 9:07 AM EDT The patient has been properly identified by confirmation of name and date of . Chief Complaint Patient presents with Follow Up Patient is here today for follow up visit Patient states no concerns documented in this encounter Plan of Treatment Upcoming Encounters Date Type Department Care Team (Late st Contact Info) Description 11/21/2023 10:20 AM EDT Office Visit Nephrology, [facility] [address] [place] [address] Xavier Ma MD [address] [place] [address] Scheduled Orders Name Type Priority Associated Diagnoses Orde r Schedule BASIC METABOLIC PANEL Lab Routine Hypertensive heart disease without heart failure Expected: 08/29/2023 (Approximate), Expires: 08/28/2024 LIPID PANEL WITH DIRECT LDL IF TG IS HIGH Lab Routine Dyslipidemia, goal LDL below 100 Expected: 08/29/2023, Expires: 08/28/2024 HEPATIC FUNCTION PANEL Lab Routine Dyslipidemia, goal LDL below 100 Expected: 08/29/2023 (Approximate), Expires: 08/28/2024 CBC Lab Routine Other iron deficiency anemia Expected: 08/29/2023 (Approximate), Expires: 08/28/2024 IRON SCREEN, INCLUDING TIBC Lab Routine Other iron deficiency anemia Expected: 08/29/2023 (Approximate), Expires: 08/28/2024 Health Maintenance Due Date Last Done Comments Zoster Vaccines (1 of 2) 1984 DTaP,Tdap,and Td Vaccines (1 - Tdap) 03/29/2011 03/28/2011 Pneumococcal Vaccine: 65+ Years (2 of 2 - PCV) 10/02/2019 10/01/2018, 03/23/1999 DXA Scan 10/13/2019 10/12/2012, 07/01, 07/19/2009, Additional history exists Depression Screening 01/30/2021 01/31/2020 COVID-19 Vaccine (3 - 2022- season) 2022 06/29/2020, 05/30/2020 Influenza Vaccine (FLU shot) (Season Ended) 2023 01/18/2003, 01/20/2002, 01/31/2000, Additional history exists GARDASIL-HPV [...] as of this encounter Visit Diagnoses Diagnosis Hypertensive heart disease without heart failure- Primary Unspecified hypertensive heart disease without heart failure Other iron deficiency anemia Dyslipidemia, goal LDL below 100 Other and unspecified hyperlipidemia History of CVA (cerebrovascular accident) Transient ischemic attack (TIA), and cerebral infarction without residual deficits Hx of non-ST elevation myocardial infarction (NSTEMI) Old myocardial infarction Hyponatremia Hyposmolality and/or hyponatremia documented in this encounter Care Teams Boiling Off Winder Relationship Specialty Start Date End Date Lorraine Ozuna DO [address] [place] [address] PCP - General Family Medicine 05/07/12 documented as of this encounter"
--- OUTSIDE RECORDS SUMMARY | 2023-09-27 01:36 | External Medical Summary | Summary of Care ---
Author Name Unknown Organization [facility] Address [address] [place] [address] Phone [phone] Care Team Providers Care Manager Employment Name Role Phone Lorraine Ozuna DO Primary Care Provider [phone] Reason for Visit * Reason Comments Hospital Follow-Up Was seen for an ear ache for a few days Encounter Details Date Type Department Care Team (Late st Contact Info) Description 07/21/2023 11:10 AM EDT Office Visit [facility] [address] [place] [address] Lorraine Ozuna DO [address] [place] [address] Acute diffuse otitis externa of right ear*; Risk and functional assessment; Postmenopausal status, age-related Allergies Active Allergy Reactions Criticality Noted Date Comments Bactrim 05/25/2008 Sulfa Antibiotics 03/23/1999 documented as of this encounter (statuses as of 07/21/2023) Medications Medication Sig Dispensed Refills Start Date End Date Status CALCIUM CAPS 500 MG OR one cap by mouth daily 30 5 07/21/2000 Active [id number] MAXIMUM STRENGTH TABS 400-500 MG OR 1 BID 0 0 07/21/2000 Active ASPIRIN LOW DOSE 81 MG PO TABSIndications:Cereb ral vascular disease 1 TABLET DAILY 30 Tab 06/14/2013 Active Ferrous Sulfate 324 (65 Fe) MG Oral Tablet Delayed Release Take 1 Tablet by mouth in the morning and 1 Tablet in the evening. Active Famotidine 10 MG OR TABS Take 0.5 Tablets by mouth in the morning and 0.5 Tablets before bedtime. 03/18/2023 Active Losartan Potassium 25 MG Oral Tablet (Cozaar) Take 1 Tablet by mouth in the morning. 03/18/2023 Active Benzonatate 100 MG Oral Capsule (Tessalon Perles) Take 1 Capsule by mouth 2 times a day as needed. 03/18/2023 Active Nitroglycerin 0.4 MG Sublingual Tablet Sublingual (Nitrostat) Place 1 Tablet under the tongue every 5 minutes as needed. 03/18/2023 Active Ure-Na 15 GM Oral Packet Take 15 g by mouth in the morning. 30 Packet 1 04/02/2023 Active Isosorbide Mononitrate ER 30 MG Oral Tablet Extended Release 24 Hour (Imdur) Take 1 Tablet by mouth in the morning. 34 Tablet 6 04/04/2023 Active Atorvastatin Calcium 40 MG Oral Tablet (Lipitor) Take 1 Tablet by mouth in the morning. 34 Tablet 6 04/04/2023 Active Metoprolol Succinate ER 50 MG Oral Tablet Extended Release 24 Hour (toPROL XL) Take 1 Tablet by mouth in the morning and 1 Tablet before bedtime. 60 Tablet 3 05/28/2023 Active documented as of this encounter (statuses as of 07/21/2023) Active Problems Problem Noted Date Diagnosed Date Hx of non-ST elevation myocardial infarction (NS RUBENS) 07/21/2023 History of CVA (cerebrovascular accident) 2020 Overview: Cerebral Vascular Disease noted 2015 Postmenopausal atrophic vaginitis 07/11/2005 OSTEOARTHROS NOS-UNSPEC 03/23/1999 Dyslipidemia, goal LDL below 100 documented as of this encounter (statuses as of 07/21/2023) Resolved Problems Problem Noted Date Diagnosed Date [...] as of this encounter (statuses as of 07/21/2023) Immunizations Name Administration Dates Next Due COVID-19 [...] Sign Reading Time Taken Comments Blood Pressure 106/62 07/21/2023 11:03 AM EDT Pulse 56 07/21/2023 11:03 AM EDT Temperature 36.2 C (97.1 F) 07/21/2023 11:03 AM E DT Respiratory Rate - - Oxygen Saturation 95% 07/21/2023 11:03 AM EDT Inhaled Oxygen Concentration - - Weight 45.2 kg (99 lb 9.6 oz) 07/21/2023 11:03 A M EDT Height 165.1 cm (5' 5") 07/21/2023 11:03 AM EDT Body Mass Index 16.57 07/21/2023 11:03 AM EDT documented in this encounter Patient Instructions * Patient Instructions* Natalia Kenyon LPN - 07/21/2023 11:08 AM EDT Patient Instructions - Fall Prevention (This education is for all patients over 65 regardless of symptoms) Remember to take your current medications as prescribed. In order to prevent falls, you are encouraged to: Exercise Utilize assistive/adaptive devices Avoid multifocal lenses when walking Avoid hazards in home Maintain a regular toileting schedule Any questions please contact our office. Preventing Falls in the Home (This education is for all patients over 65 regardless of symptoms) As you get older, falls are more likely. Thats because your reaction time slows. Your muscles and joints may also get stiffer, making them less flexible. Illness, medications, and vision changes can also affect your balance. A fall could leave you unable to live on your own. To make your home safer, follow these tips: Floors Put nonskid pads under area rugs Remove throw rugs Replace worn floor coverings Tack carpets firmly to each step on carpeted stairs. Put nonskid strips on the edges of uncarpeted stairs Keep floors and stairs free of clutter and cords Arrange furniture so there are clear pathways Clean up any spills right away Bathrooms Install grab bars in the tub or shower Apply nonskid strips or put a nonskid rubber mat in the tub or shower Sit on a bath chair to bathe Use bathmats with nonskid backing Lighting Keep a flashlight in each room Put a nightlight along the pathway between the bedroom and the bathroom [employer] Patient Education Copyright 2008 - 2010 [employer] except where otherwise noted Preventing Falls: Exercises to Improve Balance, Flexibility, Strength, and Staying Power (This education is for all patients over 65 regardless of symptoms) Certain types of exercises may help make you less likely to fall. Try the ones below. Or do other exercises that your healthcare provider suggests. Depending on your health, you may need to start slowly. Dont let that stop you. Even small amounts of exercise can help you. Be sure to talk to yourhealthcare provider before starting any exercise program. Improve Balance Many types of exercise can help improve balance. Sam chi and yoga are good examples. Heres another one to try. You can do it anytime and almost anywhere. Stand next to a counter or solid support. Push yourself up onto your tiptoes. Hold for 5 seconds. If you start to lose your balance, hold on to the counter. Rest and repeat 5 times. Work up to holding for 20 to 30 seconds, if you can. Increase Flexibility Being more flexible makes it easier for you to move around safely. Try exercises like the seated hamstring stretch. Sit in a chair and put one foot on a stool. Straighten your leg and reach with both hands down either side of your leg. Reach as far down your leg as you can. Hold for about 20 seconds. Go back to the starting position. Then repeat 5 times. Switch legs. Build Strength Resistance exercises help build strength. You can do them without equipment. Or you can use weights, elastic bands, or special machines. One such exercise is called the biceps curl. You can hold a 1 pound weight or even a can of soup. Do this exercise at least 3 times a week. Strive for everyday. Sit up straight in a chair. Keep your elbow close to your body and your wrist straight. Bend your arm, moving your hand up to your shoulder. Then slowly lower your arm. Repeat 5 times. Switch to the other arm. Build Your Staying Power Aerobic exercises make your heart and lungs stronger so you can keep moving longer. Walking and swimming are two of the best types of exercises you can do. Using a stationary bike is great, too. Find an aerobic exercise that you enjoy. Start slowly and build up. Even 5 minutes is helpful. Aimfor a goal of 30 minutes, at least 3 times a week. You dont have to do 30 minutes in one session. Break it up and walk a little throughout the day. More Helpful Tips Start easy. Slowly work up to doing more. Talk with your healthcare provider about the best exercises for you. Call senior centers or health clubs about exercise programs. If needed, have a family member watch you walk every so often to check your stability. Exercise with a friend. Choose an activity you both enjoy. Try exercises that you can do anytime, anywhere. Here are two examples. Have someone with you when you first try these: Practice walking by placing one foot right in front of the other. Stand up and sit down 10 times. Repeat this throughout the day. [employer] Patient Education Copyright 2008 [employer] except where otherwise noted. Preventing Falls: Moving Safely Using a Cane or Walker (This education is for all patients over 65 regardless of symptoms) Keep the cane away from your feet so you dont trip. A walking aid, such as a cane or walker, can help you stay more independent and avoid falls. Remember to keep your walking aid within easy reach when youre in a chair or in bed. And learn how to use it safely so you dont injure yourself. Using a Cane If you have a stronger side, hold the cane on that side. Get your balance. Move the cane and your weaker leg forward. Support your weight on both the cane and your weaker side. Step with your stronger leg. Start again from step 1. If youre using a folding walker, be sure you know how to lock it open. Check that its locked open before each use. Using a Walker Roll the walker (or lift it, if youre using one without wheels) forward about 12 inches. Step forward with your weaker leg first. Use the walker to help keep your balance. Bring your other foot forward to the center of the walker. Start again from step 1. Helpful Tips Check with your healthcare provider about the right walking aid to use. Ask about a walker with a seat attached. Check the tips of your cane or walker to make sure they have nonskid covers. Move slowly from room to room. Dont potter. Sit down to get dressed. Use a zackary pack or backpack to keep your hands free. Get help for jobs that mean climbing, even on a stepstool. [employer] Patient Education Copyright 2008 - 2010 [employer] except where otherwise noted. Osteoporosis: Screening for Bone Loss The strength [...] more than one site may be scanned. [address] [place] [address]. All rights reserved. This information is not intended as a substitute for professional medical care. Always follow your healthcare professional's instructions documented in this encounter Progress Notes * Lorraine Ozuna DO - 07/21/2023 11:29 AM EDT Subjective: Mindy Lux is a 88 year old female. Chief Complaint Patient presents with Hospital Follow-Up Was seen for an ear ache for a few days HPI: 88 year old female here today for ER follow-up. She went there on 07/13 for R ear pain. Dx with otitis externa she was given Cortisporin ear drops. 1 month prior had R ear lavaged for cerumen atconvenient care. She is using the drops and her R ear feels a lot better. Hx of NSTEMI. LAD lesion medically treated follows with cardiology no chest pains PHM: Patient Active Problem List Diagnosis OSTEOARTHROS NOS-UNSPEC Postmenopausal atrophic vaginitis Dyslipidemia, goal LDL below 100 History of CVA (cerebrovascular accident) Current Outpatient Medications Medication Sig Dispense Refill CALCIUM CAPS 500 MG OR one cap by mouth daily 30 5 [id number] MAXIMUM STRENGTH TABS 400-500 MG OR 1 [...] 1 Tablet by mouth in the morning. Benzonatate 100 MG Oral Capsule (Tessalon Perles) Take 1 Capsule by mouth 2 times a day as needed. Nitroglycerin 0.4 MG Sublingual Tablet Sublingual (Nitrostat) [...] and 1 Tablet before bedtime. 60 Tablet 3 No current facility-administered medications for this visit. Review of patient's allergies indicates: Allergen Reactions Bactrim Sulfa Antibiotics Objective: BP 106/62 | Pulse 56 | Temp 36.2 C (97.1 F) | Ht 1.651 m (5' 5") | Wt 45.2 kg (99 lb 9.6 oz) | SpO2 95% | BMI 16.57 kg/m | BSA 1.44 m Physical Exam: General: alert, healthy, and no distress Ears both ears looked good no infection seen Heart: regular rate & rhythm, no murmur, and no gallops Lungs: chest symmetric with normal AP diameter, no chest deformities noted, no chest wall tenderness, lungs clear to auscultation Abdomen: abdomen soft, non-tender, normal bowel sounds, and no masses or organomegaly Extremities: no edema ASSESSMENT/PLAN: Acute diffuse otitis externa of right ear (Primary) -resolved. Risk and functional assessment Postmenopausal status, age-related Keep appt Lorraine Ozuna DO * Natalia Kenyon LPN - 07/21/2023 11:09 AM EDT Dexa scan ordered today. Provider aware. Natalia Kenyon LPN documented in this encounter Nursing Notes * Natalia Kenyon LPN - 07/21/2023 11:08 AM EDT The patient has been properly identified by confirmation of name and date of . Chief Complaint Patient presents with Hospital Follow-Up Was seen for an ear ache for a few days documented in this encounter Plan of Treatment Upcoming Encounters Date Type Department Care Team (Late st Contact Info) Description 08/29/2023 9:10 AM EDT Office Visit [facility] [address] [place] [phone] Lorraine Ozuna DO [address] [place] [address] 11/21/2023 10:20 AM EDT Office Visit Nephrology, [address] [place] [address] Xavire Ma MD [address] [place] [address] Health Maintenance Due Date Last Done Comments [...] as of this encounter Visit Diagnoses Diagnosis Acute diffuse otitis externa of right ear- Primary Risk and functional assessment Screening for unspecified condition Postmenopausal status, age-related Asymptomatic postmenopausal status (age-related) (natural) documented in this encounter Care Teams Manager Employment Relationship Specialty Start Date End Date Lorraine Ozuna DO [address] [place] [address] PCP - General Family Medicine 05/07/12 documented as of this encounter
--- OUTSIDE RECORDS SUMMARY | 2023-09-27 01:36 | External Medical Summary ---
Author Name Unknown Address Unknown Organization [id number][place] [place] [address] [place] [address] Laboratory Report Ordering Provider Test Date Status HOLLAND AGUILAR 08/29/2023 10:58:44 Final Observation Date Value Abnormality Reference (Units ) Status Albumin 08/29/2023 10:58:44 4.5 3.8-5.0 (g/dL) Final AST (Aspartate aminotransferase) 08/29/2023 10:58:44 44 Above high normal 10-35 (U/L) Final Alk Phos 08/29/2023 10:58:44 75 35-130 (U/L) Final ALT (Alanine aminotransferase) 08/29/2023 10:58:44 26 10-35 (U/L) Final Bilirubin, Total 08/29/2023 10:58:44 0.3 <=1.2 (mg/dL) Final Bilirubin, Direct 08/29/2023 10:58:44 <0.2 0.0-0.3 (mg/dL) Final Protein 08/29/2023 10:58:44 7.4 6.0-8.3 (g/dL) Final Performing Location [facility] [place] [address] [place] [address]
--- OUTSIDE RECORDS SUMMARY | 2023-09-27 01:36 | External Medical Summary | Summary of Care ---
Author Name Unknown Organization [facility] Address [address] [place] [address] Phone [phone] Care Team Providers Care Press Feeder Broomcorn Name Role Phone Lauren Ozuna DO Primary Care Provider Reason for Visit * Reason Comments Follow Up Patient is here toda y for follow up visitPatient states no concerns Encounter Details Date Type Department Care Team (Late st Contact Info) Description 08/29/2023 9:10 AM EDT Office Visit [facility] [address] [place] [address] Lauren Ozuna DO [address] [place] [address] Hypertensive heart disease without heart [...] by mouth daily 30 5 07/21/2000 Active [id number] MAXIMUM STRENGTH TABS 400-500 MG OR 1 BID 0 0 07/21/2000 Active ASPIRIN LOW DOSE 81 MG PO TABSIndications:Ce rebral vascular disease 1 TABLET DAILY 30 Tab 06/14/2013 Active Famotidine 10 MG OR TABS Take 0.5 Tablets by mouth in the morning and 0.5 Tablets before bedtime. 03/18/2023 Active Benzonatate 100 MG Oral Capsule [...] the morning. 90 Tablet 6 08/29/2023 Active Losartan Potassium 25 MG Oral Tablet (Cozaar) Take 1 Tablet by mouth in the morning. 90 Tablet 3 08/29/2023 Active Ferrous Sulfate 324 (65 Fe) MG Oral Tablet Delayed Release Take 1 Tablet by mouth in the morning and 1 Tablet in the evening. 08/29/2023 Discontinued (Refill) Losartan Potassium 25 MG Oral Tablet (Cozaar) Take 1 Tablet by mouth in the morning. 03/18/2023 08/29/2023 Discontinued (Refill) Isosorbide Mononitrate ER 30 [...] more than one site may be scanned. [id number] [facility], [address] [place] [address]. All rights reserved. This information is not intended as a substitute for professional medical care. Always follow your healthcare professional's instructions documented in this encounter Progress Notes * Lauren Ozuna, - 08/29/2023 9:17 AM EDT Subjective: Mindy [...] one cap by mouth daily 30 5 [id number] MAXIMUM STRENGTH TABS 400-500 MG OR 1 [...] for Labs Today. | For: Labs Today Lauren Ozuna DO * Facer, Mick, MED ASSIST - 08/29/2023 9:01 [...] states no concerns documented in this encounter Miscellaneous Notes * Addendum Note - Lauren Ozuna DO - 08/29/2023 11:26 AM EDTAddended by: LAUREN OZUNA on: 08/29/2023 11:26 AM Modules accepted: Orders documented in this encounter Plan of Treatment Upcoming Encounters Date Type Department Care Team (Late st Contact Info) Description 11/21/2023 10:20 AM EDT Office Visit Nephrology, [address], [place] [address] Xavier Ma MD [address] [place] [address] 03/15/2024 11:50 AM EST [facility] [address] [facility] [phone] Lauren Ozuna DO [address] [place] [facility] [place] [address] Pending Results Name Type Priority Associated Diagnoses Date /Time BASIC METABOLIC PANEL Lab Routine Hypertensive heart disease without heart failure 08/29/2023 10:58 AM EDT LIPID PANEL WITH DIRECT LDL IF TG IS HIGH Lab Routine Dyslipidemia, goal LDL below 100 08/29/2023 10:58 AM EDT HEPATIC FUNCTION PANEL Lab Routine Dyslipidemia, goal LDL below 100 08/29/2023 10:58 AM EDT CBC Lab Routine Other iron deficiency anemia 08/29/2023 10:58 AM EDT IRON SCREEN, INCLUDING TIBC Lab Routine Other iron deficiency anemia 08/29/2023 10:58 AM EDT Scheduled Orders Name Type Priority Associated Diagnoses [...] hyponatremia documented in this encounter Care Teams Press Feeder Broomcorn Relationship Specialty Start Date End Date Lauren Ozuna DO [address] [place] [address] PCP - General Family Medicine 05/07/12 documented as of this encounter"
--- OUTSIDE RECORDS SUMMARY | 2023-09-27 01:36 | External Medical Summary | Summary of Care ---
Author Name Unknown Organization [facility] Address [address] [place] [address] Phone [phone] Care Team Providers Care Director Federal Name Role Phone LaithLorraine John CRUZ Primary Care Provider [phone] Reason for Visit * Reason Comments Outpatient Testing Encounter Details Date Type Department Care Team (Late st Contact Info) Description 08/29/2023 11:20 AM EDT Laboratory Laboratory, [place] [address] [place] [address] [facility] [address] [place], [place] [phone] Hypertensive heart disease without heart failure; Dyslipidemia, goal LDL below 100; Other iron deficiency anemia Allergies Active Allergy Reactions Criticality Noted Date Comments Bactrim 05/25/2008 Sulfa Antibiotics 03/23/1999 documented as of this encounter (statuses as of 08/29/2023) Medications Medication Sig Dispensed Refills Start Date End Date Status CALCIUM CAPS 500 MG OR one cap by mouth daily 30 5 07/21/2000 Active [id number] MAXIMUM STRENGTH TABS 400-500 MG OR 1 [...] 324 (65 Fe) MG Oral Tablet Delayed ReleaseIndications:Ot her iron deficiency anemia Take 1 Tablet by mouth in the morning and 1 Tablet in the evening. 60 Tablet 3 08/29/2023 Active Metoprolol Succinate ER 50 MG Oral Tablet Extended Release 24 Hour (toPROL XL)Indications:Hypert ensive heart disease without heart failure Take 1 Tablet by mouth in the morning and 1 Tablet before bedtime. 90 Tablet 3 08/29/2023 Active Atorvastatin Calcium 40 MG Oral Tablet (Lipitor)Indications: Dyslipidemia, goal LDL below 100,History of CVA (cerebrovascular accident) Take 1 Tablet by mouth in the morning. 90 Tablet 6 08/29/2023 Active Isosorbide Mononitrate ER 30 MG Oral Tablet Extended Release 24 Hour (Imdur)Indications:Hy pertensive heart disease without heart failure Take 1 Tablet by mouth in the morning. 90 Tablet 6 08/29/2023 Active documented as of this encounter (statuses [...] 11/21/2023 10:20 AM EDT Office Visit Nephrology, [address] [place] [address] Xavier Ma MD [address] [place] [address] [place] [address] 03/15/2024 11:50 AM EST [facility] Visit [facility] [address] [place] [facility] [place] [address] Lorraine Ozuna DO [address] [place] [address] Pending Results Name Type Priority Associated Diagnoses [...] iron deficiency anemia 08/29/2023 10:58 AM EDT Health Maintenance Due Date Last [...] Diagnoses Diagnosis Hypertensive heart disease without heart failure Unspecified hypertensive heart disease without heart failure Dyslipidemia, goal LDL below 100 Other and unspecified hyperlipidemia Other iron deficiency anemia documented in this encounter Care Teams Director Federal Relationship Specialty Start Date End Date Lorraine Ozuna DO [address] [place] [address] PCP - General Family Medicine 05/07/12 documented as of this encounter
--- OUTSIDE RECORDS SUMMARY | 2023-09-27 01:36 | External Medical Summary ---
Author Name Unknown Address Unknown Organization K01:[facility] [place] - [facility] [place][note 3] [address] [facility] [address] Laboratory Report Ordering Provider Test Date Status HOLLAND AGUILAR 08/29/2023 10:58:44 Final Observation Date Value Abnormality Reference (Units ) Status WBC, Total 08/29/2023 10:58:44 6.53 4.00-10.80 (K/uL) Final RBC 08/29/2023 10:58:44 4.25 3.85-5.15 (M/uL) Final Hemoglobin 08/29/2023 10:58:44 12.3 12.0-15.3 (g/dL) Final HCT 08/29/2023 10:58:44 38.7 36.0-45.2 (%) Final MCV 08/29/2023 10:58:44 91.1 81.5-97.5 (fL) Final MCH 08/29/2023 10:58:44 28.9 27.0-34.0 (pg) Final MCHC 08/29/2023 10:58:44 31.8 32.0-36.0 (g/dL) Final RDW 08/29/2023 10:58:44 13.7 11.5-15.5 (%) Final Platelets 08/29/2023 10:58:44 207 140-400 (K/uL) Final MPV 08/29/2023 10:58:44 11.8 6.6-11.1 (fL) Final Nucleated erythrocytes/100 leukocytes [Ratio] in Blood by Automated count 08/29/2023 10:58:44 0 <=0 (/100 WBCs) Final Performing Location [facility] [place] - [address] [place] [address]
--- OUTSIDE RECORDS SUMMARY | 2023-09-27 01:36 | External Medical Summary ---
Author Name Unknown Address Unknown Organization K01:[facility] [place] [facility] [address] [place] [address] Laboratory Report Ordering Provider Test Date Status HOLLAND AGUILAR 08/29/2023 10:58:44 Final Observation Date Value Abnormality Reference (Units ) Status BUN 08/29/2023 10:58:44 14 6-20 (mg/dL) Final Creatinine 08/29/2023 10:58:44 0.8 0.5-1.0 (mg/dL) Final Glomerular filtration rate/1.73 sq M.predicted [Volume Rate/Area] in Serum, Plasma or Blood by Creatinine-based formula (CKD-EPI) 08/29/2023 10:58:44 69 >=60 (mL/min) Final eGFR is calculated based on the CKD-EPI 2020 equation Sodium 08/29/2023 10:58:44 136 135-146 (m mol/L) Final Potassium 08/29/2023 10:58:44 4.8 3.5-5.1 (m mol/L) Final Cl 08/29/2023 10:58:44 95 Below low normal 98- 107 (mmol/L) Final CO2 08/29/2023 10:58:44 28 22-32 (mmo l/L) Final Anion gap 08/29/2023 10:58:44 13 7-15 (mmol /L) Final Glucose 08/29/2023 10:58:44 121 Above high normal 70 -120 (mg/dL) Final Calcium 08/29/2023 10:58:44 9.7 8.4-10.2 ( mg/dL) Final Performing Location [facility] [place] [address] [place] [address]
--- OUTSIDE RECORDS SUMMARY | 2023-09-27 01:36 | External Medical Summary ---
Author Name Unknown Address Unknown Organization [id number]:[facility] [place] [address] [place] [address] Laboratory Report Ordering Provider Test Date Status HOLLAND AGUILAR 08/29/2023 10:58:44 Final Observation Date Value Abnormality Reference (Units ) Status Iron 08/29/2023 10:58:44 91 33-151 (ug /dL) Final Iron-binding capacity 08/29/2023 10:58:44 331 250-425 (ug/dL) Final Transferrin Sat % 08/29/2023 10:58:44 27 15 -55 (%) Final Performing Location LABORATORY [facility] - [address] [place] [address]
--- OUTSIDE RECORDS SUMMARY | 2023-09-27 01:36 | External Medical Summary ---
Author Name Unknown Address Unknown Organization K01:[facility] [address] [facility] [place] [address] Laboratory Report Ordering Provider Test Date Status KEN AGUILARMARVIN 08/29/2023 10:58:44 Final Observation Date Value Abnormality Reference (Units ) Status Triglyceride 08/29/2023 10:58:44 66 <=174 ( mg/dL) Final Triglyceride Reference Range s (mg/dL):
<150 Acceptable
150-174 Borderline high
175-499 High
>=500 Very high Cholesterol 08/29/2023 10:58:44 209 Above high normal <200 (mg/dL) Final Total Cholesterol Reference Ranges (mg/dL):
<200 Desirable
200-239 Borderline high
>=240 High HDL 08/29/2023 10:58:44 104 >49 (mg/dL ) Final HDL Cholesterol Reference Ra nges (mg/dL):
>=60 High (Desirable)
<50 Low (Undesirable) For Females
<40 Low (Undesirable) For Males NON-HDL CHOLESTEROL 08/29/2023 10:58:44 105 <=159 (mg/dL) Final Non-HDL Cholesterol Referenc e Range (mg/dL):
<100 Target level for high risk ASCVD patient
<130 Optimal for general population
130-159 Near optimal for general population
160-189 Borderline High
190-219 High
>=220 Very High LDL, (calculated) 08/29/2023 10:58:44 92 <= 129 (mg/dL) Final LDL Cholesterol Reference Ra nges (mg/dL):
<70 Target level for high risk ASCVD patient
<100 Optimal for general population
100-129 Near optimal for general population
130-159 Borderline high
160-189 High
>=190 Very high Performing Location LAB[facility] [place] - [address] [facility] [address]
--- OUTSIDE RECORDS SUMMARY | 2023-09-27 01:36 | External Medical Summary | Summary of Care ---
Author Name Unknown Organization [facility] Address [address] [place] [address] Phone [phone] Care Team Providers Care Fire Control Technician G Name Role Phone Lauren Lino DO Primary Care Provider [phone] Reason for Visit * Reason Comments eRx-Medication Refill Encounter Details Date Type Department Care Team (Late st Contact Info) Description 08/25/2023 Refill [facility] [address] [place] [address] Lauren Lino DO [address] [place] [address] Allergies Active Allergy Reactions Criticality Noted Date Comments Bactrim 05/25/2008 Sulfa Antibiotics 03/23/1999 documented as of this encounter (statuses as of 08/25/2023) Medications Medication Sig Dispensed Refills Start Date End Date Status CALCIUM CAPS 500 MG OR one cap by mouth daily 30 5 07/21/2000 Active [id number] MAXIMUM STRENGTH TABS 400-500 MG OR 1 [...] 1 Tablet before bedtime. 60 Tablet 08/25/2023 Active Metoprolol Succinate ER 50 MG Oral Tablet Extended Release 24 Hour (toPROL XL) Take 1 Tablet by mouth in the morning and 1 Tablet before bedtime. 60 Tablet 3 05/28/2023 08/25/2023 Discontinued documented as of this encounter (statuses as of 08/25/2023) Active Problems Problem Noted Date Diagnosed Date Hx of non-ST elevation myocardial infarction (NS RUBENS) 07/21/2023 History of CVA (cerebrovascular accident) 2020 Overview: Cerebral Vascular Disease noted 2015 Postmenopausal atrophic vaginitis 07/11/2005 OSTEOARTHROS NOS-UNSPEC 03/23/1999 Dyslipidemia, goal LDL below 100 documented as of this encounter (statuses as of 08/25/2023) Resolved Problems Problem Noted Date Diagnosed Date [...] as of this encounter (statuses as of 08/25/2023) Immunizations Name Administration Dates Next Due COVID-19 [...] encounter Miscellaneous Notes * Telephone Encounter - [facility] - 08/25/2023 8:14 PM EDT Signed Prescriptions: Disp Refills Metoprolol Succinate ER 50 MG Oral Tablet *60 Tab*0 Sig: Take 1 Tablet by mouth in the morning and 1 Tablet before bedtime.Authorizing Provider: LAUREN LINO User: NEYMAR HOOPER documented in this encounter Plan of Treatment Upcoming Encounters Date Type Department Care Team (Late st Contact Info) Description 08/29/2023 9:10 AM EDT Office Visit [facility] [address] [place] [facility] [address] Lauren Lino DO [address] [place] [address] 11/21/2023 10:20 AM EDT Office Visit Nephrology, [facility] [address] [facility], [place] [id number] Xavier Ma MD [address] [place], [place] [id number] Health Maintenance Due Date Last Done Comments [...] filedocumented as of this encounter Care Teams Fire Control Technician G Relationship Specialty Start Date End Date Lauren Lino DO [address] [place] [address] PCP - General Family Medicine 05/07/12 documented as of this encounter
[2023-09-27 01:39] LABS: Prothrombin Time 10.9 Seconds (9.0-12.0)
--- NOTE | 2023-09-27 02:06 | CT Scan Report ---
Exam(s): CT HEAD Without Contrast EXAM: CT Head Without Intravenous Contrast CLINICAL HISTORY: Reason for exam: nausea, htn. TECHNIQUE: Axial computed tomography images of the head/brain without intravenous contrast. CTDI is 38.31 mGy and DLP is 547.75 mGy-cm. Automated exposure control was utilized for the study. A dose lowering technique was utilized adhering to the principles of ALARA. COMPARISON: Prior head CT from April 28, 2018. FINDINGS: Brain: Unremarkable. No hemorrhage. No significant white matter disease. No edema. Ventricles: Moderate ventriculomegaly. Bones/joints: Unremarkable. No acute fracture. Soft tissues: Unremarkable. Sinuses: Unremarkable as visualized. No acute sinusitis. Mastoid air cells: Unremarkable as visualized. No mastoid effusion. IMPRESSION: No evidence of acute intracranial pathology. Electronically signed by: Jing Roberts MD 09/27/23 02:05 AM
[2023-09-27] MEDS: OPTIRAY 320 100ml IV ONE (04:15)
--- NOTE | 2023-09-27 05:46 | History & Physical Report ---
Date of Service September 27, 2023 Assessment & Plan (1) Symptomatic bradycardia: Plan: Hypertensive crisis secondary discomfort Troponin elevation secondary to above hx CAD, CVA as per records Mild AR hyperlipidemia, on statin Rx Acute on chronic hyponatremia chronic anemia, hemoglobin at baseline Hyperglycemia likely prediabetes, hemoglobin A1c of 08 March 2023 Admit to PCU Atropine as needed symptomatic bradycardia Appropriate to hold home beta-kwame for now Cardiology consult Re: Symptomatic bradycardia N.p.o. until patient seen by cardiology in anticipation of procedure. Titrate home losartan Follow troponin, TTE if with further elevation Recheck serum sodium after initial fluid bolus given at the ER DVT prophylaxis. SCDs Re: Possible procedure DNR as per patient prior directives although patient would be agreeable to PPM if recommended by specialist as per discussion. Patient requesting updates providers. Mr. Arie Lux, contact #[phone]. Text document was generated using [employer] voice recognition software. It may contain grammatical or spelling errors. Kindly contact undersigned for clarification of any documentation item in question. History of Present Illness Chief Complaint: Nausea, SOB, felt sick Primary Care Provider: Lorraine Ozuna, History obtained from patient, family, and records. Medical history significant for CAD, hypertension, hyperlipidemia, mild AR, CVA, chronic hyponatremia, chronic anemia (baseline hemoglobin of 11). Last confinement March 2023 for STEMI. Moderate to borderline severe proximal LAD lesion. Medical management recommended for CAD. Patient felt sick last night after getting home from dining at a local restaurant. Nausea and generalized weakness. No chest pain, no headache symptoms. Transient SOB. Compliant with medications. Patient brought to ER for evaluation. Initial SBP 210s. Episodic sinus pauses at the ER with patient feeling sick again as per ED provider. 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 Allergies Allergy/AdvReac Type Severity Reaction Status Date / Time Bactrim Allergy Unknown SHORTNESS Verified 05/24/13 12:17 OF BREATH, rash Sulfa (Sulfonamide Allergy Unknown SHORTNESS Verified 07/23/22 18:07 Antibiotics) OF BREATH, RASH sulfamethoxazole Allergy Unknown SHORTNESS Verified 07/23/22 18:07 OF BREATH, rash trimethoprim Allergy Unknown SHORTNESS Verified 07/23/22 18:07 OF BREATH, rash Home Medications Medication Instructions Recorded Confirmed Type aspirin 81 mg tablet,delayed 81 mg PO DAILY 04/28/18 09/27/23 History release ferrous sulfate 27 mg iron tablet 27 mg PO DAILY 03/14/23 09/27/23 History glucosamine 750 [id number] 1 tab PO BID 03/14/23 09/27/23 History no1 644 mg-C 30 mg-delphine 1 mg tablet (Osteo Bi-Flex Triple Strength) atorvastatin 40 mg tablet 40 mg PO HS #30 tabs 03/18/23 09/27/23 Rx benzonatate 100 mg capsule 100 mg PO TID PRN cough #30 caps 03/18/23 09/27/23 Rx losartan 25 mg tablet 25 mg PO QAM #30 tabs 03/18/23 09/27/23 Rx metoprolol succinate 50 mg 50 mg PO BID #60 tabs 03/18/23 09/27/23 Rx tablet,extended release 24 hr nitroglycerin 0.4 mg sublingual 0.4 mg sublingual Q5M PRN chest 03/18/23 09/27/23 Rx tablet (Nitrostat) pain #30 tabs Past Med/Surg History Problem List (Updated 09/27/23 @ 08:16 by Zoraida Salcido, ) Sinus pause (Acute) Elevated troponin (Acute) Symptomatic bradycardia Weakness (Acute) Hypertension (Acute) Nausea (Acute) Dyslipidemia, goal LDL below 70 Chronic anemia Hypertensive emergency Myocardial infarction due to demand ischemia Hyponatremia Chronic anemia CVA (cerebral vascular accident) Dyslipidemia HTN (hypertension) Atherogenic dyslipidemia Benign essential hypertension Chest pain (Acute) ST elevation (STEMI) myocardial infarction (Acute) Symptomatic anemia Anemia (Acute) MILLAN (dyspnea on exertion) (Acute) Arthritis (Chronic) Lumbar compression fracture Non-ST elevation IA (NSTEMI) Medical History Nausea & vomiting Acute hyponatremia COVID-19 Surgical History History of hysterectomy Family History Brother Coronary heart disease Sister Cancer Social History Smoking Status: Never smoker Second Hand Exposure: No; Do You Dip or Chew Tobacco: No; Hx Alcohol Use: No Hx Substance Use: No Preferred Language: Syrian Communication Ability: Effective Military Science Teacher Required: No Beliefs That Will Affect Care: None marital status: Current Living Situation: Spouse Feels Safe at Home: Yes Assistive Devices: Walker Review of Systems Review of Systems: As per HPI, all other systems reviewed and negative Physical Exam Physical Exam: GENERAL: Slightly uncomfortable, underweight, pleasant, slightly hard of hearing, looks young for stated age, no respiratory distress SKIN: Pallor, warm HEENT: pale palpebral conjunctivae, no ptosis, dry buccal mucosa NECK : Supple, no tenderness CHEST : CTA, no tenderness HEART : Bradycardic, no obvious murmurs ABDOMEN: Soft, nontender EXTREMITIES : No LE swelling/tenderness, no other conspicuous deformities noted NEUROLOGIC : Coherent, no facial asymmetry, slightly hard of hearing, no other gross focality Results & Data Results & Data Vital Signs (Past 12 Hours) Vital Signs Temp Pulse Resp BP Pulse Ox O2 Del Method 09/27/23 05:00 62 22 168/71 H 95 09/27/23 04:36 62 22 171/70 H 96 09/27/23 04:00 62 22 162/69 H 96 09/27/23 03:30 62 18 166/70 H 96 09/27/23 03:30 63 22 166/70 H 96 09/27/23 03:00 67 20 177/81 H 97 09/27/23 02:27 62 15 151/69 H 97 09/27/23 02:24 53 L 09/27/23 02:23 0 L 09/27/23 02:03 65 22 170/85 H 97 09/27/23 01:42 67 26 H 183/76 H 97 09/27/23 01:30 68 22 183/76 H 96 09/27/23 01:03 63 24 200/83 H 96 09/27/23 00:48 63 24 217/96 H 96 09/27/23 00:09 61 19 192/85 H 09/26/23 23:30 65 23 227/96 H 95 09/26/23 23:30 66 09/26/23 23:16 36.6 C 69 18 231/101 H 97 Room Air Laboratory Results Laboratory Results WBC 6.82 K/ul (4.8-10.8) 09/26/23 23: RBC 3.97 M/uL (4.20-5.40) L 09/26/23 23:30 Hgb 11.5 g/dl (12.0-16.0) L 09/26/23 23:30 Hct 35.0 % (37.0-47.0) L 09/26/23 23: MCV 88.2 fL (80.0-100.0) 09/26/23 23: MCH 29.0 pg (25.0-34.0) 09/26/23 23: MCHC 32.9 g/dL (32.0-36.0) 09/26/23: RDW Std Deviation 43.8 fL (36.4-46.3) 09/26/23 23: RDW Coeff of Vin 13.4 % (11.5-14.5) 09/26/23: Plt Count 230 K/uL (130-400) 09/26/23 23: MPV 10.8 fL (9.4-12.4) 09/26/23 23: Immature Gran % (Auto) 0.3 % 09/26/23 23: Neut % (Auto) 71.2 % 09/26/23 23:30 Lymph % (Auto) 16.0 % 09/26/23 23:30 Cedar % (Auto) 8.9 % 09/26/23 23:30 Eos % (Auto) 2.9 % 09/26/23 23: Baso % (Auto) 0.7 % 09/26/23 23: Neut # (Auto) 4.85 K/uL (1.40-6.50) 09/26/23 23:30 Lymph # (Auto) 1.09 K/uL (1.20-3.40) L 09/26/23 23:30 Cedar # (Auto) 0.61 K/uL (0.11-0.59) H 09/26/23 23:30 Eos # (Auto) 0.20 K/uL (0.00-0.50) 09/26/23 23:30 Baso # (Auto) 0.05 K/uL (0.00-0.20) 09/26/23 23:30 Immature Gran # (Auto) 0.02 K/uL (0.01-0.20) 09/26/23 23:30 PT 10.9 Seconds (9.0-12.0) 09/27/23 00:58 INR 1.0 (0.9-1.1) 09/27/23 00:58 Sodium 129 mmol/L (136-145) L 09/27/23 00:58 Potassium 4.1 mmol/L (3.5-5.1) 09/27/23 00:58 Chloride 95 mmol/L (98-107) L 09/26/23 23:30 Carbon Dioxide 29 mmol/L (21-32) 09/26/23 23:30 Anion Gap TNP 09/26/23 23:30 BUN 22 mg/dl (6-23) 09/26/23 23:30 Creatinine 0.67 mg/dl (0.6-1.2) 09/26/23 23:30 Est Cr Clr Drug Dosing 42.2 ml/min 09/26/23 23:30 Est GFR ( Amer) 90.3 ml/min 09/26/23 23:30 Est GFR (Non-Af Amer) 77.9 ml/min 09/26/23 23:30 BUN/Creatinine Ratio 32.8 (10-20) H 09/26/23 23:30 Glucose 116 mg/dl (70-99(Fasting)) H 09/26/23 23:30 Calcium 8.8 mg/dl (8.6-10.3) 09/26/23 23:30 Magnesium 2.4 mg/dl (1.7-2.4) 09/27/23 00:58 Total Bilirubin 0.2 mg/dl (0.2-1.0) 09/26/23 23:30 AST 33 U/L (13-39) 09/27/23 00:58 ALT 17 U/L (7-52) 09/26/23 23:30 Alkaline Phosphatase 56 U/L (34-104) 09/26/23 23:30 Troponin I High Sens 124.6 pg/ml (0-14) H* D 09/27/23 02:42 B-Natriuretic Peptide 213 pg/ml (0-100) H 09/26/23 23:30 Total Protein 7.4 gm/dl (6.0-8.3) 09/26/23 23:30 Albumin 4.0 gm/dl (3.4-5.0) 09/26/23 23:30 Globulin 3.4 gm/dl (2.5-4.0) 09/26/23 23:30 Albumin/Globulin Ratio 1.2 (0.9-2) 09/26/23 23:30 Lipase 36 U/L (11-82) 09/26/23 23:30 TSH 1.257 uIu/ml (0.300-4.500) 09/26/23 23:30 Urine Color Yellow 09/27/23 00:50 Urine Appearance Clear (Clear) 09/27/23 00:50 Urine pH 7.5 (4.5-7.5) 09/27/23 00:50 Ur Specific Cherry 1.009 (1.000-1.030) 09/27/23 00:50 Urine Protein 1+ (Negative) H 09/27/23 00:50 Urine Glucose (UA) Negative (Negative) 09/27/23 00:50 Urine Ketones Trace (Negative) H 09/27/23 00:50 Urine Blood Negative (Negative) 09/27/23 00:50 Urine Nitrite Negative (Negative) 09/27/23 00:50 Urine Bilirubin Negative (Negative) 09/27/23 00:50 Urine Urobilinogen Negative (Negative) 09/27/23 00:50 Ur Leukocyte Esterase Negative (Negative) 09/27/23 00:50 Urine WBC (Auto) 0-5 /hpf (0-5) 09/27/23 00:50 Urine RBC (Auto) 0-2 /hpf (0-2) 09/27/23 00:50 U Hyaline Cast (Auto) 0-2 /lpf (0-2) 09/27/23 00:50 U Epithel Cells (Auto) 0-2 /hpf (0-2) 09/27/23 00:50 Urine Bacteria (Auto) None Seen (None Seen) 09/27/23 00:[address] 09/26/23 23:55 Exam(s): CT HEAD Without Contrast EXAM: CT Head Without Intravenous Contrast CLINICAL HISTORY: Reason for exam: nausea, htn. TECHNIQUE: Axial computed tomography images of the head/brain without intravenous contrast. CTDI is 38.31 mGy and DLP is 547.75 mGy-cm. Automated exposure control was utilized for the study. A dose lowering technique was utilized adhering to the principles of ALARA. COMPARISON: Prior head CT from April 28, 2018. FINDINGS: Brain: Unremarkable. No hemorrhage. No significant white matter disease. No edema. Ventricles: Moderate ventriculomegaly. Bones/joints: Unremarkable. No acute fracture. Soft tissues: Unremarkable. Sinuses: Unremarkable as visualized. No acute sinusitis. Mastoid air cells: Unremarkable as visualized. No mastoid effusion. IMPRESSION: No evidence of acute intracranial pathology. Electronically signed by: Jing Roberts MD 09/27/23 02:05 AM Diagnostic Findings EKG as per my interpretation : Rate 60, NSR, LAD, LAFB, incomplete RBBB, no ischemia
[2023-09-27] MEDS: ATROPINE SULFATE 0.1 MG/ML 10ML SYR IV ONE (05:53)
[2023-09-27] MEDS ORDERED: oxyCODONE HCL IR 5 MG TAB (IMMEDIATE RELEASE) PO PRN (05:58)
--- NOTE | 2023-09-27 06:01 | CT Scan Report ---
Exam(s): CT ABDOMEN + PELVIS With Contrast IV Amt: 94 ml EXAM: CT Abdomen and Pelvis With Intravenous Contrast CLINICAL HISTORY: Reason for exam: n/v. TECHNIQUE: Axial computed tomography images of the abdomen and pelvis with intravenous contrast. Automated exposure control was utilized for the study. A dose lowering technique was utilized adhering to the principles of ALARA. CONTRAST: Patient received 94 ml of IV contrast COMPARISON: No relevant prior studies available. FINDINGS: Lung bases: Unremarkable. No mass. No consolidation. ABDOMEN: Liver: Unremarkable. No mass. Gallbladder and bile ducts: Unremarkable. No calcified stones. No ductal dilation. Pancreas: Unremarkable. No mass. No ductal dilation. Spleen: Calcified granuloma seen in the splenic parenchyma. Adrenals: Unremarkable. No mass. Kidneys and ureters: Unremarkable. No solid mass. No hydronephrosis. Stomach and bowel: There is mild diffuse gastric wall thickening. No obstruction. PELVIS: Appendix: Normal appendix. Bladder: The urinary bladder is distended, measuring up to 13.5 cm in diameter. Reproductive: Unremarkable as visualized. ABDOMEN and PELVIS: Intraperitoneal space: Unremarkable. No free air. No significant fluid collection. Bones/joints: Degenerative disc disease changes seen most prominently at L2/3 and L3/4 junction. There is levoscoliosis seen in the lumbar spine. No acute fracture. No dislocation. Soft tissues: Unremarkable. Vasculature: Unremarkable. No abdominal aortic aneurysm. Lymph nodes: Unremarkable. No enlarged lymph nodes. IMPRESSION: 1. Moderately distended urinary bladder. 2. No evidence of bowel obstruction 3. Mild diffuse gastric wall prominence which could be from gastritis Electronically signed by: Jaiden Gallagher MD 09/27/23 05:59 AM
[2023-09-27] MEDS: LOSARTAN POTASSIUM 25 MG TAB PO STA ×2 (06:34→08:24)
[2023-09-27 07:24] LABS: Basophils # (auto) 0.04 K/uL (0.00-0.20); Basophils % (auto) 0.5 %; Eosinophils # (auto) 0.05 K/uL (0.00-0.50); Eosinophils % (auto) 0.6 %; Hematocrit (blood only) 38.8 % (37.0-47.0); Hemoglobin 12.7 g/dl (12.0-16.0); Immature Granulocytes # (auto) 0.02 K/uL (0.01-0.20); Immature Granulocytes % (auto) 0.2 %; Lymphocytes # (auto) 1.42 K/uL (1.20-3.40); Lymphocytes % (auto) 17.7 %; Mean Corpuscular Hgb Conc 32.7 g/dL (32.0-36.0); Mean Corpuscular Volume 88.6 fL (80.0-100.0); Mean Platelet Volume 10.2 fL (9.4-12.4); Monocytes # (auto) 0.62 K/uL (0.11-0.59); Monocytes % (auto) 7.7 %; Neutrophils # (auto) 5.87 K/uL (1.40-6.50); Neutrophils % (auto) 73.3 %; Platelet Count 248 K/uL (130-400); RDW Coefficient of Variation 13.4 % (11.5-14.5); RDW Standard Deviation 43.6 fL (36.4-46.3); Red Blood Count 4.38 M/uL (4.20-5.40); White Blood Count 8.02 K/ul (4.8-10.8)
[2023-09-27] MEDS: PROMETHAZINE HCL 6.25 MG in SODIUM CHLORIDE 0.9% 50 ML IV PRN (07:27)
[2023-09-27 07:43] LABS: BUN Creatinine Ratio 22.6 (10-20); Calcium 9.4 mg/dl (8.6-10.3); Creatinine Clr Calc Pharmacy 45.6 ml/min; Est GFR (African American) 92.7 ml/min; Est GFR (Non-African American) 79.9 ml/min; Potassium 3.8 mmol/L (3.5-5.1)
[2023-09-27 07:52] LABS: Troponin I High Sensitivity 118.5 pg/ml (0-14)
--- NOTE | 2023-09-27 07:56 | XRay Report ---
KUB HISTORY: Acute generalized abdominal pain with nausea and vomiting n/v COMPARISON: CT of same day FINDINGS: Nonobstructive bowel gas pattern. No renal calculi. No ureteral calculi. No pneumoperitone um or pneumatosis. Lumbar levoscoliosis with multilevel degenerative changes. Calcified granulomata s pleen. Distended urinary bladder. No fracture. IMPRESSION: 1. Nonobstructive bowel gas pattern. 2. No urolithiasis identified. ACT 112: Negative or not required by law. The above report was generated using voice recognition software. It may contain grammatical, syntax o r spelling errors. Electronically signed by: Mart Dale M.D. 09/27/2023 7:55 AM
--- NOTE | 2023-09-27 08:21 | Electrocardiogram Report ---
Test Reason : Blood Pressure : / mmHG Vent. Rate : 063 BPM Atrial Rate : 063 BPM P-R Int : 216 ms QRS Dur : 092 ms QT Int : 408 ms P-R-T Axes : 083 -12 061 degrees QTc Int : 417 ms Sinus rhythm with 1st degree A-V block with Premature atrial complexes Possible Left atrial enlargement Incomplete right bundle branch block Borderline ECG When compared with ECG of 26-Sep-2023 23:30, Premature atrial complexes are now Present Confirmed by Serafin Wells ([id number]) on 09/27/2023 8:21:13 AM Referred By: REFERRED SELF Confirmed By:Serafin Wells
[2023-09-27] MEDS: FERROUS SULFATE 325 MG TAB PO SCH (08:24)
[2023-09-27] MEDS: ASPIRIN 81 MG ECTAB PO SCH (08:24)
[2023-09-27] MEDS: ATROPINE SULFATE 0.1 MG/ML 10ML SYR IV PRN (08:53)
[2023-09-27] MEDS ORDERED: NON-FORMULARY MEDICATION (Glucosam-Chon-Msm1-C-Mang-Bosw [Osteo Bi-Flex Triple Strength] 7 PO SCH (09:00)
--- NOTE | 2023-09-27 09:04 | XRay Report ---
XR chest 1V portable HISTORY: 88 years-old Female sob acute shortness of breath COMPARISON: 03/17/2023 TECHNIQUE: AP view of the chest FINDINGS: Cardiac silhouette is mildly enlarged. Lungs are clear. No pneumothorax or pleural effusion. The bone s appear intact. IMPRESSION: No acute process. ACT 112: Negative or not required by law. The above report was generated using voice recognition software. It may contain grammatical, syntax o r spelling errors. Electronically signed by: Mart Dale M.D. 09/27/2023 9:02 AM
[2023-09-27] MEDS: hydrALAZINE HCL 20 MG/ML VIAL IV PRN (09:15)
[2023-09-27] MEDS ORDERED: ONDANSETRON INJ 2 MG/ML 2 ML VIAL IV PRN (10:37)
--- NOTE | 2023-09-27 12:53 | Communication Note ---
Date of Service: September 27, 2023 Patient was seen and examined at bedside. 88-year-old lady with PMH of CAD, HTN, HLD, CVA, chronic hyponatremia, chronic anemia [baseline hemoglobin of 11], STEMI [March 2023] presented to the ED 09/25 after feeling sick after dinner associated with nausea and generalized weakness. Denied chest pain or headache symptoms. Had transient shortness of breath. Patient reports compliance with home medication. In the ED initial SBP was in 210s, also episodic sinus pauses was noted in the ED consistent with patient's feeling sick. she is being managed for the following: Symptomatic bradycardia: Patient came in with feeling sick, noted to be in episodic sinus pauses in the ED when feeling sick. Admitting EKG with sinus rhythm with first-degree AV block with PACs, rate 63. Admitting electrolytes about her baseline. Patient had heart rate of 28-35 and received atropine at 0853 hrs. on 09/27/2023 with improvement in heart rate to 80s. Patient reported feeling better after receiving atropine. Continue with atropine as needed for symptomatic bradycardia. Hold home metoprolol. Continue telemetry monitoring, monitor and replete electrolytes. Cardiology consulted, await recommendation. N.p.o. until patient seen by cardiology in anticipation of procedure. Hypertensive crisis: SBP in 210s at presentation, likely secondary to discomfort. Avoid beta-kwame. Hydralazine as needed IV for as needed BP control. Continue home losartan. Blood pressure now getting better. Troponin elevation/likely demand ischemia: Troponin elevated ISO elevated blood pressure, patient with no chest pain, EKG with no acute ST or T changes. Continue telemetry monitoring. Will get echo. Other chronic medical conditions: Continue/resume home meds as and when able. hx CAD, CVA as per records Mild AR hyperlipidemia, on statin Rx Mild hyponatremia, chronic, about stable. chronic anemia, hemoglobin at baseline Hyperglycemia likely prediabetes, hemoglobin A1c of 08 March 2023 DVT prophylaxis. SCDs Re: Possible procedure Per prior attending - DNR as per patient prior directives although patient would be agreeable to PPM if recommended by specialist. Patient Mr. Arie Lux, contact #[phone]. For detailed information on the patient, refer to today's H&P note. Text document was generated using [employer] voice recognition software. It may contain grammatical or spelling errors. Kindly contact undersigned for clarification of any documentation item in question.
[2023-09-27] MEDS: SODIUM CHLORIDE 0.9% 1,000 ML IV SCH (13:54)
--- NOTE | 2023-09-27 14:40 | Cardiology Consultation ---
Date of Consultation September 27, 2023 Assessment & Plan (1) Symptomatic bradycardia: (2) Nausea: (3) Weakness: (4) Elevated troponin: (5) Sinus pause: Plan Patient admitted for weakness, nausea, hypertensive emergency. During admission had several episodes of transient sinus bradycardia and sinus pauses lasting 7-8 seconds. She takes metoprolol succinate 50 mg BID at home. Last dose last evening. Currently on hold. She denies recent symptoms to suggest symptomatic bradycardia at home. Difficult to determine if these episodes were related to nausea, possible vasovagal reaction OR was the bradycardia contributing to her symptoms. Recommend ongoing threat monitoring analyst. These episodes may have also occurred during sleep at 2:30 and 6:30 AM. Nocturnal oximetry requested. Hold Metoprolol Atropine at bedside. Could place pacer pads if needed. No need for urgent temporary pacemaker. May need future PPM, but will await HR response as metoprolol wears out of her system Minimally elevated troponin likely due to hypertension on admission. BP improved. Echo pending. She has had no anginal complaints. HS troponin Not indicative of ACS. No ischemic EKG changes. Continue ASA, statin, losartan. Metoprolol remains on hold. If additional antihypertensive therapy needed, would add amlodipine. Case discussed with Dr. Yin I spent a total of 60 minutes on the date of service in preparation, delivery, and documentation of the care provided to this patient, excluding any time spent in the performance of separately billed services. Marnie Yeager PA-C Department of Cardiology, [facility] This chart was completed in part utilizing Speech Voice Recognition Software. Grammatical errors, random word insertions, pronoun errors, and incomplete sentences are an occasional consequence of this system due to software limitations, ambient noise, and hardware issues. Any formal questions or concerns about the content, text, or information contained within the body of this dictation should be directly addressed to the provider for clarification. Supervising Physician Co-Signing Physician Notes I have reviewed the advanced practitioner's documentation on the date of service referenced in note, and I agree with, and take responsibility for the plan of care. 88-year-old with known history of coronary artery disease admission in March with proximal LAD 50 to 60% stenosis FFR negative discharged on medical management presents with nausea near syncopal episode Overnight had 1 episode of 7-second sinus pause on the monitor while she was sleeping She had an episode in in the morning of about a 4-second pause when she was given atropine Since she has been on the floor had 3.7-second pause while I was talking to her she briefly reported nausea and not feeling well no syncope. She is on high-dose beta-kwame Toprol-XL 50 mg twice daily her last dose was yesterday night. Will need at washout period. She has symptomatic bradycardia with sinus pauses and needs beta-kwame for coronary artery disease Discussed with EP for pacemaker If further episodes of sinus pauses - transfer to ICU and started on dopamine at 5 mcg I spent a total of [40] minutes coordinating, documenting, and providing care for this patient excluding time spent in the performance of separately billed services or time spent by another provider. History of Present Illness Reason for Consultation: Sinus bradycardia; Sinus pause Requesting Physician: Dr. Mosquera Attending Physician: Dr. Yin History of Present Illness Patient is a 88-year-old female who presents to [facility] with complaints of nausea, weakness. Known to [facility] cardiology, Dr. Ozuna. History includes: 1. CAD s/p NSTEMI in Mar 2023 - 50-60% prox LAD stneosis. Not hemodynamically significant by FFR. Med management recommended. Treated with IV hep for 48 hours. apical wall motion abnormality present 2. history of hypertensive emergency. 3. chronic anemia 4. dyslipidemia Patient was in normal state of health. Ate dinner out last night. Upon going to bed she began to feel nauseous. She went to the bathroom thinking she was going to vomit, but never did. She became acutely weak and mildly diaphoretic. 911 was summoned. She was in NSR upon arrival to the ER. BP was significantly hypertensive. EKG demonstrated NSR without acute ischemic changes. HS troponin initial normal, trending upward to 124, and then down to 118 this morning. She denied chest pain or dyspnea. In the middle of the night, ? possibly during sleep, pttient developed transient bradycardia into the 30's and a sinus pause around 7 seconds. Per nursing, she may have been awakened from sleep afterwards and felt nauseous. She had one additional episode around 6:30 AM but again, it is difficult to say if she had symptoms or was asleep. Imaging was unremarkable for acute abdominal process on arrival to the ER. Oral metoprolol at home was 50 mg BID. last dose was last evening At time of consult, patient resting in bed. Feeling well. Denies dizziness or lightheadedness. Nausea improved. HR currently in the 70's. She denies recent symptoms to suggest symptomatic bradycardia. NO recent falls or dizziness or lightheadedness over the last few weeks. No chest pain or dyspnea. Allergies Allergy/AdvReac Type Severity Reaction Status Date / Time Bactrim Allergy Unknown SHORTNESS Verified 05/24/13 12:17 OF BREATH, rash Sulfa (Sulfonamide Allergy Unknown SHORTNESS Verified 07/23/22 18:07 Antibiotics) OF BREATH, RASH sulfamethoxazole Allergy Unknown SHORTNESS Verified 07/23/22 18:07 OF BREATH, rash trimethoprim Allergy Unknown SHORTNESS Verified 07/23/22 18:07 OF BREATH, rash Home Medications Medication Instructions Recorded Confirmed Type aspirin 81 mg tablet,delayed 81 mg PO DAILY 04/28/18 09/27/23 History release ferrous sulfate 27 mg iron tablet 27 mg PO DAILY 03/14/23 09/27/23 History glucosamine 750 [id number] 1 tab PO BID 03/14/23 09/27/23 History no1 644 mg-C 30 mg-delphine 1 mg tablet (Osteo Bi-Flex Triple Strength) atorvastatin 40 mg tablet 40 mg PO HS #30 tabs 03/18/23 09/27/23 Rx benzonatate 100 mg capsule 100 mg PO TID PRN cough #30 caps 03/18/23 09/27/23 Rx losartan 25 mg tablet 25 mg PO QAM #30 tabs 03/18/23 09/27/23 Rx metoprolol succinate 50 mg 50 mg PO BID #60 tabs 03/18/23 09/27/23 Rx tablet,extended release 24 hr nitroglycerin 0.4 mg sublingual 0.4 mg sublingual Q5M PRN chest 03/18/23 09/27/23 Rx tablet (Nitrostat) pain #30 tabs Patient History Medical History Nausea & vomiting Acute hyponatremia COVID-19 Surgical History History of hysterectomy Family History Brother Coronary heart disease Sister Cancer Social History Smoking Status: Never smoker Second Hand Exposure: No; Do You Dip or Chew Tobacco: No; Hx Alcohol Use: No Hx Substance Use: No Preferred Language: American Communication Ability: Effective Negotiator Required: No Beliefs That Will Affect Care: None marital status: Current Living Situation: Spouse Feels Safe at Home: Yes Assistive Devices: Walker Review of Systems Review of Systems: All systems reviewed & are unremarkable except as noted in HPI & below Physical Exam Constitutional: WD/WN, vitals as above + thin; no acute distress Neck: normal visual inspection Respiratory: normal respiratory effort, lungs clear to auscultation Cardiovascular: Rate/Rhythm: regular rate and regular rhythm Heart Sounds: no murmur Vessels: no JVD Extremities: no edema Gastrointestinal (Abdomen): normal bowel sounds, soft, nontender, no hepatosplenomegaly Skin: no rashes, warm and dry Neurologic: PERRL, EOMI, accommodation nl, no face palsy, no dysarthria Psychiatric: A+Ox3, euthymic affect Results & Data Vital Signs (Past 12 Hours) Vital Signs Temp Pulse Pulse Resp BP BP BP 09/27/23 13:31 36.6 C 61 14 115/66 09/27/23 12:50 127/57 L 09/27/23 12:48 58 L 21 09/27/23 12:45 127/59 L 09/27/23 12:45 127/59 L 09/27/23 12:42 58 L 17 09/27/23 12:40 126/54 L 09/27/23 12:35 124/54 L 09/27/23 12:35 124/54 L 09/27/23 12:30 131/59 L 09/27/23 12:30 131/59 L 09/27/23 12:30 60 19 09/27/23 12:25 135/62 09/27/23 12:25 135/62 09/27/23 12:25 135/62 09/27/23 12:20 136/78 09/27/23 12:20 136/78 09/27/23 12:15 126/86 09/27/23 12:15 61 23 09/27/23 12:11 142/51 H 09/27/23 12:11 142/51 H 09/27/23 12:09 64 25 H 09/27/23 12:05 136/68 09/27/23 12:05 136/68 09/27/23 12:00 133/67 09/27/23 11:50 120/53 L 09/27/23 11:46 134/58 L 09/27/23 11:42 64 20 09/27/23 11:41 124/45 L 09/27/23 11:41 124/45 L 09/27/23 11:39 67 15 09/27/23 11:38 65 20 116/48 L 09/27/23 11:36 62 22 09/27/23 11:35 116/48 L 09/27/23 11:35 116/48 L 09/27/23 11:35 116/48 L 09/27/23 11:30 119/58 L 09/27/23 11:30 119/58 L 09/27/23 11:25 119/53 L 09/27/23 11:25 119/53 L 09/27/23 11:20 117/48 L 09/27/23 11:20 117/48 L 09/27/23 11:18 63 21 09/27/23 11:15 118/57 L 09/27/23 11:15 118/57 L 09/27/23 11:10 121/51 L 09/27/23 11:09 62 26 H 09/27/23 11:05 105/59 L 09/27/23 11:05 105/59 L 09/27/23 11:05 105/59 L 09/27/23 11:00 62 22 09/27/23 11:00 113/55 L 09/27/23 10:45 113/50 L 09/27/23 10:45 63 21 09/27/23 10:40 116/52 L 09/27/23 10:40 116/52 L 09/27/23 10:35 118/55 L 09/27/23 10:33 65 25 H 09/27/23 10:30 119/66 09/27/23 10:30 119/66 09/27/23 10:30 119/66 09/27/23 10:30 67 23 09/27/23 10:25 124/57 L 09/27/23 10:25 124/57 L 09/27/23 10:25 124/57 L 09/27/23 10:24 68 17 09/27/23 10:20 125/53 L 09/27/23 10:20 125/53 L 09/27/23 10:20 125/53 L 09/27/23 10:18 68 27 H 09/27/23 10:15 133/60 09/27/23 10:15 133/60 09/27/23 10:15 69 23 09/27/23 10:10 119/83 09/27/23 10:10 119/83 09/27/23 10:10 119/83 09/27/23 10:00 110/59 L 09/27/23 10:00 110/59 L 09/27/23 09:55 125/57 L 09/27/23 09:55 125/57 L 09/27/23 09:54 72 24 09/27/23 09:50 120/65 09/27/23 09:45 132/63 09/27/23 09:40 108/76 09/27/23 09:35 142/61 H 09/27/23 09:30 130/62 09/27/23 09:26 73 22 09/27/23 09:25 135/63 09/27/23 09:23 73 21 09/27/23 09:20 71 28 H 09/27/23 09:20 147/70 H 09/27/23 09:15 180/86 H 09/27/23 09:10 161/125 H 09/27/23 09:00 187/88 H 09/27/23 09:00 187/88 H 09/27/23 08:59 75 22 09/27/23 08:47 60 20 09/27/23 08:35 57 L 18 09/27/23 08:30 197/86 H 09/27/23 08:26 57 L 19 09/27/23 08:17 54 L 20 09/27/23 08:14 54 L 19 09/27/23 08:00 173/80 H 09/27/23 08:00 59 L 20 197/86 H 09/27/23 07:59 58 L 23 09/27/23 07:52 174/75 H 09/27/23 07:52 174/75 H 09/27/23 07:50 57 L 19 09/27/23 07:35 57 L 22 09/27/23 07:20 54 L 19 09/27/23 07:08 60 09/27/23 07:05 59 L 22 09/27/23 07:00 198/82 H 09/27/23 07:00 198/82 H 09/27/23 06:51 58 L 20 09/27/23 06:50 58 L 14 09/27/23 06:18 57 L 21 09/27/23 06:01 59 L 22 182/63 H 09/27/23 05:30 62 18 157/81 H 09/27/23 05:00 62 22 168/71 H 09/27/23 04:36 62 22 171/70 H 09/27/23 04:00 62 22 162/69 H 09/27/23 03:30 62 18 166/70 H 09/27/23 03:30 63 22 166/70 H 09/27/23 03:00 67 20 177/81 H Pulse Ox O2 Del Method 09/27/23 13:31 95 Room Air 09/27/23 12:50 09/27/23 12:48 95 09/27/23 12:45 09/27/23 12:45 09/27/23 12:42 95 09/27/23 12:40 09/27/23 12:35 09/27/23 12:35 09/27/23 12:30 09/27/23 12:30 09/27/23 12:30 95 09/27/23 12:25 09/27/23 12:25 09/27/23 12:25 09/27/23 12:20 09/27/23 12:20 09/27/23 12:15 09/27/23 12:15 96 09/27/23 12:11 09/27/23 12:11 09/27/23 12:09 95 09/27/23 12:05 09/27/23 12:05 09/27/23 12:00 09/27/23 11:50 09/27/23 11:46 09/27/23 11:42 98 09/27/23 11:41 09/27/23 11:41 09/27/23 11:39 96 09/27/23 11:38 96 Room Air 09/27/23 11:36 95 09/27/23 11:35 07/27/24 11:35 09/27/23 11:35 09/27/23 11:30 09/27/23 11:30 09/27/23 11:25 09/27/23 11:25 09/27/23 11:20 09/27/23 11:20 09/27/23 11:18 95 09/27/23 11:15 09/27/23 11:15 09/27/23 11:10 09/27/23 11:09 94 09/27/23 11:05 09/27/23 11:05 09/27/23 11:05 09/27/23 11:00 90 09/27/23 11:00 09/27/23 10:45 09/27/23 10:45 95 09/27/23 10:40 09/27/23 10:40 09/27/23 10:35 09/27/23 10:33 95 09/27/23 10:30 09/27/23 10:30 09/27/23 10:30 09/27/23 10:30 09/27/23 10:25 09/27/23 10:25 09/27/23 10:25 09/27/23 10:24 09/27/23 10:20 09/27/23 10:20 09/27/23 10:20 09/27/23 10:18 96 09/27/23 10:15 09/27/23 10:15 09/27/23 10:15 09/27/23 10:10 09/27/23 10:10 09/27/23 10:10 09/27/23 10:00 09/27/23 10:00 09/27/23 09:55 09/27/23 09:55 09/27/23 09:54 93 09/27/23 09:50 09/27/23 09:45 09/27/23 09:40 09/27/23 09:35 09/27/23 09:30 09/27/23 09:26 96 09/27/23 09:25 09/27/23 09:23 95 09/27/23 09:20 95 09/27/23 09:20 09/27/23 09:15 09/27/23 09:10 09/27/23 09:00 09/27/23 09:00 09/27/23 08:59 96 09/27/23 08:47 97 09/27/23 08:35 97 09/27/23 08:30 09/27/23 08:26 97 09/27/23 08:17 96 09/27/23 08:14 96 09/27/23 08:00 09/27/23 08:00 97 Room Air 09/27/23 07:59 96 09/27/23 07:52 09/27/23 07:52 09/27/23 07:50 95 09/27/23 07:35 95 09/27/23 07:20 95 09/27/23 07:08 09/27/23 07:05 95 09/27/23 07:00 09/27/23 07:00 09/27/23 06:51 95 09/27/23 06:50 96 09/27/23 06:18 96 09/27/23 06:01 96 09/27/23 05:30 96 09/27/23 05:00 95 09/27/23 04:36 96 09/27/23 04:00 96 09/27/23 03:30 96 09/27/23 03:30 96 09/27/23 03:00 97 Laboratory Results Cardiac Enzymes 09/26/23 09/27/23 09/27/23 Range/Units 23:30 00:58 02:42 AST TNP 33 Troponin I High Sens 6.7 124.6 H* D (0-14) pg/ml B-Natriuretic Peptide 213 H (0-100) pg/ml 09/27/23 Range/Units 07:05 AST Troponin I High Sens 118.5 H* (0-14) pg/ml B-Natriuretic Peptide (0-100) pg/ml Coagulation 09/26/23 09/27/23 Range/Units 23:30 00:58 PT Cancelled 10.9 B-Natriuretic Peptide 213 H (0-100) pg/ml CBC 09/26/23 09/27/23 Range/Units 23:30 07:05 WBC 6.82 8.02 (4.8-10.8) K/ul RBC 3.97 L 4.38 (4.20-5.40) M/uL Hgb 11.5 L 12.7 (12.0-16.0) g/dl Hct 35.0 L 38.8 (37.0-47.0) % Plt Count 230 248 (130-400) K/uL Neut # (Auto) 4.85 5.87 (1.40-6.50) K/uL Lymph # (Auto) 1.09 L 1.42 (1.20-3.40) K/uL Fisher # (Auto) 0.61 H 0.62 H (0.11-0.59) K/uL Eos # (Auto) 0.20 0.05 (0.00-0.50) K/uL Baso # (Auto) 0.05 0.04 (0.00-0.20) K/uL Comprehensive Metabolic Panel 09/26/23 09/27/23 09/27/23 Range/Units 23:30 00:58 07:05 Sodium TNP 129 L 132 L Potassium TNP 4.1 3.8 Chloride 95 L 97 L (98-107) mmol/L Carbon Dioxide 29 29 (21-32) mmol/L BUN 22 14 (6-23) mg/dl Creatinine 0.67 0.62 (0.6-1.2) mg/dl Glucose 116 H 113 H (70-99(Fasting)) mg/dl Calcium 8.8 9.4 (8.6-10.3) mg/dl AST TNP 33 ALT 17 (7-52) U/L Alkaline Phosphatase 56 (34-104) U/L Total Protein 7.4 (6.0-8.3) gm/dl Albumin 4.0 (3.4-5.0) gm/dl Intake and Output 09/26/23 09/27/23 09/27/23 22:59 06:59 14:59 Intake Total 664.583 / 664.583 110.667 / 110.667 Balance 664.583 / 664.583 110.667 / 110.667 Intake: IV 664.583 / 664.583 50.667 / 50.667 Promethazine HCl 6.25 mg In 50.25 / 50.25 Sodium Chloride 0.9% 50 ml @ 201 mls/hr IV Q6H PRN Rx#: [id number] Sodium Chloride 0.9% 1,000 ml @ 664.583 / 664.583 0.417 / 0.417 125 mls/hr IV .Q8H SCOTT Rx#: [id number] Oral 60 / 60 Other: # Unmeasured Voids 1 Weight 47 kg 47 kg Weight Measurement Method [facility] Patient Weight 09/28/23 06:59 Weight 47 kg Diagnostic Findings Telemetry reviewed: Currently NSR ranging 70's. Overnight around 2:30 AM patient had about 7 second sinus pause. Recurrent pause around 6:30. Difficult to determine if patient was sleeping. Repeat EKG: NSR with 1st degree AV block LA enlargement no ischemic changes present EKG reviewed from admission: Normal sinus rhythm 1st degree AV block, PAC's present Possible left atrial enlargement Incomplete right bundle branch block Compared with prior EKG, no significant changes noted. 2D echocardiogram report [facility] 03/15/2023: LVEF 65-70% Moderate concentric left ventricular hypertrophy. Small, apical septal wall motion abnormality with hypokinesis of the segments. Mild aortic sclerosis without stenosis. Mild aortic regurgitation. Grade 1 diastolic dysfunction. Medications Administered Current Inpatient Medications Acetaminophen (Acetaminophen 325 Mg Tab) 650 mg PO QID PRN PRN Reason: pain/fever Stop: 10/27/23 05:57 Aspirin (Aspirin 81 Mg Ectab) 81 mg PO DAILY SCOTT Stop: 10/27/23 08:59 Last Admin: 09/27/23 08:24 Dose: 81 mg Atorvastatin Calcium (Atorvastatin 40 Mg Tab) 40 mg PO HS [facility] Stop: 10/27/23 20:59 Atropine Sulfate (Atropine Sulfate 0.1 Mg/Ml 10ml Syr) 1 mg IV Q3M PRN PRN Reason: symptomatic bradycardia Stop: 10/27/23 04:57 Last Admin: 09/27/23 08:53 Dose: 1 mg Ferrous Sulfate (Ferrous Sulfate 325 Mg Tab) 325 mg PO DAILY SCOTT Stop: 10/27/23 08:59 Last Admin: 09/27/23 08:24 Dose: 325 mg Hydralazine HCl (Hydralazine Hcl 20 Mg/Ml Vial) 10 mg IV Q6H PRN PRN Reason: Hypertension Stop: 10/27/23 08:53 Last Admin: 09/27/23 09:15 Dose: 10 mg Promethazine HCl 6.25 mg/ (Sodium Chloride) 50.25 mls @ 201 mls/hr IV Q6H PRN PRN Reason: Nausea And Vomiting Stop: 10/27/23 05:57 Last Infusion: 09/27/23 07:42 Dose: Infused Sodium Chloride (Nss) 1,000 mls @ 80 mls/hr IV .[id number] [facility] Stop: 09/28/23 13:59 Last Admin: 09/27/23 13:54 Dose: 80 mls/hr Losartan Potassium (Losartan Potassium 50 Mg Tab) 50 mg PO QAM [facility] Stop: 10/28/23 08:59 Ondansetron HCl (Ondansetron Inj 2 Mg/Ml 2 Ml Vial) 4 mg IV Q6H PRN PRN Reason: Nausea And Vomiting Stop: 10/27/23 10:36 Oxycodone HCl (Oxycodone Hcl Ir 5 Mg Tab (Immediate Release)) 5 mg PO Q4H PRN PRN Reason: Pain Stop: 10/11/23 05:57
[2023-09-27 19:06] LABS: Appearance Urine Clear (Clear); Bacteria Urine Automated None Seen (None Seen); Bilirubin Urine Negative (Negative); Blood Urine Negative (Negative); Cast Urine Automated 0-2 /lpf (0-2); Color Urine Yellow; Epithelial Cell Urine Auto 0-2 /hpf (0-2); Glucose Urine UA Negative (Negative); Ketones Urine 1+ (Negative); Leukocyte Esterase Urine Trace (Negative); Nitrite Urine Negative (Negative); Protein Urine Trace (Negative); RBC Urine Automated 0-2 /hpf (0-2); Specific Gravity Urine 1.023 (1.000-1.030); Urobilinogen Urine Negative (Negative); WBC Urine Automated 0-5 /hpf (0-5)
--- NOTE | 2023-09-27 20:20 | Electrocardiogram Report ---
Test Reason : Blood Pressure : / mmHG Vent. Rate : 064 BPM Atrial Rate : 064 BPM P-R Int : 220 ms QRS Dur : 084 ms QT Int : 392 ms P-R-T Axes : 072 -04 065 degrees QTc Int : 404 ms Sinus rhythm with 1st degree A-V block Possible Left atrial enlargement Left ventricular hypertrophy with repolarization abnormality Abnormal ECG When compared with ECG of 15-MAR-2023 05:19, CO interval has increased Confirmed by Serafin Wells ([id number]) on 09/27/2023 8:19:52 PM Referred By: REFERRED SELF Confirmed By:Serafin Wells
[2023-09-27] MEDS: ATORVASTATIN 40 MG TAB PO SCH (20:32)
[2023-09-28 06:49] LABS: Basophils # (auto) 0.02 K/uL (0.00-0.20); Basophils % (auto) 0.3 %; Hematocrit (blood only) 35.8 % (37.0-47.0); Hemoglobin 11.8 g/dl (12.0-16.0); Immature Granulocytes # (auto) 0.03 K/uL (0.01-0.20); Immature Granulocytes % (auto) 0.4 %; Lymphocytes # (auto) 0.93 K/uL (1.20-3.40); Lymphocytes % (auto) 12.7 %; Mean Corpuscular Hemoglobin 28.6 pg (25.0-34.0); Mean Corpuscular Volume 86.7 fL (80.0-100.0); Mean Platelet Volume 10.5 fL (9.4-12.4); Monocytes # (auto) 0.42 K/uL (0.11-0.59); Monocytes % (auto) 5.7 %; Neutrophils # (auto) 5.95 K/uL (1.40-6.50); Neutrophils % (auto) 80.9 %; Platelet Count 240 K/uL (130-400); RDW Coefficient of Variation 13.9 % (11.5-14.5); RDW Standard Deviation 43.9 fL (36.4-46.3); Red Blood Count 4.13 M/uL (4.20-5.40); White Blood Count 7.35 K/ul (4.8-10.8)
[2023-09-28 07:20] LABS: BUN Creatinine Ratio 33.3 (10-20); Calcium 8.3 mg/dl (8.6-10.3); Creatinine Clr Calc Pharmacy 47.2 ml/min; Est GFR (African American) 93.7 ml/min; Est GFR (Non-African American) 80.8 ml/min; Magnesium 2.2 mg/dl (1.7-2.4); Phosphorus 2.9 mg/dl (2.5-4.9); Potassium 3.7 mmol/L (3.5-5.1)
[2023-09-28] MEDS: LOSARTAN POTASSIUM 50 MG TAB PO SCH (08:11)
[2023-09-28] MEDS ORDERED: LOSARTAN POTASSIUM 25 MG TAB PO SCH (09:00)
[2023-09-28] MEDS: POTASSIUM CHLORIDE CRTAB 20 MEQ TABCR PO STA (09:47)
--- NOTE | 2023-09-28 14:38 | Cardiology Progress Note ---
Date of Service September 28, 2023 Assessment & Plan (1) Symptomatic bradycardia: (2) Nausea: (3) Weakness: (4) Elevated troponin: (5) Sinus pause: Plan 09/27/23 Patient admitted for weakness, nausea, hypertensive emergency. During admission had several episodes of transient sinus bradycardia and sinus pauses lasting 7-8 seconds. She takes metoprolol succinate 50 mg BID at home. Last dose last evening. Currently on hold. She denies recent symptoms to suggest symptomatic bradycardia at home. Difficult to determine if these episodes were related to nausea, possible vasovagal reaction OR was the bradycardia contributing to her symptoms. Recommend ongoing environmental monitoring specialist. These episodes may have also occurred during sleep at 2:30 and 6:30 AM. Nocturnal oximetry requested. Hold Metoprolol Atropine at bedside. Could place pacer pads if needed. No need for urgent temporary pacemaker. May need future PPM, but will await HR response as metoprolol wears out of her system Minimally elevated troponin likely due to hypertension on admission. BP improved. Echo pending. She has had no anginal complaints. HS troponin Not indicative of ACS. No ischemic EKG changes. Continue ASA, statin, losartan. Metoprolol remains on hold. If additional antihypertensive therapy needed, would add amlodipine. 09/28/23 Patient with recurrent sinus pauses, symptomatic bradycardia despite holding BB therapy over the last 24 hours. No syncope. Will need PPM. NPO Friday for possible device. In the meantime, options for external pacemaker pads, temporary pacemaker or dopamine if needed. Given frailty and only transient bradycardia, will try to avoid urgent temporary pacemaker. Transfer to ICU and give dopamine if needed in the meantime. Echo with normal LVEF at 60-65% Continue ASA, statin and losartan. Hold BB BP has been relatively well controlled. Case discussed with Dr. Yin I spent a total of 35 minutes on the date of service in preparation, delivery, and documentation of the care provided to this patient, excluding any time spent in the performance of separately billed services. Marnie Yeager PA-C Department of Cardiology, [facility] This chart was completed in part utilizing Speech Voice Recognition Software. Grammatical errors, random word insertions, pronoun errors, and incomplete sentences are an occasional consequence of this system due to software limitations, ambient noise, and hardware issues. Any formal questions or con cerns about the content, text, or information contained within the body of this dictation should be directly addressed to the provider for clarification. Case discussed with Dr. Yin I spent a total of 60 minutes on the date of service in preparation, delivery, and documentation of the care provided to this patient, excluding any time spent in the performance of separately billed services. Marnie Yeager PA-C Department of Cardiology, [facility] This chart was completed in part utilizing Speech Voice Recognition Software. Grammatical errors, random word insertions, pronoun errors, and incomplete sentences are an occasional consequence of this system due to software limitations, ambient noise, and hardware issues. Any formal questions or concerns about the content, text, or information contained within the body of this dictation should be directly addressed to the provider for clarification. Admission and Anticipated Discharge Date Admission Date: September 27, 2023 Supervising Physician Co-Signing Physician Notes I have reviewed the advanced practitioner's documentation on the date of service referenced in note, and I agree with, and take responsibility for the plan of care. 88-year-old with known history of coronary artery disease admission in March with for NSTEMI proximal LAD 50 to 60% stenosis FFR negative discharged on medical management presents with nausea near syncopal episode sinus pauses ranging from 3 to 5.5 sec overnight pt symptomatic with nausea ,dizziness symptoms resolves quickly last dose of toprol xl on 09/01 Sick sinus syndrome: discussed with family and patient at bedside want to proceed with Pacemaker discussed with EP plan for PPM on Friday / friday in the interim If sinus pauses are of longer duration - can consider transfer to ICU and started on dopamine at 5 mcg / pacer pads. I spent a total of [35] minutes coordinating, documenting, and providing care for this patient excluding time spent in the performance of separately billed services or time spent by another provider. Subjective Patient evaluated this morning. Resting in bed. of 71 years at bedside. Feeling well. Had several episodes of transient bradycardia overnight with 5 second pauses, during sleep. She had sinus bradycardia this morning in the 30's with recurrent dizziness, nausea, SOB. Symptoms resolved quickly. Currently denies acute complaints at time of evaluation. HR currently 70 bmp Review of Systems Review of Systems: All systems reviewed & are unremarkable except as noted in HPI & below Physical Exam Constitutional: WD/WN, vitals as above + thin; no acute distress Neck: normal visual inspection Respiratory: normal respiratory effort, lungs clear to auscultation Cardiovascular: Rate/Rhythm: regular rate and regular rhythm Heart Sounds: no murmur Vessels: no JVD Extremities: no edema Gastrointestinal (Abdomen): normal bowel sounds, soft, nontender, no hepatosplenomegaly Skin: no rashes, warm and dry Neurologic: PERRL, EOMI, accommodation nl, no face palsy, no dysarthria Psychiatric: A+Ox3, euthymic affect Results & Data Vital Signs (Past 12 Hours) Vital Signs Temp Pulse Pulse Pulse Resp BP Pulse Ox 09/28/23 11:35 37.0 C 70 18 176/50 H 97 09/28/23 09:42 74 09/28/23 07:38 36.8 C 69 26 H 121/52 L 96 09/28/23 03:17 36.6 C 74 18 168/69 H 95 09/28/23 03:11 67 Pulse Ox O2 Del Method O2 Del Method 09/28/23 11:35 Room Air 09/28/23 09:42 09/28/23 07:38 Room Air 09/28/23 03:17 Room Air 09/28/23 03:11 96 Room Air Laboratory Results CBC 09/28/23 Range/Units 06:24 WBC 7.35 (4.8-10.8) K/ul RBC 4.13 L (4.20-5.40) M/uL Hgb 11.8 L (12.0-16.0) g/dl Hct 35.8 L (37.0-47.0) % Plt Count 240 (130-400) K/uL Neut # (Auto) 5.95 (1.40-6.50) K/uL Lymph # (Auto) 0.93 L (1.20-3.40) K/uL [place] # (Auto) 0.42 (0.11-0.59) K/uL Eos # (Auto) 0.00 (0.00-0.50) K/uL Baso # (Auto) 0.02 (0.00-0.20) K/uL Comprehensive Metabolic Panel 09/28/23 Range/Units 06:24 Sodium 130 L (136-145) mmol/L Potassium 3.7 (3.5-5.1) mmol/L Chloride 99 (98-107) mmol/L Carbon Dioxide 23 (21-32) mmol/L BUN 20 (6-23) mg/dl Creatinine 0.60 (0.6-1.2) mg/dl Glucose 98 (70-99(Fasting)) mg/dl Calcium 8.3 L (8.6-10.3) mg/dl Intake and Output 09/27/23 09/28/23 09/28/23 22:59 06:59 14:59 Intake Total 610 / 1821.992 1571.667 / 1899.334 Output Total 500 / 500 Balance 110 / 8218.642 8142.667 / 1399.334 Intake: IV 978.667 / 1029.334 Sodium Chloride 0.9% 1,000 ml @ 978.667 / 978.667 80 mls/hr IV .[id number] [facility] Rx#: [id number] Oral 610 / 870 200 / 870 Output: Urine 500 / 500 Other: # Unmeasured Voids 1 1 Weight 47 kg Weight Measurement Method Built in [facility] Diagnostic Findings Telemetry reviewed: Currently NSR. Transient bradycardia overnight, with sinus pauses during sleep. She had symptomatic bradycardia this morning in the 30's. Currently NSR in the 70's. Echo report reviewed dated 09/26: Normal LVEF at 65% mild concentric LVH Mild to moderate TR No pericardial effusion Aortic valve sclerosis mild without significant aortic valvular stenosis Medications Administered Current Inpatient Medications Acetaminophen (Acetaminophen 325 Mg Tab) 650 mg PO QID PRN PRN Reason: pain/fever Stop: 10/27/23 05:57 Aspirin (Aspirin 81 Mg Ectab) 81 mg PO DAILY SCOTT Stop: 10/27/23 08:59 Last Admin: 09/28/23 08:11 Dose: 81 mg Atorvastatin Calcium (Atorvastatin 40 Mg Tab) 40 mg PO HS SCOTT Stop: 10/27/23 20:59 Last Admin: 09/27/23 20:32 Dose: 40 mg Atropine Sulfate (Atropine Sulfate 0.1 Mg/Ml 10ml Syr) 1 mg IV Q3M PRN PRN Reason: symptomatic bradycardia Stop: 10/27/23 04:57 Last Admin: 09/27/23 08:53 Dose: 1 mg Ferrous Sulfate (Ferrous Sulfate 325 Mg Tab) 325 mg PO DAILY SCOTT Stop: 10/27/23 08:59 Last Admin: 09/28/23 08:11 Dose: 325 mg Hydralazine HCl (Hydralazine Hcl 20 Mg/Ml Vial) 10 mg IV Q6H PRN PRN Reason: Hypertension Stop: 10/27/23 08:53 Last Admin: 09/27/23 09:15 Dose: 10 mg Promethazine HCl 6.25 mg/ (Sodium Chloride) 50.25 mls @ 201 mls/hr IV Q6H PRN PRN Reason: Nausea And Vomiting Stop: 10/27/23 05:57 Last Infusion: 09/27/23 07:42 Dose: Infused Losartan Potassium (Losartan Potassium 50 Mg Tab) 50 mg PO QAM [facility] Stop: 10/28/23 08:59 Last Admin: 09/28/23 08:11 Dose: 50 mg Ondansetron HCl (Ondansetron Inj 2 Mg/Ml 2 Ml Vial) 4 mg IV Q6H PRN PRN Reason: Nausea And Vomiting Stop: 10/27/23 10:36 Oxycodone HCl (Oxycodone Hcl Ir 5 Mg Tab (Immediate Release)) 5 mg PO Q4H PRN PRN Reason: Pain Stop: 10/11/23 05:57
--- NOTE | 2023-09-28 15:46 | Hospitalist Progress Note ---
Date of Service September 28, 2023 Assessment & Plan (1) Symptomatic bradycardia: Plan 88-year-old lady with PMH of CAD, HTN, HLD, CVA, chronic hyponatremia, chronic anemia [baseline hemoglobin of 11], STEMI [March 2023] presented to the ED 09/25 after feeling sick after dinner associated with nausea and generalized weakness. Denied chest pain or headache symptoms. Had transient shortness of breath. Patient reports compliance with home medication. In the ED initial SBP was in 210s, also episodic sinus pauses was noted in the ED consistent with patient's feeling sick. she is being managed for the following: Symptomatic bradycardia: Patient came in with feeling sick, noted to be in episodic sinus pauses in the ED when feeling sick. Admitting EKG with sinus rhythm with first-degree AV block with PACs, rate 63. Admitting electrolytes about her baseline. Patient had heart rate of 28-35 and received atropine at 0853 hrs. on 09/27/2023 with improvement in heart rate to 80s. Patient reported feeling better after receiving atropine. Continue with atropine as needed for symptomatic bradycardia. Hold home metoprolol. Continue telemetry monitoring, monitor and replete electrolytes. Cardiology consulted, appreciate recommendation. N.p.o. midnight, for pacer asiya. d/w cardio - if patient continues having further sinus pauses, she needs transfer to ICU and dopamine to keep rate up. Plan for pacer on Friday. HR stably improving. monitor. Hypertensive crisis: SBP in 210s at presentation, likely secondary to discomfort. Avoid beta-kwame. Hydralazine as needed IV for as needed BP control. Continue home losartan. Blood pressure now getting better. Troponin elevation/likely demand ischemia: Troponin elevated ISO elevated blood pressure, patient with no chest pain, EKG with no acute ST or T changes. Continue telemetry monitoring. ECHO w/ ef of 60-65%, no pericardial effusion.LV nl in size. Other chronic medical conditions: Continue/resume home meds as and when able. hx CAD, CVA as per records Mild AR hyperlipidemia, on statin Rx Mild hyponatremia, chronic, about stable. chronic anemia, hemoglobin at baseline Hyperglycemia likely prediabetes, hemoglobin A1c of 08 March 2023 DVT prophylaxis. SCDs Re: Possible procedure Per prior attending - DNR as per patient prior directives although patient would be agreeable to PPM if recommended by specialist. Patient Mr. Arie Lux, contact #[phone]. Updated at bedside today. Text document was generated using [employer] voice recognition software. It may contain grammatical or spelling errors. Kindly contact undersigned for clarification of any documentation item in question. Admission and Anticipated Discharge Date Admission Date: September 27, 2023 Subjective Patient was seen and examined at bedside. Patient was lying in bed, on room air, NAD, very hard of hearing, not in any acute distress. Patient's Bill at bedside was also updated on plan of care. Patient had episodes of symptomatic bradycardia overnight and in the morning, recovered quickly. Patient denies any chest pain. Patient denies any cough or shortness of breath or febrile illness. Physical Exam Physical Exam: GENERAL: Slightly uncomfortable, underweight, pleasant, slightly hard of hearing, looks young for stated age, no respiratory distress SKIN: Pallor, warm HEENT: pale palpebral conjunctivae, no ptosis, moist buccal mucosa NECK : Supple, no tenderness CHEST : CTA, no tenderness HEART : Bradycardic, no obvious murmurs ABDOMEN: Soft, nontender EXTREMITIES : No LE swelling/tenderness, no other conspicuous deformities noted NEUROLOGIC : Coherent, no facial asymmetry, slightly hard of hearing, no other gross focality Results & Data Results & Data Vital Signs (Past 12 Hours) Vital Signs Temp Pulse Pulse Resp BP Pulse Ox O2 Del Method 09/28/23 15:37 65 20 176/98 H 92 Room Air 09/28/23 15:24 71 16 155/80 H 93 Room Air 09/28/23 14:06 30 L 09/28/23 11:35 37.0 C 70 18 176/50 H 97 Room Air 09/28/23 09:52 29 L 09/28/23 09:42 74 09/28/23 07:38 36.8 C 69 26 H 121/52 L 96 Room Air 09/28/23 07:33 31 L
[2023-09-29 08:16] LABS: BUN Creatinine Ratio 24.5 (10-20); Calcium 8.2 mg/dl (8.6-10.3); Creatinine Clr Calc Pharmacy 57.9 ml/min; Est GFR (African American) 100.1 ml/min; Est GFR (Non-African American) 86.4 ml/min
--- NOTE | 2023-09-29 11:54 | Cardiology Progress Note ---
Date of Service September 29, 2023 Assessment & Plan (1) Symptomatic bradycardia: (2) Nausea: (3) Weakness: (4) Elevated troponin: (5) Sinus pause: Plan 09/27/23 Patient admitted for weakness, nausea, hypertensive emergency. During admission had several episodes of transient sinus bradycardia and sinus pauses lasting 7-8 seconds. She takes metoprolol succinate 50 mg BID at home. Last dose last evening. Currently on hold. She denies recent symptoms to suggest symptomatic bradycardia at home. Difficult to determine if these episodes were related to nausea, possible vasovagal reaction OR was the bradycardia contributing to her symptoms. Recommend ongoing engine monitor. These episodes may have also occurred during sleep at 2:30 and 6:30 AM. Nocturnal oximetry requested. Hold Metoprolol Atropine at bedside. Could place pacer pads if needed. No need for urgent temporary pacemaker. May need future PPM, but will await HR response as metoprolol wears out of her system Minimally elevated troponin likely due to hypertension on admission. BP improved. Echo pending. She has had no anginal complaints. HS troponin Not indicative of ACS. No ischemic EKG changes. Continue ASA, statin, losartan. Metoprolol remains on hold. If additional antihypertensive therapy needed, would add amlodipine. 09/28/23 Patient with recurrent sinus pauses, symptomatic bradycardia despite holding BB therapy over the last 24 hours. No syncope. Will need PPM. NPO Friday for possible device. In the meantime, options for external pacemaker pads, temporary pacemaker or dopamine if needed. Given frailty and only transient bradycardia, will try to avoid urgent temporary pacemaker. Transfer to ICU and give dopamine if needed in the meantime. Echo with normal LVEF at 60-65% 09/29/2023 No acute complaints but still intermittent bradycardia. Arrangements for permanent pacemaker placed for Friday 8 AM N.p.o. after midnight Blood pressure elevated due to withdrawal of beta-kwame Will add amlodipine 5 mg p.o. to regimen No indications for dopamine This chart was completed in part utilizing Speech Voice Recognition Software. Grammatical errors, random word insertions, pronoun errors, and incomplete sentences are an occasional consequence of this system due to software limitations, ambient noise, and hardware issues. Any formal questions or concerns about the content, text, or information contained within the body of this dictation should be directly addressed to the provider for clarification. Admission and Anticipated Discharge Date Admission Date: September 27, 2023 Subjective Patient seen and examined, chart, medications, telemetry reviewed. No acute complaints. "Bored" Telemetry reveals no further pauses over the past 24 hours but transient bradycardia. Off beta-kwame greater than 48 hours No dizziness or lightheadedness. Hypertensive this morning. Review of Systems Review of Systems: All systems reviewed & are unremarkable except as noted in Subjective Physical Exam Constitutional: WD/WN, vitals as above + thin; no acute distress Eyes: PERRL, conjunctivae normal, anicteric sclerae Neck: normal visual inspection Respiratory: normal respiratory effort, lungs clear to auscultation Cardiovascular: Rate/Rhythm: regular rate and regular rhythm Heart Sounds: no murmur Vessels: no JVD Extremities: no edema Gastrointestinal (Abdomen): normal bowel sounds, soft, nontender, no hepatosplenomegaly Skin: no rashes, warm and dry Neurologic: PERRL, EOMI, accommodation nl, no face palsy, no dysarthria Psychiatric: A+Ox3, euthymic affect Results & Data Vital Signs (Past 12 Hours) Vital Signs Temp Pulse Pulse Resp BP Pulse Ox O2 Del Method 09/29/23 11:08 37 C 74 16 190/73 H 94 Room Air 09/29/23 09:32 187/69 H 09/29/23 08:00 Room Air 09/29/23 07:49 36.9 C 69 18 178/67 H 97 Room Air 09/29/23 04:15 37.0 C 70 18 171/68 H 94 Room Air 09/28/23 23:54 66 Laboratory Results Laboratory Results - last 24 hr 09/29/23 07:31 Sodium 131 L Potassium 4.0 Chloride 100 Carbon Dioxide 28 Anion Gap 3 BUN 12 Creatinine 0.49 L Est Cr Clr Drug Dosing 57.9 Est GFR ( Amer) 100.1 Est GFR (Non-Af Amer) 86.4 BUN/Creatinine Ratio 24.5 H Glucose 96 Calcium 8.2 L Phosphorus 2.0 L Magnesium 2.0
[2023-09-29] MEDS: amLODIPine BESYLATE 5 MG TAB PO ONE (12:11)
[2023-09-29] MEDS ORDERED: POTASSIUM PHOS 3 MMOL/1 ML INFUSION IV STA (15:31)
--- NOTE | 2023-09-29 15:35 | Hospitalist Progress Note ---
Date of Service September 29, 2023 Assessment & Plan (1) Symptomatic bradycardia: Plan 88-year-old lady with PMH of CAD, HTN, HLD, CVA, chronic hyponatremia, chronic anemia [baseline hemoglobin of 11], STEMI [March 2023] presented to the ED 09/25 after feeling sick after dinner associated with nausea and generalized weakness. Denied chest pain or headache symptoms. Had transient shortness of breath. Patient reports compliance with home medication. In the ED initial SBP was in 210s, also episodic sinus pauses was noted in the ED consistent with patient's feeling sick. she is being managed for the following: Symptomatic bradycardia: Patient came in with feeling sick, noted to be in episodic sinus pauses in the ED when feeling sick. Admitting EKG with sinus rhythm with first-degree AV block with PACs, rate 63. Admitting electrolytes about her baseline. Patient had heart rate of 28-35 and received atropine at 0853 hrs. on 09/27/2023 with improvement in heart rate to 80s. Patient reported feeling better after receiving atropine. Continue with atropine as needed for symptomatic bradycardia. Hold home metoprolol. added amlodipine. Continue telemetry monitoring, monitor and replete electrolytes. Cardiology consulted, appreciate recommendation. N.p.o. midnight, for pacer asiya. HR stably improving. monitor. Hypertensive crisis: SBP in 210s at presentation, likely secondary to discomfort. Avoid beta-kwame. Hydralazine as needed IV for as needed BP control. Continue home losartan. Blood pressure higher in am, amlod added. Troponin elevation/likely demand ischemia: Troponin elevated ISO elevated blood pressure, patient with no chest pain, EKG with no acute ST or T changes. Continue telemetry monitoring. ECHO w/ ef of 60-65%, no pericardial effusion.LV nl in size. Other chronic medical conditions: Continue/resume home meds as and when able. hx CAD, CVA as per records Mild AR hyperlipidemia, on statin Rx Mild hyponatremia, chronic, about stable. chronic anemia, hemoglobin at baseline Hyperglycemia likely prediabetes, hemoglobin A1c of 08 March 2023 DVT prophylaxis. SCDs Re: Possible procedure Per prior attending - DNR as per patient prior directives although patient would be agreeable to PPM if recommended by specialist. Patient Mr. Arie Lux, contact #[phone]. Updated at bedside today. Text document was generated using [employer] voice recognition software. It may contain grammatical or spelling errors. Kindly contact undersigned for clarification of any documentation item in question. Admission and Anticipated Discharge Date Admission Date: September 27, 2023 Subjective Patient was seen and examined at bedside. Patient was lying in bed, on room air, NAD, very hard of hearing, not in any acute distress. Patient's Bill at bedside was also updated on plan of care. Patient had reports gradual improvement in her symptoms. Patient denies any chest pain. Patient denies any cough or shortness of breath or febrile illness. Physical Exam Physical Exam: GENERAL: Slightly uncomfortable, underweight, pleasant, slightly hard of hearing, looks young for stated age, no respiratory distress SKIN: Pallor, warm HEENT: pale palpebral conjunctivae, no ptosis, moist buccal mucosa NECK : Supple, no tenderness CHEST : CTA, no tenderness HEART : Bradycardic, no obvious murmurs ABDOMEN: Soft, nontender EXTREMITIES : No LE swelling/tenderness, no other conspicuous deformities noted NEUROLOGIC : Coherent, no facial asymmetry, slightly hard of hearing, no other gross focality Results & Data Results & Data Vital Signs (Past 12 Hours) Vital Signs Temp Pulse Pulse Resp BP Pulse Ox O2 Del Method 09/29/23 15:10 36.8 C 91 H 18 123/65 94 Room Air 09/29/23 14:00 79 09/29/23 11:54 159/52 H 09/29/23 11:08 37 C 74 16 190/73 H 94 Room Air 09/29/23 09:32 187/69 H 09/29/23 08:00 Room Air 09/29/23 07:49 36.9 C 69 18 178/67 H 97 Room Air 09/29/23 04:15 37.0 C 70 18 171/68 H 94 Room Air
[2023-09-29] MEDS: POTASSIUM PHOSPHATE 15 MMOL in SODIUM CHLORIDE 0.9% 250 ML IV ONE (16:02)
--- NOTE | 2023-09-30 07:58 | History & Physical Bridge Note ---
Date of Service September 30, 2023 History & Physical Bridge Note I have examined the patient, reviewed the History & Physical and in the interval since the performance of the History & Physical I have noted the following changes of clinical significance: pt having syncope due to sinus arrest and pauses; she is recommended a pacemaker prior to hospital discharge. I spoke with the patient about the procedure and potential risks and she expressed an understanding and wished to proceed. consents signed.
--- NOTE | 2023-09-30 07:59 | Pre Anesthesia Assessment ---
Date of Service September 30, 2023 Pre Sedation Assessment Vital Signs Temp Pulse Pulse Resp BP Pulse Ox O2 Del Method 09/30/23 07:39 36.8 C 83 20 160/66 H 95 Room Air 09/30/23 07:37 36.7 C 88 18 148/66 H 96 Room Air 09/30/23 02:59 36.9 C 114 H 18 170/74 H 95 Room Air 09/29/23 22:52 37.2 C 105 H 18 145/76 H 94 Room Air 09/29/23 22:48 88 09/29/23 19:45 36.9 C 85 18 159/75 H 92 Room Air 09/29/23 15:10 36.8 C 91 H 18 123/65 94 Room Air 09/29/23 14:00 79 09/29/23 11:54 159/52 H 09/29/23 11:08 37 C 74 16 190/73 H 94 Room Air 09/29/23 09:32 187/69 H 09/29/23 08:00 Room Air Cardiovascular RRR, no murmur, no edema Respiratory normal respiratory effort, lungs clear to auscultation Pre-Sedation Airway Assessment Smoking Status: Never smoker Hx Sleep Apnea: No Short, Thick Neck: No Thyromental Distance: > or= 3.5 Finger Breadths Oral Cavity: + WNL Mallampati Class: III ASA: ASA3 NPO Status Date of Last Intake of Fluids: 09/29/23 Time of Last Intake of Fluids: 22:00 Date of Last Intake of Solid Food: 09/29/23 Time of Last Intake of Solid Foods: 18:00 Procedure Planning Contraindications for Sedation: none Current Medications Reviewed: Yes Notes The planned sedation has been discussed with the patient. Informed Consent was obtained. I have identified the patient, determined the appropriateness of sedation and have assessed the patient immediately prior to the procedure. All medicine(s) and interventions are by my order.
[2023-09-30] MEDS: VANCOMYCIN HCL 1000MG/20ML VIAL ONE (08:30)
[2023-09-30] MEDS: BUPIVACAINE 0.25% PF 30 ML VIAL ONE (08:30)
[2023-09-30] MEDS: LIDOCAINE 1% LOCAL 20 ML VIAL ONE (08:30)
[2023-09-30] MEDS: WATER, STERILE FOR INJ 10 ML VIAL ONE (08:31)
[2023-09-30] MEDS: ceFAZolin 330 MG/ML 1 GM VIAL ONE (08:31)
--- NOTE | 2023-09-30 09:22 | Post Anesthesia Assessment ---
Date of Service September 30, 2023 Post Sedation Assessment Vital Signs Temp Pulse Pulse Resp BP Pulse Ox O2 Del Method 09/30/23 07:39 36.8 C 83 20 160/66 H 95 Room Air 09/30/23 07:37 36.7 C 88 18 148/66 H 96 Room Air 09/30/23 02:59 36.9 C 114 H 18 170/74 H 95 Room Air 09/29/23 22:52 37.2 C 105 H 18 145/76 H 94 Room Air 09/29/23 22:48 88 09/29/23 19:45 36.9 C 85 18 159/75 H 92 Room Air 09/29/23 15:10 36.8 C 91 H 18 123/65 94 Room Air 09/29/23 14:00 79 09/29/23 11:54 159/52 H 09/29/23 11:08 37 C 74 16 190/73 H 94 Room Air 09/29/23 09:32 187/69 H Recovery Score Activity: Moves 4 extremities Respiration: Deep Breath/Cough Circulation: +/-20% PreAnes Value Consciousness: Fully Awake Oxygen Saturation: > 92% On Room Air Discharge Sedation Level of Care: Fast Track Phase II Post Sedation Plan On clinical assessment, the patient appears to have tolerated the sedation without complications. Patient is recovering as anticipated. Patient will continue to be monitored by nursing and may be discharged when sedation discharge criteria are met per below protocol. Upon Completions of procedure up to 15 minutes continue every 5 minute vital signs and the P.A.R. score; then discharge to a Phase I or Fast Track to Phase II per the following guidelines: * Discharge Patient to appropriate Phase II area if PAR is 8 or greater or return to pre- procedure baseline. The post - procedure orders will be as directed. * If PAR score is less than 8 or not return to pre-procedure baseline then patient will follow Phase I monitoring till PAR is reached for Phase II. The Phase I may be done in procedure room or may call to secure a Phase I area. * If naloxone or flumazenil are used for reversal, hold in Phase I for con tinued monitoring from when last reversal dose was given for a minimum of 60 minutes or longer pending the nurse and/or physician discretion of patient condition before discharge to Phase II. Please call the Sedation Physician to re-evaluate and complete post-note for discharge to Phase II area. Do NOT discharge from procedure sedation or Phase 1 until post- sedation evaluation note is complete by procedure /sedation MD Sedation Discharge Instructions to be given to the patient at discharge to home.
--- NOTE | 2023-09-30 09:27 | Operative Report ---
Post Operative Report DATE OF PROCEDURE: 09/30/2023. PREOPERATIVE DIAGNOSES: sinus arrest and syncope POSTOPERATIVE DIAGNOSIS: Same PROCEDURE: A dual-chamber rate responsive permanent pacemaker and intracardiac electrogram His bundle recordings, along with a peripheral venogram under fluoroscopic guidance. SURGEON: Lani Pierson DO ASSISTANTS: None. ANESTHESIA: Monitored conscious sedation administered under my supervision by Vin Valentino. Start time 08:14, end time 09:16, a total of 4 mg of Versed and 100 mcg of fentanyl. INTRAVENOUS FLUIDS: 50 mL. CONTRAST: 12 mL. ANTIBIOTICS: 1 grams of Ancef. ADDITIONAL MEDICATIONS: none BLOOD LOSS: 50 mL. URINE OUTPUT: Not applicable. SPECIMENS: None. FINDINGS: See below. DRAINS: None. COMPLICATIONS: None. CONDITION: Stable. INDICATIONS: This is a 88-year-old gentleman who has a past medical history HTN. Pt was admitted with syncope found to have sinus arrest and pauses and she was recommended prior to hospital discharge. CONSENT: Consent was obtained prior to the patient going into the electrophysiology lab. The patient was informed of the risks, benefits, and alternatives to the procedure. Risks include, but not limited to, sudden cardiac , cardiac arrhythmias, cerebrovascular accident, myocardial infarction, injury to his blood vessels, chamber of the heart and lung, bleeding and infection. The patient understood these risks and agreed to the procedure as planned. Informed consent was obtained. DESCRIPTION OF PROCEDURE: The patient was brought into electrophysiology lab in a fasting state. She was connected to continuous cardiac monitoring. A timeout was performed to ensure the patient's identity and procedure correctly. She was prepped and draped in the left infraclavicular space in normal surgical standard fashion. Monitored conscious sedation was given throughout the procedure for the patient's comfort level. [place] precautions were maintained throughout the procedure. Prophylactic antibiotics were given prior to incision. A 20 mL of 1% lidocaine and bupivacaine mixture were given in the left del topectoral groove. An incision was made in the left deltopectoral groove. Blunt dissection was performed down to the pectoralis muscle. Then, using blunt dissection over the pectoralis muscle within the pectoral fascia, a pacemaker pocket was created. Then, a peripheral venogram was performed to identify the axillary vein. Venous axillary access was obtained through a needlestick without any problems using a micropuncture needle. A guidewire was inserted without any resistance. A 6-Nigerien sheath was inserted over the guidewire without any resistance. Dilator was removed and a second guidewire was inserted through the sheath to allow for retained venous access. Then a 9 Nigerien sheath was inserted over one of the guidewires. The guidewire and dilator were removed. Then, the [employer]ician 3D medium sheath was inserted through the 9-Nigerien sheath over a Glidewire into the right ventricle. The Glidewire and dilator were removed. Then, the left bundle lead was advanced through the sheath and intracardiac electrogram His bundle recordings were performed when the camera was in ADVIS 10. Once I found where the His bundle is, see below for results, I then moved the camera to DAVIS 30 and marked where the His bundle was on my fluoroscopy screen. I came down about 2 cm from this in a line that would extend out to the apex and then started coming on pacing. Once I found an area where I had a nice W formed pace complex in my lead V1, I then moved the camera to GREEK 30. Then the helix was extended into the septum. Then the helix locking tool was placed. Then the lead was screwed further into the septum while pacing by giving slow clockwise turns. The paced complex changed to a nice R' in V1 and the pacing stim to peak QRS in V6 was good. Of note I did reposition it one time for I felt it was initially too high up on the septum. I then gave contrast through the sheath to see how far the lead was into the septum and then I slit the [employer] Bench [employer]ician 3D medium sheath under fluoroscopic guidance and left the 9-Nigerien sheath in while I positioned the right atrial lead. A 6-Nigerien sheath was inserted over the retained guidewire, the guidewire and dilator removed. The right atrial lead was then advanced into right atrium and positioned into right atrial appendage under fluoroscopic guidance. There was adequate pacing and sensing thresholds and no diaphragmatic stimulation with high output pacing. The 6-Nigerien sheath was peeled away and the lead was fixated to the pectoralis muscle using 0 silk suture. The 9-Nigerien sheath around the left bundle lead was peeled away and the lead was fixated to pectoralis muscle using 0 silk suture. The pocket was flushed with copious amounts of vancomycin and saline wash and inspected for hemostasis. The leads were then attached to the pulse generator making sure the pins were in appropriate position, passed set screws, and set screws were all tightened. Pulse generator was then placed in the pocket, making sure the leads were lying flat beneath the device. The incision was closed in a 3-layer fashion using 2-0 Vicryl interrupted suture, followed by 3-0 Vicryl interrupted suture, followed by 4-0 Monocryl running stitch. Then a primaseal dressing was placed EQUIPMENT: 1. Pulse generator is a [employer] MRI Model Number [id number] SN: [id number]. 2. Right atrial lead, Toth SJM Tendril STS [id number] SN: [id number] 3. Left bundle lead, Toth SJM Tendril STS [id number] SN: [id number] INTRAPROCEDURAL FINDINGS: 1. Intracardiac electrogram His bundle recordings, AH is 100 milliseconds, HV is 35 milliseconds. 2. Right atrial lead, P waves 2.6 millivolts, impedance 633 ohms, threshold 1.5 volts at 0.4 milliseconds. 3. Left bundle lead, R waves 10.1 millivolts, impedance 678 ohms, threshold 1 volts at 0.4 milliseconds. FINAL MEASUREMENTS THROUGH THE DEVICE: 1. Right atrial lead, P waves 2 millivolts, impedance 750 ohms, threshold 0.5 volt at 0.4 milliseconds. 2. Left bundle lead, R waves >12 millivolts, impedance 660 ohms, threshold 1.0 volts at 0.4 milliseconds. FINAL PARAMETERS: DDD 60/120, right atrial amplitude 3.5 volts, pulse width 0.4 milliseconds, sensitivity 0.5 millivolts. Left bundle lead amplitude 3.5 volts, pulse width 0.4 milliseconds, sensitivity 2 millivolts. IMPRESSION: Successful dual chamber rate responsive permanent pacemaker under fluoroscopic guidance along with peripheral venogram and intracardiac electrogram His bundle recordings, all under fluoroscopic guidance secondary to sinus arrest and syncope PLAN: Monitor the patient post-procedure. A 12-lead ECG, chest x-ray. She is not to lift the left elbow or left shoulder for 1 month. She cannot lift more than 10 pounds with the left arm for 2 weeks. She is to keep the dressing on and dry until her wound check next week.
[2023-09-30] MEDS: fentaNYL citrate PF 100 MCG/2 ML VIAL ONE (10:14)
[2023-09-30] MEDS: MIDAZOLAM HCL 5 MG/ML 1 ML VIAL ONE (10:15)
[2023-09-30] MEDS: ACETAMINOPHEN 325 MG TAB PO PRN (11:02)
--- NOTE | 2023-09-30 12:02 | XRay Report ---
XR chest 1V portable CLINICAL HISTORY: s/p ppm, ensure no ptx TECHNIQUE: Single frontal radiograph of the chest was obtained. Comparison: Comparison is made to chest radiograph 09/26/2023 FINDINGS: An implanted pacemaker is seen. Calcified aortic knob is seen. The lungs are clear. No evidence of pl eural effusion or pneumothorax. IMPRESSION: No acute abnormality and in particular no evidence of pneumothorax. ACT 112: Negative or not required by law. Electronically signed by: Win Aviles M.D. 09/30/2023 12:00 PM
[2023-09-30 13:01] LABS: Hematocrit (blood only) 37.5 % (37.0-47.0); Hemoglobin 12.4 g/dl (12.0-16.0); Mean Corpuscular Hgb Conc 33.1 g/dL (32.0-36.0); Mean Corpuscular Volume 87.6 fL (80.0-100.0); Mean Platelet Volume 10.3 fL (9.4-12.4); Platelet Count 249 K/uL (130-400); RDW Standard Deviation 44.9 fL (36.4-46.3); Red Blood Count 4.28 M/uL (4.20-5.40); White Blood Count 11.58 K/ul (4.8-10.8)
--- NOTE | 2023-09-30 13:09 | Cardiology Progress Note ---
Date of Service September 30, 2023 Assessment & Plan (1) Symptomatic bradycardia: (2) Nausea: (3) Weakness: (4) Elevated troponin: (5) Sinus pause: Plan 09/27/23 Patient admitted for weakness, nausea, hypertensive emergency. During admission had several episodes of transient sinus bradycardia and sinus pauses lasting 7-8 seconds. She takes metoprolol succinate 50 mg BID at home. Last dose last evening. Currently on hold. She denies recent symptoms to suggest symptomatic bradycardia at home. Difficult to determine if these episodes were related to nausea, possible vasovagal reaction OR was the bradycardia contributing to her symptoms. Recommend ongoing equipment monitor phototypesetting. These episodes may have also occurred during sleep at 2:30 and 6:30 AM. Nocturnal oximetry requested. Hold Metoprolol Atropine at bedside. Could place pacer pads if needed. No need for urgent temporary pacemaker. May need future PPM, but will await HR response as metoprolol wears out of her system Minimally elevated troponin likely due to hypertension on admission. BP improved. Echo pending. She has had no anginal complaints. HS troponin Not indicative of ACS. No ischemic EKG changes. Continue ASA, statin, losartan. Metoprolol remains on hold. If additional antihypertensive therapy needed, would add amlodipine. 09/28/23 Patient with recurrent sinus pauses, symptomatic bradycardia despite holding BB therapy over the last 24 hours. No syncope. Will need PPM. NPO Friday for possible device. In the meantime, options for external pacemaker pads, temporary pacemaker or dopamine if needed. Given frailty and only transient bradycardia, will try to avoid urgent temporary pacemaker. Transfer to ICU and give dopamine if needed in the meantime. Echo with normal LVEF at 60-65% 09/29/2023 No acute complaints but still intermittent bradycardia. Arrangements for permanent pacemaker placed for Friday 8 AM N.p.o. after midnight Blood pressure elevated due to withdrawal of beta-kwame Will add amlodipine 5 mg p.o. to regimen No indications for dopamine 09/30/2023 1. Symptomatic bradycardia now status post dual-chamber pacemaker insertion: Will resume beta-kwame with metoprolol succinate 25 mg twice per day. Will increase activities in hospital recheck pacemaker in a.m. 2. Hypertension: Continue losartan, amlodipine This chart was completed in part utilizing Speech Voice Recognition Software. Grammatical errors, random word insertions, pronoun errors, and incomplete sentences are an occasional consequence of this system due to software limitations, ambient noise, and hardware issues. Any formal questions or concerns about the content, text, or information contained within the body of this dictation should be directly addressed to the provider for clarification. Admission and Anticipated Discharge Date Admission Date: September 27, 2023 Subjective Patient seen and examined post pacemaker insertion Tolerated procedure well No cardiac complaints No tachyarrhythmias Review of Systems Review of Systems: All systems reviewed & are unremarkable except as noted in Subjective Physical Exam Constitutional: WD/WN, vitals as above + thin; no acute distress Eyes: PERRL, conjunctivae normal, anicteric sclerae Neck: normal visual inspection Respiratory: normal respiratory effort, lungs clear to auscultation Cardiovascular: Rate/Rhythm: regular rate and regular rhythm Heart Sounds: no murmur Vessels: no JVD Extremities: no edema Chest (Breasts): Chest: + pacemaker (Incision bandaged) Gastrointestinal (Abdomen): normal bowel sounds, soft, nontender, no hepatosplenomegaly Skin: no rashes, warm and dry Neurologic: PERRL, EOMI, accommodation nl, no face palsy, no dysarthria Psychiatric: A+Ox3, euthymic affect Results & Data Vital Signs (Past 12 Hours) Vital Signs Temp Pulse Pulse Resp BP Pulse Ox O2 Del Method 09/30/23 12:23 85 09/30/23 11:37 36.4 C L 84 18 133/68 95 Room Air 09/30/23 10:13 36.6 C 83 16 120/64 97 Room Air 09/30/23 09:45 64 18 129/66 95 Room Air 09/30/23 09:30 61 18 137/70 95 Room Air 09/30/23 07:39 36.8 C 83 20 160/66 H 95 Room Air 09/30/23 07:37 36.7 C 88 18 148/66 H 96 Room Air 09/30/23 02:59 36.9 C 114 H 18 170/74 H 95 Room Air Laboratory Results Laboratory Results - last 24 hr 09/30/23 12:22 WBC 11.58 H RBC 4.28 Hgb 12.4 Hct 37.5 MCV 87.6 MCH 29.0 MCHC 33.1 RDW Std Deviation 44.9 RDW Coeff of Vin 14.0 Plt Count 249 MPV 10.3 Sodium Pending Potassium Pending Chloride Pending Carbon Dioxide Pending Anion Gap Pending BUN Pending Creatinine Pending Est Cr Clr Drug Dosing Pending Est GFR ( Amer) Pending Est GFR (Non-Af Amer) Pending BUN/Creatinine Ratio Pending Glucose Pending Calcium Pending Phosphorus Pending Magnesium Pending
[2023-09-30 13:13] LABS: BUN Creatinine Ratio 22.6 (10-20); Calcium 8.6 mg/dl (8.6-10.3); Creatinine Clr Calc Pharmacy 46.4 ml/min; Est GFR (African American) 92.7 ml/min; Est GFR (Non-African American) 79.9 ml/min; Phosphorus 3.1 mg/dl (2.5-4.9); Potassium 3.8 mmol/L (3.5-5.1)
--- NOTE | 2023-09-30 16:49 | Hospitalist Progress Note ---
Date of Service September 30, 2023 Assessment & Plan (1) Symptomatic bradycardia: Plan 88-year-old lady with PMH of CAD, HTN, HLD, CVA, chronic hyponatremia, chronic anemia [baseline hemoglobin of 11], STEMI [March 2023] presented to the ED 09/25 after feeling sick after dinner associated with nausea and generalized weakness. Denied chest pain or headache symptoms. Had transient shortness of breath. Patient reports compliance with home medication. In the ED initial SBP was in 210s, also episodic sinus pauses was noted in the ED consistent with patient's feeling sick. she is being managed for the following: Symptomatic bradycardia: Patient came in with feeling sick, noted to be in episodic sinus pauses in the ED when feeling sick. Admitting EKG with sinus rhythm with first-degree AV block with PACs, rate 63. Admitting electrolytes about her baseline. Patient had heart rate of 28-35 and received atropine at 0853 hrs. on 09/27/2023 with improvement in heart rate to 80s. Patient reported feeling better after receiving atropine. Cardiology evaluated, status post pacemaker 09/29, beta-kwame resumed. Patient with no cardiac complaints, patient reports feeling better. Hypertensive crisis: SBP in 210s at presentation, likely secondary to discomfort. Beta-kwame resumed, continue with losartan. blood pressure fairly under control. Troponin elevation/likely demand ischemia: Troponin elevated ISO elevated blood pressure, patient with no chest pain, EKG with no acute ST or T changes. Continue telemetry monitoring. ECHO w/ ef of 60-65%, no pericardial effusion.LV nl in size. Other chronic medical conditions: Continue/resume home meds as and when able. hx CAD, CVA as per records Mild AR hyperlipidemia, on statin Rx Mild hyponatremia, chronic, about stable. chronic anemia, hemoglobin at baseline Hyperglycemia likely prediabetes, hemoglobin A1c of 08 March 2023 DVT prophylaxis. SCDs Re: Possible procedure DNR/DNI. Patient Mr. Arie Lux, contact #[phone]. Updated at bedside today. Dispo: Likely tomorrow with cardiology clearance. PT/OT. Text document was generated using [employer] voice recognition software. It may contain grammatical or spelling errors. Kindly contact undersigned for clarification of any documentation item in question. Admission and Anticipated Discharge Date Admission Date: September 27, 2023 Subjective Patient was seen and examined at bedside. Patient was lying in bed, on room air, NAD, very hard of hearing, not in any acute distress. Patient's Bill at bedside was also updated on plan of care. Patient had reports no cardiac symptoms. Patient denies any chest pain. Patient denies any cough or shortness of breath or febrile illness. Physical Exam Physical Exam: GENERAL: Slightly uncomfortable, underweight, pleasant, slightly hard of hearing, looks young for stated age, no respiratory distress SKIN: Pallor, warm HEENT: pale palpebral conjunctivae, no ptosis, moist buccal mucosa NECK : Supple, no tenderness CHEST : CTA, no tenderness HEART : Bradycardic, no obvious murmurs ABDOMEN: Soft, nontender EXTREMITIES : No LE swelling/tenderness, no other conspicuous deformities noted NEUROLOGIC : Coherent, no facial asymmetry, slightly hard of hearing, no other gross focality Results & Data Results & Data Vital Signs (Past 12 Hours) Vital Signs Temp Pulse Pulse Resp BP Pulse Ox O2 Del Method 09/30/23 15:43 36.7 C 104 H 20 117/62 95 Room Air 09/30/23 15:33 87 09/30/23 12:23 85 09/30/23 11:37 36.4 C L 84 18 133/68 95 Room Air 09/30/23 10:13 36.6 C 83 16 120/64 97 Room Air 09/30/23 09:45 64 18 129/66 95 Room Air 09/30/23 09:30 61 18 137/70 95 Room Air 09/30/23 07:39 36.8 C 83 20 160/66 H 95 Room Air 09/30/23 07:37 36.7 C 88 18 148/66 H 96 Room Air
[2023-09-30] MEDS: METOPROLOL SUCC 25MG EXT REL TAB PO SCH (20:16)
[2023-10-01 07:55] LABS: Hematocrit (blood only) 35.3 % (37.0-47.0); Hemoglobin 11.6 g/dl (12.0-16.0); Mean Corpuscular Hemoglobin 28.8 pg (25.0-34.0); Mean Corpuscular Hgb Conc 32.9 g/dL (32.0-36.0); Mean Corpuscular Volume 87.6 fL (80.0-100.0); Mean Platelet Volume 10.1 fL (9.4-12.4); Platelet Count 222 K/uL (130-400); RDW Coefficient of Variation 13.9 % (11.5-14.5); RDW Standard Deviation 44.9 fL (36.4-46.3); Red Blood Count 4.03 M/uL (4.20-5.40); White Blood Count 8.66 K/ul (4.8-10.8)
[2023-10-01 08:31] LABS: BUN Creatinine Ratio 27.7 (10-20); Calcium 8.6 mg/dl (8.6-10.3); Creatinine Clr Calc Pharmacy 61.5 ml/min; Est GFR (African American) 101.5 ml/min; Est GFR (Non-African American) 87.6 ml/min; Potassium 3.8 mmol/L (3.5-5.1)
--- NOTE | 2023-10-01 11:07 | Cardiology Progress Note ---
Date of Service October 01, 2023 Assessment & Plan (1) Symptomatic bradycardia: (2) Nausea: (3) Weakness: (4) Elevated troponin: (5) Sinus pause: Plan 09/27/23 Patient admitted for weakness, nausea, hypertensive emergency. During admission had several episodes of transient sinus bradycardia and sinus pauses lasting 7-8 seconds. She takes metoprolol succinate 50 mg BID at home. Last dose last evening. Currently on hold. She denies recent symptoms to suggest symptomatic bradycardia at home. Difficult to determine if these episodes were related to nausea, possible vasovagal reaction OR was the bradycardia contributing to her symptoms. Recommend ongoing clinical research monitor. These episodes may have also occurred during sleep at 2:30 and 6:30 AM. Nocturnal oximetry requested. Hold Metoprolol Atropine at bedside. Could place pacer pads if needed. No need for urgent temporary pacemaker. May need future PPM, but will await HR response as metoprolol wears out of her system Minimally elevated troponin likely due to hypertension on admission. BP improved. Echo pending. She has had no anginal complaints. HS troponin Not indicative of ACS. No ischemic EKG changes. Continue ASA, statin, losartan. Metoprolol remains on hold. If additional antihypertensive therapy needed, would add amlodipine. 09/28/23 Patient with recurrent sinus pauses, symptomatic bradycardia despite holding BB therapy over the last 24 hours. No syncope. Will need PPM. NPO Friday for possible device. In the meantime, options for external pacemaker pads, temporary pacemaker or dopamine if needed. Given frailty and only transient bradycardia, will try to avoid urgent temporary pacemaker. Transfer to ICU and give dopamine if needed in the meantime. Echo with normal LVEF at 60-65% 09/29/2023 No acute complaints but still intermittent bradycardia. Arrangements for permanent pacemaker placed for Friday 8 AM N.p.o. after midnight Blood pressure elevated due to withdrawal of beta-kwame Will add amlodipine 5 mg p.o. to regimen No indications for dopamine 09/30/2023 1. Symptomatic bradycardia now status post dual-chamber pacemaker insertion: Will resume beta-kwame with metoprolol succinate 25 mg twice per day. Will increase activities in hospital recheck pacemaker in a.m. 2. Hypertension: Continue losartan, amlodipine 10/01/2023 Clinically stable tolerated pacemaker well Adjustments in meds as noted with resuming beta-kwame with metoprolol succinate 25 twice per day, losartan 50 mg/day. Would add amlodipine 2.5 mg daily for additional hypertension control Follow-up device clinic 1 to 2 weeks cardiology 3 to 4 weeks This chart was completed in part utilizing Speech Voice Recognition Software. Grammatical errors, random word insertions, pronoun errors, and incomplete sentences are an occasional consequence of this system due to software limitat ions, ambient noise, and hardware issues. Any formal questions or concerns about the content, text, or information contained within the body of this dictation should be directly addressed to the provider for clarification. Admission and Anticipated Discharge Date Admission Date: September 27, 2023 Subjective Patient seen and examined, chart, medications, telemetry reviewed Tolerated pacemaker well Normal device function Blood pressure still trending higher at times but otherwise feeling well Anxious to be discharged Review of Systems Review of Systems: All systems reviewed & are unremarkable except as noted in Subjective Physical Exam Constitutional: WD/WN, vitals as above + thin; no acute distress Eyes: PERRL, conjunctivae normal, anicteric sclerae Neck: normal visual inspection Respiratory: normal respiratory effort, lungs clear to auscultation Cardiovascular: Rate/Rhythm: regular rate and regular rhythm Heart Sounds: no murmur Vessels: no JVD Extremities: no edema Chest (Breasts): Chest: + pacemaker (Incision bandaged) Gastrointestinal (Abdomen): normal bowel sounds, soft, nontender, no hepatosplenomegaly Skin: no rashes, warm and dry Neurologic: PERRL, EOMI, accommodation nl, no face palsy, no dysarthria Psychiatric: A+Ox3, euthymic affect Results & Data Vital Signs (Past 12 Hours) Vital Signs Temp Pulse Pulse Resp BP Pulse Ox O2 Del Method 10/01/23 08:08 36.9 C 81 19 171/70 H 94 Room Air 10/01/23 03:15 36.7 C 77 18 120/66 95 Room Air 10/01/23 00:00 75
--- NOTE | 2023-10-01 12:45 | Discharge Summary ---
Date of Service October 01, 2023 Admission HPI Per Admitting Provider History obtained from patient, family, and records. Medical history significant for CAD, hypertension, hyperlipidemia, mild AR, CVA, chronic hyponatremia, chronic anemia (baseline hemoglobin of 11). Last confinement March 2023 for STEMI. Moderate to borderline severe proximal LAD lesion. Medical management recommended for CAD. Patient felt sick last night after getting home from dining at a local restaurant. Nausea and generalized weakness. No chest pain, no headache symptoms. Transient SOB. Compliant with medications. Patient brought to ER for evaluation. Initial SBP 210s. Episodic sinus pauses at the ER with patient feeling sick again as per ED provider. Medical History as above Surgical History : Cataract surgery, hysterectomy Family History : Pancreatic cancer, non-Hodgkin's lymphoma, heart disease Personal/Social history : Non-smoker, no EtOH intake, retired [employer] Admission Exam Per Admitting Provider GENERAL: Slightly uncomfortable, underweight, pleasant, slightly hard of hearing, looks young for stated age, no respiratory distress SKIN: Pallor, warm HEENT: pale palpebral conjunctivae, no ptosis, dry buccal mucosa NECK : Supple, no tenderness CHEST : CTA, no tenderness HEART : Bradycardic, no obvious murmurs ABDOMEN: Soft, nontender EXTREMITIES : No LE swelling/tenderness, no other conspicuous deformities noted NEUROLOGIC : Coherent, no facial asymmetry, slightly hard of hearing, no other gross focality Principal Diagnosis Symptomatic bradycardia Status post pacemaker placement Hypertension Discharge Exam Constitutional + well hydrated; no acute distress Thin elderly woman Eyes PERRL, conjunctivae normal, anicteric sclerae ENMT external ear and nose normal, oropharynx normal Respiratory normal respiratory effort, lungs clear to auscultation Cardiovascular Rate/Rhythm: regular rate and regular rhythm Chest (Breasts) Additional Comments: Clean dressing over left anterior chest Gastrointestinal (Abdomen) normal bowel sounds, soft, nontender, no hepatosplenomegaly Musculoskeletal no cyanosis or clubbing, extremities motor strength 5/5 Neurologic PERRL, EOMI, accommodation nl, no face palsy, no dysarthria Psychiatric A+Ox3, euthymic affect Discharge Data Allergies Allergy/AdvReac Type Severity Reaction Status Date / Time Bactrim Allergy Unknown SHORTNESS Verified 05/24/13 12:17 OF BREATH, rash Sulfa (Sulfonamide Allergy Unknown SHORTNESS Verified 07/23/22 18:07 Antibiotics) OF BREATH, RASH sulfamethoxazole Allergy Unknown SHORTNESS Verified 07/23/22 18:07 OF BREATH, rash trimethoprim Allergy Unknown SHORTNESS Verified 07/23/22 18:07 OF BREATH, rash Consultations 09/27/23 04:54 ED Decision to Admit Stat 09/27/23 07:39 Consult Cardiology Routine Procedures Performed Operation Date: 09/30/23 08:00 Actual Procedures p Pacer with A/V Leads (Dual) - Lani Pierson DO s Venogram, Unilateral - Lani Pierson DO Ordered Studies 09/26/23 23:55 CT head/brain wo con Stat 09/27/23 03:15 CT abd pelvis IV con only Stat 09/30/23 08:15 EP Lab Images for PACS ONCE Hospital Course (1) Symptomatic bradycardia: Plan 88-year-old lady with PMH of CAD, HTN, HLD, CVA, chronic hyponatremia, chronic anemia [baseline hemoglobin of 11], STEMI [March 2023] presented to the ED 09/25 after feeling sick after dinner associated with nausea and generalized weakness. Denied chest pain or headache symptoms. Had transient shortness of breath. Patient reports compliance with home medication. In the ED initial SBP was in 210s, also episodic sinus pauses was noted in the ED consistent with patient's feeling sick. she was managed for the following: Symptomatic bradycardia: Patient came in with feeling sick, noted to be in episodic sinus pauses in the ED when feeling sick. Admitting EKG with sinus rhythm with first-degree AV block with PACs, rate 63. Admitting electrolytes about her baseline. Patient had heart rate of 28-35 and received atropine at 0853 hrs. on 09/27/2023 with improvement in heart rate to 80s. Patient reported feeling better after receiving atropine. Cardiology evaluated and pacemaker placement on 09/29 Metoprolol resumed afterwards at half home dose. Hypertensive crisis: SBP in 210s at presentation Discussed with Book Solicitor Dr Zaman today Recommends discharging on increased Losartan 50mg daily, add amlodipine 2.5mg daily, reduced metoprolol succinate 25mg BID and for patient to follow up Cardiology/Pacer clinic in 1-2 weeks Troponin elevation/likely demand ischemia: Troponin elevated due to elevated blood pressure, patient with no chest pain, EKG with no acute ST or T changes. ECHO w/ ef of 60-65%, no pericardial effusion.LV nl in size. Other chronic medical conditions: Continue/resume home meds as and when able. hx CAD, CVA as per records Mild AR hyperlipidemia, on statin Rx Mild hyponatremia, chronic, about stable. chronic anemia, hemoglobin at baseline Hyperglycemia likely prediabetes, hemoglobin A1c of 08 March 2023 Total Time Total Time Spent Total Time Spent (In Minutes): 35 Total Time Includes: Examination of the Patient, Discharge Planning, Medication Reconciliation and Communication With Other Providers Discharge Plan Discharge Items Patient Disposition: Home - Self-Care Reason For Visit: SYMPTOMATIC BRADYCARDIA Discharge Diagnosis: Symptomatic bradycardia Status post pacemaker placement Hypertension Activity: As commented below Activity Comment: do not raise the left elbow over the left shoulder for 1 month Lifting: No more than 10 pounds Lifting Comment: do not lift more than 10 pounds with the left arm for 2 weeks Bathing: Keep incision dry Bathing Comment: keep dressing on & dry until wound check Non-emergency contact: Primary Care Provider and Book Solicitor Call non-emergency contact if: you have any medication questions Follow-up/Referrals: Lorraine Ozuna DO [Primary Care Provider] - Diet: Heart Healthy and Low Sodium (2gm) Addtl Attending Provider Instructions: Mrs Lux You were managed for the above listed diagnoses. You had a pacemaker placed. Your losartan was increased to 50mg daily Your metoprolol succinate was reduced to 25mg twice a day You were started on amlodipine 2.5mg daily Please ensure follow up with your Primary Doctor and Cardiology. It was a pleasure taking care of you Addtl Wax Bleacher Provider Instructions: Device and wound check at [facility] next week Pending Studies at Discharge: No Stand-Alone Forms: My [facility] Omnikles, Smoking Cessation Medications and DC Order Prescriptions: New losartan 50 mg Tablet 50 mg PO QAM 30 Days Qty: 30 0RF amlodipine 2.5 mg tablet 2.5 mg PO DAILY Qty: 30 0RF Continued aspirin 81 mg Tablet,Delayed Release (Dr/Ec) 81 mg PO DAILY Osteo Bi-Flex Triple Strength 750 mg-644 mg- 30 mg-1 mg Tablet 1 tab PO BID ferrous sulfate 27 mg iron Tablet 27 mg PO DAILY atorvastatin 40 mg Tablet 40 mg PO HS Qty: 30 1RF nitroglycerin [Nitrostat] 0.4 mg Tablet, Sublingual 0.4 mg sublingual Q5M PRN (Reason: chest pain) Qty: 30 2RF Rx Instructions: Max of 3 doses in 15 mins, notify provider benzonatate 100 mg Capsule 100 mg PO TID PRN (Reason: cough) Qty: 30 0RF Changed metoprolol succinate 50 mg Tablet Extended Release 24 Hr 25 mg PO BID 30 Days Qty: 30 1RF Discontinued losartan 25 mg Tablet 25 mg PO QAM Qty: 30 1RF Discharge Orders: Discharge Order (Routine); Ordered 10/01/23 Ordered By: Latoya Yeung Admission Data Admit Date/Time: 09/27/23 05:56 Attending Provider: Latoya Yeung I. Admit Provider: Denis Mosquera Primary Care Provider: Lorraine Ozuna Other Providers: Denis Mosquera; Alysa Sloan; Guilherme Oliveira; Rad Zaman; Benoit Ozuna; Rob Alonzo; Carlos Fan Rebecca K; Lani Pierson; Marlon Yin Ashley M.; Terry Pritchett; Patrick Santiago; Suzanne Randhawa; Marci Thomas; Luz Marina Pearson; Halle Perry; Jw Roberson; Ester Jonas; Anjelica Mckeon Other Interventions: Discharge Summary Assessment (RN) Last Done: 10/01/23 13:55
--- NOTE | 2023-10-02 06:18 | Electrocardiogram Report ---
Test Reason : Blood Pressure : / mmHG Vent. Rate : 089 BPM Atrial Rate : 089 BPM P-R Int : 164 ms QRS Dur : 084 ms QT Int : 374 ms P-R-T Axes : 087 019 052 degrees QTc Int : 455 ms Normal sinus rhythm Possible Left atrial enlargement Borderline ECG When compared with ECG of 27-SEP-2023 02:33, Premature atrial complexes are no longer Present DE interval has decreased Confirmed by Serafin Wells ([id number]) on 10/02/2023 6:18:22 AM Referred By: REFERRED SELF Confirmed By:Serafin Wells
== END 2023-10-01 15:24 | disposition home or self-care (01) | DRG 243 ==
LOC: ED 23:20 → SUATTDRO 09-27 05:56 → EDINP 09-27 05:56 → 2S 09-27 07:41